=== PATIENT | female | born 1980 | race Caucasian/White ===

== ENCOUNTER 2018-08-16 18:08 | Inpatient (IN) ==
[2018-08-16] MEDS ORDERED: Piperacillin/Tazobactam 3.375 GM in 0.9 % Sodium Chloride Mini Bag 100 ML IVP ONE (18:40)
[2018-08-16] MEDS ORDERED: 0.9 % Sodium Chloride 1,000 ML IVC ONE (18:40)
--- NOTE | 2018-08-16 18:45 | Emergency Department Note ---
Disposition Clinical Impression: Diabetic infection of left foot Disposition: Admitted As Inpatient Condition: Good Forms: ED Satisfaction Letter Time of Disposition: 21:56 General Adult HPI - General Chief complaint: ED Wound/Laceration Stated complaint: Diabetic ulcer left foot Time Seen by Provider: 08/16/18 18:31 Source: patient Limitations: no limitations - History of Present Illness HPI Narrative: This is a 38-year-old female diabetic who comes in reporting 7 days of worsening pain and swelling at her left ankle, with a long standing ulcer at the left heel. She also has an ulcer at the distal plantar surface of the right great toe. She reports fever and chills. Pain Scale: 10 - Related Data Previous Rx's Medication Instructions Recorded Metformin HCl 500 mg PO DAILY #30 tablet 06/23/18 Allergies Allergy/AdvReac Type Severity Reaction Status Date / Time No Known Allergies Allergy Verified 08/16/18 18:17 All systems ED: reviewed and negative except as stated. Constitutional: Reports: fever, chills Musculoskeletal: Reports: arthralgia Integumentary: Reports: lesions Past Medical History - Past Medical History Medical history: Reports: diabetes, hypertension Psychiatric history: Reports: no psych history - Social History Smoking Status: Never smoker Smokeless Tobacco Status: No Alcohol use: Reports: none Drug use: Reports: none Physical Exam - General Limitations: no limitations General appearance: alert, in distress (In moderate distress with pain at the left ankle) - Head Head exam: atraumatic, normocephalic, normal inspection - Eye Eye exam: Present: normal appearance, PERRL, EOMI - Chest Chest inspection: Present: normal inspection, symmetric chest wall rise - Respiratory Respiratory exam: Present: normal lung sounds bilaterally - Cardiovascular Cardiovascular exam: Present: normal rhythm, tachycardia, normal heart sounds - Abdominal Exam Abdominal exam: Present: soft, Non-Tender. Absent: tenderness, distention, guarding, rebound, rigidity - Extremities Exam Extremities exam: Present: other (There is an ulcer at the distal aspect of the plantar surface of the right great toe with erythema extending 6 cm proximally up onto the foot. There is an ulcer at the left calcaneus, but most prominently there is an abscess overlying the medial aspect of the left ankle with the abscess measuring 5 cm x 3 cm.) - Neurological Exam Neurological exam: Present: alert, oriented X3 - Psychiatric Psychiatric exam: Present: normal affect, normal mood - Skin Skin exam: Present: warm, dry Course Course Narrative: This is a 38-year-old female with a diabetic foot infection and cellulitis and abscess and possible osteomyelitis Vital Signs Temperature 98.1 F 08/16/18 18:15 Pulse Rate 138 08/16/18 18:15 Respiratory Rate 16 08/16/18 18:15 Blood Pressure 186/104 08/16/18 18:15 O2 Sat by Pulse Oximetry 97 08/16/18 18:15 Temperature 98.1 F 08/16/18 18:15 Pulse Rate 138 08/16/18 18:15 Respiratory Rate 16 08/16/18 18:15 Blood Pressure 186/104 08/16/18 18:15 O2 Sat by Pulse Oximetry 97 08/16/18 18:15 Oxygen Delivery Oxygen Delivery Room Air Procedures - Abscess I/D Consent obtained: verbal consent Site: lower extremity Side (if applicable): left Local Anesthetic: lidocaine 2%, with epi Amount of Anesthesia Used (mL): 3 Technique: incised with #11 blade Amount of fluid: 0.5 Irrigation: No Packing used?: none Complications: pain Medical Decision Making - MDM Narrative Medical decision making narrative: This is a 38-year-old female with diabetic foot infection of the left foot, metabolic acidosis, slight hyperglycemia, and no evidence of osteomyelitis. Zosyn was given at the 4.5 mg dose appropriate for diabetic foot infection As noted, I attempted an incision and drainage of the abscess at the left ankle, but obtained no drainage whatsoever. I did obtained a wound culture from what limited fluid there was there and it was sent to the lab. I discussed her case with Dr. Naqvi, the on-call telephone interviewer, who will follow the patient. I discussed her case with the on-call hospitalist, who accepted her for admission - Lab Data Lab results reviewed: Yes I reviewed the patient's lab results. Lab results narrative: CBC shows leukocytosis at 14.8 BMP shows slight hyponatremia at 131, metabolic acidosis with a bicarbonate of 12, glucose of 345 Lactic acid was normal at 1.0 Result diagrams: 08/16/18 18:58 08/16/18 18:58 Lab Results 08/16/18 08/16/18 08/16/18 Range/Units 18:58 18:58 18:58 WBC 14.8 H (4.3-11.1) K/mcL RBC 4.73 (3.82-4.97) M/mcL Hgb 13.9 (11.5-15.4) g/dL Hct 41.1 (35.3-44.9) % MCV 86.9 (83.0-100.0) fL MCH 29.4 (28.0-33.3) pg MCHC 33.8 (31.6-35.5) g/dL RDW 12.6 (11.5-14.5) % Plt Count 364 (140-400) K/mcL MPV 10.8 (9.4-12.4) fL Immature Gran % 0.9 (0-4) % Seg Neutrophils % 85.7 % Lymphocytes % 4.5 % Monocytes % 8.3 % Eosinophils % 0.1 % Basophils % 0.5 % Neutrophils # 12.7 H (1.6-8.9) K/mcL Lymphocytes # 0.7 (0.6-4.6) K/mcL Monocytes # 1.2 (0.0-1.3) K/mcL Eosinophils # 0.0 (0.0-0.6) K/mcL Basophils # 0.1 (0.0-0.2) K/mcL Sodium 131 L (136-145) mEq/L Potassium 3.9 (3.5-5.1) mEq/L Chloride 99 (98-107) mEq/L Carbon Dioxide 12 L (23-29) mEq/L BUN 6 (6-20) mg/dL Creatinine 0.60 (0.60-1.20) mg/dL Est GFR ( Amer) > 60 (> 60) Est GFR (Non-Af Amer) > 60 (> 60) BUN/Creatinine Ratio 10 (6-26) Glucose 345 H (70-105) mg/dL Calculated Osmolality 283 (280-300) Lactic Acid 1.0 (0.5-2.2) mmol/L Calcium 9.6 (8.6-10.3) mg/dL - Radiology Data Radiology results reviewed: Yes I reviewed the patient's radiology results. MRI of the left ankle showed a complex fluid collection within the medial soft tissues of the ankle, no evidence of osteomyelitis Critical Care Time Critical Care Time: Yes Total Critical Care Time: 25 Attestation: 25 minutes of critical care time was invested independent of separately billable procedures
[2018-08-16 19:13] LABS: Basophils # 0.1 K/mcL (0.0-0.2); Basophils % 0.5 %; Eosinophils % 0.1 %; Hematocrit 41.1 % (35.3-44.9); Hemoglobin 13.9 g/dL (11.5-15.4); Immature Granulocytes % 0.9 % (0-4); Lymphocytes # 0.7 K/mcL (0.6-4.6); Lymphocytes % 4.5 %; Mean Corpuscular HGB Conc 33.8 g/dL (31.6-35.5); Mean Corpuscular Hemoglobin 29.4 pg (28.0-33.3); Mean Corpuscular Volume 86.9 fL (83.0-100.0); Mean Platelet Volume 10.8 fL (9.4-12.4); Monocytes # 1.2 K/mcL (0.0-1.3); Monocytes % 8.3 %; Neutrophils # 12.7 K/mcL (1.6-8.9); Platelet Count 364 K/mcL (140-400); Red Blood Count 4.73 M/mcL (3.82-4.97); Red Cell Distribution Width 12.6 % (11.5-14.5); Segmented Neutrophils % 85.7 %
[2018-08-16 19:33] LABS: BUN/Creatinine Ratio 10 (6-26); Blood Urea Nitrogen 6 mg/dL (6-20); Calcium 9.6 mg/dL (8.6-10.3); Carbon Dioxide 12 mEq/L (23-29); Chloride 99 mEq/L (98-107); Glucose 345 mg/dL (70-105); Osmolality,Calculated 283 (280-300); Potassium 3.9 mEq/L (3.5-5.1); Sodium 131 mEq/L (136-145); eGFR For Non-African Americans > 60 (> 60)
[2018-08-16] MEDS ORDERED: Lidocaine/EPI 1:100k 2% 20 ML VIAL INFILT ONE (20:05)
[2018-08-16] MEDS ORDERED: Insulin Human Regular 10 UNIT in 0.9 % Sodium Chloride 10 ML IV ONE (21:56)
[2018-08-16] MEDS ORDERED: D10% in Water 500 ML IV SOLUTION IVC ONE (21:57)
--- NOTE | 2018-08-16 22:27 | Internal Med History&Physical ---
Date of Encounter: 08/16/18 Time of Encounter: 08:00 Internal Medicine - H&P: HPI Chief complaint: FOOT ULCER History of present illness: This is a 38-year-old female with past medical history of diabetes mellitus that was not treated due to lack of insurance , patient just got Medicaid after she was from her , depend on foot stands nutrition and has not been treated for diabetes morning , she stated that she started developing an ulcer of her left foot early in the summer but she did not have the financial support or insurance to seek medical attention , she also was not treated for diabetes since her diagnosis and she was tryING control it with diet . She reported 7 days history of worsening pain and swelling at her left ankle, with a long standing ulcer at the left heel. She also has an ulcer at the distal plantar surface of the right great toe. She reports fever and chills. She was admitted for further evaluation and management Past Med Surg Social Fam HX - Past Medical History Medical history: diabetes, hypertension Psychiatric history: no psych history - Past Surgical History Additional surgical history: Laperoscopy - Social History Smoking Status: Never smoker Smokeless Tobacco Status: No Alcohol use: none Drug use: none Internal Medicine - H&P: Meds Ampicillin/Sulbactam [Unasyn] 3,000 mg IVPB Q6HR 21 Days #84 vial 08/28/18 [Rx] Metoclopramide [Reglan] 5 mg PO Q6HR PRN #100 mls 08/28/18 [Rx] Promethazine Syrup [Phenergan Syrup] 12.5 mg PO Q8HR PRN #300 mls 08/28/18 [Rx] RX: Carvedilol [Coreg] 50 mg PO BIDWM #60 tablet 08/28/18 [Rx] RX: Docusate [Colace] 100 mg PO BID PRN #30 capsule 08/28/18 [Rx] RX: Doxycycline 100 mg PO BID 21 Days #42 capsule 08/28/18 [Rx] RX: Escitalopram [Lexapro] 10 mg PO DAILY #30 tablet 08/28/18 [Rx] RX: Insulin NPH/REG 70/30 [HumuLIN 70/30 VIAL] 20 unit SQ BIDWM #6 vial 08/28/18 [Rx] RX: Lactobacillus [Culturelle] 2 each PO DAILY #60 cap.sprink 08/28/18 [Rx] RX: Omeprazole [PriLOSEC] 40 mg PO DAILY@0800 #60 capsule. 08/28/18 [Rx] RX: amLODIPine [Norvasc] 10 mg PO DAILY #60 tablet 08/28/18 [Rx] RX: hydrALAZINE [HydrALAZINE] 25 mg PO Q8HR #90 tablet 09/01/18 [Rx] 3 Allergy/AdvReac Type Severity Reaction Status Date / Time No Known Allergies Allergy Verified 08/16/18 18:17 All Systems PM: A 10-system review of systems was performed and is negative for pertinent findings except as documented above in the HPI. - Constitutional Constitutional: no chills, no fever(s), no night sweats - Cardiovascular Cardiovascular ROS IM: no chest pain, no diaphoresis, no dyspnea, no lightheadedness, no palpitations, no syncope - Respiratory Respiratory: no cough, no dyspnea, no wheezing, no excessive phlegm production - Gastrointestinal Gastrointestinal: no abdominal pain, no diarrhea, no hematemesis, no hematochezia, no melena, no nausea, no vomiting - Neurological Neurological ROS: no confusion, no convulsions, no focal weakness, no numbness, no tingling, no tremor(s) - Constitutional Vitals: Temp Pulse Resp BP Pulse Ox 98.1 F 138 16 186/104 97 08/16/18 18:15 08/16/18 18:15 08/16/18 18:15 08/16/18 18:15 08/16/18 18:15 Exam: Vital signs reviewed General: Alert and oriented, not in distress Cardiovascular:Normal S1 & S2 Lungs: clear to auscultation, no wheezes/rales Abdomen:Soft, non-tender, no rigidity. Extremities: R LE dressing dry and clean, L LE on VAC Neurological:Normal cognition and motor skills. Non-focal Internal Med - H&P Results - Labs CBC & Chem 7: 09/01/18 04:12 09/01/18 04:12 Labs: Short CBC 08/16/18 Range/Units 18:58 WBC 14.8 H (4.3-11.1) K/mcL Hgb 13.9 (11.5-15.4) g/dL Hct 41.1 (35.3-44.9) % Plt Count 364 (140-400) K/mcL Neutrophils # 12.7 H (1.6-8.9) K/mcL BMP 08/16/18 18:58 Sodium 131 L Potassium 3.9 Chloride 99 Carbon Dioxide 12 L BUN 6 Creatinine 0.60 Glucose 345 H Calcium 9.6 - Impressions ITS Impressions Ankle MRI 08/16/18 18:42 IMPRESSION: 1. Complex fluid collection centered within the medial soft tissues of the ankle measuring approximately 1.9 x 3.0 x 2.6 cm most compatible with abscess. There is also organized fluid which is deep to the medial bundle of the plantar fascia measuring approximately 2.2 x 3.3 x 1.1 cm. Findings also most compatible with abscess. There is ulceration of the plantar foot containing fluid which appears to involve the proximal attachment of the plantar fascia suggesting infectious involvement of the plantar fascia. These complex collections are likely all contiguous. 2. No evidence for osteomyelitis. 3. Tenosynovitis of the posterior tibialis and flexor digitorum longus tendons in and to a lesser extent the peroneus brevis tendon distally.. 4. Retrocalcaneal bursitis. 5. Small tibiotalar, subtalar, and talonavicular as well as calcaneocuboid joint effusions. D/ / Rodo Peng MD / Rodo Peng MD Interpreting Provider: Rodo Peng MD - Assessment and plan (1) Diabetic infection of left foot Status: Acute Assessment and plan: Podiatry consulted and they will see the patient this a.m., ER staff tried to perform incision and drainage, patient was started on antibiotic with vancomycin and Zosyn (2) Diabetes mellitus Status: Chronic Assessment and plan: We will start the patient and insulin sliding scale with moderate coverage, the patient has significant metabolic acidosis however the patient calculated anion gap is around 14, we will change fluids to bicarbonate drip Qualifiers: Diabetes mellitus type: type 2 Diabetes mellitus complication status: with unspecified complications Qualified Code(s): E11.8 - Type 2 diabetes mellitus with unspecified complications (3) Hypertension Status: Chronic Assessment and plan: The patient have history of hypertension however she is also not in any medical treatment, I will start the patient on lisinopril 5 mg daily giving history of diabetes mellitus. Qualifiers: Hypertension type: unspecified Qualified Code(s): I10 - Essential (primary) hypertension (4) DVT prophylaxis Status: Acute Assessment and plan: We will start the patient on heparin 5000 twice a day (5) Hyponatremia Status: Acute Assessment and plan: Most likely pseudohyponatremia due to hyperglycemia (6) Metabolic acidosis Status: Acute - Time Spent With Patient Total time spent is greater than 50% in coordination of care (as documented) at patient's floor/unit and/or counseling patient:
[2018-08-16] MEDS ORDERED: *HR* Dextrose 50 % in Water (Syg) 50 ML SYRINGE IVP PRN (22:50)
[2018-08-16] MEDS ORDERED: Dextrose Gel 15 GM/37.5 ML TUBE PO PRN ×2 (22:50)
[2018-08-16] MEDS ORDERED: Acetaminophen 325 MG TABLET PO PRN (22:50)
[2018-08-16] MEDS ORDERED: Naloxone 0.4 MG/ML INJ IVP PRN ×2 (22:50→22:56)
[2018-08-16] MEDS ORDERED: D5% in Water 1,000 ML IVC PRN (22:50)
[2018-08-16] MEDS ORDERED: 0.9 % Sodium Chloride 1,000 ML IVC SCH (23:00)
[2018-08-16] MEDS ORDERED: Vancomycin (wt based) 1,000 MG VIAL IVPB SCH (23:00)
[2018-08-17] MEDS: Ondansetron 4 MG/2 ML VIAL IVP ONE ×2 (00:38→00:42)
[2018-08-17] MEDS: Insulin LISPRO 300 UNITS/3 ML VIAL SQ SCH ×5 (00:55→17:28)
[2018-08-17 04:01] LABS: Hematocrit 34.4 % (35.3-44.9); Mean Corpuscular HGB Conc 33.4 g/dL (31.6-35.5); Mean Corpuscular Hemoglobin 29.2 pg (28.0-33.3); Mean Corpuscular Volume 87.3 fL (83.0-100.0); Mean Platelet Volume 10.9 fL (9.4-12.4); Platelet Count 321 K/mcL (140-400); Red Blood Count 3.94 M/mcL (3.82-4.97); Red Cell Distribution Width 12.8 % (11.5-14.5)
[2018-08-17 04:03] LABS: Hemoglobin 11.5 g/dL (11.5-15.4)
[2018-08-17 04:04] LABS: INR 1.3
[2018-08-17 04:07] LABS: Activated Partial Thrombo Time 31.7 Seconds (26.0-36.0)
[2018-08-17 04:18] LABS: Alanine Aminotransferase 7 Units/L (7-52); Albumin 3.3 g/dL (3.5-5.7); Alkaline Phosphatase 78 Units/L (34-104); Aspartate Amino Transferase 8 Units/L (13-39); BUN/Creatinine Ratio 15 (6-26); Bilirubin,Total 0.8 mg/dL (0.3-1.0); Blood Urea Nitrogen 9 mg/dL (6-20); Calcium 8.6 mg/dL (8.6-10.3); Carbon Dioxide 11 mEq/L (23-29); Chloride 106 mEq/L (98-107); Chol/HDL Ratio 3.7 (0-4.9); Cholesterol 99 mg/dL (< 200); Globulin 3.3 g/dL (2.4-3.5); Glucose 326 mg/dL (70-105); HDL Cholesterol 27 mg/dL (40-59); LDL Cholesterol,Calculated 55 mg/dL (0-99); Magnesium 1.6 mg/dL (1.6-2.6); Osmolality,Calculated 283 (280-300); Phosphorous 2.6 mg/dL (2.7-4.5); Potassium 3.6 mEq/L (3.5-5.1); Sodium 131 mEq/L (136-145); Total Protein 6.6 g/dL (6.4-8.9); Triglycerides 87 mg/dL (< 150); eGFR For Non-African Americans > 60 (> 60)
[2018-08-17] MEDS: Piperacillin/Tazobactam 3.375 GM in 0.9 % Sodium Chloride Mini Bag 100 ML IVPB SCH ×3 (05:16→20:57)
[2018-08-17] MEDS ORDERED: Ketorolac 15 MG/ML VIAL IVP ONE (05:57)
[2018-08-17] MEDS ORDERED: Sodium Bicarbonate 75 MEQ in 0.45 % Sodium Chloride 1,000 ML IVC SCH (07:15)
[2018-08-17 08:17] LABS: VBG HCO3 14 mEq/L (21-27); VBG PCO2 29 mmHg (41-51); VBG PH 7.28 pH Units (7.32-7.42); VBG PO2 55 mmHg (25-50)
[2018-08-17 08:38] LABS: ABG Base Excess -10 mEq/L (-2 to 3); ABG HCO3 14 mEq/L (21-27); ABG Oxygen Saturation 96 % (95-98); ABG PCO2 24 mmHg (35-45); ABG PH 7.38 pH Units (7.32-7.45); ABG PO2 79 mmHg (85-104); ABG TCO2 15 mEq/L (20-26)
[2018-08-17] MEDS: Ondansetron 4 MG/2 ML VIAL IVP PRN (10:12)
[2018-08-17] MEDS ORDERED: *HR* Morphine 2 MG/ML SYRINGE IVP PRN (10:56)
[2018-08-17 10:59] LABS: Estimated Average Glucose 229 mg/dl; Hemoglobin A1C 9.6 %
[2018-08-17 11:03] LABS: C-Reactive Protein 186 mg/L (Less than 10)
[2018-08-17] MEDS: *HR* HYDROcodone/Acet 5/325 mg TABLET PO PRN ×3 (11:19→23:54)
[2018-08-17] MEDS ORDERED: Insulin LISPRO 300 UNITS/3 ML VIAL SQ SCH (11:30)
--- NOTE | 2018-08-17 13:02 | Podiatry Consult Note ---
Date of Encounter: 08/17/18 Time of Encounter: 12:00 Assessment and Plan (1) Diabetic infection of right foot Current visit: Yes Status: Acute Assessment: Erythema and edema noted to right hallux, extending to MTPJ. Foot warm to touch Skin peeling near medial aspect of right hallux. Hyperkeratosis noted to plantar aspect of right hallux, purulent drainage noted Measures 1 x 1 cm ESR 92, CRP 186 WBC 14.6 HGB A1C 9.6 BC pending 3/4 DP/PT CFT <3 seconds. Plan: Wound cultures ordered of right hallux Continue IV ATB- recommend ID consult ABIs ordered. Xray ordered of right foot. MRI ordered to evaluate abscess. Recommend tight glycemic control to help with wound healing- primary managing. (2) Diabetic infection of left foot Current visit: Yes Status: Acute Assessment: Left foot with erythema and edema noted. Wound to left medial malleolus 4.6 x 4 x 0.3 cm Foul odor noted, purulent drainage noted, undermining noted 360 degrees around wound bed Appears to have been a bullae that was lanced Ecchymosis noted to the proximal and medial aspect of wound Ulcer to left calcaneous 1.5 x 1 x 0.3 cm Foul odor noted, no drainage noted, does not probe to bone Wound cultures pending Blood cultures pending WBC 14.5 MRI of ankle showed fluid collection and ulceration Plan: Xray ordered ABIs ordered Local wound care Cover with adaptic, 4x4 dry gauze, and kerlex Possible surgical intervention once testing completed History of Present Illness HPI: Ms. Bran is a 38 year old female who presented to the ER last evening with complaints of worsening ankle edema, chronic ulcer to left calcaneous, and right hallux. Patient reports that she was diagnosed with DM 10 years ago and for the last 5 years she has not had any insurance. Reports 2 months ago her left her and since that time she was able to obtain insurance. Patient has PMH of DM, neuropathy, and HTN. Denies smoking, ETOH, or illicit drug use. Patient states she began to notice ulcer forming to right great toe and left heel in February. States she was able to care for them at home and cleaned them with alcohol daily. States d/t her neuropathy she had no pain and believed that they were stable wounds. States 1 week ago on Tuesday she began to notice her ankle and heel with edema around. She then noticed seeping of her left ankle. She reports her ankle became discolored and it became difficult to move her ankle. She states that she began to feel pain up her leg and at that time came to the ER for evaluation. o Again, Ms. Bran is a 38 year old female who was consulted to podiatry for ulcer of left calcaneous, lanced bullae with purulent to left distal malleolus, and pre-ulcerative callus to right hallux. Patient denies any chest pain, shortness of breath, or calf pain. Denies any fevers, chills, nausea, vomiting, or diarrhea. Denies any known history of vascular disease or disorder. Past Med Surg Social Fam HX - Past Medical History Medical history: diabetes, hypertension Psychiatric history: no psych history - Past Surgical History Additional surgical history: Laperoscopy - Social History Smoking Status: Never smoker Smokeless Tobacco Status: No Alcohol use: none Drug use: none Medications and Allergies No Known Home Drugs 08/17/18 [History] Allergy/AdvReac Type Severity Reaction Status Date / Time No Known Allergies Allergy Verified 08/16/18 18:17 All Systems Reviewed: The remainder of the systems were reviewed and are negative - Constitutional Constitutional: no fever(s) - Cardiovascular Cardiovascular: edema, leg edema, pedal edema, no chest pain, no dyspnea, no leg ulcers - Respiratory Respiratory: no cough, no dyspnea - Musculoskeletal Musculoskeletal: numbness Physical Exam - Constitutional Vitals: Temp Pulse Resp BP Pulse Ox 98.9 F 106 14 156/78 99 08/17/18 11:03 08/17/18 11:03 08/17/18 11:03 08/17/18 11:03 08/17/18 11:03 Exam: Constitiutional: Alert and oriented x 3. Vascular: 3/4 DP/PT bilaterally, CFT <3 sec to all digits BLE, warm to warm from tibia to toes bilaterally, no calf pain with squeeze BLE Neurologic: Diminished sensation to touch BLE, normal plantar response, abnormal position sense dorsiflexion/plantar flexion BLE Dermatologic: left medial calcaneous with lacerated bullae noted, Eccyhmosis and edema surrounding bullae. Undermining noted 360 degree to bullae, skin under noted to be dark/purple in color. Purulent drainage noted. Calcaneous with ulcer noted, extends into fat pad. Right hallux with pre-ulcerative callus noted. Purulent drainage noted. Musculoskeletal: 4/5 muscle strength and normal tone bilaterally. Results - Labs Result Diagrams: 08/17/18 03:35 08/17/18 14:21 Labs: Abnormal lab results WBC 14.5 K/mcL (4.3-11.1) H 08/17/18 03:35 Hct 34.4 % (35.3-44.9) L 08/17/18 03:35 Neutrophils # 12.7 K/mcL (1.6-8.9) H 08/16/18 18:58 ESR 92 mm/hr (0-15) H 08/17/18 03:35 PT 15.0 Seconds (9.4-12.1) H 08/17/18 03:35 ABG pCO2 24 mmHg (35-45) L 08/17/18 08:33 ABG pO2 79 mmHg (85-104) L 08/17/18 08:33 ABG HCO3 14 mEq/L (21-27) L 08/17/18 08:33 ABG Total CO2 15 mEq/L (20-26) L 08/17/18 08:33 ABG Base Excess -10 mEq/L (-2 to 3) L 08/17/18 08:33 VBG pH 7.28 pH Units (7.32-7.42) L 08/17/18 08:15 VBG pCO2 29 mmHg (41-51) L 08/17/18 08:15 VBG pO2 55 mmHg (25-50) H 08/17/18 08:15 VBG HCO3 14 mEq/L (21-27) L 08/17/18 08:15 Sodium 131 mEq/L (136-145) L 08/17/18 03:35 Carbon Dioxide 11 mEq/L (23-29) L 08/17/18 03:35 Glucose 326 mg/dL (70-105) H 08/17/18 03:35 POC Glucose 291 mg/dL (70-99) H 08/17/18 11:01 Hemoglobin A1c 9.6 % (-5.6) H 08/17/18 03:35 Phosphorus 2.6 mg/dL (2.7-4.5) L 08/17/18 03:35 AST 8 Units/L (13-39) L 08/17/18 03:35 C-Reactive Protein 186 mg/L (Less than 10) H 08/17/18 03:35 Albumin 3.3 g/dL (3.5-5.7) L 08/17/18 03:35 Albumin/Globulin Ratio 1.0 (1.1-2.2) L 08/17/18 03:35 HDL Cholesterol 27 mg/dL (40-59) L 08/17/18 03:35 H & H 08/16/18 08/17/18 Range/Units 18:58 03:35 Hgb 13.9 11.5 D (11.5-15.4) g/dL Hct 41.1 34.4 L (35.3-44.9) % All other labs normal. - Diagnostic results Ankle/Foot x-ray: report reviewed Ankle/Foot MRI: pending, report reviewed Consult Discharge Plan - Plan Referrals: NONE,PCP [Primary Care Provider] -
--- NOTE | 2018-08-17 14:07 | Internal Med Progress Note ---
Hospitalist Progress Note - Encounter Date of Encounter: 08/17/18 Time of Encounter: 14:04 - Subjective Interval History: I have seen and evaluated the patient at bedside. patient reports pain b/l in both lower extremities. denies chest pain or shortness of breath. denies nausea or vomiting. fever/chills. - Exam Vitals: Temp Pulse Resp BP Pulse Ox 98.9 F 106 14 156/78 99 08/17/18 11:03 08/17/18 11:03 08/17/18 11:03 08/17/18 11:03 08/17/18 11:03 Exam: Vitals: Reviewed General: Alert and oriented x4. In mild distress due to pain in the lower extr. Skin: Normal color, no rash, no lesions. HEENT: EOM, pupils equal, round and reactive. Cardiovascular: RRR, Normal S1 & S2, no rubs, murmurs or gallops. Lungs: CTA b/l, no wheezes or crackles. Abdomen: Soft, non-tender, no rigidity. Extremities: lower extr warmth to touch b/l. Skin peeling near medial aspect of right hallux. Hyperkeratosis noted to plantar aspect of right hallux, purulent drainage noted. Erythema and edema noted to right hallux, extending to MTPJ. Left foot with erythema and edema noted. Wound to left medial malleolus 4.6 x 4 x 0.3 cm Foul odor noted, purulent drainage noted Neurological:Normal cognition and motor skills. Rest of the physical exam is non contributory - Assessment and Plan (1) Cellulitis Current Visit: Yes Status: Acute Assessment and Plan: cellulitis of the lower extr b/l associated with diabetic foot ulcers, left heel ulcer and right big toe ulcer. possible abscess on the left ankle. MR/MR ankle LT wo con IMPRESSION: 1. Complex fluid collection centered within the medial soft tissues of the ankle measuring approximately 1.9 x 3.0 x 2.6 cm most compatible with abscess. There is also organized fluid which is deep to the medial bundle of the plantar fascia measuring approximately 2.2 x 3.3 x 1.1 cm. Findings also most compatible with abscess. No evidence of Osteomyelitis Plan patient on broad spectrum IV antibiotics with MRSA and pseudomonal coverage on vancomycin per pharmacy protocol and piperacillin/tazobactam 3.375mg/IV Q8HRs legal arbitrator consulted, recommendations appreciated. on norco 5-325mg/PO Q6HR PRN for pain control. wound care consult. will consider ID consult pending clinical evolution. (2) Diabetic infection of left foot Current Visit: Yes Status: Acute Assessment and Plan: plan of care as above. (3) Diabetes mellitus Current Visit: Yes Status: Chronic Assessment and Plan: Patient reports that she was diagnosed with diabetes about 10 years ago and was on medications for about 5 years. but lost follow up because she did not have health insurance. patient started on levemir 10 units bid, plus lispro 5 units ac, and lispro low dose sliding scale. carb controlled diet. patient with hirsutism, possible polycystic ovaria syndrome. abd us ordered, will order LH/FHS, plus androgen levels. (4) Hypertension Current Visit: Yes Status: Chronic Assessment and Plan: patient started on lisinopril 5mg/PO daily. will continue to monitor and adjust accordingly. (5) Hyponatremia Current Visit: Yes Status: Acute Assessment and Plan: possible secondary to hyperglycemia. patient started on insulin for glucose control (6) Metabolic acidosis Current Visit: Yes Status: Acute Assessment and Plan: possible due to sepsis form cellulitis. patient on IV fluid with bicarbonate on. abg will repeat bmp. DVT Prophylaxis: started on heparin 5000 units subq q8hrs. - Summary of Assessment and Plan Summary of Assessment and Plan: patient admitted to the hospital due to diabetic foot ulcer. on broad spectrum iv antibiotics. - Time Spent with Patient Total time spent is greater than 50% in coordination of care (as documented) at patient's floor/unit and/or counseling patient: Greater than 35 minutes (40) Plan of Care Discussed with: patient (and the nurse.) Internal Medicine: Result - Labs CBC & Chem 7: 08/17/18 03:35 08/17/18 03:35 Labs: Short CBC 08/16/18 08/17/18 Range/Units 18:58 03:35 WBC 14.8 H 14.5 H (4.3-11.1) K/mcL Hgb 13.9 11.5 D (11.5-15.4) g/dL Hct 41.1 34.4 L (35.3-44.9) % Plt Count 364 321 (140-400) K/mcL Neutrophils # 12.7 H (1.6-8.9) K/mcL BMP 08/16/18 08/17/18 18:58 03:35 Sodium 131 L 131 L Potassium 3.9 3.6 Chloride 99 106 Carbon Dioxide 12 L 11 L BUN 6 9 Creatinine 0.60 0.62 Glucose 345 H 326 H Calcium 9.6 8.6 Liver Function 08/17/18 Range/Units 03:35 Total Bilirubin 0.8 (0.3-1.0) mg/dL AST 8 L (13-39) Units/L ALT 7 (7-52) Units/L Alkaline Phosphatase 78 (34-104) Units/L Albumin 3.3 L (3.5-5.7) g/dL - ABG Interpretation ABG results: ABG ABG pH 7.38 pH Units (7.32-7.45) 08/17/18 08:33 ABG pCO2 24 mmHg (35-45) L 08/17/18 08:33 ABG pO2 79 mmHg (85-104) L 08/17/18 08:33 ABG O2 Saturation 96 % (95-98) 08/17/18 08:33 PT/INR, D-dimer PT 15.0 Seconds (9.4-12.1) H 08/17/18 03:35 - Impressions Impressions Ankle MRI 08/16/18 18:42 IMPRESSION: 1. Complex fluid collection centered within the medial soft tissues of the ankle measuring approximately 1.9 x 3.0 x 2.6 cm most compatible with abscess. There is also organized fluid which is deep to the medial bundle of the plantar fascia measuring approximately 2.2 x 3.3 x 1.1 cm. Findings also most compatible with abscess. There is ulceration of the plantar foot containing fluid which appears to involve the proximal attachment of the plantar fascia suggesting infectious involvement of the plantar fascia. These complex collections are likely all contiguous. 2. No evidence for osteomyelitis. 3. Tenosynovitis of the posterior tibialis and flexor digitorum longus tendons in and to a lesser extent the peroneus brevis tendon distally.. 4. Retrocalcaneal bursitis. 5. Small tibiotalar, subtalar, and talonavicular as well as calcaneocuboid joint effusions. D/ / Rodo Peng MD / Rodo Peng MD Interpreting Provider: Rodo Peng MD Consult Discharge Plan - Plan Referrals: NONE,PCP [Primary Care Provider] - (1) Cellulitis Qualifiers: Site of cellulitis: extremity Site of cellulitis of extremity: lower extremity Laterality: unspecified laterality Qualified Code(s): L03.119 - Cellulitis of unspecified part of limb (3) Diabetes mellitus Qualifiers: Diabetes mellitus type: type 2 Diabetes mellitus complication status: with unspecified complications (4) Hypertension Qualifiers: Hypertension type: unspecified Qualified Code(s): I10 - Essential (primary) hypertension
[2018-08-17 15:02] LABS: BUN/Creatinine Ratio 15 (6-26); Blood Urea Nitrogen 11 mg/dL (6-20); Calcium 8.4 mg/dL (8.6-10.3); Carbon Dioxide 17 mEq/L (23-29); Chloride 106 mEq/L (98-107); Glucose 352 mg/dL (70-105); Osmolality,Calculated 285 (280-300); Potassium 3.6 mEq/L (3.5-5.1); Sodium 131 mEq/L (136-145); eGFR For Non-African Americans > 60 (> 60)
[2018-08-17] MEDS: Sodium Bicarbonate 75 MEQ in 0.45 % Sodium Chloride 1,000 ML IVC SCH (15:08)
[2018-08-17] MEDS ORDERED: Gadolinium Contrast Agent (WT Based) IV PRN (17:24)
[2018-08-17] MEDS: *HR* Heparin 5,000 UNIT/ML VIAL SQ SCH (20:53)
[2018-08-17] MEDS: Insulin DETEMIR 100 UNIT/ML X5UNITS SQ SCH (20:53)
[2018-08-17] MEDS ORDERED: Insulin DETEMIR 100 UNIT/ML X5UNITS SQ SCH (21:00)
[2018-08-18] MEDS: Ondansetron 4 MG/2 ML VIAL IVP PRN ×2 (03:37→23:02)
[2018-08-18] MEDS: Sodium Bicarbonate 75 MEQ in 0.45 % Sodium Chloride 1,000 ML IVC SCH ×3 (05:01→20:57)
[2018-08-18] MEDS: Piperacillin/Tazobactam 3.375 GM in 0.9 % Sodium Chloride Mini Bag 100 ML IVPB SCH ×3 (05:02→23:03)
[2018-08-18] MEDS: *HR* Heparin 5,000 UNIT/ML VIAL SQ SCH ×2 (05:03→13:17)
[2018-08-18 06:13] LABS: Basophils # 0.1 K/mcL (0.0-0.2); Basophils % 0.5 %; Eosinophils # 0.1 K/mcL (0.0-0.6); Eosinophils % 1.1 %; Hematocrit 31.3 % (35.3-44.9); Hemoglobin 10.4 g/dL (11.5-15.4); Lymphocytes # 1.1 K/mcL (0.6-4.6); Lymphocytes % 11.7 %; Mean Corpuscular HGB Conc 33.2 g/dL (31.6-35.5); Mean Corpuscular Hemoglobin 28.8 pg (28.0-33.3); Mean Corpuscular Volume 86.7 fL (83.0-100.0); Mean Platelet Volume 10.9 fL (9.4-12.4); Neutrophils # 6.8 K/mcL (1.6-8.9); Platelet Count 273 K/mcL (140-400); Red Blood Count 3.61 M/mcL (3.82-4.97); Red Cell Distribution Width 13.1 % (11.5-14.5); Segmented Neutrophils % 74.7 %
[2018-08-18 06:34] LABS: BUN/Creatinine Ratio 24 (6-26); Blood Urea Nitrogen 10 mg/dL (6-20); Calcium 8.4 mg/dL (8.6-10.3); Carbon Dioxide 17 mEq/L (23-29); Chloride 107 mEq/L (98-107); Glucose 275 mg/dL (70-105); Magnesium 1.7 mg/dL (1.6-2.6); Osmolality,Calculated 285 (280-300); Phosphorous 2.7 mg/dL (2.7-4.5); Potassium 3.6 mEq/L (3.5-5.1); Sodium 133 mEq/L (136-145); eGFR For Non-African Americans > 60 (> 60)
[2018-08-18 07:15] LABS: Follicle Stimulating Hormone 2.46 mIU/mL; Luteinizing Hormone 2.71 mIU/mL
[2018-08-18] MEDS: *HR* HYDROcodone/Acet 5/325 mg TABLET PO PRN ×4 (08:56→23:02)
[2018-08-18] MEDS: Insulin LISPRO 300 UNITS/3 ML VIAL SQ SCH ×6 (09:01→17:38)
[2018-08-18] MEDS: Insulin DETEMIR 100 UNIT/ML X5UNITS SQ SCH ×2 (09:02→20:58)
--- NOTE | 2018-08-18 10:12 | Internal Med Progress Note ---
Hospitalist Progress Note - Encounter Date of Encounter: 08/18/18 Time of Encounter: 10:08 - Subjective Interval History: Pt reports having fevers at night, then feeling fatigue and weak in the morning. Pt reporting intense foot pain. Will change [place] from Q 6 hours to Q 4 hours. She denies CP or SO. She denies diarrhea. - Exam Vitals: Temp Pulse Resp BP Pulse Ox 99.8 F H 96 15 153/83 97 08/18/18 06:37 08/18/18 06:37 08/18/18 06:37 08/18/18 06:37 08/18/18 06:37 Exam: Physical Exam - General Limitations: no limitations General appearance: alert, in distress (In moderate distress with pain at the left ankle) - Head Head exam: atraumatic, normocephalic, normal inspection - Eye Eye exam: Present: normal appearance, PERRL, EOMI - Chest Chest inspection: Present: normal inspection, symmetric chest wall rise - Respiratory Respiratory exam: Present: normal lung sounds bilaterally - Cardiovascular Cardiovascular exam: Present: normal rhythm, tachycardia, normal heart sounds - Abdominal Exam Abdominal exam: Present: soft, Non-Tender. Absent: tenderness, distention, guarding, rebound, rigidity - Extremities Exam Extremities exam: Present: other (There is an ulcer at the distal aspect of the plantar surface of the right great toe with erythema extending 6 cm proximally up onto the foot. There is an ulcer at the left calcaneus, but most prominently there is an abscess overlying the medial aspect of the left ankle with the abscess measuring 5 cm x 3 cm.) - Neurological Exam Neurological exam: Present: alert, oriented X3 - Psychiatric Psychiatric exam: Present: normal affect, normal mood - Skin Skin exam: Present: warm, dry - Assessment and Plan (1) Cellulitis Current Visit: Yes Status: Acute Assessment and Plan: On Vancomycin and Zosyn. Wound culture ordered and pending. Podiatry on board. Will consult ID to see. MRI foot MR/MR foot RT wo/w con IMPRESSION: 1. Soft tissue ulceration along the plantar aspect of the great toe with associated soft tissue edema and postcontrast enhancement consistent with cellulitis. No organized drainable fluid collection identified. 2. No evidence for osteomyelitis. 3. Mild osteoarthritis of the 1st MTP joint with small nonspecific 1st MTP joint effusion. (2) Diabetic infection of left foot Current Visit: Yes Status: Acute Assessment and Plan: plan of care as above. (3) Diabetes mellitus Current Visit: Yes Status: Chronic Assessment and Plan: Patient reports that she was diagnosed with diabetes about 10 years ago and was on medications for about 5 years but was lost to follow up because she did not have health insurance. Patient started on levemir 10 units bid, plus lispro 5 units ac, and lispro low dose sliding scale. Carb controlled diet. Patient with hirsutism, possible polycystic ovaria syndrome. Abdominal us ordered, will order LH/FHS, plus androgen levels. (4) Hypertension Current Visit: Yes Status: Chronic Assessment and Plan: Patient started on lisinopril 5mg/PO daily. Will continue to monitor and adjust accordingly. (5) Hyponatremia Current Visit: Yes Status: Acute Assessment and Plan: Possibly secondary to hyperglycemia. patient started on insulin for glucose control and on fluids. NA up from 131 to 133. Will recheck in am. (6) Metabolic acidosis Current Visit: Yes Status: Acute Assessment and Plan: Possibly due to sepsis from cellulitis. patient on IV fluid with bicarbonate on. Repeat HCO3 17 up from 12. Rechecking bmp in am. DVT Prophylaxis: started on heparin 5000 units subq q8hrs. - Summary of Assessment and Plan Summary of Assessment and Plan: History of present illness: Dr. Acuña This is a 38-year-old female with past medical history of diabetes mellitus that was not treated due to lack of insurance , patient just got Medicaid after she was from her , depend on foot stands nutrition and has not been treated for diabetes morning , she stated that she started developing an ulcer of her left foot early in the summer but she did not have the financial support or insurance to seek medical attention , she also was not treated for diabetes since her diagnosis and she was tryING control it with diet . She reported 7 days history of worsening pain and swelling at her left ankle, with a long standing ulcer at the left heel. She also has an ulcer at the distal plantar surface of the right great toe. She reports fever and chills. She was admitted for further evaluation and management - Time Spent with Patient Total time spent is greater than 50% in coordination of care (as documented) at patient's floor/unit and/or counseling patient: less than 15 minutes Plan of Care Discussed with: patient Internal Medicine: Result - Labs CBC & Chem 7: 08/18/18 04:54 08/18/18 04:54 Labs: Short CBC 08/18/18 Range/Units 04:54 WBC 9.1 (4.3-11.1) K/mcL Hgb 10.4 L (11.5-15.4) g/dL Hct 31.3 L (35.3-44.9) % Plt Count 273 (140-400) K/mcL Neutrophils # 6.8 (1.6-8.9) K/mcL BMP 08/17/18 08/17/18 08/18/18 03:35 14:21 04:54 Sodium 131 L 131 L 133 L Potassium 3.6 3.6 3.6 Chloride 106 106 107 Carbon Dioxide 11 L 17 L 17 L BUN 9 11 10 Creatinine 0.62 0.75 0.42 L Glucose 326 H 352 H 275 H Calcium 8.6 8.4 L 8.4 L Liver Function 08/17/18 Range/Units 03:35 Total Bilirubin 0.8 (0.3-1.0) mg/dL AST 8 L (13-39) Units/L ALT 7 (7-52) Units/L Alkaline Phosphatase 78 (34-104) Units/L Albumin 3.3 L (3.5-5.7) g/dL - ABG Interpretation ABG results: ABG ABG pH 7.38 pH Units (7.32-7.45) 08/17/18 08:33 ABG pCO2 24 mmHg (35-45) L 08/17/18 08:33 ABG pO2 79 mmHg (85-104) L 08/17/18 08:33 ABG O2 Saturation 96 % (95-98) 08/17/18 08:33 PT/INR, D-dimer PT 15.0 Seconds (9.4-12.1) H 08/17/18 03:35 - Impressions Impressions Foot X-Ray 08/17/18 13:14 IMPRESSION: Redemonstration of soft tissue ulceration along the plantar aspect of the left heel with no plain film evidence of osteomyelitis. Stable soft tissue ulceration involving the plantar aspect of the right great toe with no plain film evidence of osteomyelitis. D/ / Bryan Fitch MD / Bryan Fitch MD Interpreting Provider: Bryan Fitch MD Foot X-Ray 08/17/18 13:14 IMPRESSION: Redemonstration of soft tissue ulceration along the plantar aspect of the left heel with no plain film evidence of osteomyelitis. Stable soft tissue ulceration involving the plantar aspect of the right great toe with no plain film evidence of osteomyelitis. D/ / Bryan Fitch MD / Bryan Fitch MD Interpreting Provider: Bryan Fitch MD Pelvis Ultrasound 08/17/18 14:04 IMPRESSION: Unremarkable uterus. No convincing sonographic evidence of pelvis cystic ovarian disease. Normal Doppler flow within the ovaries. D/ / Andrew Del Angel MD / Andrew Del Angel MD Interpreting Provider: Andrew Del Angel MD Foot MRI 08/17/18 17:24 IMPRESSION: 1. Soft tissue ulceration along the plantar aspect of the great toe with associated soft tissue edema and postcontrast enhancement consistent with cellulitis. No organized drainable fluid collection identified. 2. No evidence for osteomyelitis. 3. Mild osteoarthritis of the 1st MTP joint with small nonspecific 1st MTP joint effusion. D/ / Rodo Peng MD / Rodo Peng MD Interpreting Provider: Rodo Pneg MD Consult Discharge Plan - Plan Referrals: NONE,PCP [Primary Care Provider] - (1) Cellulitis Qualifiers: Site of cellulitis: extremity Site of cellulitis of extremity: lower extremity Laterality: unspecified laterality Qualified Code(s): L03.119 - Cellulitis of unspecified part of limb (3) Diabetes mellitus Qualifiers: Diabetes mellitus type: type 2 Diabetes mellitus complication status: with unspecified complications (4) Hypertension Qualifiers: Hypertension type: unspecified Qualified Code(s): I10 - Essential (primary) hypertension
--- NOTE | 2018-08-18 11:01 | Infectious Disease Consult ---
Date of Encounter: 08/18/18 Time of Encounter: 10:51 Assessment and Plan (1) Sepsis Status: Acute Assessment and plan: The patient had 3 sepsis criteria. Likely secondary to bilateral foot infections. Improved. White blood cell count has normalized. Tachycardia has improved. She was febrile overnight with a MAXIMUM TEMPERATURE of 101.9. Blood cultures drawn 08/16/18 are no growth to date 2 sets. Recommendations: Await wound cultures. Await blood cultures to finalize. Podiatry consulted. Await recommendations. The patient would likely benefit from surgical debridement of the left ankle abscesses for source control in order to maximize antibiotic penetration. Continue Vancomycin IV. Pharmacy to dose. Goal trough ~15. Continue Zosyn 3.375 grams IV Q8H. Duration of treatment depends on the clinical pictures. Monitor renal function and for drug toxicity and dose-adjust antibiotics. Strict glucose control. Pain management per the primary team. Wound care and activity per the Podiatry team. director of residential services to assist with discharge planning. Qualifiers: Sepsis type: sepsis due to unspecified organism Qualified Code(s): A41.9 - Sepsis, unspecified organism (2) Foot abscess, left Status: Acute Assessment and plan: MRI of the left ankle showed multiple abscesses and likely infectious involvement of the plantar fascia. No osteomyelitis noted. Likely secondary to chronic left foot ulcer. ESR 92, CRP 186. Podiatry consulted and following. Await further recommendations. Currently on Vanc and Zosyn. (3) Diabetic infection of left foot Status: Acute Assessment and plan: Location: Left foot/ankle. Causative organism: Unclear. Likely secondary to chronic non-healing diabetic ulcer. Wound culture collected in the ED is pending. Podiatry consulted and following. Currently on IV Vancomycin and Zosyn. (4) Diabetic infection of right foot Status: Acute Assessment and plan: Location: Right foot, great toe and dorsal foot. Causative organism: Unclear. Likely secondary to chronic non-healing ulcer. Wound culture obtained by the Podiatry team and is pending. Podiatry consulted and pending. Currently on IV Vancomycin and Zosyn. (5) Diabetic foot ulcers Status: Acute Assessment and plan: Right foot: Right great toe. Left Foot: Left calcaneus. Etiology: Unclear. Patient denies known trauma, ill-fitting shoes, etc. Onset Wound care per the Podiatry team. Qualifiers: Diabetic foot ulcer location: other Diabetes mellitus type: type 2 Laterality: unspecified laterality Non-pressure ulcer stage: unspecified non- pressure ulcer stage Qualified Code(s): E11.621 - Type 2 diabetes mellitus with foot ulcer; L97.509 - Non-pressure chronic ulcer of other part of unspecified foot with unspecified severity (6) Diabetes mellitus Status: Chronic Assessment and plan: Uncontrolled. HgbA1C 9.6. Strict glucose control. Qualifiers: Diabetes mellitus type: type 2 Diabetes mellitus complication status: with unspecified complications Qualified Code(s): E11.8 - Type 2 diabetes mellitus with unspecified complications (7) Hypertension Status: Chronic Qualifiers: Hypertension type: unspecified Qualified Code(s): I10 - Essential (primary) hypertension Infectious Disease HPI - Data of Consult Patient: new to practice Consult date: 08/18/18 Requesting Physician: Candido Fontenot MD Primary Care Provider: PCP NONE - Consult Narrative Reason for consult: Left foot infection History of present illness: Ms. Bran is a 38 year old female past medical history of diabetes and hypertension. She was admitted to the hospital 08/16/18 for left foot infection. WE are consulted 08/18/18 for antibiotic recommendations for left foot infection. Briefly, the patient is a 38 year old female with a past medical history as stated above. The patient presented to the ER on the day of admission with a 7 day history of worsening pain and swelling in the left ankle. She reports onset of diabetic foot ulcers to the left heel and right great toe of unkknown etiology in February for which she did not seek treatment due to lack of insurance. Upon arrival to the ER, she had tachycardia and hypertension and leukocytosis with neutrophilic predominance. Lactic acid and renal function were normal. She had a left ankle MRI that showed the followin. Complex fluid collection centered within the medial soft tissues of theankle measuring approximately 1.9 x 3.0 x 2.6 cm most compatible with abscess. There is also organized fluid which is deep to the medial bundle of the plantar fascia measuring approximately 2.2 x 3.3 x 1.1 cm. Findings also most compatible with abscess. There is ulceration of the plantar foot containing fluid which appears to involve the proximal attachment of the plantar fascia suggesting infectious involvement of the plantar fascia. These complex collections are likely all contiguous. 2. No evidence for osteomyelitis. 3. Tenosynovitis of the posterior tibialis and flexor digitorum longus tendons in and to a lesser extent the peroneus brevis tendon distally.. 4. Retrocalcaneal bursitis. 5. Small tibiotalar, subtalar, and talonavicular as well as calcaneocuboid joint effusions. the ER physician attempted a bedside incision and drainage of what appeared to be an abscess, but no fluid was drained. Wound and blood culture were obtained. He was started on Zosyn and admitted to the hospital for further evaluation. Since admission, the patient has had fevers and tachycardia. WBC has normalized. Blood cultures are no growth. Podiatry was consulted who ordered an MRI of the foot that showed findings consistent with cellulitis and a non-specific joint effusion of the 1st MTP joint, but no abscess or osteomyelitis. ABIs showed mild disease in the LLE. TCPO2 monitoring is pending results. Foot x-ray was negative for OM. Currently, the patient is on Vanc and Zosyn. We've been asked to evaluate and make further recommendations. During my exam today, the patient states that for the past week and a half she has not felt very good. She reports subjective fevers with chills and rigors at home. She denies any headache or neck pain. Denies any chest pain, shortness of breath, or cough. Reports chronic nausea, but denies any vomiting or diarrhea or constipation. She denies abdominal pain or urinary complaints. She has reported 25-30 pound weight loss over the past 6 months due to stress in her life. She complains of severe pain in the left foot and ankle as well as the right foot. She denies any known trauma that would have caused the ulcerations. She was diagnosed with diabetes 10 years ago, but has been off any medications for the past 5 years due to lack of insurance. She states she has been trying to control her blood sugars with diet, but she has not had a glucometer and has not been able to check her blood sugars at home. The patient lives at home alone. She does have 2 dogs, but denies any bites or scratches. She denies any tobacco, alcohol, or illicit drug use. She does not work outside the home currently. She denies a chronic infectious diseases. She has not traveled outside the [facility]. She denies any prolonged exposure to water. CC: Candido Fontenot MD Past Med Surg Social Fam HX - Past Medical History Attestation: Yes The following information was validated with the patient. Source: patient, old records reviewed, nursing notes reviewed Medical history: diabetes, hypertension Psychiatric history: no psych history - Past Surgical History Surgical History: other Additional surgical history: Laparoscopy - Social History Smoking Status: Never smoker Smokeless Tobacco Status: No Alcohol use: none Drug use: none Occupational status: unemployed Current living situation: Home - Independent Activity Level: Independent ambulation Recent Out of Country Travel Within the Last 8 Weeks: No Exposure or Possible Exposure to Illness During Travel: No Infectious Disease-CN:Meds RX: No Known Home Drugs 08/17/18 [History] Allergy/AdvReac Type Severity Reaction Status Date / Time No Known Allergies Allergy Verified 08/16/18 18:17 All systems: reviewed and no additional remarkable complaints except as stated Exam - Constitutional Vitals: Temp Pulse Resp BP Pulse Ox 98.1 F 90 15 134/78 96 08/18/18 10:18 08/18/18 10:18 08/18/18 10:18 08/18/18 10:18 08/18/18 10:18 General appearance: average body habitus, cooperative, no acute distress - Head Head exam: Present: atraumatic, normal inspection, normocephalic - Eye Eye exam: Present: EOMI, normal appearance, PERRL Pupils: Present: normal accommodation - ENT ENT exam: Present: mucous membranes moist - Neck Neck exam: Present: normal inspection - Respiratory Respiratory exam: Present: CTAB. Absent: rales, respiratory distress, rhonchi, wheezes - Cardiovascular Cardiovascular exam: Present: +S1, +S2, tachycardia. Absent: irregular rhythm - GI/Abdominal GI/Abdominal exam: Present: normal bowel sounds, soft. Absent: distended, tenderness - Extremities Exam Extremities exam: Absent: normal inspection (3+ edema with ecchymosis/erythema noted to the left ankle. Maceration noted to the medial aspect of the left ankle with serous drainage noted. No lymphangitis noted. Tenderness noted with palpation. Diabetic ulcer noted to the left calcaneus without significant drainage. Erythema noted to the right great toe and dorsal aspect of the right foot. Diabetic ulcer noted to the plantar aspect of the right great toe with maceration of the skin noted. Noted discharge, fluctuance, or tenderness noted.) - Neurological Exam Neurological exam: Present: alert, oriented X3, no focal deficits - Psychiatric Psychiatric exam: Present: normal affect, normal mood - Skin Skin exam: Present: dry, intact, normal color, warm Infectious Disease CN: Results - Labs CBC & Chem 7: 08/18/18 04:54 08/18/18 04:54 Cultures: Cultures 08/16/18 18:58 Blood Culture - Preliminary Peripheral Venipuncture Culture is incubating and being continuously monitored for growth. Final report to follow. 08/16/18 18:57 Blood Culture - Preliminary Peripheral Venipuncture Culture is incubating and being continuously monitored for growth. Final report to follow. Consult Discharge Plan - Plan Referrals: NONE,PCP [Primary Care Provider] - - Attending Attestation I examined this patient and my medical decision-making was reviewed with the Resident Physician. I agree with the documented findings, disposition and t reatment plan as described except to the extent set forth below. This is an addendum to original report dictated by Nevin Gaspar CNP. Please further discussions not for full detail. Patient is an unfortunate 2-year-old woman who has been diagnosed with diabetes for over 10 years and for the last 5 years has not been on any medication because she lost her insurance. Patient states that she has had the wound on the dorsal aspect of the right great toe for quite some time right now but the wound on the left ankle started about a week prior to admission. Workup revealed that the patient had multiple abscesses left lower extremity with no osteomyelitis and no septic arthritis. Cultures were obtained and patient was started on empiric vancomycin and Zosyn. Patient's hemoglobin A1c was 9.6. Assessment and plan: Diabetic foot ulcer right great toe with no osteomyelitis Left foot abscess causative organism not clear Continue vancomycin and Zosyn for now Patient needs to be set up with primary care doctor and have adequate glucose control and monitor kidney function closely. Duration of treatment depends on the clinical picture but we will likely do a few days worth of IV antibiotics and maybe followed by oral depending on the culture results.
--- NOTE | 2018-08-18 16:23 | Podiatry Progress Note ---
Date of Encounter: 08/18/18 Time of Encounter: 12:45 - Assessment and Plan (1) Diabetic infection of right foot Current Visit: Yes Status: Acute Assessment: Erythema and edema noted to right hallux, extending to MTPJ. Erythema marked Foot warm to touch Skin peeling near medial aspect of right hallux. Hyperkeratosis noted to plantar aspect of right hallux, no drainage noted Measures 1 x 1 x 2.5 cm ESR 92, CRP 186 WBC 9.1 HGB A1C 9.6 BC pending Wound culture pending 3/4 DP/PT CFT <3 seconds. ID consulted for ATB management MRI negative for abscess/OM RICARDO Right- 0.96, Left- 0.81 PVR normal right and left TCPO2 right DP- 38, PT 31, L DP 23, PT 11 Plan: NPO after MN Surgery tomorrow for debridement and possible right hallux amputation Recommend vascular consult for new diminshed ABIs/TCPO2- appreciate recommendations Recommend tight glycemic control to help with wound healing- primary managing. (2) Diabetic infection of left foot Current Visit: Yes Status: Acute Assessment: Left foot with erythema and edema noted. Wound to left medial malleolus 4.6 x 4 x 0.3 cm Foul odor noted, purulent drainage noted, undermining noted 360 degrees around wound bed Ecchymosis noted to the proximal and medial aspect of wound Ulcer to left calcaneous 1.5 x 1 x 0.3 cm Foul odor noted, no drainage noted, does not probe to bone Wound cultures pending Blood cultures pending WBC 14.5 MRI of ankle showed fluid collection and ulceration RICARDO Right- 0.96, Left- 0.81 PVR normal right and left TCPO2 right DP- 38, PT 31, L DP 23, PT 11 Plan: Cover with adaptic, 4x4 dry gauze, and kerlex NPO after MN Deroofed bullae with tissue nippers. Wound bed pink in color, hypertrophic tissue noted. Plan for surgical debridement tomorrow. Consult social worker delinquency prevention for home care after surgery Subjective Interval history: Patient sitting in bed. State her left foot seems more edematous today. Reports having no feeling to bilateral feet but reports has feeling above malleolus. Reports pain. Discussed surgery tomorrow for debridement of ulcers and possible amputation or right hallux. Patient verbalized understanding and is agreeable with surgery at this time. Denies any fevers, chills, nausea, vomiting, or diarrhea. Denies calf pain, chest pain, or shortness of breath. No other questions or concerns at this time. Objective - Vital Signs Vital Signs: Vital Signs Temp Pulse Resp BP Pulse Ox 08/18/18 14:50 98.9 F 95 15 129/72 98 08/18/18 10:18 98.1 F 90 15 134/78 96 08/18/18 06:37 99.8 F H 96 15 153/83 97 08/18/18 03:30 99.3 F 97 16 145/80 97 08/17/18 23:45 101.9 F H 110 18 161/82 98 08/17/18 20:53 98 08/17/18 20:20 98.2 F 100 14 138/75 98 Intake and Output 08/18/18 08/18/18 08/18/18 07:59 15:59 23:59 Intake Total 350 / 350 1240 / 1240 Output Total 700 / 700 0 / 0 Balance -350 / -350 1240 / 1240 Intake: IV Fluids 350 / 350 100 / 100 Zosyn 3.375 GM In 0.9 % Sodium 100 / 100 100 / 100 Chloride (Mini-Bag +) 100 ML @ 25 mls/hr IVPB Q8H [facility] Rx#: [id number] Vancocin 1,000 MG In 0.9 % 250 / 250 Sodium Chloride 250 ML @ 166. 667 mls/hr IVPB Q12H [facility] Rx#: [id number] Oral 0 / 0 1140 / 1140 Output: Urine 700 / 700 0 / 0 Other: Meal Lunch Percent of Meal Consumed 100% # Bowel Movements 0 0 Weight 89 kg Blood Glucose* 278 263 Patient Weight 08/18/18 23:59 Weight 89 kg - Exam Exam: Constitiutional: Alert and oriented x 3. Vascular: 3/4 DP/PT bilaterally, CFT <3 sec to all digits BLE, warm to warm from tibia to toes bilaterally, no calf pain with squeeze BLE Neurologic: Diminished sensation to touch BLE, normal plantar response, abnormal position sense dorsiflexion/plantar flexion BLE Dermatologic: left medial calcaneous with lacerated bullae noted, Eccyhmosis and edema surrounding bullae. Undermining noted 360 degree to bullae, skin under noted to be dark/purple in color. Purulent drainage noted. Calcaneous with ulcer noted, extends into fat pad. Right hallux with ulceration, extends 2.5 cm, does not probe to bone. Musculoskeletal: 4/5 muscle strength and normal tone bilaterally. - Lab Result Diagrams: 08/18/18 04:54 08/18/18 04:54 Labs: Abnormal lab results RBC 3.61 M/mcL (3.82-4.97) L 08/18/18 04:54 Hgb 10.4 g/dL (11.5-15.4) L 08/18/18 04:54 Hct 31.3 % (35.3-44.9) L 08/18/18 04:54 ESR 92 mm/hr (0-15) H 08/17/18 03:35 PT 15.0 Seconds (9.4-12.1) H 08/17/18 03:35 ABG pCO2 24 mmHg (35-45) L 08/17/18 08:33 ABG pO2 79 mmHg (85-104) L 08/17/18 08:33 ABG HCO3 14 mEq/L (21-27) L 08/17/18 08:33 ABG Total CO2 15 mEq/L (20-26) L 08/17/18 08:33 ABG Base Excess -10 mEq/L (-2 to 3) L 08/17/18 08:33 VBG pH 7.28 pH Units (7.32-7.42) L 08/17/18 08:15 VBG pCO2 29 mmHg (41-51) L 08/17/18 08:15 VBG pO2 55 mmHg (25-50) H 08/17/18 08:15 VBG HCO3 14 mEq/L (21-27) L 08/17/18 08:15 Sodium 133 mEq/L (136-145) L 08/18/18 04:54 Carbon Dioxide 17 mEq/L (23-29) L 08/18/18 04:54 Creatinine 0.42 mg/dL (0.60-1.20) L 08/18/18 04:54 Glucose 275 mg/dL (70-105) H 08/18/18 04:54 POC Glucose 265 mg/dL (70-99) H 08/18/18 11:15 Hemoglobin A1c 9.6 % (-5.6) H 08/17/18 03:35 Calcium 8.4 mg/dL (8.6-10.3) L 08/18/18 04:54 AST 8 Units/L (13-39) L 08/17/18 03:35 C-Reactive Protein 186 mg/L (Less than 10) H 08/17/18 03:35 Albumin 3.3 g/dL (3.5-5.7) L 08/17/18 03:35 Albumin/Globulin Ratio 1.0 (1.1-2.2) L 08/17/18 03:35 HDL Cholesterol 27 mg/dL (40-59) L 08/17/18 03:35 Total Testosterone 127 ng/dL (15-70) H 08/18/18 04:54 Microbiology, Last 48 Hours 08/16/18 18:58 Blood Culture - Preliminary Peripheral Venipuncture Culture is incubating and being continuously monitored for growth. Final report to follow. 08/16/18 18:57 Blood Culture - Preliminary Peripheral Venipuncture Culture is incubating and being continuously monitored for growth. Final report to follow. Consult Discharge Plan - Plan Referrals: NONE,PCP [Primary Care Provider] -
--- NOTE | 2018-08-18 16:44 | Procedure Note ---
Date of procedure: 08/18/18 Pre-op diagnosis: left medial calcaneous bullae Post-op diagnosis: same Procedure: Deroofed bullae with pickups and tissue knippers. Painted with betadine. Covered with adaptic, 4x4 dry gauze, and kerlex. Was there an culture media laboratory assistant present: No Estimated blood loss (cc): 0 Specimen: 0 Condition: stable Disposition: no change
--- NOTE | 2018-08-18 16:47 | Procedure Note ---
Date of procedure: 08/18/18 Pre-op diagnosis: Callus of right hallux Post-op diagnosis: same Procedure: Callus lesion 1, right hallux, sharp cutting performed with a #15 scalpel blade to alleviate pressure Was there an assistant case manager present: No Estimated blood loss (cc): 0 Specimen: 0 Condition: stable Disposition: no change
[2018-08-18] MEDS: *HR* Morphine 2 MG/ML SYRINGE IVP PRN (20:19)
--- NOTE | 2018-08-18 20:30 | Anesthesia Evaluation PreOp ---
Addendum entered and electronically signed by Leni Soto MD 08/19/18 14:04: Pulm: + Snoring. +KEY. Not formally diagnosed and Pt does not have/use CPAP PSHx: + Dx Laparoscopy as teenager. NO adverse Anesthesia related events. Vital Signs Temp Pulse Resp BP Pulse Ox 08/19/18 10:34 98.2 F 85 15 159/91 94 08/19/18 06:56 98.2 F 89 16 175/105 94 08/19/18 05:37 98.3 F 91 15 181/99 96 08/18/18 23:28 99.7 F H 105 15 179/95 95 08/18/18 19:18 98.7 F 102 16 182/89 96 08/18/18 14:50 98.9 F 95 15 129/72 98 Intake and Output Laboratory Results Laboratory Tests 08/18/18 08/19/18 08/19/18 04:54 05:39 12:30 Sodium 133 L Potassium 3.5 Chloride 103 Carbon Dioxide 23 BUN 18 Creatinine 1.41 H Est GFR (Non-Af Amer) 41 L Glucose 379 H Calcium 8.6 Phosphorus 2.7 Magnesium 1.7 Urine Test Negative Impressions Ankle MRI 08/16/18 18:42 IMPRESSION: 1. Complex fluid collection centered within the medial soft tissues of the ankle measuring approximately 1.9 x 3.0 x 2.6 cm most compatible with abscess. There is also organized fluid which is deep to the medial bundle of the plantar fascia measuring approximately 2.2 x 3.3 x 1.1 cm. Findings also most compatible with abscess. There is ulceration of the plantar foot containing fluid which appears to involve the proximal attachment of the plantar fascia suggesting infectious involvement of the plantar fascia. These complex collections are likely all contiguous. 2. No evidence for osteomyelitis. 3. Tenosynovitis of the posterior tibialis and flexor digitorum longus tendons in and to a lesser extent the peroneus brevis tendon distally.. 4. Retrocalcaneal bursitis. 5. Small tibiotalar, subtalar, and talonavicular as well as calcaneocuboid joint effusions. D/ / Rodo Peng MD / Rodo Peng MD Interpreting Provider: Rodo Peng MD Foot X-Ray 08/17/18 13:14 IMPRESSION: Redemonstration of soft tissue ulceration along the plantar aspect of the left heel with no plain film evidence of osteomyelitis. Stable soft tissue ulceration involving the plantar aspect of the right great toe with no plain film evidence of osteomyelitis. D/ / Bryan Fitch MD / Bryan Fitch MD Interpreting Provider: Bryan Fitch MD Foot MRI 08/17/18 17:24 IMPRESSION: 1. Soft tissue ulceration along the plantar aspect of the great toe with associated soft tissue edema and postcontrast enhancement consistent with cellulitis. No organized drainable fluid collection identified. 2. No evidence for osteomyelitis. 3. Mild osteoarthritis of the 1st MTP joint with small nonspecific 1st MTP joint effusion. D/ / Rodo Peng MD / Rodo Peng MD Interpreting Provider: Rodo Peng MD Patient Weight 08/19/18 23:59 Weight 89.4 kg Original Note: Date of Encounter: 08/18/18 Time of Encounter: 20:10 - Past History Planned Operation: Bilateral Feet Incision Drainage Cardiac History: HTN, Hyperlipidemia Pulmonary History: Denies Any Significant HX DIGITAL SERVICE ENGINEER History: Denies Any Significant HX Other Medical History: Diabetes Type II Anesthesia History: No Prior Anesthetic Complications : No Test: Negative Alcohol Use: none Drug use: none Medications and Allergies No Known Home Drugs 08/17/18 [History] Allergy/AdvReac Type Severity Reaction Status Date / Time No Known Allergies Allergy Verified 08/16/18 18:17 - Meds/Allergy Pre-op Review Medications Reviewed: Yes Allergies Reviewed: Yes Beta Blockers on Current Med List: No Anesthesia Results - Labs 08/18/18 04:54 08/18/18 04:54 - Imaging EKG: report reviewed (Sinus Tach) Anesthesia Exam O2 Sat Weight 89 kg Weight 89 kg O2 Sat by Pulse Oximetry 96 O2 Sat by Pulse Oximetry 98 O2 Sat by Pulse Oximetry 96 O2 Sat by Pulse Oximetry 97 O2 Sat by Pulse Oximetry 97 O2 Sat by Pulse Oximetry 98 O2 Sat by Pulse Oximetry 98 Vital Signs Temp Pulse Resp BP Pulse Ox 98.1 F 138 16 186/104 97 08/16/18 18:15 08/16/18 18:15 08/16/18 18:15 08/16/18 18:15 08/16/18 18:15 Height: 5'10 Weight: 196 lbs NPO (# of Hours): MN Pain Scale: 0 - HEENT Pupil (Motor): Pupils equal, EOMI Mallampati: II Teeth: Normal Oral Opening: Greater than 3 - DIGITAL SERVICE ENGINEER LOC: Oriented DIGITAL SERVICE ENGINEER Motor: Normal RUE, Normal LUE, Normal RLE, Normal LLE, Normal Face DIGITAL SERVICE ENGINEER Sensory: Normal: RUE, LUE, Face, Deficit: RLE (neuropathy), LLE (neuropathy) - Cardiac Rhythm: Regular Murmur: None JVD: No Carotid Bruit: No - Pulmonary Breath Sounds: bilateral Clear Respiratory Effort: Symmetrical Anesthesia Assess/Plan ASA Score: 3 (HTN Poorly Controlled DM) Level of consciousness: Cooperative Anesthetic Plan: General Autologous Blood: No Monitoring Plan: Standard Monitors Recovery Plan: PACU (Discussed MAC versus GA, patient prefers GA, agrees to proceed)
[2018-08-19] MEDS: *HR* Morphine 2 MG/ML SYRINGE IVP PRN ×2 (02:42→09:43)
[2018-08-19] MEDS: Ondansetron 4 MG/2 ML VIAL IVP PRN (06:01)
[2018-08-19] MEDS: *HR* HYDROcodone/Acet 5/325 mg TABLET PO PRN ×2 (06:02→21:44)
[2018-08-19] MEDS: Piperacillin/Tazobactam 3.375 GM in 0.9 % Sodium Chloride Mini Bag 100 ML IVPB SCH ×3 (06:27→21:45)
[2018-08-19 06:41] LABS: Calcium 8.6 mg/dL (8.6-10.3); Potassium 3.5 mEq/L (3.5-5.1)
[2018-08-19] MEDS: Insulin LISPRO 300 UNITS/3 ML VIAL SQ SCH ×6 (07:29→17:39)
[2018-08-19] MEDS: Insulin DETEMIR 100 UNIT/ML X5UNITS SQ SCH ×2 (07:59→21:45)
[2018-08-19] MEDS: Sodium Bicarbonate 75 MEQ in 0.45 % Sodium Chloride 1,000 ML IVC SCH (09:34)
--- NOTE | 2018-08-19 10:34 | Internal Med Progress Note ---
Hospitalist Progress Note - Encounter Date of Encounter: 08/19/18 Time of Encounter: 10:32 - Subjective Interval History: Seen and examined at bedside. Patient is new to me, information obtained from chart review and patient report. Says she is feeling well this morning. No pain at time of my exam. She is nothing by mouth awaiting surgery. States that she has been feeling more depressed with social issues and now with new medical issues and requesting antidepressant. - Exam Vitals: Temp Pulse Resp BP Pulse Ox 98.2 F 89 16 175/105 94 08/19/18 06:56 08/19/18 06:56 08/19/18 06:56 08/19/18 06:56 08/19/18 06:56 Exam: Physical Exam - General Limitations: no limitations General appearance: alert, in distress (In moderate distress with pain at the left ankle) - Head Head exam: atraumatic, normocephalic, normal inspection - Eye Eye exam: Present: normal appearance, PERRL, EOMI - Chest Chest inspection: Present: normal inspection, symmetric chest wall rise - Respiratory Respiratory exam: Present: normal lung sounds bilaterally - Cardiovascular Cardiovascular exam: Present: normal rhythm, tachycardia, normal heart sounds - Abdominal Exam Abdominal exam: Present: soft, Non-Tender. Absent: tenderness, distention, guarding, rebound, rigidity - Extremities Exam Extremities exam: Bilateral lower extremity wounds not assessed. Dressing's clean, dry and intact. - Neurological Exam Neurological exam: Present: alert, oriented X3 - Psychiatric Psychiatric exam: Present: normal affect, normal mood - Skin Skin exam: Present: warm, dry - Assessment and Plan (1) Foot abscess, left Current Visit: Yes Status: Acute Assessment and Plan: Presented with chronic, nonhealing wound to left foot. MRI showed multiple abscesses and likely infectious involvement of the plantar fascia, no osteomyelitis. Continue IV Vanco and Zosyn. Podiatry planning surgical intervention on 08/19/18 (2) Diabetic infection of left foot Current Visit: Yes Status: Acute Assessment and Plan: plan of care as above. (3) Diabetes mellitus Current Visit: Yes Status: Chronic Assessment and Plan: per hx. Uncontrolled; Hgb A1c 9.6%. Has not been treated in many years as patient has not had health insurance. lost to follow up because she did not have health insurance. Levemir 10 units bid, plus lispro 5 units ac, and SSI to this hospitalization. Monitor blood sugars. (4) Hypertension Current Visit: Yes Status: Chronic Assessment and Plan: new diagnosis. Initially started on lisinopril however this was stopped secondary to GARETT. Her amlodipine. Monitor blood pressure and titrate PRN (5) Hyponatremia Current Visit: Yes Status: Acute Assessment and Plan: Possibly secondary to hyperglycemia. patient started on insulin for glucose control and on fluids. NA up from 131 to 133. Monitor (6) GARETT (acute kidney injury) Current Visit: Yes Status: Acute Assessment and Plan: Creat 1.4; baseline normal. Possibly secondary to SAMIRA. Stop lisinopril. Change IV fluids to 0.9. Monitor repeat renal function. (7) Metabolic acidosis Current Visit: Yes Status: Acute Assessment and Plan: Possibly due to sepsis from cellulitis. Initially treated with bicarbonate. Now resolved (8) Depression Current Visit: Yes Status: Acute Assessment and Plan: Multifactorial with increased home stressors and multiple new medical issues. Nicole mccoy reports history of depression when she was a teenager and was treated with Zoloft at that time. Requesting low-dose antidepressant. Start Lexapro. (9) Sepsis Current Visit: Yes Status: Acute Assessment and Plan: secondary to bilateral foot infections. Now resolved. Blood cultures drawn 08/16/18 are no growth to date 2 sets. DVT Prophylaxis: heparin - Time Spent with Patient Total time spent is greater than 50% in coordination of care (as documented) at patient's floor/unit and/or counseling patient: 25 - 35 minutes Internal Medicine: Result - Labs CBC & Chem 7: 08/18/18 04:54 08/19/18 05:39 Labs: BMP 08/19/18 05:39 Sodium 133 L Potassium 3.5 Chloride 103 Carbon Dioxide 23 BUN 18 Creatinine 1.41 H Glucose 379 H Calcium 8.6 - ABG Interpretation ABG results: ABG ABG pH 7.38 pH Units (7.32-7.45) 08/17/18 08:33 ABG pCO2 24 mmHg (35-45) L 08/17/18 08:33 ABG pO2 79 mmHg (85-104) L 08/17/18 08:33 ABG O2 Saturation 96 % (95-98) 08/17/18 08:33 PT/INR, D-dimer PT 15.0 Seconds (9.4-12.1) H 08/17/18 03:35 Consult Discharge Plan - Plan Referrals: NONE,PCP [Primary Care Provider] - (3) Diabetes mellitus Qualifiers: Diabetes mellitus type: type 2 Diabetes mellitus complication status: with unspecified complications Qualified Code(s): E11.8 - Type 2 diabetes mellitus with unspecified complications (4) Hypertension Qualifiers: Hypertension type: unspecified Qualified Code(s): I10 - Essential (primary) hypertension (9) Sepsis Qualifiers: Sepsis type: sepsis due to unspecified organism Qualified Code(s): A41.9 - Sepsis, unspecified organism
[2018-08-19] MEDS ORDERED: 0.9 % Sodium Chloride 1,000 ML IVC SCH (10:45)
[2018-08-19] MEDS ORDERED: *HR* Propofol 200 MG/20 ML VIAL IVP ONE (12:54)
[2018-08-19] MEDS ORDERED: *HR* FentaNYL (PF) 100 MCG/2 ML VIAL ONE ×2 (12:55→14:14)
[2018-08-19] MEDS ORDERED: *HR* Midazolam HCl 2 MG/2 ML VIAL ONE (12:56)
[2018-08-19] MEDS ORDERED: Ringers Solution, Lactated 1,000 ML ONE (12:59)
[2018-08-19] MEDS ORDERED: Dexamethasone 4 MG/ML VIAL ONE (13:03)
[2018-08-19] MEDS ORDERED: Ondansetron 4 MG/2 ML VIAL ONE (13:03)
[2018-08-19] MEDS ORDERED: Lidocaine -MPF 2% 2 ML VIAL ONE (13:03)
[2018-08-19] MEDS ORDERED: Metoclopramide 10 MG/2 ML VIAL ONE (13:18)
[2018-08-19] MEDS ORDERED: ROPIVACAINE HCL/PF 0.5% 30 ML VIAL ONE (13:18)
[2018-08-19] MEDS ORDERED: Scopolamine Patch 1.5 MG PATCH.TD72 ONE (13:18)
[2018-08-19] MEDS ORDERED: Bupivacaine/Clonidine Syringe 1 EACH SYRINGE ONE (13:19)
[2018-08-19] MEDS ORDERED: Famotidine 20 MG/2 ML VIAL ONE (13:19)
[2018-08-19] MEDS ORDERED: Acetaminophen IV 1,000 MG/100 ML INFUS..BTL ONE (13:19)
[2018-08-19] MEDS ORDERED: *HR* Succinylcholine 200 MG/10 ML VIAL IVP ONE (14:06)
[2018-08-19] MEDS ORDERED: Lidocaine -MPF 4% 5 ML AMPUL ONE (14:06)
[2018-08-19] MEDS ORDERED: Lacri-Lube 3.5 GM TUBE ONE (14:08)
[2018-08-19] MEDS ORDERED: Bupivacaine/EPI 1:200k 0.25%PF 30 ML VIAL ONE (14:20)
[2018-08-19] MEDS ORDERED: Lidocaine 1% 20 ML MDV ONE (14:20)
--- NOTE | 2018-08-19 14:27 | Anesthesia Procedures ---
Date of Encounter: 08/19/18 Time of Encounter: 13:38 Procedures: Anesthesia - Nerve Block Procedure Date: 08/19/18 Time: 13:38 Allergies/Adv Reactions: nka Surgical Procedure: Left Ankle I/D Checklist: Correct Patient Identifier, Correct procedure, History checked Correct side: Left Blood Thinner: No Monitor Applied: EKG, BP, Pulse Oximetry Supplemental Oxygen via Nasal Cannula (L/min): 2 Sedation: Versed (mg): 2 Sedation: Fentanyl (mcg): 100 Indication: Post Op Analgesia (per dr. Naqvi) Pre-op Neuro Deficits: No Block Type: Femoral, Popliteal, Other (saphenous field block) Catheter placed: No Sterile Technique: Yes Ultrasound used: Yes Anatomy identified: Yes Visual spread of Local: Yes Neuro Stimulation: Yes Nerve Stimulator Range: 0.2 - 0.4 mA Blood on Needle Aspiration: No Smooth Injection of Local: Yes Pain with Injection of Local: No Prep: Chlorhexadine Needle: 22 x 50 mm Stimuplex (femoral), 21 x 100 mm Stimuplex (popliteal) Local: 0.25% Bupivicaine w/Clonidine 20 mcg/cc (10cc for saph field), Ropivacaine (30cc with 8mg decadron for fem and pop) Volume (cc): 30, 30, 10 Number of Attempts: 1 Complications: None/effective block Vitals: Vital Signs/O2 Sat/Glucose, Most Recent Temp Pulse Resp BP Pulse Ox 98.2 F 85 15 159/91 94 08/19/18 10:34 08/19/18 10:34 08/19/18 10:34 08/19/18 10:34 08/19/18 10:34 Blood Glucose* 281 Comments: [facility]
[2018-08-19] MEDS ORDERED: *HR* PHENYLEPHRINE 1,000 MCG/10 ML SYRINGE IVP ONE (15:07)
--- NOTE | 2018-08-19 15:38 | Orthopedic Operative Note ---
Date of procedure: 08/19/18 Pre-op diagnosis: left foot and ankle abscess, right 1st toe abscess Post-op diagnosis: same Procedure: 08/19/18 15:36 1. Incision and drainage left foot and ankle abscess to deep fascia, multiple planes 2. Incision and drainage right 1st toe abscess to deep fascia. Implants: None Complications: None Anesthesia: GETA, regional, local Local Anesthetics: 0.5% Sensorcaine HCL SubQ (cc), 1% Lidocaine HCL SubQ (cc) Surgeon: Ayden Naqvi Was there an career services assistant present: No Estimated blood loss (cc): 10 Tourniquet Time (Minutes): 0 Specimen: soft tissue to micro and pathology Condition: stable Disposition: floor Procedure in Detail: INDICATIONS AND CONSENT Renetta Bran is a 38 year old female with uncontrolled type II diabetes who initially presented with bilateral lower extremity wound infections first noticed last summer. She did not have insurance and was unable to medically treat her diabetes and the wounds. She had criteria for sepsis on admission, with cellulitis to the bilateral lower extremity wounds. MRI of the left foot and ankle showed evidence of abscess at the medial ankle and plantar foot soft tissue with likely communicating tracts between the sites. MRI of the right foot showed evidence of soft tissue abscess at the plantar hallux wound. Neither MRI showed evidence of osteomyelitis. Given the clinical presentation and MRI findings, surgical intervention was warranted for infection source control. The patient elected to proceed with bilateral lower extremity incision and drainage with debridement of all non-viable soft tissue. We discussed the above procedures in detail. This included a discussion on the indications, contraindications, and possible complications including but not limited to: infection, non-healing wound, wound vac, custodial antibiotics, pain, bleeding, blood clots, heart complications, nerve injury, vascular injury, loss of limb, loss of life, and need for further surgery. We also reviewed the expected post operative course, including a discussion on the non-weightbearing status after this procedure. She related understanding of our discussion regarding this surgery. All questions were answered to her satisfaction, and a proper written informed consent was obtained, signed, and placed in the chart. No guarantees were given, stated or implied, as to the outcome of this procedure. PROCEDURE IN DETAIL The patient was seen in the pre-operative holding area by Anesthesia, where she was consented for General Anesthesia with regional popliteal fossa, femoral, and saphenous nerve block on the left, and local block on the right. The regional nerve blocks were performed under ultrasound guidance by Anesthesia in the pre- operative holding area. The patient was then brought back to the operative suite and placed on the operating room table in the supine position. A sign-in was performed. General anesthesia was then initiated per Anesthesia protocol. A well-padded pneumatic bilateral ankle tourniquet was then placed but neither were used during the procedure. Next, the bilateral lower leg was scrubbed, prepped, and draped in the usual aseptic manner. A total of 10mL of 1% lidocaine plain and 10mL of 0.5% marcaine plain was injected to the right 1st ray in a Alejo block distribution. A 15 blade was then used to excise the plantar hallux ulcer and surgical debride any non-viable soft tissue and abscess to the level of the flexor hallucis longus tendon. The tendon appeared viable and healthy. Post debridement wound measurement was 3cm x 1cm. There was minimal bleeding noted during the procedure on the right 1st toe. The wound was irrigated with 3L of normal saline using cysto tubing. A 2-0 Nylon retention suture was placed to loosely re-approximate the wound, with plans to return to OR for delayed primary closure procedure at a later date. Soft tissue cultures were sent for aerobe, anaerobe, acid fast, and fungal, as well as a pathology specimen. Attention was directed to the left medial ankle and plantar heel wound. A rongeur and 15 blade were used to surgically excise all non-viable soft tissue and abscess at both sites. The plantar heel surgical wound was extended to the level of plantar fascia and plantar musculature where there was noted purulent drainage. This extended proximally to the level of the medial ankle wound which had tunneling distally along the posterior tibial tendon and flexor digitorum longus tendons within the flexor retinaculum. There was also tunneling dorsally across the ankle with purulence. All non-viable soft tissue was excised. There was significant soft tissue defect at the medial ankle after debridement was complete. The neurovascular bundle appeared to be intact with only minimal sanguinous drainage from the venous structures. The wounds were irrigated with 3L of normal saline with cysto tubing. Post debridement wound measurements were 2.5cm x 2.5cm x 3cm at the plantar heel wound, and 6cm x 4cm x 2cm at the medial ankle. Both wounds were packed and dressed with betadine soaked kerlix, ABD, and SAMIRA wraps. Soft tissue wound purulence cultures were sent for aerobe, anaerobe, acid fast, and fungal, as well as a pathology specimen. A sign-out was performed. The patient tolerated anesthesia and the procedure well, and was transferred to PAC-U with vital signs stable and vascular status intact to the bilateral lower extremity. Needle and sponge counts were correct X 2 at the end of the case. Dr. Ayden Naqvi was present, scrubbed, and participated in all vital aspects of the procedure. After a brief stay in PAC-U, the patient will be admitted back to the floor for continued monitoring and IV antibiotics. We will continue to monitor for soft tissue viability. Patient will likely require delayed primary closure of the right 1st toe wound, and repeat incision and drainage of the left lower extremity wounds. There is concern for limb loss given the extent of soft tissue involvement and vascular compromise. We will continue to follow and update with plans daily. 08/20/18 06:37 08/20/18 06:53
[2018-08-19] MEDS ORDERED: *HR* Dextrose 50 % in Water (Syg) 50 ML SYRINGE IVP PRN (16:14)
[2018-08-19] MEDS ORDERED: Gadolinium Contrast Agent (WT Based) IV PRN (16:14)
[2018-08-19] MEDS ORDERED: Naloxone 0.4 MG/ML INJ IVP PRN (16:14)
[2018-08-19] MEDS ORDERED: D5% in Water 1,000 ML IVC PRN (16:14)
[2018-08-19] MEDS ORDERED: *HR* OxyCODONE Immed Rel 5 MG TABLET PO PRN (16:14)
[2018-08-19] MEDS ORDERED: Dextrose Gel 15 GM/37.5 ML TUBE PO PRN ×2 (16:14)
[2018-08-19] MEDS ORDERED: Acetaminophen 325 MG TABLET PO PRN (16:14)
[2018-08-19] MEDS: 0.9 % Sodium Chloride 1,000 ML IVC SCH (16:55)
--- NOTE | 2018-08-19 17:22 | Anesthesia Evaluation Post Op ---
Date of Encounter: 08/19/18 Time of Encounter: 15:55 - Vital Signs Vital Signs: Vital Signs/O2 Sat/Glucose, Most Current Temp Pulse Resp BP Pulse Ox 08/19/18 16:01 99.4 F 80 18 144/85 95 08/19/18 15:51 81 18 144/85 95 08/19/18 15:41 82 16 141/80 97 08/19/18 15:31 98.8 F 08/19/18 14:15 91 14 134/81 97 08/19/18 14:00 95 14 146/85 96 08/19/18 13:38 90 16 154/85 98 - Lungs Lungs: Clear Ascult./Percussion - Airway Airway: Non-obstructed - Cardiovascular Regular Rate - Mental Status Mental Status: Alert & Oriented, Answers Appropriately - Pain Pain Scale: 0 Pain Scale used: Numeric (1 - 10) - Nausea Vomiting Nausea Vomiting: Not Present - Hydration Hydration: Tolerates oral liquids, Has not voided - Discharge PostOp Status: Transfer Patient to floor Anes Supervising Prov Stmt: Pt seen/evaluated, VSS and has met criteria for discharge to floor. - MD Sybil
[2018-08-20] MEDS: *HR* HYDROcodone/Acet 5/325 mg TABLET PO PRN ×3 (00:47→14:01)
[2018-08-20] MEDS: Ondansetron 4 MG/2 ML VIAL IVP PRN ×3 (03:25→21:56)
[2018-08-20] MEDS: Piperacillin/Tazobactam 3.375 GM in 0.9 % Sodium Chloride Mini Bag 100 ML IVPB SCH (06:43)
[2018-08-20] MEDS: 0.9 % Sodium Chloride 1,000 ML IVC SCH ×2 (06:47→23:32)
[2018-08-20] MEDS ORDERED: amLODIPine 5 MG TABLET PO SCH (09:00)
[2018-08-20] MEDS: amLODIPine 5 MG TABLET PO SCH (09:01)
[2018-08-20] MEDS: Insulin LISPRO 300 UNITS/3 ML VIAL SQ SCH ×6 (09:02→16:29)
[2018-08-20] MEDS: Insulin DETEMIR 100 UNIT/ML X5UNITS SQ SCH ×2 (09:04→21:55)
--- NOTE | 2018-08-20 10:03 | Podiatry Progress Note ---
Date of Encounter: 08/20/18 Time of Encounter: 09:54 - Assessment and Plan (1) Diabetic infection of right foot Current Visit: Yes Status: Acute 1. Right 1st toe surgical incision with improved appearance. Retention suture intact. No active drainage noted. Erythema has significantly improved following the procedure. 2. Follow up operative cultures and appreciate ID recommendations for antibiotics based on sensitivities. No bone cultures taken as MRI showed no evidence of osteomyelitis and wound did not probe to bone after debridement of soft tissue. 3. Plan for repeat I&D with delayed primary closure in the next 2-3 days. (2) Foot abscess, left Current Visit: Yes Status: Acute 1. Left medial ankle and plantar foot surgical wounds with improved appearance after I&D and her cellulitis has improved. No active purulence noted today. The two wounds do tunnel and communicate and there is still fibrotic and necrotic tissue at the wound base. She will likely require repeat I&D and possible wound vac application depending on soft tissue viability. We will continue to monitor with local wound care over the next 24-48 hours and will plan surgical intervention based on how the soft tissue responds to the first I&D. She is aware that she is at real risk for limb loss given the extent of soft tissue infection and proximity to vital neurovascular structure into the foot. 2. Follow up operative wound cultures and appreciate ID recommendations for antibiotics. 3. Recommend Vascular surgery consultation tomorrow to evaluate for any optimization of blood flow to help her heal the large wound defect at the ankle and foot. 4. Post operative pictures taken today. Please contact Ayden Naqvi DPM with any questions regarding Ms. Bran's care. Subjective Principal diagnosis: bilateral lower extremity infection Interval history: Ms. Bran is progressing well s/p bilateral lower extremity I&D. She denies n/v/f/c. She reports the left foot is still numb due to the nerve block. Pain of the right foot is well controlled. Dressings are intact. Operative cultures pending. She is worried about losing her leg but is overall optimistic following the surgeries. Objective - Vital Signs Vital Signs: Vital Signs Temp Pulse Resp BP Pulse Ox 08/20/18 06:43 98.2 F 96 15 163/87 97 08/20/18 04:37 152/76 08/20/18 03:20 98.7 F 91 15 170/88 97 12/30/18 02:22 92 165/88 08/20/18 00:44 177/97 08/19/18 23:22 98.9 F 86 15 176/89 96 08/19/18 19:27 97.6 F 83 16 160/87 95 08/19/18 18:28 98.3 F 89 16 169/89 97 08/19/18 17:28 98.3 F 89 16 175/85 96 08/19/18 16:58 98.3 F 80 16 165/95 95 08/19/18 16:28 98.3 F 84 16 180/91 95 08/19/18 16:01 99.4 F 80 18 144/85 95 08/19/18 15:51 81 18 144/85 95 08/19/18 15:41 82 16 141/80 97 08/19/18 15:31 98.8 F 08/19/18 14:15 91 14 134/81 97 08/19/18 14:00 95 14 146/85 96 08/19/18 13:38 90 16 154/85 98 08/19/18 10:34 98.2 F 85 15 159/91 94 Intake and Output 08/19/18 08/20/18 08/20/18 23:59 07:59 15:59 Intake Total 400 / 400 100 / 100 240 / 240 Output Total 1000 / 1000 0 / 0 Balance -600 / -600 100 / 100 240 / 240 Intake: IV Fluids 100 / 100 Zosyn 3.375 GM In 0.9 % Sodium 100 / 100 Chloride (Mini-Bag +) 100 ML @ 25 mls/hr IVPB Q8H [facility] Rx#: [id number] Oral 400 / 400 240 / 240 Output: Urine 1000 / 1000 0 / 0 Other: Meal Breakfast Percent of Meal Consumed 100% # Voids 1 Weight 90.1 kg Blood Glucose* 320 338 Patient Weight 08/20/18 23:59 Weight 90.1 kg - Exam Exam: Alert, oriented x3, no acute distress. Vascular: DP and PT palpable bilateral. Capillary refill less than 3 seconds to all digits. Pedal hair present. Dermatology: Right 1st the plantar surgical wound well coapted with retention suture intact. No active drainage. Erythema improved to 1st ray. Left medial ankle ulcer with geographic margins, mixed fibrotic, necrotic and granular wound base. Mild active bleeding from the flexor retinaculum. Plantar ulcer without active bleeding. No active purulence expressed from either wound today. Erythema and edema improved to left lower extremity compared to pre-op exam. No streaking cellulitis appreciated. Musculoskeletal: Able to move all toes of right foot. Unable to move toes left foot or at ankle due to nerve block. No pain with manual compression of calf. Neuro: Sensations diminished bilateral. - Lab Result Diagrams: 08/18/18 04:54 08/19/18 05:39 Labs: Abnormal lab results RBC 3.61 M/mcL (3.82-4.97) L 08/18/18 04:54 Hgb 10.4 g/dL (11.5-15.4) L 08/18/18 04:54 Hct 31.3 % (35.3-44.9) L 08/18/18 04:54 ESR 92 mm/hr (0-15) H 08/17/18 03:35 PT 15.0 Seconds (9.4-12.1) H 08/17/18 03:35 ABG pCO2 24 mmHg (35-45) L 08/17/18 08:33 ABG pO2 79 mmHg (85-104) L 08/17/18 08:33 ABG HCO3 14 mEq/L (21-27) L 08/17/18 08:33 ABG Total CO2 15 mEq/L (20-26) L 08/17/18 08:33 ABG Base Excess -10 mEq/L (-2 to 3) L 08/17/18 08:33 VBG pH 7.28 pH Units (7.32-7.42) L 08/17/18 08:15 VBG pCO2 29 mmHg (41-51) L 08/17/18 08:15 VBG pO2 55 mmHg (25-50) H 08/17/18 08:15 VBG HCO3 14 mEq/L (21-27) L 08/17/18 08:15 Sodium 133 mEq/L (136-145) L 08/19/18 05:39 Creatinine 1.41 mg/dL (0.60-1.20) H 08/19/18 05:39 Est GFR ( Amer) 50 (> 60) L 08/19/18 05:39 Est GFR (Non-Af Amer) 41 (> 60) L 08/19/18 05:39 Glucose 379 mg/dL (70-105) H 08/19/18 05:39 POC Glucose 320 mg/dL (70-99) H 08/19/18 20:29 Hemoglobin A1c 9.6 % (-5.6) H 08/17/18 03:35 AST 8 Units/L (13-39) L 08/17/18 03:35 C-Reactive Protein 186 mg/L (Less than 10) H 08/17/18 03:35 Albumin 3.3 g/dL (3.5-5.7) L 08/17/18 03:35 Albumin/Globulin Ratio 1.0 (1.1-2.2) L 08/17/18 03:35 HDL Cholesterol 27 mg/dL (40-59) L 08/17/18 03:35 Total Testosterone 127 ng/dL (15-70) H 08/18/18 04:54 Microbiology, Last 48 Hours 08/16/18 18:55 Wound Culture - Final Left Foot Streptococcus anginosus 08/17/18 12:20 Wound Culture - Final Right Great Toe Staphylococcus aureus 08/19/18 18:19 Surgical Biopsy Culture - Preliminary Other-Specify in Comments 08/19/18 18:19 Surgical Biopsy Culture - Preliminary Left Ankle Consult Discharge Plan - Plan Referrals: NONE,PCP [Primary Care Provider] -
[2018-08-20] MEDS ORDERED: Aminoglycoside Consult 1 EACH MC ONE (10:36)
[2018-08-20] MEDS: Bisacodyl 10 MG RECTAL SUPPOSITORY RC PRN (10:42)
[2018-08-20 12:49] LABS: Hematocrit 33.8 % (35.3-44.9); Hemoglobin 11.3 g/dL (11.5-15.4); Mean Corpuscular HGB Conc 33.4 g/dL (31.6-35.5); Mean Corpuscular Hemoglobin 28.7 pg (28.0-33.3); Mean Corpuscular Volume 85.8 fL (83.0-100.0); Mean Platelet Volume 10.8 fL (9.4-12.4); Platelet Count 396 K/mcL (140-400); Red Blood Count 3.94 M/mcL (3.82-4.97); Red Cell Distribution Width 12.9 % (11.5-14.5)
[2018-08-20 13:08] LABS: Calcium 8.7 mg/dL (8.6-10.3); Potassium 3.4 mEq/L (3.5-5.1)
--- NOTE | 2018-08-20 13:28 | Internal Med Progress Note ---
Hospitalist Progress Note - Encounter Date of Encounter: 08/20/18 Time of Encounter: 09:30 - Subjective Interval History: Seen and examined at bedside. Says she had uneventful night. She does report some mild bilateral lower extremity discomfort but overall pain is well controlled. She also reports some nausea and constipation. She is questioning rectal suppository. - Exam Vitals: Temp Pulse Resp BP Pulse Ox 98.2 F 93 15 170/90 97 08/20/18 10:29 08/20/18 10:29 08/20/18 10:29 08/20/18 10:29 08/20/18 10:29 Exam: Physical Exam - General Limitations: no limitations General appearance: alert, in distress (In moderate distress with pain at the left ankle) - Head Head exam: atraumatic, normocephalic, normal inspection - Eye Eye exam: Present: normal appearance, PERRL, EOMI - Chest Chest inspection: Present: normal inspection, symmetric chest wall rise - Respiratory Respiratory exam: Present: normal lung sounds bilaterally - Cardiovascular Cardiovascular exam: Present: normal rhythm, tachycardia, normal heart sounds - Abdominal Exam Abdominal exam: Present: soft, Non-Tender. Absent: tenderness, distention, guarding, rebound, rigidity - Extremities Exam Extremities exam: Bilateral lower extremity wounds not assessed. Dressing's clean, dry and intact. - Neurological Exam Neurological exam: Present: alert, oriented X3 - Psychiatric Psychiatric exam: Present: normal affect, normal mood - Skin Skin exam: Present: warm, dry - Assessment and Plan (1) Foot abscess, left Current Visit: Yes Status: Acute Assessment and Plan: s/p I&D to left medial ankle and plantar foot wounds on 08/19/[address] Naqvi. Per podiatry; will likely require repeat I&D and possible wound vac application depending on soft tissue viability. We will continue to monitor with local wound care over the next 24-48 hours and repeat surgical intervention will be based on how the soft tissue responds to the first I&D. Consult Vascular surgery to evaluate for any optimization of blood flow to help her heal the large wound defect at the ankle and foot. ATB changed to Levaquin based upon se nsitivity (was on Vanco and Zosyn however now with worsening renal function). Podiatry following (2) Diabetic infection of right foot Current Visit: Yes Status: Acute Assessment and Plan: Presented with chronic, nonhealing wound to bilateral feet. MRI showed soft tissue ulceration of the great toe; no evidence of osteomyelitis. S/p I&D on 08/19/[address] Naqvi. Plan for repeat I&D with delayed primary closure in the next 2-3 days. ATB changed to Levaquin per sensitivities. Podiatry and ID following (3) GARETT (acute kidney injury) Current Visit: Yes Status: Acute Assessment and Plan: suspect multifactorial with contrast exposure, recently started on SAMIRA, use of vanco and NPO for surgery. No known kidney disease and baseline creatinine normal. Cr 1.8; lisinopril vancomycin stopped. Continue IV fluids. Renal ultrasound and UA pending. Nephrology consult (4) Diabetes mellitus Current Visit: Yes Status: Chronic Assessment and Plan: per hx. Uncontrolled; Hgb A1c 9.6%. Has not been treated in many years as patient has not had health insurance. lost to follow up because she did not have health insurance. Levemir 10 units bid, plus lispro 5 units ac, and SSI to this hospitalization. Monitor blood sugars. (5) Hypertension Current Visit: Yes Status: Chronic Assessment and Plan: new diagnosis. Initially started on lisinopril however this was stopped secondary to GARETT. Cont amlodipine and BB. Monitor blood pressure and titrate PRN (6) Hyponatremia Current Visit: Yes Status: Acute Assessment and Plan: Possibly secondary to hyperglycemia. patient started on insulin for glucose control and on fluids. NA up from 131 to 133. Monitor (7) Metabolic acidosis Current Visit: Yes Status: Acute Assessment and Plan: Possibly due to sepsis from cellulitis. Initially treated with bicarbonate. Now resolved (8) Depression Current Visit: Yes Status: Acute Assessment and Plan: Multifactorial with increased home stressors and multiple new medical issues. Patient reports history of depression when she was a teenager and was treated with Zoloft at that time. Requesting low-dose antidepressant. Start Lexapro. (9) Sepsis Current Visit: Yes Status: Acute Assessment and Plan: secondary to bilateral foot infections. Now resolved. Blood cultures drawn 08/16/18 are no growth to date 2 sets. DVT Prophylaxis: heparin - Time Spent with Patient Total time spent is greater than 50% in coordination of care (as documented) at patient's floor/unit and/or counseling patient: Internal Medicine: Result - Labs CBC & Chem 7: 08/20/18 12:35 08/20/18 12:35 Labs: Short CBC 08/20/18 Range/Units 12:35 WBC 12.3 H (4.3-11.1) K/mcL Hgb 11.3 L (11.5-15.4) g/dL Hct 33.8 L (35.3-44.9) % Plt Count 396 (140-400) K/mcL BMP 08/20/18 12:35 Sodium 136 Potassium 3.4 L Chloride 104 Carbon Dioxide 19 L BUN 26 H Creatinine 1.87 H Glucose 298 H Calcium 8.7 - ABG Interpretation ABG results: ABG ABG pH 7.38 pH Units (7.32-7.45) 08/17/18 08:33 ABG pCO2 24 mmHg (35-45) L 08/17/18 08:33 ABG pO2 79 mmHg (85-104) L 08/17/18 08:33 ABG O2 Saturation 96 % (95-98) 08/17/18 08:33 PT/INR, D-dimer PT 15.0 Seconds (9.4-12.1) H 08/17/18 03:35 Consult Discharge Plan - Plan Referrals: NONE,PCP [Primary Care Provider] - (4) Diabetes mellitus Qualifiers: Diabetes mellitus type: type 2 Diabetes mellitus complication status: with unspecified complications Qualified Code(s): E11.8 - Type 2 diabetes mellitus with unspecified complications (5) Hypertension Qualifiers: Hypertension type: unspecified Qualified Code(s): I10 - Essential (primary) hypertension (9) Sepsis Qualifiers: Sepsis type: sepsis due to unspecified organism Qualified Code(s): A41.9 - Sepsis, unspecified organism
[2018-08-20] MEDS: *HR* Heparin 5,000 UNIT/ML VIAL SQ SCH ×2 (14:02→21:54)
[2018-08-20] MEDS ORDERED: *HR* Morphine 2 MG/ML SYRINGE IVP ONE ×2 (16:47→17:30)
[2018-08-20] MEDS: OXYCODONE Oral CONC 10 MG/0.5 ML ORAL.SYG SL PRN (22:44)
[2018-08-21] MEDS ORDERED: *HR* Promethazine 25 MG/ML VIAL IVP ONE (02:47)
[2018-08-21] MEDS: OXYCODONE Oral CONC 10 MG/0.5 ML ORAL.SYG SL PRN ×2 (03:16→13:24)
[2018-08-21 04:38] LABS: Bilirubin,Urine Negative (Negative); Blood,Urine Negative (Negative); Clarity,Urine Cloudy (Clear); Color,Urine Yellow (Yellow); Glucose,Urine (UA) >=1000 mg/dL (Normal); Ketones,Urine Negative (Negative); Leukocyte Esterase,Urine Negative (Negative); Nitrite,Urine Negative (Negative); PH,Urine 5.5 pH Units (5.0-8.0); Protein,Urine Negative (Neg-Trace); Specific Gravity,Urine 1.022 (1.010-1.025); Urobilinogen,Urine Normal (Normal)
[2018-08-21 04:44] LABS: Hyaline Casts,Urine None Seen per lpf (None-Few); Squamous Epithelial Cell,Urine Many per lpf (None-Few)
[2018-08-21 04:58] LABS: RBC,Urine 0-3 per hpf (0-3)
[2018-08-21 04:59] LABS: Bacteria,Urine Few per hpf (None-Few); Mucus,Urine Few (Few); Yeast,Urine Moderate per hpf (None Seen)
[2018-08-21] MEDS: *HR* Heparin 5,000 UNIT/ML VIAL SQ SCH ×3 (05:32→21:37)
[2018-08-21 07:31] LABS: Hematocrit 34.6 % (35.3-44.9); Hemoglobin 11.5 g/dL (11.5-15.4); Mean Corpuscular HGB Conc 33.2 g/dL (31.6-35.5); Mean Corpuscular Hemoglobin 29.2 pg (28.0-33.3); Mean Corpuscular Volume 87.8 fL (83.0-100.0); Mean Platelet Volume 11.1 fL (9.4-12.4); Platelet Count 332 K/mcL (140-400); Red Blood Count 3.94 M/mcL (3.82-4.97); Red Cell Distribution Width 13.1 % (11.5-14.5)
[2018-08-21 07:51] LABS: Calcium 8.7 mg/dL (8.6-10.3); Potassium 3.8 mEq/L (3.5-5.1)
[2018-08-21] MEDS: Insulin LISPRO 300 UNITS/3 ML VIAL SQ SCH ×6 (08:28→18:43)
[2018-08-21] MEDS: amLODIPine 5 MG TABLET PO SCH (08:29)
[2018-08-21] MEDS: Insulin DETEMIR 100 UNIT/ML X5UNITS SQ SCH ×2 (08:30→20:43)
[2018-08-21] MEDS: Ondansetron 4 MG/2 ML VIAL IVP PRN (08:34)
[2018-08-21] MEDS ORDERED: Levofloxacin 500 MG/100 ML 500 MG/100 ML BAG IVPB SCH (09:00)
[2018-08-21] MEDS: 0.9 % Sodium Chloride 1,000 ML IVC SCH ×3 (10:55→21:36)
--- NOTE | 2018-08-21 10:55 | Infectious Disease Progress No ---
Date of Encounter: 08/21/18 Time of Encounter: 10:10 - Assessment and Plan (1) Sepsis Current Visit: Yes Status: Acute The patient had 3 sepsis criteria. Likely secondary to bilateral foot infections. Improved. White blood cell count has normalized. Tachycardia resolved. Afebrile. Blood cultures drawn 08/16/18 are negative 2 sets. Recommendations: Await intra-op cultures. Wound care per the podiatry team. Nephrology consulted. Await recommendations. Start cefazolin 2 grams IV Q8H. Start flagyl 500mg IV TID. Will do IV for now since the patient is not tolerating PO well at this point. Once we get her nausea under control, can switch to PO. Duration of treatment depends on the clinical pictures. Monitor renal function and dose-adjust antibiotics. Strict glucose control. Pain management per the primary team. Wound care and activity per the Podiatry team. patient services technician to assist with discharge planning. Qualifiers: Qualified Code(s): A41.9 - Sepsis, unspecified organism (2) Foot abscess, left Current Visit: Yes Status: Acute Causative organism: S. anginosus per wound culture. MRI of the left ankle showed multiple abscesses and likely infectious involvement of the plantar fascia. No osteomyelitis noted. Likely secondary to chronic left foot ulcer. ESR 92, CRP 186. Podiatry consulted and following. Status post I & D of the left foot and ankle abscess to deep fascia, multiple planes and incision and drainage right 1st toe abscess to deep fascia 08/19/[address] Naqvi. Intra-op cultures are pending, but gram stain showed few GPC. Currently on Levaquin. (3) Diabetic infection of right foot Current Visit: Yes Status: Acute Location: Right foot, great toe. Causative organism: MSSA per wound culture. Likely secondary to chronic non-healing ulcer. Podiatry consulted. Status post I & D right 1st toe abscess 08/19/[address] Naqvi. Intra-op cultures pending, but gram stain showed GPC. Currently on IV Levaquin. (4) GARETT (acute kidney injury) Current Visit: Yes Status: Acute Likely multifactorial: pre-renal + antibiotics Serum creatinine up to 1.70 this morning. Await nephrology recommendations. (5) Diabetic foot ulcers Current Visit: Yes Status: Acute Right foot: Right great toe. Left Foot: Left calcaneus. Etiology: Unclear. Patient denies known trauma, ill-fitting shoes, etc. Onset January/February Wound care per the Podiatry team. Qualifiers: Qualified Code(s): E11.621 - Type 2 diabetes mellitus with foot ulcer; L97.509 - Non-pressure chronic ulcer of other part of unspecified foot with unspecified severity (6) Diabetes mellitus Current Visit: Yes Status: Chronic Uncontrolled. HgbA1C 9.6. Strict glucose control. Qualifiers: Qualified Code(s): E11.8 - Type 2 diabetes mellitus with unspecified complications (7) Hypertension Current Visit: Yes Status: Chronic Qualifiers: Qualified Code(s): I10 - Essential (primary) hypertension (8) Nausea Current Visit: Yes Status: Chronic Chronic, but worse since being in the hospital. Check amylase, lipase, and LFTs. Management per the primary team. - Subjective Interval history: Patient seen and examined. No acute events noted overnight. Patient states overall she feels okay this morning. She does report some nausea with dry heaves over the past couple of days. She denies any fevers or chills or rigors. Denies chest pain, breath, or cough. Denies any vomiting or diarrhea. She does endorse some constipation and abdominal fullness. She denies abdominal pain or urinary complaints. She does tell me that she is having trouble starting her urine stream due to not being able to get up to use the bathroom. She states her appetite is not very good due to the nausea. She states the pain in her bilateral feet is under control at this time, but was previously pretty severe. She denies any oral thrush or new skin lesions. Infect Dis PN-Objective Data - Labs CBC & Chem 7: 08/21/18 07:01 08/21/18 07:01 Labs: Laboratory Results - last 24 hr 08/19/18 08/20/18 08/20/18 16:17 06:59 11:00 WBC RBC Hgb Hct MCV MCH MCHC RDW Plt Count MPV Sodium Potassium Chloride Carbon Dioxide BUN Creatinine Est GFR ( Amer) Est GFR (Non-Af Amer) BUN/Creatinine Ratio Glucose POC Glucose 234 H 338 H 334 H Calculated Osmolality Calcium Urine Color Urine Clarity Urine pH Ur Specific [place] Urine Protein Urine Glucose (UA) Urine Ketones Urine Blood Urine Nitrite Urine Bilirubin Urine Urobilinogen Ur Leukocyte Esterase Urine Microscopic RBC Urine Microscopic WBC Ur Squamous Epith Cells Urine Bacteria Hyaline Casts Urine Mucus Urine Yeast Ur Culture Indicated? 08/20/18 08/20/18 08/20/18 12:35 12:35 16:18 WBC 12.3 H RBC 3.94 Hgb 11.3 L Hct 33.8 L MCV 85.8 MCH 28.7 MCHC 33.4 RDW 12.9 Plt Count 396 MPV 10.8 Sodium 136 Potassium 3.4 L Chloride 104 Carbon Dioxide 19 L BUN 26 H Creatinine 1.87 H Est GFR ( Amer) 36 L Est GFR (Non-Af Amer) 30 L BUN/Creatinine Ratio 14 Glucose 298 H POC Glucose 235 H Calculated Osmolality 298 Calcium 8.7 Urine Color Urine Clarity Urine pH Ur Specific [place] Urine Protein Urine Glucose (UA) Urine Ketones Urine Blood Urine Nitrite Urine Bilirubin Urine Urobilinogen Ur Leukocyte Esterase Urine Microscopic RBC Urine Microscopic WBC Ur Squamous Epith Cells Urine Bacteria Hyaline Casts Urine Mucus Urine Yeast Ur Culture Indicated? 08/21/18 08/21/18 08/21/18 04:32 07:01 07:01 WBC 9.3 RBC 3.94 Hgb 11.5 Hct 34.6 L MCV 87.8 MCH 29.2 MCHC 33.2 RDW 13.1 Plt Count 332 MPV 11.1 Sodium 137 Potassium 3.8 Chloride 107 Carbon Dioxide 21 L BUN 29 H Creatinine 1.70 H Est GFR ( Amer) 40 L Est GFR (Non-Af Amer) 33 L BUN/Creatinine Ratio 17 Glucose 223 H POC Glucose Calculated Osmolality 297 Calcium 8.7 Urine Color Yellow Urine Clarity Cloudy A Urine pH 5.5 Ur Specific [place] 1.022 Urine Protein Negative Urine Glucose (UA) >=1000 H Urine Ketones Negative Urine Blood Negative Urine Nitrite Negative Urine Bilirubin Negative Urine Urobilinogen Normal Ur Leukocyte Esterase Negative Urine Microscopic RBC 0-3 Urine Microscopic WBC 3-5 H Ur Squamous Epith Cells Many H Urine Bacteria Few Hyaline Casts None Seen Urine Mucus Few Urine Yeast Moderate H Ur Culture Indicated? NO Cultures: Cultures 08/19/18 18:19 Surgical Biopsy Culture - Preliminary Other-Specify in Comments Gram Positive Cocci 08/19/18 18:19 Surgical Biopsy Culture - Preliminary Left Ankle Gram Positive Cocci 08/19/18 18:19 Acid Fast Stain - Final Left Ankle 08/19/18 18:19 Acid Fast Stain - Final Other-Specify in Comments 08/16/18 18:55 Wound Culture - Final Left Foot Streptococcus anginosus 08/17/18 12:20 Wound Culture - Final Right Great Toe Staphylococcus aureus 08/16/18 18:58 Blood Culture - Preliminary Peripheral Venipuncture Culture is incubating and being continuously monitored for growth. Final report to follow. 08/16/18 18:57 Blood Culture - Preliminary Peripheral Venipuncture Culture is incubating and being continuously monitored for growth. Final report to follow. Serology 08/21/18 08/19/18 Range/Units 04:32 12:30 Urine Color Yellow (Yellow) Urine Clarity Cloudy A (Clear) Urine pH 5.5 (5.0-8.0) pH Units Ur Specific [place] 1.022 (1.010-1.025) Urine Protein Negative (Neg-Trace) mg/dL Urine Glucose (UA) >=1000 H (Normal) mg/dL Urine Ketones Negative (Negative) mg/dL Urine Blood Negative (Negative) Urine Nitrite Negative (Negative) Urine Bilirubin Negative (Negative) Urine Urobilinogen Normal (Normal) mg/dL Ur Leukocyte Esterase Negative (Negative) Urine Microscopic RBC 0-3 (0-3) per hpf Urine Microscopic WBC 3-5 H (0-3) per hpf Ur Squamous Epith Cells Many H (None-Few) per lpf Urine Bacteria Few (None-Few) per hpf Hyaline Casts None Seen (None-Few) per lpf Urine Mucus Few (Few) Urine Yeast Moderate H (None Seen) per hpf Ur Culture Indicated? NO (NO) Urine Test Negative (Negative) Exam - Constitutional Vitals: Temp Pulse Resp BP Pulse Ox 98.3 F 82 16 184/107 93 08/21/18 07:44 08/21/18 07:44 08/21/18 07:44 08/21/18 07:44 08/21/18 07:44 General appearance: average body habitus, cooperative, no acute distress - Head Head exam: Present: atraumatic, normal inspection, normocephalic - Eye Eye exam: Present: EOMI, normal appearance, PERRL Pupils: Present: normal accommodation - ENT ENT exam: Present: mucous membranes moist - Neck Neck exam: Present: normal inspection - Respiratory Respiratory exam: Present: CTAB. Absent: rales, respiratory distress, rhonchi, wheezes - Cardiovascular Cardiovascular exam: Present: RRR, +S1, +S2 - GI/Abdominal GI/Abdominal exam: Present: normal bowel sounds, soft. Absent: distended, tenderness - Extremities Exam Extremities exam: Absent: normal inspection (Bilateral foot dressings are clean, dry, and intact.) - Neurological Exam Neurological exam: Present: alert, oriented X3, no focal deficits - Psychiatric Psychiatric exam: Present: normal affect, normal mood - Skin Skin exam: Present: dry, intact, normal color, warm Consult Discharge Plan - Plan Referrals: NONE,PCP [Primary Care Provider] - - Attending Attestation I examined this patient and my medical decision-making was reviewed with the Resident Physician. I agree with the documented findings, disposition and treatment plan as described except to the extent set forth below. check lipase/amylase epigastric pain on PE with nausea and vomiting
--- NOTE | 2018-08-21 12:42 | Podiatry Progress Note ---
Date of Encounter: 08/21/18 Time of Encounter: 11:00 - Assessment and Plan (1) Diabetic infection of right foot Current Visit: Yes Status: Acute Assessment: S/P I&D of right hallux 08/19/18 Incision noted with suture. Opening to medial aspect of toe. Packing noted Maceration noted to edges. 3/4 DP/PT CFT <3 seconds. RICARDO Right- 0.96, Left- 0.81 PVR normal right and left TCPO2 right DP- 38, PT 31, L DP 23, PT 11 Surgical pathology pending. Sugrical culture returned gram positive cocci. Acid fast negative Anaerobic culture returned gram negative mark Wound culture returned staph aureus. Plan: Cleansed with 0.9 NS Packed with 1/4 inch gauze. Maceration painted with betadine Covered with adaptic, 4x4 dry gauze, and kerlex. Secured lightly with SAMIRA bandage. ID managing ATB- appreciate recommendations Recommend vascular consult for new diminshed ABIs/TCPO2- appreciate recommendations Recommend tight glycemic control to help with wound healing- primary managing. Awaiting vascular recommendations. Plan for repeat I&D in 2-3 days. (2) Diabetic infection of left foot Current Visit: Yes Status: Deleted Assessment: Left foot with erythema and edema noted, improving from previous assessment Wound bed to left malleolus with slough noted. Left calcaneal wound with packing noted. Blood cultures negative, prelim Surgical culture returned gram positive cocci WBC 9.3 RICARDO Right- 0.96, Left- 0.81 PVR normal right and left TCPO2 right DP- 38, PT 31, L DP 23, PT 11 Wound culture returned strep A. Plan: Cleansed with 0.9 NS. Painted left malleolus with betadine. Covered with adaptic, maxorb, 4x4 dry gauze. Packed left calcaneous with 1/4 inch packing gauze. Covered with adaptic, 4x4 dry gauze. Secured with kerlex and lightly placed SAMIRA wrap. Awaiting vascular recommendations. Plan for repeat I&D in 2-3 days. Subjective Principal diagnosis: bilateral lower extremity infection Interval history: Patient sitting in bed. Patient reports increased nausea since surgery. States primary physician has been following this. Discussed plan for return to OR for I&D. Verbalized understanding and is agreeable. Denies any fevers, chills, nausea, vomiting, or diarrhea. Denies calf pain, chest pain, or shortness of breath. No other questions or concerns at this time. Objective - Vital Signs Vital Signs: Vital Signs Temp Pulse Resp BP Pulse Ox 08/21/18 07:44 98.3 F 82 16 184/107 93 08/21/18 03:45 97.7 F 89 16 163/91 93 08/20/18 22:34 97.6 F 77 15 150/79 94 08/20/18 19:29 98 F 86 14 145/90 96 08/20/18 14:20 98.1 F 96 15 139/78 95 Intake and Output 08/20/18 08/21/18 08/21/18 23:59 07:59 15:59 Intake Total 1780 / 1780 2400 / 2400 340 / 340 Output Total 0 / 0 600 / 600 10 Balance 1780 / 1780 1800 / 1800 330 / 330 Intake: IV Fluids 1000 / 1000 2000 / 2000 100 / 100 0.9 % Sodium Chloride 1,000 ML 1000 / 1000 @ 75 mls/hr IVC .[id number] [facility] Rx #:[id number] Levaquin Premix 500mg/100mL 500 100 / 100 mg In 100 ml @ 100 mls/hr IVPB DAILY [facility] Rx#:[id number] Oral 780 / 780 400 / 400 240 / 240 Output: Urine 0 / 0 600 / 600 Estimated Blood Loss Other: Meal REFUSED Breakfast Percent of Meal Consumed 50% Stool Size Smear Stool Color Brown # Bowel Movements 0 Weight 91.4 kg Blood Glucose* 235 193 Patient Weight 08/21/18 23:59 Weight 91.4 kg - Exam Exam: Constitiutional: Alert and oriented x 3. Vascular: 3/4 DP/PT bilaterally, CFT <3 sec to all digits bilaterally, warm to warm from tibia to toes bilaterally, no calf pain with squeeze bilaterally Neurologic: Diminished sensation to touch, normal plantar response, abnormal position sense dorsiflexion/plantar flexion Dermatologic: Right hallux with incision, measuring 3 x 1 cm. Packed with plain gauze, 1 cm deep, tracks to lateral aspect of toe. Left heel measuring 2.5 x 2.5 x 3 cm. Packing noted. Left malleolus measuring 6 x 4 x 2 cm. Slough noted to wound bed. Maceration noted to wound edges. Musculoskeletal: 4/5 muscle strength and normal tone bilaterally. - Lab Result Diagrams: 08/21/18 07:01 08/21/18 07:01 Labs: Abnormal lab results Hct 34.6 % (35.3-44.9) L 08/21/18 07:01 ESR 92 mm/hr (0-15) H 08/17/18 03:35 PT 15.0 Seconds (9.4-12.1) H 08/17/18 03:35 ABG pCO2 24 mmHg (35-45) L 08/17/18 08:33 ABG pO2 79 mmHg (85-104) L 08/17/18 08:33 ABG HCO3 14 mEq/L (21-27) L 08/17/18 08:33 ABG Total CO2 15 mEq/L (20-26) L 08/17/18 08:33 ABG Base Excess -10 mEq/L (-2 to 3) L 08/17/18 08:33 VBG pH 7.28 pH Units (7.32-7.42) L 08/17/18 08:15 VBG pCO2 29 mmHg (41-51) L 08/17/18 08:15 VBG pO2 55 mmHg (25-50) H 08/17/18 08:15 VBG HCO3 14 mEq/L (21-27) L 08/17/18 08:15 Carbon Dioxide 21 mEq/L (23-29) L 08/21/18 07:01 BUN 29 mg/dL (6-20) H 08/21/18 07:01 Creatinine 1.70 mg/dL (0.60-1.20) H 08/21/18 07:01 Est GFR ( Amer) 40 (> 60) L 08/21/18 07:01 Est GFR (Non-Af Amer) 33 (> 60) L 08/21/18 07:01 Glucose 223 mg/dL (70-105) H 08/21/18 07:01 POC Glucose 235 mg/dL (70-99) H 08/20/18 16:18 Hemoglobin A1c 9.6 % (-5.6) H 08/17/18 03:35 AST 8 Units/L (13-39) L 08/17/18 03:35 C-Reactive Protein 186 mg/L (Less than 10) H 08/17/18 03:35 Albumin 3.3 g/dL (3.5-5.7) L 08/17/18 03:35 Albumin/Globulin Ratio 1.0 (1.1-2.2) L 08/17/18 03:35 HDL Cholesterol 27 mg/dL (40-59) L 08/17/18 03:35 Total Testosterone 127 ng/dL (15-70) H 08/18/18 04:54 Urine Clarity Cloudy (Clear) A 08/21/18 04:32 Urine Glucose (UA) >=1000 mg/dL (Normal) H 08/21/18 04:32 Urine Microscopic WBC 3-5 per hpf (0-3) H 08/21/18 04:32 Ur Squamous Epith Cells Many per lpf (None-Few) H 08/21/18 04:32 Urine Yeast Moderate per hpf (None Seen) H 08/21/18 04:32 Microbiology, Last 48 Hours 08/17/18 12:20 Anaerobic Culture - Preliminary Right Great Toe Anaerobic Gram Negative Mark 08/19/18 18:19 Surgical Biopsy Culture - Preliminary Other-Specify in Comments Gram Positive Cocci 08/19/18 18:19 Surgical Biopsy Culture - Preliminary Left Ankle Gram Positive Cocci 08/19/18 18:19 Acid Fast Stain - Final Left Ankle 08/19/18 18:19 Acid Fast Stain - Final Other-Specify in Comments 08/16/18 18:55 Wound Culture - Final Left Foot Streptococcus anginosus 08/17/18 12:20 Wound Culture - Final Right Great Toe Staphylococcus aureus Consult Discharge Plan - Plan Referrals: NONE,PCP [Primary Care Provider] - Ayden Naqvi, DPM [Partnered Physician] -
--- NOTE | 2018-08-21 13:01 | Internal Med Progress Note ---
Hospitalist Progress Note - Encounter Date of Encounter: 08/21/18 Time of Encounter: 09:50 - Subjective Interval History: Pt was seen and assessed at bedside at 0950. She is alert and awake, oriented, answers questions appropriately. She reports severe nausea and dry heaving for 2-3 days. She states that she is not getting relief with Zofran at all. She denies abdominal pain, vomiting, or diarrhea. She states that her pain to her feet is minimal and states that her SL pain medication is not working due to her nausea. - Exam Vitals: Temp Pulse Resp BP Pulse Ox 98.3 F 82 16 184/107 93 08/21/18 07:44 08/21/18 07:44 08/21/18 07:44 08/21/18 07:44 08/21/18 07:44 Exam: General: Pt resting quietly on bed, no distress. Skin: pwd, no rashes, lesions, redness Neurological: Pt is alert and awake, oriented x 3, Speech is clear, PERRLA, EOMI, no nystagmus, no pronator drift. strength equal x 4 extremities HEENT: mucous mumbranes moist, no conjuctival pallor Neck: supple, no tracheal deviation, no lymphadenopathy, tenderness, no thyromegaly Heart: S1S2 heard without gallops, clicks, murmurs, no bradycardia or tachycardia, pt has no peripheral edema, pedal and radial pulses palpable bilaterally. Lungs: clear throughout without wheezing, rales, or ronchi, respirations are unlabored Abdomen: soft and non tender with bowel sound present, no hepatomegaly. Psych: Normal affect with good eye contact - Assessment and Plan (1) Diabetes mellitus Current Visit: Yes Status: Chronic Assessment and Plan: Chronic. Uncontrolled; Hgb A1c 9.6%. Has not been treated in many years as patient has not had health insurance. Levemir 10 units bid, plus lispro 5 units ac, and SSI to this hospitalization. Monitor blood sugars. (2) Hypertension Current Visit: Yes Status: Chronic Assessment and Plan: New diagnosis this visit. Initially started on lisinopril, however, this was stopped secondary to GARETT. Cont amlodipine and BB. Monitor blood pressure and titrate PRN 08/21- Poorly controlled. Hydralazine 10mg IVP q6h prn with parameters Continue current medications and titrate prn (3) Hyponatremia Current Visit: Yes Status: Acute Assessment and Plan: Possibly secondary to hyperglycemia. patient started on insulin for glucose control and on fluids. NA up from 131 to 133. Monitor 08/21- Resolved. Continue to monitor labs. (4) Metabolic acidosis Current Visit: Yes Status: Acute Assessment and Plan: Possibly due to sepsis from cellulitis. Initially treated with bicarbonate. Now resolved (5) Diabetic infection of right foot Current Visit: Yes Status: Acute Assessment and Plan: Presented with chronic, nonhealing wound to bilateral feet. MRI showed soft tissue ulceration of the great toe; no evidence of osteomyelitis. S/p I&D on 08/19/[address] Naqvi. Plan for repeat I&D with delayed primary closure 08/22/18. ATB changed to Levaquin per sensitivities. Podiatry and ID following (6) Sepsis Current Visit: Yes Status: Acute Assessment and Plan: Secondary to bilateral foot infections. Now resolved. Blood cultures drawn 08/16/18 are no growth to date 2 sets. Surgical biopsy from right 1st toe, culture positive for Gram positive cocci Sensitivity pending. (7) Foot abscess, left Current Visit: Yes Status: Acute Assessment and Plan: s/p I&D to left medial ankle and plantar foot wounds on 08/19/[address] Naqvi. Per podiatry; will likely require repeat I&D and possible wound vac application depending on soft tissue viability. We will continue to monitor with local wound care over the next 24-48 hours and repeat surgical intervention will be based on how the soft tissue responds to the first I&D. Consult Vascular surgery to evaluate for any optimization of blood flow to help her heal the large wound defect at the ankle and foot. ATB changed to Levaquin based upon sensitivity (was on Vanco and Zosyn however now with worsening renal function). Podiatry following 08/21- Plan as above. (8) GARETT (acute kidney injury) Current Visit: Yes Status: Acute Assessment and Plan: suspect multifactorial with contrast exposure, recently started on SAMIRA, use of vanco and NPO for surgery. No known kidney disease and baseline creatinine normal. Cr 1.8; lisinopril vancomycin stopped. Continue IV fluids. Renal ultrasound and UA pending. Nephrology consult 08/21- Renal function improving, Cr 1.70 today, GFR 33. Nephrology consult in and pending, retroperitoneal ultrasound ordereda nd pending. (9) Depression Current Visit: Yes Status: Acute Assessment and Plan: Multifactorial with increased home stressors and multiple new medical issues. Pt has been started on Lexapro. DVT Prophylaxis: Heparin SQ q8h - Time Spent with Patient Total time spent is greater than 50% in coordination of care (as documented) at patient's floor/unit and/or counseling patient: less than 15 minutes Plan of Care Discussed with: patient Internal Medicine: Result - Labs CBC & Chem 7: 08/21/18 07:01 08/21/18 07:01 Labs: Short CBC 08/20/18 08/21/18 Range/Units 12:35 07:01 WBC 12.3 H 9.3 (4.3-11.1) K/mcL Hgb 11.3 L 11.5 (11.5-15.4) g/dL Hct 33.8 L 34.6 L (35.3-44.9) % Plt Count 396 332 (140-400) K/mcL BMP 08/20/18 08/21/18 12:35 07:01 Sodium 136 137 Potassium 3.4 L 3.8 Chloride 104 107 Carbon Dioxide 19 L 21 L BUN 26 H 29 H Creatinine 1.87 H 1.70 H Glucose 298 H 223 H Calcium 8.7 8.7 Urine 08/21/18 Range/Units 04:32 Urine Color Yellow (Yellow) Urine Clarity Cloudy A (Clear) Urine pH 5.5 (5.0-8.0) pH Units Ur Specific [place] 1.022 (1.010-1.025) Urine Protein Negative (Neg-Trace) mg/dL Urine Glucose (UA) >=1000 H (Normal) mg/dL - ABG Interpretation ABG results: ABG ABG pH 7.38 pH Units (7.32-7.45) 08/17/18 08:33 ABG pCO2 24 mmHg (35-45) L 08/17/18 08:33 ABG pO2 79 mmHg (85-104) L 08/17/18 08:33 ABG O2 Saturation 96 % (95-98) 08/17/18 08:33 PT/INR, D-dimer PT 15.0 Seconds (9.4-12.1) H 08/17/18 03:35 Consult Discharge Plan - Plan Referrals: NONE,PCP [Primary Care Provider] - (1) Diabetes mellitus Qualifiers: Qualified Code(s): E11.8 - Type 2 diabetes mellitus with unspecified complications (2) Hypertension Qualifiers: Qualified Code(s): I10 - Essential (primary) hypertension (6) Sepsis Qualifiers: Qualified Code(s): A41.9 - Sepsis, unspecified organism
[2018-08-21] MEDS: *HR* Promethazine 25 MG/ML VIAL IVP PRN ×2 (13:24→18:42)
[2018-08-21 13:25] LABS: Albumin 2.8 g/dL (3.5-5.7); Albumin/Globulin Ratio 0.9 (1.1-2.2); Bilirubin,Direct 0.1 mg/dL (0.0-0.2); Bilirubin,Indirect 0.3 mg/dL (0.0-1.2); Bilirubin,Total 0.4 mg/dL (0.3-1.0); Total Protein 5.8 g/dL (6.4-8.9)
--- NOTE | 2018-08-21 15:19 | Nephrology Consult Note ---
<Tiki Booekgeneva Wilkins - Last Filed: 08/21/18 15:31> Date of Encounter: 08/21/18 Time of Encounter: 12:30 Assessment and Plan (1) Hypertension Status: Chronic Metoprolol increased to 25 BID, remains hypertensive. Qualifiers: Hypertension type: unspecified Qualified Code(s): I10 - Essential (primary) hypertension (2) Hyponatremia Status: Acute Resolved, 137 today. (3) Diabetic infection of right foot Status: Acute Per podiatry. (4) GARETT (acute kidney injury) Status: Acute GARETT presumed multifactorial due to IV antibiotics, surgery, and decreased PO intake. IVF increased to 125/hr. Strict I/O Avoid nephrotoxins and renal dose all medications. GARETT workup ordered. History of Present Illness - Reason for Consult Consult date: 08/21/18 Acute Kidney Injury - Chief Complaint left diabetic foot ulcer - History of Present Illness Ms. Bran is a 38 year old female who presented to ED with wound to left foot. PMH: DM and HTN. The patient reports she has had the wound a "long time" and the pain worsened over the last 7 days. Admits to fever and chills at home, denied nausea, vomiting, diarrhea at home. Is now s/p surgery of left foot on 08/19/18. She tells me now that she has had constant nausea and vomiting since Tuesday evening. She reports she can barely keep down clear liquids. Previous GFR's and Scrs were normal until 08/19/18. Given the IV antibiotics and decreased PO Intake, this GARETT is considered multifactorial. Upon exam today she was sitting up in chair and feeling "much better". She was able to drink a little sprite while in the chair. She denies chest pain or shortness of breath. Reports the pain in foot well controlled. GARETT workup ordered. Retroperitoneal US ordered. Lives at home alone, was recently just able to get health insurance, before she had none. Denies FH of CKD or HD. Denies tobacco, Etoh, or illicit drug use. Past Med Surg Social Fam HX - Past Medical History Medical history: diabetes, hypertension Psychiatric history: no psych history - Past Surgical History Surgical History: other Additional surgical history: Laparoscopy - Social History Smoking Status: Never smoker Smokeless Tobacco Status: No Alcohol use: none Drug use: none Medications and Allergies Ampicillin/Sulbactam [Unasyn] 3,000 mg IVPB Q6HR 21 Days #84 vial 08/28/18 [Rx] Metoclopramide [Reglan] 5 mg PO Q6HR PRN #100 mls 08/28/18 [Rx] Promethazine Syrup [Phenergan Syrup] 12.5 mg PO Q8HR PRN #300 mls 08/28/18 [Rx] RX: Acetaminophen [Tylenol] 650 mg PO Q6HR PRN 7 Days #30 tablet 08/28/18 [Rx] RX: Carvedilol [Coreg] 50 mg PO BIDWM #60 tablet 08/28/18 [Rx] RX: Docusate [Colace] 100 mg PO BID PRN #30 capsule 08/28/18 [Rx] RX: Doxycycline 100 mg PO BID 21 Days #42 capsule 08/28/18 [Rx] RX: Escitalopram [Lexapro] 10 mg PO DAILY #30 tablet 08/28/18 [Rx] RX: Insulin NPH/REG 70/30 [HumuLIN 70/30 VIAL] 20 unit SQ BIDWM #6 vial 08/28/18 [Rx] RX: Lactobacillus [Culturelle] 2 each PO DAILY #60 cap.sprink 08/28/18 [Rx] RX: Omeprazole [PriLOSEC] 40 mg PO DAILY@0800 #60 capsule. 08/28/18 [Rx] RX: amLODIPine [Norvasc] 10 mg PO DAILY #60 tablet 08/28/18 [Rx] RX: hydrALAZINE [HydrALAZINE] 25 mg PO Q8HR #90 tablet 09/01/18 [Rx] Allergy/AdvReac Type Severity Reaction Status Date / Time No Known Allergies Allergy Verified 08/16/18 18:17 Review of Systems All Systems review (narrative): The remainder of the systems are negative. Constitutional: chills, fatigue, fever(s) Cardiovascular: no chest pain, no dyspnea Respiratory: no cough Gastrointestinal: nausea, vomiting, no change in bowel habits, no diarrhea Genitourinary Female: no hematuria, no urinary frequency, no urinary hesitancy, no urinary urgency Exam - Vital Signs Vital signs: Initial Vital Signs Temp Pulse Resp BP Pulse Ox 98.1 F 138 16 186/104 97 08/16/18 18:15 08/16/18 18:15 08/16/18 18:15 08/16/18 18:15 08/16/18 18:15 Vital Signs - Last 8 Hours Temp Pulse Resp BP Pulse Ox 08/21/18 07:44 98.3 F 82 16 184/107 93 Intake and Output 08/20/18 08/21/18 08/21/18 23:59 07:59 15:59 Intake Total 1780 / 1780 2400 / 2400 1340 / 1340 Output Total 0 / 0 600 / 600 Balance 1780 / 1780 1800 / 1800 1330 / 1330 Intake: IV Fluids 1000 / 1000 2000 / 2000 1100 / 1100 0.9 % Sodium Chloride 1,000 ML 1000 / 1000 1000 / 1000 @ 75 mls/hr IVC .[id number] [facility] Rx #:[id number] Levaquin Premix 500mg/100mL 500 100 / 100 mg In 100 ml @ 100 mls/hr IVPB DAILY [facility] Rx#:[id number] Oral 780 / 780 400 / 400 240 / 240 Output: Urine 0 / 0 600 / 600 Estimated Blood Loss Other: Meal REFUSED REFUSED Percent of Meal Consumed 50% Stool Size Smear Stool Color Brown # Bowel Movements 0 Weight 91.4 kg Blood Glucose* 235 193 221 Patient Weight 08/21/18 23:59 Weight 91.4 kg - General Appearance General appearance: well-developed, well-nourished EENT: ATNC, hearing intact, vision intact Neck: supple Respiratory: clear Cardiology: edema (Trace edema noted to RLE. LLE in bulky dressing and boot. ), normal S1, normal S2 Gastrointestinal: normoactive bowel sounds, no tenderness, no guarding Integumentary: no rash, warm and dry Neurologic: alert and oriented x3 Psychiatric: mood/affect appropriate, cooperative Results - Lab Results 08/21/18 07:01 08/21/18 07:01 Most recent lab results ABG pH 7.38 pH Units (7.32-7.45) 08/17/18 08:33 ABG pCO2 24 mmHg (35-45) L 08/17/18 08:33 ABG pO2 79 mmHg (85-104) L 08/17/18 08:33 ABG HCO3 14 mEq/L (21-27) L 08/17/18 08:33 ABG O2 Saturation 96 % (95-98) 08/17/18 08:33 Calcium 8.7 mg/dL (8.6-10.3) 08/21/18 07:01 Phosphorus 2.7 mg/dL (2.7-4.5) 08/18/18 04:54 Magnesium 1.7 mg/dL (1.6-2.6) 08/18/18 04:54 Consult Discharge Plan - Plan Instructions: Diabetic Foot Care (DC), Diabetes Mellitus Type 2 in Adults (DC), Peripheral Vascular Disorders (DC), Sepsis (DC), Chronic Hypertension (DC) Additional Instructions: IV Unasyn and PO Doxy for diabetic foot infection. Given her script for 3 weeks first but may need longer term pending outpatient ID evaluation Take Phenergan PRN for nausea/vomiting -> only use reglan if symptoms refractory to phenergan ID appt on 09/14. CBC, BMP, ESR, CRP weekly Follow up with Nephrology in 1 week with BMP Follow up with Podiatry for wound VAC Follow up with Vascular Surgery in 3 weeks for possible angiogram Follow up with PCP for DM and HTN Referrals: Abdirashid Nugent DO [Resident] - 09/08/18 11:00 am (Please follow-up as scheduled and arrive 30 minutes early. Please bring ID, insurance card, and any current medications. ) Ayden Naqvi DPM [Partnered Physician] - 09/06/18 9:00 am (Please follow-up as scheduled ) Heath Walker DO [Partnered Physician] - 10/02/18 10:30 am (Please follow-up as scheduled ) Luís Munoz MD [Partnered Physician] - 09/27/18 9:45 am (Please follow-up as scheduled ) Prescriptions: RX: Acetaminophen [Tylenol] 650 mg PO Q6HR PRN 7 Days #30 tablet PRN Reason: Mild Pain/Fever Ampicillin/Sulbactam [Unasyn] 3,000 mg IVPB Q6HR 21 Days #84 vial Metoclopramide [Reglan] 5 mg PO Q6HR PRN #100 mls PRN Reason: Nausea And Vomiting RX: hydrALAZINE [HydrALAZINE] 25 mg PO Q8HR #90 tablet Promethazine Syrup [Phenergan Syrup] 12.5 mg PO Q8HR PRN #300 mls PRN Reason: Nausea And Vomiting RX: amLODIPine [Norvasc] 10 mg PO DAILY #60 tablet RX: Carvedilol [Coreg] 50 mg PO BIDWM #60 tablet RX: Docusate [Colace] 100 mg PO BID PRN #30 capsule PRN Reason: Constipation RX: Doxycycline 100 mg PO BID 21 Days #42 capsule RX: Escitalopram [Lexapro] 10 mg PO DAILY #30 tablet RX: Insulin NPH/REG 70/30 [HumuLIN 70/30 VIAL] 20 unit SQ BIDWM #6 vial RX: Lactobacillus [Culturelle] 2 each PO DAILY #60 cap.sprink RX: Omeprazole [PriLOSEC] 40 mg PO DAILY@0800 #60 capsule. <Monico Nichols - Last Filed: 09/03/18 11:04> Date of Encounter: 08/21/18 Assessment and Plan (1) Hypertension Status: Chronic Qualifiers: Hypertension type: unspecified Qualified Code(s): I10 - Essential (primary) hypertension (2) Hyponatremia Status: Acute (3) Diabetic infection of right foot Status: Acute (4) GARETT (acute kidney injury) Status: Acute Exam - Vital Signs Vital signs: Initial Vital Signs Temp Pulse Resp BP Pulse Ox 98.1 F 138 16 186/104 97 08/16/18 18:15 08/16/18 18:15 08/16/18 18:15 08/16/18 18:15 08/16/18 18:15 Results - Lab Results 09/01/18 04:12 09/01/18 04:12 Most recent lab results ABG pH 7.38 pH Units (7.32-7.45) 08/17/18 08:33 ABG pCO2 24 mmHg (35-45) L 08/17/18 08:33 ABG pO2 79 mmHg (85-104) L 08/17/18 08:33 ABG HCO3 14 mEq/L (21-27) L 08/17/18 08:33 ABG O2 Saturation 96 % (95-98) 08/17/18 08:33 Calcium 8.9 mg/dL (8.6-10.3) 09/01/18 04:12 Phosphorus 4.4 mg/dL (2.7-4.5) 08/30/18 09:54 Magnesium 2.1 mg/dL (1.6-2.6) 08/25/18 07:45 Urine Creatinine 72 mg/dL 08/24/18 05:08 Urine Sodium 56.3 mEq/L 08/22/18 00:25 Urine Total Protein 18 mg/dL (1-14) H 08/24/18 05:08 - Attending Attestation I examined this patient and my medical decision-making was reviewed with the Resident Physician/HR ASSISTANT. I agree with the documented findings, disposition and treatment plan as described except to the extent set forth below. Pt seen and examined and in brief; 38 y o female with PMH of uncontrolled or treated DM admitted with left foot ulcer that required surgical intervention and now with worsening renal fxn afterwards. SCr at baseline was WNL but worsened during this stay after surgery with N/V with decreased po intake and exposure to abx. Exam shows LE bilat with left foot with dressing. Will initiate GARETT workup. Encourage avoidance of nephrotoxins if possible. Will increase IVF as well.
--- NOTE | 2018-08-21 17:40 | Vascular/Endovasc Consult Note ---
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 This may explain why the heel and medial ankle ulcer are present. The dorsalis pedis pulse on the left is remarkably strong. Because of the extent of the wound and the chronicity of the heel wound I believe the patient will require angiography to better understand her distal anatomy as well as possibly to provide an endovascular means of treating the anticipated lesions. However due to her renal dysfunction at this time the angiogram is not recommended until her renal function improves. In addition the patient is scheduled for a repeat surgical evaluation and debridement of later this week on . If the patient has no significant improvement and her renal function does improve I would suggest angiography on Tuesday. (2) Diabetic foot ulcers Current Visit: Yes Status: Chronic Bilateral foot ulcerations with full-thickness and somewhat unstageable wound of the left ankle. Qualifiers: Diabetic foot ulcer location: other Diabetes mellitus type: type 2 Laterality: unspecified laterality Non-pressure ulcer stage: unspecified non- pressure ulcer stage Qualified Code(s): E11.621 - Type 2 diabetes mellitus with foot ulcer; L97.509 - Non-pressure chronic ulcer of other part of unspecified foot with unspecified severity (3) GARETT (acute kidney injury) Current Visit: Yes Status: Acute Patient has elevation of her serum creatinine to 1.80 today it is decreased to 1.7. Any further consideration of contrast studies will be on hold until the renal function significantly improved. - History of Present Illness Consult date: 08/21/18 Consult reason: Left foot wound/PAD Chief complaint: Left foot wound History of present illness: Ms. Bran is a 38 year old female Was admitted for more aggressive treatment for left foot wound. The past history is a little unclear but the patient states that she has had an ulceration of the heel for some time. However in the past 1-2 weeks she has developed a large area of ulceration on the medial aspect of the left ankle region. This required admission via the emergency room with intravenous antibiotics and she is already status post debridement not via podiatry. As part of her evaluation she had noninvasive testing performed on August 17. This demonstrated an ankle- brachial index of 0.96 on the right and 0.81 on the left. She also had TC PO2's measured which were 31 and 38 at the right ankle and foot. However on the left side the left ankle was only 11 and the foot was 23. The patient has a 10 year history of diabetes. This has been under poor control recently as she had lost her insurance due to a divorce. She had recently established care with Medicaid and has been put back on insulin but for some time the diabetic medication was not available to her. The patient denies any known previous history of lower extremity vascular disease. She does have lower extremity diabetic neuropathy with persistent and constant dysesthesias and pain in her feet. She denies any claudication in the calf and thigh bilaterally. Past Med Surg Social Fam HX - Past Medical History Medical history: diabetes, hypertension Psychiatric history: no psych history - Past Surgical History Surgical History: other Additional surgical history: Laparoscopy - Social History Smoking Status: Never smoker Smokeless Tobacco Status: No Alcohol use: none Drug use: none Medications and Allergies No Known Home Drugs 08/17/18 [History] Allergy/AdvReac Type Severity Reaction Status Date / Time No Known Allergies Allergy Verified 08/16/18 18:17 All Systems Review: The remainder of the systems were reviewed and are negative Exam Vital Signs, Last 4 Hours Temp Pulse Resp BP Pulse Ox 08/21/18 17:03 98.0 F 81 16 165/88 92 General: Present: Conversant, No Apparent Distress HEENT: Present: Atraumatic, Normocephaly, Trachea midline, Pupils equal Neck: Absent: JVD, Left Carotid bruit, Right Carotid bruit, Midline deformity, Tracheal deviation Cardiac: Present: Reg Rate and Rhythm, Normal S1 and S2, No Murmur. Absent: Irregular Rhythm Lungs: Present: Normal Breath Sounds, No Wheeze, Rales, Rhonchi Neuro: Present: Alert and responsive, No focal deficits noted, Cranial nerves grossly intact Abdomen: Present: Soft, Non-tender, Other (No abdominal bruits). Absent: Masses Vascular: Present: Pulse, absent (I am unable to palpate a left posterior tibial pulse. I'm not able to palpate right pedal pulses due to an overlying dressing. The dressing was removed from the left foot and ankle so that I could evaluate the wound.), Edema (Patient has bilateral edema affecting her calves and feet), Color/Temperature (Both feet are warm to the touch. Capillary refill is 2-3 seconds.) Skin: Present: Wound/ulcer(s) (Patient has a large wound on the medial aspect of the left ankle. This wound is somewhat rectangular in shape and measures approximately 6 x 4 cm. There is a large amount of slough present with minimal granulation tissue. Patient also has an ulceration in the mid point of her left heel. The right lower extremity dressing from the foot was not disturbed.) Consult Discharge Plan - Plan Referrals: Ayden Naqvi DPM [Partnered Physician] - NONE,PCP [Primary Care Provider] -
[2018-08-21] MEDS: MetroNIDAZOLE 500 MG/100 ML 500 MG/100 ML BAG IVPB SCH (18:41)
[2018-08-21] MEDS: ceFAZolin 2,000 MG in 0.9 % Sodium Chloride 100 ML IVPB SCH (18:42)
[2018-08-22] MEDS: MetroNIDAZOLE 500 MG/100 ML 500 MG/100 ML BAG IVPB SCH ×3 (00:31→16:31)
[2018-08-22] MEDS: ceFAZolin 2,000 MG in 0.9 % Sodium Chloride 100 ML IVPB SCH ×3 (00:31→17:26)
[2018-08-22 00:46] LABS: Sodium, Urine 56.3 mEq/L
[2018-08-22] MEDS: *HR* Promethazine 25 MG/ML VIAL IVP PRN ×4 (01:14→19:33)
[2018-08-22] MEDS: *HR* Heparin 5,000 UNIT/ML VIAL SQ SCH (04:55)
[2018-08-22 06:17] LABS: Hematocrit 32.6 % (35.3-44.9); Hemoglobin 10.9 g/dL (11.5-15.4); Mean Corpuscular HGB Conc 33.4 g/dL (31.6-35.5); Mean Corpuscular Volume 86.7 fL (83.0-100.0); Platelet Count 330 K/mcL (140-400); Red Blood Count 3.76 M/mcL (3.82-4.97)
[2018-08-22 06:36] LABS: Calcium 8.4 mg/dL (8.6-10.3); Potassium 3.5 mEq/L (3.5-5.1)
[2018-08-22] MEDS: amLODIPine 5 MG TABLET PO SCH (09:01)
[2018-08-22] MEDS: Insulin LISPRO 300 UNITS/3 ML VIAL SQ SCH ×6 (09:02→17:26)
[2018-08-22] MEDS: Insulin DETEMIR 100 UNIT/ML X5UNITS SQ SCH ×2 (09:06→20:47)
[2018-08-22] MEDS: 0.9 % Sodium Chloride 1,000 ML IVC SCH ×2 (10:31→22:06)
[2018-08-22] MEDS: Ondansetron 4 MG/2 ML VIAL IVP PRN ×3 (10:35→22:06)
--- NOTE | 2018-08-22 12:06 | Vascular/Endovas Progress Note ---
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 This may explain why the heel and medial ankle ulcer are present. The dorsalis pedis pulse on the left is remarkably strong. Because of the extent of the wound and the chronicity of the heel wound I believe the patient will require angiography to better understand her distal anatomy as well as possibly to provide an endovascular means of treating the anticipated lesions. However due to her renal dysfunction at this time the angiogram is not recommended until her renal function improves. In addition the patient is scheduled for a repeat surgical evaluation and debridement of later this week on . If the patient has no significant left wound improvement and her renal function does improve I would suggest angiography on Tuesday. (2) Diabetic foot ulcers Current Visit: Yes Status: Chronic Bilateral foot ulcerations with full-thickness and somewhat unstageable wound of the left ankle. Qualifiers: Diabetic foot ulcer location: other Diabetes mellitus type: type 2 Laterality: unspecified laterality Non-pressure ulcer stage: unspecified non- pressure ulcer stage Qualified Code(s): E11.621 - Type 2 diabetes mellitus with foot ulcer; L97.509 - Non-pressure chronic ulcer of other part of unspecified foot with unspecified severity (3) GARETT (acute kidney injury) Current Visit: Yes Status: Acute Patient has elevation of her serum creatinine to 1.80. Yesterday decreased to 1.7. Today serum creatinine is 1.54. Any further consideration of contrast studies will be on hold until the renal function significantly improved. - Subjective Interval history: Patient continues to be troubled with nausea and vomiting. She is sitting upright in bed this morning and is nauseated with the room darkened and the door closed. I discussed with her again the issue of blood flow and perfusion to the left lower extremity. The patient has no further questions and understands the issues as I have discussed them yesterday. I did note and reassure the patient that her renal function demonstrates mild improvement as compared to yesterday and so her overall trend is positive. Vital Signs, Last 4 Hours Temp Pulse Resp BP Pulse Ox 08/22/18 10:22 97.5 F L 80 15 182/91 94 - Physical Examination General: Present: Conversant HEENT: Present: Atraumatic, Normocephaly Neck: Absent: JVD Neuro: Present: Alert and responsive, No focal deficits noted, Other (Patient has chronic lower extremity diabetic neuropathy) Vascular: Present: Surgical incisions (Dressings are intact to her feet.) Results 08/22/18 05:31 08/22/18 05:31 Lab Results, Last 24 hours 08/21/18 08/22/18 08/22/18 07:01 05:31 05:31 WBC 9.1 Hgb 10.9 L Hct 32.6 L Plt Count 330 Sodium 137 138 Potassium 3.8 3.5 Chloride 107 108 H Carbon Dioxide 21 L 19 L BUN 29 H 30 H Creatinine 1.70 H 1.54 H Glucose 223 H 170 H Calcium 8.7 8.4 L Total Bilirubin 0.4 AST 8 L ALT 10 Alkaline Phosphatase 82 Troponin I Amylase 18 L Lipase 13 08/22/18 09:17 WBC Hgb Hct Plt Count Sodium Potassium Chloride Carbon Dioxide BUN Creatinine Glucose Calcium Total Bilirubin AST ALT Alkaline Phosphatase Troponin I 0.04 H* Amylase Lipase Consult Discharge Plan - Plan Referrals: Ayden Naqvi, DPM [Partnered Physician] - NONE,PCP [Primary Care Provider] -
[2018-08-22] MEDS ORDERED: *HR* Heparin 5,000 UNIT/ML VIAL IVP ONE (12:47)
[2018-08-22] MEDS ORDERED: *HR* Heparin 5,000 UNIT/ML VIAL IVP PRN ×2 (12:47)
[2018-08-22] MEDS ORDERED: Heparin 25,000 UNIT/500 ML D5W 25,000 UNIT/500 ML BAG IVC SCH (13:00)
--- NOTE | 2018-08-22 13:20 | Internal Med Progress Note ---
Hospitalist Progress Note - Encounter Date of Encounter: 08/22/18 Time of Encounter: 11:30 - Subjective Interval History: Hospital course reviewed. 38 year old female who lost her insurance ~ 5 years ago, not on any tx for HTN or DM during that period, is admitted for bilateral diabetic foot infection. s/p I&D of L foot/ankle abscess and R 1st toe abscess on 08/19. Wound cultre +ve for MSSA and aneraboes and abx were switched to cefazolin and flagyl yesterday. Planning for repeat I&D in 2-3 days per podiatry note. DUring her stay, she also developed GARETT and is currently on IVF. She complains of persistent nausea, particularly worse today, but denies any chest pain, diaphoresis, or SOB. - Exam Vitals: Temp Pulse Resp BP Pulse Ox 97.5 F L 80 15 182/91 94 08/22/18 10:22 08/22/18 10:22 08/22/18 10:22 08/22/18 10:22 08/22/18 10:22 Exam: General: Alert and oriented, mild distress. Cardiovascular:Normal S1 & S2 Lungs: clear to auscultation, no wheezes/rales Abdomen:Soft, non-tender, no rigidity. Extremities: bilateral LE dressing dry and clean Neurological:Normal cognition and motor skills. Non-focal - Assessment and Plan (1) Sepsis Current Visit: Yes Status: Resolved Assessment and Plan: Secondary to bilateral foot infections. s/p I&D on 08/19 and on IV cefazolin/flagyl based on the wound cultures. Resolving blood cultures -ve ID input appreciated (2) Hypertensive emergency Current Visit: Yes Status: Acute Assessment and Plan: persistent nausea and also developed GARETT on 08/20 troponin 0.04, EKG without ischemic changes could be related to HTN emergency, will start nitro gtt continue norvasc, switch metoprolol to coreg trend troponin (3) Elevated troponin Current Visit: Yes Status: Acute Assessment and Plan: troponin checked due to persistent nausea, minimally elevated at 0.04 unable to exclude ACS given her poorly controlled DM, HTN, and family history nitro gtt as above start heparin gtt -> discussed with podiatry, ok with heparin gtt from surgical standpoint. To hold for 6 hours prior to op if she remains on it unable to give aspirin due to severe nausea bb as above check lipid panel tomorrow trend troponin, echocardiogram (4) PAD (peripheral artery disease) Current Visit: Yes Status: Chronic Assessment and Plan: for angiography once she recovers from GARETT, appreciate vascular surgery's input (5) GARETT (acute kidney injury) Current Visit: Yes Status: Acute Assessment and Plan: presumed multifactorial with IV abx, surgery, decreased oral intake also associated with poorly controlled DM, ?HTN emergency improving with IVF, continue BP mx as above retroperitoneal US pending appreciate nephrology input (6) Diabetic infection of right foot Current Visit: Yes Status: Acute Assessment and Plan: as above, appreciate podiatry input (7) Foot abscess, left Current Visit: Yes Status: Acute Assessment and Plan: as above, appreciate podiatry input (8) Diabetes mellitus Current Visit: Yes Status: Chronic Assessment and Plan: continue current insulin regime (9) Depression Current Visit: Yes Status: Acute Assessment and Plan: started on Lexapro. DVT Prophylaxis: heparin gtt - Time Spent with Patient Total time spent is greater than 50% in coordination of care (as documented) at patient's floor/unit and/or counseling patient: Plan of Care Discussed with: patient (also discussed with her brother) Internal Medicine: Result - Labs CBC & Chem 7: 08/22/18 05:31 08/22/18 05:31 Labs: Short CBC 08/22/18 Range/Units 05:31 WBC 9.1 (4.3-11.1) K/mcL Hgb 10.9 L (11.5-15.4) g/dL Hct 32.6 L (35.3-44.9) % Plt Count 330 (140-400) K/mcL BMP 08/22/18 05:31 Sodium 138 Potassium 3.5 Chloride 108 H Carbon Dioxide 19 L BUN 30 H Creatinine 1.54 H Glucose 170 H Calcium 8.4 L Cardiac Enzymes 08/22/18 Range/Units 09:17 Troponin I 0.04 H* (< 0.04) ng/mL Liver Function 08/21/18 Range/Units 07:01 Total Bilirubin 0.4 (0.3-1.0) mg/dL Direct Bilirubin 0.1 (0.0-0.2) mg/dL AST 8 L (13-39) Units/L ALT 10 (7-52) Units/L Alkaline Phosphatase 82 (34-104) Units/L Albumin 2.8 L (3.5-5.7) g/dL - ABG Interpretation ABG results: ABG ABG pH 7.38 pH Units (7.32-7.45) 08/17/18 08:33 ABG pCO2 24 mmHg (35-45) L 08/17/18 08:33 ABG pO2 79 mmHg (85-104) L 08/17/18 08:33 ABG O2 Saturation 96 % (95-98) 08/17/18 08:33 PT/INR, D-dimer PT 15.0 Seconds (9.4-12.1) H 08/17/18 03:35 Consult Discharge Plan - Plan Referrals: Ayden Naqvi, DPM [Partnered Physician] - NONE,PCP [Primary Care Provider] - ___ (1) Sepsis Qualifiers: Sepsis type: sepsis due to unspecified organism Qualified Code(s): A41.9 - Sepsis, unspecified organism (8) Diabetes mellitus Qualifiers: Diabetes mellitus type: type 2 Diabetes mellitus complication status: with unspecified complications Qualified Code(s): E11.8 - Type 2 diabetes mellitus with unspecified complications (9) Depression Qualifiers: Depression Type: unspecified Qualified Code(s): F32.9 - Major depressive disorder, single episode, unspecified
[2018-08-22] MEDS: Nitroglycerin 25 MG/250 ML INFUS..BTL IVC SCH (13:59)
[2018-08-22 14:02] LABS: Hematocrit 34.2 % (35.3-44.9); Hemoglobin 11.5 g/dL (11.5-15.4); Mean Corpuscular HGB Conc 33.6 g/dL (31.6-35.5); Mean Corpuscular Volume 86.4 fL (83.0-100.0); Mean Platelet Volume 10.6 fL (9.4-12.4); Platelet Count 341 K/mcL (140-400); Red Blood Count 3.96 M/mcL (3.82-4.97); Red Cell Distribution Width 13.1 % (11.5-14.5)
[2018-08-22 14:12] LABS: Heparin anti-factor XA UFH 0.03 IU/mL (0.30-0.70); INR 1.1; Prothrombin Time 12.6 Seconds (9.4-12.1)
--- NOTE | 2018-08-22 16:46 | Nephrology Progress Note ---
Date of Encounter: 08/22/18 Time of Encounter: 15:00 - Assessment and Plan (1) GARETT (acute kidney injury) Current Visit: Yes Status: Acute SCr improving at 1.54, GFR 37 with IVF. Etiology likely multifactorial s/p OR with likely sepsis, exposure to nephrotoxins with vanco and decreased po intake Continue adequate fluid intake whether po or iv Continue to avoid nephrotoixns (2) Hypertension Current Visit: Yes Status: Chronic Continue nitro gtt for now Continue coreg and amlodipine for now but may need a third agent if persistent Qualifiers: Hypertension type: unspecified Qualified Code(s): I10 - Essential (primary) hypertension (3) Hyponatremia Current Visit: Yes Status: Acute Resolved, sodium at 138 (4) Diabetic infection of right foot Current Visit: Yes Status: Acute Subjective Principal diagnosis: bilateral lower extremity infection Interval history: Interim noted, pt now on 2A for telemetry after persistent high BP readings today peaking in the 190s systolic along with chest pain and elevated troponin. Pt seen and examined feels better overall on nitro gtt with no chest pain. BP readings in the 150s systolic Objective - Vital Signs Vital signs: Vital Signs Temp Pulse Resp BP Pulse Ox 08/22/18 16:32 98.8 F 80 14 163/81 96 08/22/18 15:04 150/81 08/22/18 14:15 151/77 08/22/18 10:22 97.5 F L 80 15 182/91 94 08/22/18 06:47 97.3 F L 83 16 173/85 94 08/22/18 03:55 98.0 F 82 15 188/98 95 08/21/18 20:05 98.2 F 93 15 176/98 92 08/21/18 17:03 98.0 F 81 16 165/88 92 Intake and Output 08/22/18 08/22/18 08/22/18 07:59 15:59 23:59 Intake Total 200 / 200 1100 / 1100 Output Total 900 / 900 700 / 700 Balance -700 / -700 400 / 400 Intake: IV Fluids 200 / 200 1100 / 1100 0.9 % Sodium Chloride 1,000 ML 1000 / 1000 @ 125 mls/hr IVC .Q8H [facility] Rx#: [id number] Flagyl Premix 500 MG/100 ML 500 100 / 100 100 / 100 mg In 100 ml @ 100 mls/hr IVPB Q8HR [facility] Rx#:[id number] Ancef 2,000 MG In 0.9 % Sodium 100 / 100 Chloride 100 ML @ 200 mls/hr IVPB Q8HR [facility] Rx#:[id number] Oral 0 / 0 0 / 0 Output: Urine 900 / 900 700 / 700 Other: Meal Breakfast Percent of Meal Consumed 0% # Bowel Movements 0 0 Weight 91.6 kg Blood Glucose* 152 205 Patient Weight 08/22/18 23:59 Weight 91.6 kg - General Appearance General appearance: Present: well-developed, well-nourished EENT: Present: ATNC, mucous membranes moist Neck: Present: no JVD, supple Respiratory: Present: clear Cardiology: Present: edema (LE bilat with dressing), normal S1, normal S2 Gastrointestinal: Present: no tenderness, no guarding Integumentary: Present: warm and dry Neurologic: Present: no focal deficit Musculoskeletal: Present: no deformities Psychiatric: Present: mood/affect appropriate - Lab 08/22/18 13:43 08/22/18 05:31 Most recent lab results ABG pH 7.38 pH Units (7.32-7.45) 08/17/18 08:33 ABG pCO2 24 mmHg (35-45) L 08/17/18 08:33 ABG pO2 79 mmHg (85-104) L 08/17/18 08:33 ABG HCO3 14 mEq/L (21-27) L 08/17/18 08:33 ABG O2 Saturation 96 % (95-98) 08/17/18 08:33 Calcium 8.4 mg/dL (8.6-10.3) L 08/22/18 05:31 Phosphorus 2.7 mg/dL (2.7-4.5) 08/18/18 04:54 Magnesium 1.7 mg/dL (1.6-2.6) 08/18/18 04:54 Urine Creatinine 84 mg/dL 08/22/18 00:25 Urine Sodium 56.3 mEq/L 08/22/18 00:25 Consult Discharge Plan - Plan Referrals: Ayden Naqvi, DPM [Partnered Physician] -
[2018-08-22] MEDS: hydrALAZINE 10 MG TABLET PO SCH ×2 (17:25→19:33)
[2018-08-22] MEDS: OXYCODONE Oral CONC 10 MG/0.5 ML ORAL.SYG SL PRN (22:07)
[2018-08-23] MEDS: ceFAZolin 2,000 MG in 0.9 % Sodium Chloride 100 ML IVPB SCH ×4 (00:11→23:26)
[2018-08-23] MEDS: MetroNIDAZOLE 500 MG/100 ML 500 MG/100 ML BAG IVPB SCH ×2 (00:12→08:45)
[2018-08-23] MEDS: *HR* Promethazine 25 MG/ML VIAL IVP PRN ×3 (02:32→20:23)
--- NOTE | 2018-08-23 04:41 | Event Note ---
Date of Encounter: 08/22/18 Time of Encounter: 21:50 Alerted by pts. nurse SULEIMAN Rordigez that the pts. third troponin had resulted and was 0.05. Previous was 0.05 as well and initial was 0.04. Pt. was currently on heparin gtt for elevated troponin but denied any CP or cardiac sx. Heparin gtt held. Will continue to monitor pt. for signs of CP or ACS sx.
[2018-08-23 07:27] LABS: Basophils % 0.4 %; Eosinophils # 0.1 K/mcL (0.0-0.6); Eosinophils % 0.7 %; Hemoglobin 10.7 g/dL (11.5-15.4); Immature Granulocytes % 2.1 % (0-4); Lymphocytes # 0.9 K/mcL (0.6-4.6); Lymphocytes % 9.7 %; Mean Corpuscular HGB Conc 33.4 g/dL (31.6-35.5); Mean Corpuscular Hemoglobin 28.8 pg (28.0-33.3); Mean Corpuscular Volume 86.3 fL (83.0-100.0); Mean Platelet Volume 10.7 fL (9.4-12.4); Monocytes # 0.6 K/mcL (0.0-1.3); Monocytes % 6.8 %; Neutrophils # 7.3 K/mcL (1.6-8.9); Platelet Count 330 K/mcL (140-400); Red Blood Count 3.71 M/mcL (3.82-4.97); Red Cell Distribution Width 13.5 % (11.5-14.5); Segmented Neutrophils % 80.3 %
[2018-08-23 07:47] LABS: Calcium 8.3 mg/dL (8.6-10.3); Magnesium 2.1 mg/dL (1.6-2.6); Potassium 3.6 mEq/L (3.5-5.1)
[2018-08-23] MEDS ORDERED: OXYCODONE Oral CONC 10 MG/0.5 ML ORAL.SYG SL PRN (08:18)
[2018-08-23] MEDS: amLODIPine 5 MG TABLET PO SCH (08:43)
[2018-08-23] MEDS: 0.9 % Sodium Chloride 1,000 ML IVC SCH (08:44)
[2018-08-23] MEDS: Insulin LISPRO 300 UNITS/3 ML VIAL SQ SCH ×6 (08:44→16:46)
[2018-08-23] MEDS: hydrALAZINE 10 MG TABLET PO SCH ×4 (08:44→19:50)
[2018-08-23] MEDS: Insulin DETEMIR 100 UNIT/ML X5UNITS SQ SCH ×2 (08:46→19:50)
[2018-08-23] MEDS: Ondansetron 4 MG/2 ML VIAL IVP PRN (08:46)
--- NOTE | 2018-08-23 09:37 | Internal Med Progress Note ---
Hospitalist Progress Note - Encounter Date of Encounter: 08/23/18 Time of Encounter: 07:45 - Subjective Interval History: BP better controlled overnight, nitro weaned off and started on PO Hydralazine. Continues to have mild nausea and heaving, was able to keep down clear liquid for a few hours but had recurrent nausea. No chest pain, palpitation. - Exam Vitals: Temp Pulse Resp BP Pulse Ox 97.8 F 78 20 173/89 95 08/23/18 08:15 08/23/18 08:15 08/23/18 08:15 08/23/18 08:15 08/23/18 08:15 Exam: General: Alert and oriented, mild distress due to nausea Cardiovascular:Normal S1 & S2 Lungs: clear to auscultation, no wheezes/rales Abdomen:Soft, non-tender, no rigidity. Extremities: bilateral LE dressing dry and clean Neurological:Normal cognition and motor skills. Non-focal - Assessment and Plan (1) Sepsis Current Visit: Yes Status: Resolved Assessment and Plan: Secondary to bilateral foot infections. s/p I&D on 08/19 and on IV cefazolin/flagyl based on the wound cultures. Resolving blood cultures -ve tentatively being planned for repeat I&D, follow with podiatry ID input appreciated (2) Hypertensive emergency Current Visit: Yes Status: Resolved Assessment and Plan: persistent nausea and also developed GARETT on 08/20 troponin 0.04 - 0.05 - 0.05, EKG without ischemic changes. Likely due to poorly controlled HTN initially started on nitro gtt -> now d/carlos continue norvasc, coreg. Hydralazine added (3) Elevated troponin Current Visit: Yes Status: Acute Assessment and Plan: troponin checked due to persistent nausea, minimally elevated at 0.04 and the pattern was flat and adynamic likely secondary to poorly controlled HTN Echo normal EF without wall motion abnormalities heparin gtt d/carlos mx for HTN as above (4) Nausea Current Visit: Yes Status: Acute Assessment and Plan: suspect underlying gastroparesis in the setting of poorly controlled DM anti-emetics GI consult (5) PAD (peripheral artery disease) Current Visit: Yes Status: Chronic Assessment and Plan: for angiography once she recovers from GARETT, appreciate vascular surgery's input (6) GARETT (acute kidney injury) Current Visit: Yes Status: Acute Assessment and Plan: presumed multifactorial with IV abx, surgery, decreased oral intake also associated with poorly controlled DM, ?HTN emergency Cr 1.6 today, will continue IVF due to poor oral intake BP mx as above retroperitoneal US pending appreciate nephrology input (7) Diabetic infection of right foot Current Visit: Yes Status: Acute Assessment and Plan: as above, appreciate podiatry input (8) Foot abscess, left Current Visit: Yes Status: Acute Assessment and Plan: as above, appreciate podiatry input (9) Diabetes mellitus Current Visit: Yes Status: Chronic Assessment and Plan: continue current insulin regime (10) Depression Current Visit: Yes Status: Acute Assessment and Plan: started on Lexapro. DVT Prophylaxis: SQ heparin - Time Spent with Patient Total time spent is greater than 50% in coordination of care (as documented) at patient's floor/unit and/or counseling patient: Internal Medicine: Result - Labs CBC & Chem 7: 08/23/18 07:06 08/23/18 07:06 Labs: Short CBC 08/22/18 08/23/18 Range/Units 13:43 07:06 WBC 9.8 9.1 (4.3-11.1) K/mcL Hgb 11.5 10.7 L (11.5-15.4) g/dL Hct 34.2 L 32.0 L (35.3-44.9) % Plt Count 341 330 (140-400) K/mcL Neutrophils # 7.3 (1.6-8.9) K/mcL BMP 08/23/18 07:06 Sodium 138 Potassium 3.6 Chloride 109 H Carbon Dioxide 18 L BUN 30 H Creatinine 1.60 H Glucose 200 H Calcium 8.3 L Cardiac Enzymes 08/22/18 08/22/18 08/22/18 Range/Units 09:17 14:47 21:06 Troponin I 0.04 H* 0.05 H* 0.05 H* (< 0.04) ng/mL - ABG Interpretation ABG results: ABG ABG pH 7.38 pH Units (7.32-7.45) 08/17/18 08:33 ABG pCO2 24 mmHg (35-45) L 08/17/18 08:33 ABG pO2 79 mmHg (85-104) L 08/17/18 08:33 ABG O2 Saturation 96 % (95-98) 08/17/18 08:33 PT/INR, D-dimer PT 12.6 Seconds (9.4-12.1) H 08/22/18 13:43 - Impressions Impressions Echocardiogram 08/22/18 11:04 Impressions: LVEF 65%. Normal LV chamber size and function. Mild concentric left ventricular hypertrophy. Normal right ventricular structure and function. Mild mitral regurgitation. Mild tricuspid regurgitation. Mild pulmonary hypertension. Left Ventricular Wall Motion: Rest Echo Findings All wall segments showed normal motion. Findings: Study Quality * Technically adequate exam. ECG Findings * Normal sinus rhythm. Left Ventricle * LVEF 65%. * Normal LV chamber size and function. * Normal left ventricular diastolic function. * Mild concentric left ventricular hypertrophy. Right Ventricle * Normal right ventricular structure and function. Left Atrium * Normal left atrial size. Right Atrium * Normal right atrial size. Interatrial Septum * Interatrial septum not well evaluated. * No evidence of PFO by color Doppler. Aortic Valve * Trileaflet aortic valve. * Mildly calcified aortic valve leaflets. * No aortic stenosis. * No aortic regurgitation. Mitral Valve * Normal mitral valve structure. * No mitral stenosis. * Mild mitral regurgitation. Tricuspid Valve * Normal tricuspid valve structure. * No tricuspid stenosis. * Mild tricuspid regurgitation. * Estimated RVSP is 41 mmHg. * Estimated RA pressure is 8 mmHg. * Mild pulmonary hypertension. Pulmonic Valve * Pulmonic valve is not well visualized. * No pulmonic stenosis. * No pulmonic regurgitation. Aorta * Normally sized aortic root. Pericardium * The pericardium appears normal. IVC * The IVC is not dilated. * < 50% respiratory change. Consult Discharge Plan - Plan Referrals: Ayden Naqvi, DPM [Partnered Physician] - (1) Sepsis Qualifiers: Sepsis type: sepsis due to unspecified organism Qualified Code(s): A41.9 - Sepsis, unspecified organism (9) Diabetes mellitus Qualifiers: Diabetes mellitus type: type 2 Diabetes mellitus complication status: with unspecified complications Qualified Code(s): E11.8 - Type 2 diabetes mellitus with unspecified complications (10) Depression Qualifiers: Depression Type: unspecified Qualified Code(s): F32.9 - Major depressive disorder, single episode, unspecified
--- NOTE | 2018-08-23 09:58 | Gastroenterology Consult Note ---
<Osiel Fong - Last Filed: 08/23/18 13:00> Date of Encounter: 08/23/18 Time of Encounter: 09:15 - Assessment and plan (1) Nausea Current Visit: Yes Status: Acute Assessment and plan: Nausea with vomiting, improved with Phenergan Etiology is likely gastroparesis versus possible gastritis versus gallbladder pathology in the setting of very poorly controlled diabetes Patient has no obvious evidence of bleeding or serious GI infection The patient has had no GI imaging, nor has she had EGD or colonoscopy in the past Do not suspect that there is indication for inpatient procedures at this time however she may benefit from outpatient follow-up At this time we will check a KUB for gastric and intestinal distention We will also check a right upper quadrant ultrasound to evaluate the gallbladder and liver Pending unremarkable results, patient will likely be able to follow-up as outpatient. Continue with current supportive therapy, Advanced diet as tolerated. (2) Diabetes mellitus Current Visit: Yes Status: Chronic Assessment and plan: Poorly controlled diabetes mellitus This is the largest risk factors for gastroparesis and continued nausea and vomiting Recommend tighter control as an outpatient Qualifiers: Diabetes mellitus type: type 2 Diabetes mellitus complication status: with unspecified complications Qualified Code(s): E11.8 - Type 2 diabetes mellitus with unspecified complications (3) Diabetic infection of left foot Current Visit: Yes Status: Acute Assessment and plan: Management per primary team, podiatry, infectious disease (4) GARETT (acute kidney injury) Current Visit: Yes Status: Acute Assessment and plan: Management per primary team and nephrology (5) Hypertension Current Visit: Yes Status: Chronic Assessment and plan: Management per primary team Qualifiers: Hypertension type: unspecified Qualified Code(s): I10 - Essential (primary) hypertension - Time Spent With Patient Total time spent is greater than 50% in coordination of care (as documented) at patient's floor/unit and/or counseling patient: GI History of Present Illness - Data of Consult Patient: new to practice Consult date: 08/23/18 Requesting Physician: Arthur Camejo MD - Consult Narrative Reason for consult: Nausea, suspected gastroparesis History of present illness: Ms. Bran is a 38 year old female with history of poorly controlled diabetes mellitus, hypertension, diabetic foot ulcer who presented to the hospital on 08/16/18 for diabetic foot ulcer and abscess bilateral feet with worsening infectious wound on the left ankle. The patient states that she has had very poorly controlled diabetes over the past 5 years due to lack of medical insurance and she says that she was and her refused to give her any medical insurance, however she has since from him and has been able to acquire Medicaid. On presentation she appeared to have severe infection which would later become septic and has required multiple procedures for debridement and management of this wound. In addition, it is noted that the patient does have significant peripheral arterial disease for which vascular surgery has become involved. Over the course of her stay, the patient has apparently developed significant nausea and vomiting however. She states that this started on Tuesday after having been nothing by mouth for approximately 24 hours for procedure previously. The nausea is not associated with any pain. She does sometimes have this issue at home however it is generally resolved with saltines and mild foods. Nothing seems to be helping the situation. She does say that it seems to resolve significantly today following a dose of some antinausea medication, however prior to this she was having vomiting that would not seem to stop. She denies smoking, alcohol use, any other illicit drug use. She does admit to significant ibuprofen use over the past 2 weeks in association with the significant foot infection. She denies hematemesis or hematochezia as well as denies melena. She has never had any EGD or colonoscopy to her knowledge. Past Med Surg Social Fam HX - Past Medical History Medical history: diabetes, hypertension Psychiatric history: no psych history - Past Surgical History Surgical History: other Additional surgical history: Laparoscopy - Social History Smoking Status: Never smoker Smokeless Tobacco Status: No Alcohol use: none Drug use: none Review of Systems: Constitutional: Admits to fever and chills prior to entering the hospital Head/Neck: Denies LOBO, neck stiffness EENT: Denies vision changes/blurriness, rhinorrhea, congestion, sore throat CVS: Denies chest pain, palpitations, QUINTANILLA, orthopnea, edema, PND Pulm: Denies SOB, cough, sputum, hemoptysis, wheezing GI: Denies abdominal pain, however admits to nausea and vomiting as well as some constipation. : Denies dysuria, increased frequency, urgency, hematuria Heme: Denies ease of bleeding or bruising MSK: Denies joint pain, limited ROM Skin: Admits to significant ulceration in the lower extremities Neuro: Denies LOBO, focal deficits, ataxia. Admits some neuropathy in the lower extremities - Constitutional Vitals: Temp Pulse Resp BP Pulse Ox 97.8 F 78 20 173/89 95 08/23/18 08:15 08/23/18 08:15 08/23/18 08:15 08/23/18 08:15 08/23/18 08:15 Exam: Gen: Vitals noted. No acute distress. Eyes: anicteric sclerae, moist conjunctivae; no lid-lag; Pupils equal and reactive to light HENT: Atraumatic; oropharynx clear with moist mucous membranes and no mucosal ulcerations; normal hard and soft palate Neck: Trachea midline; supple, no thyromegaly or lymphadenopathy Cardiac: RRR, no murmur, +S1/S2 Pulmonary: CTA bilaterally, no wheezes, rales or rhonchi, equal chest expansion Abdomen: soft, nontender, no guarding. No masses or hepatosplenomegaly Neuro: moves all extremities, no focal deficits. Psych: Appropriate mood and behavior. A&Ox3 Results - Labs CBC & Chem 7: 08/23/18 07:06 08/23/18 07:06 Labs: Last Result ESR 92 mm/hr (0-15) H 08/17/18 03:35 Calcium 8.3 mg/dL (8.6-10.3) L 08/23/18 07:06 Troponin I 0.05 ng/mL (< 0.04) H* 08/22/18 21:06 C-Reactive Protein 186 mg/L (Less than 10) H 08/17/18 03:35 Triglycerides 87 mg/dL (< 150) 08/17/18 03:35 Entire Visit Hgb 10.7 g/dL (11.5-15.4) L 08/23/18 07:06 Hct 32.0 % (35.3-44.9) L 08/23/18 07:06 PT 12.6 Seconds (9.4-12.1) H 08/22/18 13:43 Total Bilirubin 0.4 mg/dL (0.3-1.0) 08/21/18 07:01 AST 8 Units/L (13-39) L 08/21/18 07:01 ALT 10 Units/L (7-52) 08/21/18 07:01 Amylase 18 Units/L (29-103) L 08/21/18 07:01 Lipase 13 Units/L (11-82) 08/21/18 07:01 - ABG ABG results: ABG ABG pH 7.38 pH Units (7.32-7.45) 08/17/18 08:33 ABG pCO2 24 mmHg (35-45) L 08/17/18 08:33 ABG pO2 79 mmHg (85-104) L 08/17/18 08:33 ABG O2 Saturation 96 % (95-98) 08/17/18 08:33 PT/INR, D-dimer PT 12.6 Seconds (9.4-12.1) H 08/22/18 13:43 - Impressions Impressions Echocardiogram 08/22/18 11:04 Impressions: LVEF 65%. Normal LV chamber size and function. Mild concentric left ventricular hypertrophy. Normal right ventricular structure and function. Mild mitral regurgitation. Mild tricuspid regurgitation. Mild pulmonary hypertension. Left Ventricular Wall Motion: Rest Echo Findings All wall segments showed normal motion. Findings: Study Quality * Technically adequate exam. ECG Findings * Normal sinus rhythm. Left Ventricle * LVEF 65%. * Normal LV chamber size and function. * Normal left ventricular diastolic function. * Mild concentric left ventricular hypertrophy. Right Ventricle * Normal right ventricular structure and function. Left Atrium * Normal left atrial size. Right Atrium * Normal right atrial size. Interatrial Septum * Interatrial septum not well evaluated. * No evidence of PFO by color Doppler. Aortic Valve * Trileaflet aortic valve. * Mildly calcified aortic valve leaflets. * No aortic stenosis. * No aortic regurgitation. Mitral Valve * Normal mitral valve structure. * No mitral stenosis. * Mild mitral regurgitation. Tricuspid Valve * Normal tricuspid valve structure. * No tricuspid stenosis. * Mild tricuspid regurgitation. * Estimated RVSP is 41 mmHg. * Estimated RA pressure is 8 mmHg. * Mild pulmonary hypertension. Pulmonic Valve * Pulmonic valve is not well visualized. * No pulmonic stenosis. * No pulmonic regurgitation. Aorta * Normally sized aortic root. Pericardium * The pericardium appears normal. IVC * The IVC is not dilated. * < 50% respiratory change. Consult Discharge Plan - Plan Instructions: Diabetic Foot Care (DC), Diabetes Mellitus Type 2 in Adults (DC), Peripheral Vascular Disorders (DC), Sepsis (DC), Chronic Hypertension (DC) Additional Instructions: IV Unasyn and PO Doxy for diabetic foot infection. Given her script for 3 weeks first but may need longer term pending outpatient ID evaluation Take Phenergan PRN for nausea/vomiting -> only use reglan if symptoms refractory to phenergan ID appt on 09/14. CBC, BMP, ESR, CRP weekly Follow up with Nephrology in 1 week with BMP Follow up with Podiatry for wound VAC Follow up with Vascular Surgery in 3 weeks for possible angiogram Follow up with PCP for DM and HTN Referrals: Ayden Naqvi DPM [Partnered Physician] - Heath Walker DO [Partnered Physician] - Luís Munoz MD [Partnered Physician] - (Follow-up in [facility] in 3 weeks. Patient to have repeat BNP prior to office visit with me.) Prescriptions: RX: Acetaminophen [Tylenol] 650 mg PO Q6HR PRN 7 Days #30 tablet PRN Reason: Mild Pain/Fever Ampicillin/Sulbactam [Unasyn] 3,000 mg IVPB Q6HR 21 Days #84 vial Metoclopramide [Reglan] 5 mg PO Q6HR PRN #100 mls PRN Reason: Nausea And Vomiting Promethazine Syrup [Phenergan Syrup] 12.5 mg PO Q8HR PRN #300 mls PRN Reason: Nausea And Vomiting RX: amLODIPine [Norvasc] 10 mg PO DAILY #60 tablet RX: Carvedilol [Coreg] 50 mg PO BIDWM #60 tablet RX: Docusate [Colace] 100 mg PO BID PRN #30 capsule PRN Reason: Constipation RX: Doxycycline 100 mg PO BID 21 Days #42 capsule RX: Escitalopram [Lexapro] 10 mg PO DAILY #30 tablet RX: hydrALAZINE [HydrALAZINE] 10 mg PO QID #120 tablet RX: Insulin NPH/REG 70/30 [HumuLIN 70/30 VIAL] 20 unit SQ BIDWM #6 vial RX: Lactobacillus [Culturelle] 2 each PO DAILY #60 cap.sprink RX: Omeprazole [PriLOSEC] 40 mg PO DAILY@0800 #60 capsule. <Tiago Rodriguez - Last Filed: 08/29/18 07:37> Date of Encounter: 08/23/18 - Time Spent With Patient Total time spent is greater than 50% in coordination of care (as documented) at patient's floor/unit and/or counseling patient: GI History of Present Illness - Data of Consult Requesting Physician: Arthur Camejo MD - Consult Narrative History of present illness: Ms. Bran is a 38 year old female - Constitutional Vitals: Temp Pulse Resp BP Pulse Ox 98.4 F 77 16 157/86 94 08/29/18 06:55 08/29/18 06:55 08/29/18 06:55 08/29/18 06:55 08/29/18 06:55 Results - Labs CBC & Chem 7: 08/28/18 04:00 08/28/18 04:00 Labs: Last Result ESR 92 mm/hr (0-15) H 08/17/18 03:35 Calcium 8.5 mg/dL (8.6-10.3) L 08/28/18 04:00 Troponin I 0.05 ng/mL (< 0.04) H* 08/22/18 21:06 C-Reactive Protein 186 mg/L (Less than 10) H 08/17/18 03:35 Triglycerides 87 mg/dL (< 150) 08/17/18 03:35 Entire Visit Hgb 10.5 g/dL (11.5-15.4) L 08/28/18 04:00 Hct 32.5 % (35.3-44.9) L 08/28/18 04:00 PT 12.6 Seconds (9.4-12.1) H 08/22/18 13:43 Total Bilirubin 0.4 mg/dL (0.3-1.0) 08/21/18 07:01 AST 8 Units/L (13-39) L 08/21/18 07:01 ALT 10 Units/L (7-52) 08/21/18 07:01 Amylase 18 Units/L (29-103) L 08/21/18 07:01 Lipase 13 Units/L (11-82) 08/21/18 07:01 - ABG ABG results: ABG ABG pH 7.38 pH Units (7.32-7.45) 08/17/18 08:33 ABG pCO2 24 mmHg (35-45) L 08/17/18 08:33 ABG pO2 79 mmHg (85-104) L 08/17/18 08:33 ABG O2 Saturation 96 % (95-98) 08/17/18 08:33 PT/INR, D-dimer PT 12.6 Seconds (9.4-12.1) H 08/22/18 13:43 - Attending Attestation I examined this patient and my medical decision-making was reviewed with the Resident Physician. I agree with the documented findings, disposition and treatment plan as described except to the extent set forth below.
--- NOTE | 2018-08-23 10:12 | Podiatry Progress Note ---
Date of Encounter: 08/23/18 Time of Encounter: 08:45 - Assessment and Plan (1) Diabetic infection of right foot Current Visit: Yes Status: Acute Assessment: S/P I&D of right hallux 08/19/18 Incision noted with suture. Opening to medial aspect of toe. Packing noted Maceration noted to edges. 3/4 DP/PT CFT <3 seconds. RICARDO Right- 0.96, Left- 0.81 PVR normal right and left TCPO2 right DP- 38, PT 31, L DP 23, PT 11 Surgical pathology pending Sugrical culture returned staph epidermis and strep a Acid fast negative Anaerobic culture returned prevotella bivia Wound culture returned staph aureus. WBC 9.1 Plan: Plan for surgery tomorrow if cardiac status improved NPO after MN Cleansed with 0.9 NS Packed with 1/4 inch gauze. Maceration painted with betadine Covered with adaptic, 4x4 dry gauze, and kerlex. Secured lightly with SAMIRA bandage. ID managing ATB- appreciate recommendations Vascular surgery consulted- appreciate recommendations Recommend tight glycemic control to help with wound healing- primary managing (2) Diabetic infection of left foot Current Visit: Yes Status: Acute Assessment: Left foot with minimal ecchymosis, erythema, and edema Wound bed to left malleolus with slough noted. Left calcaneal wound with packing noted. Blood cultures negative, prelim Surgical culture returned strep A WBC 9.1 RICARDO Right- 0.96, Left- 0.81 PVR normal right and left TCPO2 right DP- 38, PT 31, L DP 23, PT 11 3/4 DP Diminished PT pulses Wound culture returned strep A. Mendes boot noted to left foot Plan: Plan for surgery tomorrow once cardiac status improved NPO after MN Cleansed with 0.9 NS. Painted left malleolus with betadine. Covered with adaptic, maxorb, 4x4 dry gauze. Packed left calcaneous with 1/4 inch packing gauze. Covered with adaptic, 4x4 dry gauze. Secured with kerlex and lightly placed SAMIRA wrap. Continue to wear mendes boot when in bed to left foot to help prevent further ulceration of heel. Subjective Principal diagnosis: bilateral lower extremity infection Interval history: Patient sitting in bed. Patient was trasferred to higher acuity floor d/t elevated blood pressure. Patient reports continuous nausea with episodes of vomiting. Patient denies fevers, chills, or diarrhea. Reports chest pain. Denies calf pain or shortness of breath. Discussed plan for surgery if cleared with car diology for repeat I&D. Verbalized understanding and patient is agreeable. No other questions or concerns at this time. Objective - Vital Signs Vital Signs: Vital Signs Temp Pulse Resp BP Pulse Ox 08/23/18 08:15 97.8 F 78 20 173/89 95 08/23/18 04:11 98.1 F 80 17 161/88 96 08/23/18 00:30 98.2 F 80 18 147/80 95 08/22/18 19:41 96 08/22/18 18:38 147/78 08/22/18 17:13 97.9 F 76 18 156/81 96 08/22/18 16:32 98.8 F 80 14 163/81 96 08/22/18 15:04 150/81 08/22/18 14:15 151/77 08/22/18 10:22 97.5 F L 80 15 182/91 94 Intake and Output 08/22/18 08/23/18 08/23/18 23:59 07:59 15:59 Intake Total 1215 / 1215 200 / 200 1000 / 1000 Balance 1215 / 1215 200 / 200 1000 / 1000 Intake: IV Fluids 1215 / 1215 200 / 200 1000 / 1000 0.9 % Sodium Chloride 1,000 ML 1000 / 1000 1000 / 1000 @ 100 mls/hr IVC .Q10H [facility] Rx#: [id number] Nitroglycerin Premix 25 MG/250 15 / 15 ML 25 mg In 250 ml @ 5 MCG/MIN 3 mls/hr IVC .Q24H [facility] Rx#: [id number] Flagyl Premix 500 MG/100 ML 500 100 / 100 100 / 100 mg In 100 ml @ 100 mls/hr IVPB Q8HR [facility] Rx#:[id number] Ancef 2,000 MG In 0.9 % Sodium 100 / 100 100 / 100 Chloride 100 ML @ 200 mls/hr IVPB Q8HR [facility] Rx#:[id number] Other: # Voids 1 Blood Glucose* 196 188 - Exam Exam: Constitiutional: Alert and oriented x 3. Vascular: 3/4 DP/PT bilaterally, CFT <3 sec to all digits bilaterally, warm to warm from tibia to toes bilaterally, no calf pain with squeeze bilaterally Neurologic: Diminished sensation to touch, normal plantar response, abnormal position sense dorsiflexion/plantar flexion Dermatologic: Right hallux with incision, measuring 3 x 1 cm. Packed with plain gauze, 1 cm deep, tracks to lateral aspect of toe. Left heel measuring 2.5 x 2.5 x 3 cm. Packing noted. Left malleolus measuring 6 x 4 x 2 cm. Slough noted to wound bed. Maceration noted to wound edges. Musculoskeletal: 4/5 muscle strength and normal tone bilaterally. - Lab Result Diagrams: 08/23/18 07:06 08/23/18 07:06 Labs: Abnormal lab results RBC 3.71 M/mcL (3.82-4.97) L 08/23/18 07:06 Hgb 10.7 g/dL (11.5-15.4) L 08/23/18 07:06 Hct 32.0 % (35.3-44.9) L 08/23/18 07:06 ESR 92 mm/hr (0-15) H 08/17/18 03:35 PT 12.6 Seconds (9.4-12.1) H 08/22/18 13:43 Heparin Anti-Xa, Unfract 0.20 IU/mL (0.30-0.70) L 08/22/18 21:06 ABG pCO2 24 mmHg (35-45) L 08/17/18 08:33 ABG pO2 79 mmHg (85-104) L 08/17/18 08:33 ABG HCO3 14 mEq/L (21-27) L 08/17/18 08:33 ABG Total CO2 15 mEq/L (20-26) L 08/17/18 08:33 ABG Base Excess -10 mEq/L (-2 to 3) L 08/17/18 08:33 VBG pH 7.28 pH Units (7.32-7.42) L 08/17/18 08:15 VBG pCO2 29 mmHg (41-51) L 08/17/18 08:15 VBG pO2 55 mmHg (25-50) H 08/17/18 08:15 VBG HCO3 14 mEq/L (21-27) L 08/17/18 08:15 Chloride 109 mEq/L (98-107) H 08/23/18 07:06 Carbon Dioxide 18 mEq/L (23-29) L 08/23/18 07:06 BUN 30 mg/dL (6-20) H 08/23/18 07:06 Creatinine 1.60 mg/dL (0.60-1.20) H 08/23/18 07:06 Est GFR ( Amer) 43 (> 60) L 08/23/18 07:06 Est GFR (Non-Af Amer) 36 (> 60) L 08/23/18 07:06 Glucose 200 mg/dL (70-105) H 08/23/18 07:06 POC Glucose 188 mg/dL (70-99) H 08/23/18 08:21 Hemoglobin A1c 9.6 % (-5.6) H 08/17/18 03:35 Calcium 8.3 mg/dL (8.6-10.3) L 08/23/18 07:06 AST 8 Units/L (13-39) L 08/21/18 07:01 Troponin I 0.05 ng/mL (< 0.04) H* 08/22/18 21:06 C-Reactive Protein 186 mg/L (Less than 10) H 08/17/18 03:35 Serum Total Protein 5.8 g/dL (6.4-8.9) L 08/21/18 07:01 Albumin 2.8 g/dL (3.5-5.7) L 08/21/18 07:01 Albumin/Globulin Ratio 0.9 (1.1-2.2) L 08/21/18 07:01 HDL Cholesterol 27 mg/dL (40-59) L 08/17/18 03:35 Amylase 18 Units/L (29-103) L 08/21/18 07:01 Total Testosterone 127 ng/dL (15-70) H 08/18/18 04:54 Urine Clarity Cloudy (Clear) A 08/21/18 04:32 Urine Glucose (UA) >=1000 mg/dL (Normal) H 08/21/18 04:32 Urine Microscopic WBC 3-5 per hpf (0-3) H 08/21/18 04:32 Ur Squamous Epith Cells Many per lpf (None-Few) H 08/21/18 04:32 Urine Yeast Moderate per hpf (None Seen) H 08/21/18 04:32 Microbiology, Last 48 Hours 08/17/18 12:20 Anaerobic Culture - Preliminary Right Great Toe Prevotella bivia 08/19/18 18:19 Anaerobic Culture - Preliminary Other-Specify in Comments At this time, no anaerobic growth is present. The culture will be finalized after 5 days of incubation. 08/19/18 18:19 Surgical Biopsy Culture - Final Left Ankle Streptococcus anginosus 08/19/18 18:19 Surgical Biopsy Culture - Final Other-Specify in Comments Staphylococcus epidermidis 08/16/18 18:58 Blood Culture - Final Peripheral Venipuncture No growth. Final report. 08/16/18 18:57 Blood Culture - Final Peripheral Venipuncture No growth. Final report. Consult Discharge Plan - Plan Referrals: Ayden Naqvi, DPM [Partnered Physician] -
[2018-08-23] MEDS: Ringers Solution, Lactated 1,000 ML IVC SCH ×2 (10:35→19:50)
--- NOTE | 2018-08-23 11:30 | Infectious Disease Progress No ---
Date of Encounter: 08/23/18 Time of Encounter: 11:27 - Assessment and Plan (1) Sepsis Current Visit: Yes Status: Resolved The patient had 3 sepsis criteria. Likely secondary to bilateral foot infections. Improved. White blood cell count has normalized. Tachycardia resolved. Afebrile. Blood cultures drawn 08/16/18 are negative 2 sets. Recommendations: Wound care per the podiatry team. Await GI recommendations re: nausea. Continue cefazolin 2 grams IV Q8H. Start clindamycin 600mg IV TID. Discontinue Flagyl. Duration of treatment depends on the clinical picture. Monitor renal function and dose-adjust antibiotics. Strict glucose control. Pain management per the primary team. Wound care and activity per the Podiatry team. environmental services specialist to assist with discharge planning. Qualifiers: Sepsis type: sepsis due to unspecified organism Qualified Code(s): A41.9 - Sepsis, unspecified organism (2) Foot abscess, left Current Visit: Yes Status: Acute Causative organism: S. anginosus per wound and intra-op cultures. MRI of the left ankle showed multiple abscesses and likely infectious involvement of the plantar fascia. No osteomyelitis noted. Likely secondary to chronic left foot ulcer. ESR 92, CRP 186. Podiatry consulted and following. Status post I & D of the left foot and ankle abscess to deep fascia, multiple planes and incision and drainage right 1st toe abscess to deep fascia 08/19/[address] Naqvi. Intra-op cultures as above. Per the patient, Podiatry is planning on repeat I & D tomorrow. Currently on cefazolin. (3) Diabetic infection of right foot Current Visit: Yes Status: Acute Location: Right foot, great toe. Causative organism: MSSA and anaerobes per wound culture. S. epi per Intra-op culture. Likely secondary to chronic non-healing ulcer. Podiatry consulted. Status post I & D right 1st toe abscess 08/19/[address] Alicia roach. Intra-op cultures as above. Likely repeat I & D tomorrow per the patient. Currently on IV cefazolin and flagyl. (4) GARETT (acute kidney injury) Current Visit: Yes Status: Acute Likely multifactorial: pre-renal + antibiotics Serum creatinine up to 1.60 this morning. Nephrology consulted and following. (5) Diabetic foot ulcers Current Visit: Yes Status: Chronic Right foot: Right great toe. Left Foot: Left calcaneus. Etiology: Unclear. Patient denies known trauma, ill-fitting shoes, etc. Onset January/February Wound care per the Podiatry team. Qualifiers: Diabetic foot ulcer location: other Diabetes mellitus type: type 2 Laterality: unspecified laterality Non-pressure ulcer stage: unspecified non- pressure ulcer stage Qualified Code(s): E11.621 - Type 2 diabetes mellitus with foot ulcer; L97.509 - Non-pressure chronic ulcer of other part of unspecified foot with unspecified severity (6) Diabetes mellitus Current Visit: Yes Status: Chronic Uncontrolled. HgbA1C 9.6. Strict glucose control. Qualifiers: Diabetes mellitus type: type 2 Diabetes mellitus complication status: with unspecified complications Qualified Code(s): E11.8 - Type 2 diabetes mellitus with unspecified complications (7) Hypertension Current Visit: Yes Status: Chronic Qualifiers: Hypertension type: unspecified Qualified Code(s): I10 - Essential (primary) hypertension (8) Nausea Current Visit: Yes Status: Acute Chronic, but worse since being in the hospital. Amylase, lipase, LFTs normal. GI consulted. Management per the primary team. - Subjective Interval history: Patient seen and examined. No acute events noted overnight. Patient states ove rall she feels okay this morning. Reports persistent nausea with dry heaves over the past couple of days and little to no PO intake. She denies any fevers or chills or rigors. Denies chest pain, breath, or cough. Denies any vomiting or diarrhea. She does endorse some constipation and abdominal fullness. She denies abdominal pain or urinary complaints. She does tell me that she is having trouble starting her urine stream due to not being able to get up to use the bathroom. She states her appetite is not very good due to the nausea. She states the pain in her bilateral feet is under control at this time. She denies any oral thrush or new skin lesions. Likely going back to the OR tomorrow per the patient. Infect Dis PN-Objective Data - Labs CBC & Chem 7: 08/24/18 03:24 08/24/18 03:24 Labs: Laboratory Results - last 24 hr 08/21/18 08/21/18 08/22/18 16:49 20:10 07:08 WBC RBC Hgb Hct MCV MCH MCHC RDW Plt Count MPV Immature Gran % Seg Neutrophils % Lymphocytes % Monocytes % Eosinophils % Basophils % Neutrophils # Lymphocytes # Monocytes # Eosinophils # Basophils # PT INR Heparin Anti-Xa, Unfract Sodium Potassium Chloride Carbon Dioxide BUN Creatinine Est GFR ( Amer) Est GFR (Non-Af Amer) BUN/Creatinine Ratio Glucose POC Glucose 147 H 190 H 152 H Calculated Osmolality Calcium Magnesium Troponin I 08/22/18 08/22/18 08/22/18 11:04 13:43 13:43 WBC 9.8 RBC 3.96 Hgb 11.5 Hct 34.2 L MCV 86.4 MCH 29.0 MCHC 33.6 RDW 13.1 Plt Count 341 MPV 10.6 Immature Gran % Seg Neutrophils % Lymphocytes % Monocytes % Eosinophils % Basophils % Neutrophils # Lymphocytes # Monocytes # Eosinophils # Basophils # PT 12.6 H INR 1.1 Heparin Anti-Xa, Unfract 0.03 L Sodium Potassium Chloride Carbon Dioxide BUN Creatinine Est GFR ( Amer) Est GFR (Non-Af Amer) BUN/Creatinine Ratio Glucose POC Glucose 205 H Calculated Osmolality Calcium Magnesium Troponin I 08/22/18 08/22/18 08/22/18 14:47 17:12 19:38 WBC RBC Hgb Hct MCV MCH MCHC RDW Plt Count MPV Immature Gran % Seg Neutrophils % Lymphocytes % Monocytes % Eosinophils % Basophils % Neutrophils # Lymphocytes # Monocytes # Eosinophils # Basophils # PT INR Heparin Anti-Xa, Unfract Sodium Potassium Chloride Carbon Dioxide BUN Creatinine Est GFR ( Amer) Est GFR (Non-Af Amer) BUN/Creatinine Ratio Glucose POC Glucose 227 H 196 H Calculated Osmolality Calcium Magnesium Troponin I 0.05 H* 08/22/18 08/22/18 08/23/18 21:06 21:06 07:06 WBC RBC Hgb Hct MCV MCH MCHC RDW Plt Count MPV Immature Gran % Seg Neutrophils % Lymphocytes % Monocytes % Eosinophils % Basophils % Neutrophils # Lymphocytes # Monocytes # Eosinophils # Basophils # PT INR Heparin Anti-Xa, Unfract 0.20 L Sodium 138 Potassium 3.6 Chloride 109 H Carbon Dioxide 18 L BUN 30 H Creatinine 1.60 H Est GFR ( Amer) 43 L Est GFR (Non-Af Amer) 36 L BUN/Creatinine Ratio 19 Glucose 200 H POC Glucose Calculated Osmolality 298 Calcium 8.3 L Magnesium 2.1 Troponin I 0.05 H* 08/23/18 08/23/18 07:06 08:21 WBC 9.1 RBC 3.71 L Hgb 10.7 L Hct 32.0 L MCV 86.3 MCH 28.8 MCHC 33.4 RDW 13.5 Plt Count 330 MPV 10.7 Immature Gran % 2.1 Seg Neutrophils % 80.3 Lymphocytes % 9.7 Monocytes % 6.8 Eosinophils % 0.7 Basophils % 0.4 Neutrophils # 7.3 Lymphocytes # 0.9 Monocytes # 0.6 Eosinophils # 0.1 Basophils # 0.0 PT INR Heparin Anti-Xa, Unfract Sodium Potassium Chloride Carbon Dioxide BUN Creatinine Est GFR ( Amer) Est GFR (Non-Af Amer) BUN/Creatinine Ratio Glucose POC Glucose 188 H Calculated Osmolality Calcium Magnesium Troponin I Cultures: Cultures 08/17/18 12:20 Anaerobic Culture - Preliminary Right Great Toe Prevotella bivia 08/19/18 18:19 Anaerobic Culture - Preliminary Other-Specify in Comments At this time, no anaerobic growth is present. The culture will be finalized after 5 days of incubation. 08/19/18 18:19 Surgical Biopsy Culture - Final Left Ankle Streptococcus anginosus 08/19/18 18:19 Surgical Biopsy Culture - Final Other-Specify in Comments Staphylococcus epidermidis 08/16/18 18:58 Blood Culture - Final Peripheral Venipuncture No growth. Final report. 08/16/18 18:57 Blood Culture - Final Peripheral Venipuncture No growth. Final report. 08/19/18 18:19 Acid Fast Stain - Final Left Ankle 08/19/18 18:19 Acid Fast Stain - Final Other-Specify in Comments 08/16/18 18:55 Wound Culture - Final Left Foot Streptococcus anginosus 08/17/18 12:20 Wound Culture - Final Right Great Toe Staphylococcus aureus Serology 08/22/18 08/22/18 08/21/18 Range/Units 00:25 00:25 04:32 Urine Color Yellow (Yellow) Urine Clarity Cloudy A (Clear) Urine pH 5.5 (5.0-8.0) pH Units Ur Specific [place] 1.022 (1.010-1.025) Urine Protein Negative (Neg-Trace) mg/dL Urine Glucose (UA) >=1000 H (Normal) mg/dL Urine Ketones Negative (Negative) mg/dL Urine Blood Negative (Negative) Urine Nitrite Negative (Negative) Urine Bilirubin Negative (Negative) Urine Urobilinogen Normal (Normal) mg/dL Ur Leukocyte Esterase Negative (Negative) Urine Microscopic RBC 0-3 (0-3) per hpf Urine Microscopic WBC 3-5 H (0-3) per hpf Ur Eosinophil Smear 0 (None Seen) % Ur Squamous Epith Cells Many H (None-Few) per lpf Urine Bacteria Few (None-Few) per hpf Hyaline Casts None Seen (None-Few) per lpf Urine Mucus Few (Few) Urine Yeast Moderate H (None Seen) per hpf Ur Culture Indicated? NO (NO) Urine Creatinine 84 mg/dL Urine Sodium 56.3 mEq/L Urine Test (Negative) 08/19/18 Range/Units 12:30 Urine Color (Yellow) Urine Clarity (Clear) Urine pH (5.0-8.0) pH Units Ur Specific [place] (1.010-1.025) Urine Protein (Neg-Trace) mg/dL Urine Glucose (UA) (Normal) mg/dL Urine Ketones (Negative) mg/dL Urine Blood (Negative) Urine Nitrite (Negative) Urine Bilirubin (Negative) Urine Urobilinogen (Normal) mg/dL Ur Leukocyte Esterase (Negative) Urine Microscopic RBC (0-3) per hpf Urine Microscopic WBC (0-3) per hpf Ur Eosinophil Smear (None Seen) % Ur Squamous Epith Cells (None-Few) per lpf Urine Bacteria (None-Few) per hpf Hyaline Casts (None-Few) per lpf Urine Mucus (Few) Urine Yeast (None Seen) per hpf Ur Culture Indicated? (NO) Urine Creatinine mg/dL Urine Sodium mEq/L Urine Test Negative (Negative) - Impressions Impressions Echocardiogram 08/22/18 11:04 Impressions: LVEF 65%. Normal LV chamber size and function. Mild concentric left ventricular hypertrophy. Normal right ventricular structure and function. Mild mitral regurgitation. Mild tricuspid regurgitation. Mild pulmonary hypertension. Left Ventricular Wall Motion: Rest Echo Findings All wall segments showed normal motion. Findings: Study Quality * Technically adequate exam. ECG Findings * Normal sinus rhythm. Left Ventricle * LVEF 65%. * Normal LV chamber size and function. * Normal left ventricular diastolic function. * Mild concentric left ventricular hypertrophy. Right Ventricle * Normal right ventricular structure and function. Left Atrium * Normal left atrial size. Right Atrium * Normal right atrial size. Interatrial Septum * Interatrial septum not well evaluated. * No evidence of PFO by color Doppler. Aortic Valve * Trileaflet aortic valve. * Mildly calcified aortic valve leaflets. * No aortic stenosis. * No aortic regurgitation. Mitral Valve * Normal mitral valve structure. * No mitral stenosis. * Mild mitral regurgitation. Tricuspid Valve * Normal tricuspid valve structure. * No tricuspid stenosis. * Mild tricuspid regurgitation. * Estimated RVSP is 41 mmHg. * Estimated RA pressure is 8 mmHg. * Mild pulmonary hypertension. Pulmonic Valve * Pulmonic valve is not well visualized. * No pulmonic stenosis. * No pulmonic regurgitation. Aorta * Normally sized aortic root. Pericardium * The pericardium appears normal. IVC * The IVC is not dilated. * < 50% respiratory change. Exam - Constitutional Vitals: Temp Pulse Resp BP Pulse Ox 97.4 F L 73 20 126/72 93 08/23/18 11:12 08/23/18 11:12 08/23/18 11:12 08/23/18 11:12 08/23/18 11:12 General appearance: average body habitus, cooperative, no acute distress - Head Head exam: Present: atraumatic, normal inspection, normocephalic - Eye Eye exam: Present: EOMI, normal appearance, PERRL Pupils: Present: normal accommodation - ENT ENT exam: Present: mucous membranes moist - Neck Neck exam: Present: normal inspection - Respiratory Respiratory exam: Present: CTAB. Absent: rales, respiratory distress, rhonchi, wheezes - Cardiovascular Cardiovascular exam: Present: RRR, +S1, +S2 - GI/Abdominal GI/Abdominal exam: Present: normal bowel sounds, soft. Absent: distended, tenderness - Extremities Exam Extremities exam: Present: tenderness (bilateral feet.). Absent: normal inspection (Bilateral foot dressings C/D/I.) - Neurological Exam Neurological exam: Present: alert, oriented X3, no focal deficits - Psychiatric Psychiatric exam: Present: normal affect, normal mood - Skin Skin exam: Present: dry, intact, normal color, warm Consult Discharge Plan - Plan Referrals: Ayden Naqvi, DPM [Partnered Physician] - - Attending Attestation I examined this patient and my medical decision-making was reviewed with the Resident Physician. I agree with the documented findings, disposition and treatment plan as described except to the extent set forth below.
[2018-08-23] MEDS: Nitroglycerin 25 MG/250 ML INFUS..BTL IVC SCH (11:31)
--- NOTE | 2018-08-23 12:07 | Nephrology Progress Note ---
Date of Encounter: 08/23/18 Time of Encounter: 12:05 - Assessment and Plan (1) GARETT (acute kidney injury) Current Visit: Yes Status: Acute Serum creatinine 1.6 today increased from 1.54. GFR is 36 today down from 37. Renal function continues to be stable we will cautiously await for renal recovery. Continue IV fluid. Avoid nephrotoxins and renal dose all medications. Will await GI recommendations for uncontrolled nausea and vomiting, if she is able to tolerate fluids by mouth, we could potentially decrease IV fluid. (2) Hypertension Current Visit: Yes Status: Chronic Nitrate drip is currently off. PO Hydralazine ordered today, current BP is 126/72. Continue current regimen. Qualifiers: Hypertension type: unspecified Qualified Code(s): I10 - Essential (primary) hypertension (3) Hyponatremia Current Visit: Yes Status: Acute Resolved, sodium at 138. (4) Diabetic infection of right foot Current Visit: Yes Status: Acute Per podiatry. Subjective Principal diagnosis: bilateral lower extremity infection Interval history: Patient seen and examined is doing well. Admits that nausea is still a problem. She admits that she last had emesis last night. Denies chest pain or shortness of breath. Denies diarrhea. Objective - Vital Signs Vital signs: Vital Signs Temp Pulse Resp BP Pulse Ox 08/23/18 11:12 97.4 F L 73 20 126/72 93 08/23/18 08:55 95 08/23/18 08:15 97.8 F 78 20 173/89 95 08/23/18 04:11 98.1 F 80 17 161/88 96 08/23/18 00:30 98.2 F 80 18 147/80 95 08/22/18 19:41 96 08/22/18 18:38 147/78 08/22/18 17:13 97.9 F 76 18 156/81 96 08/22/18 16:32 98.8 F 80 14 163/81 96 08/22/18 15:04 150/81 08/22/18 14:15 151/77 Intake and Output 08/22/18 08/23/18 08/23/18 23:59 07:59 15:59 Intake Total 1215 / 1215 200 / 200 1000 / 1000 Balance 1215 / 1215 200 / 200 1000 / 1000 Intake: IV Fluids 1215 / 1215 200 / 200 1000 / 1000 0.9 % Sodium Chloride 1,000 ML 1000 / 1000 1000 / 1000 @ 100 mls/hr IVC .Q10H [facility] Rx#: [id number] Nitroglycerin Premix 25 MG/250 15 / 15 ML 25 mg In 250 ml @ 5 MCG/MIN 3 mls/hr IVC .Q24H [facility] Rx#: [id number] Flagyl Premix 500 MG/100 ML 500 100 / 100 100 / 100 mg In 100 ml @ 100 mls/hr IVPB Q8HR [facility] Rx#:[id number] Ancef 2,000 MG In 0.9 % Sodium 100 / 100 100 / 100 Chloride 100 ML @ 200 mls/hr IVPB Q8HR [facility] Rx#:[id number] Other: # Voids 1 Blood Glucose* 196 161 - General Appearance General appearance: Present: well-developed, well-nourished EENT: Present: ATNC, hearing intact, vision intact Neck: Present: supple Respiratory: Present: clear Cardiology: Present: edema (Trace bilateral lower extremity edema noted), normal S1, normal S2 Gastrointestinal: Present: normoactive bowel sounds, no tenderness, no guarding Integumentary: Present: no rash, warm and dry Neurologic: Present: alert and oriented x3 Psychiatric: Present: mood/affect appropriate, cooperative - Lab 08/23/18 07:06 08/23/18 07:06 Most recent lab results ABG pH 7.38 pH Units (7.32-7.45) 08/17/18 08:33 ABG pCO2 24 mmHg (35-45) L 08/17/18 08:33 ABG pO2 79 mmHg (85-104) L 08/17/18 08:33 ABG HCO3 14 mEq/L (21-27) L 08/17/18 08:33 ABG O2 Saturation 96 % (95-98) 08/17/18 08:33 Calcium 8.3 mg/dL (8.6-10.3) L 08/23/18 07:06 Phosphorus 2.7 mg/dL (2.7-4.5) 08/18/18 04:54 Magnesium 2.1 mg/dL (1.6-2.6) 08/23/18 07:06 Urine Creatinine 84 mg/dL 08/22/18 00:25 Urine Sodium 56.3 mEq/L 08/22/18 00:25 Consult Discharge Plan - Plan Referrals: Ayden Naqvi DPM [Partnered Physician] -
--- NOTE | 2018-08-23 12:36 | Vascular/[facility] Progress Note ---
Date of Encounter: 08/23/18 Time of Encounter: 12:34 - Assessment and plan (1) PAD (peripheral artery disease) Current Visit: Yes Status: Chronic Patient has been stable from a vascular standpoint. Renal function however appears to have plateaued. If this is truly the case I would recommend the angiogram be deferred until next week. Patient is scheduled to go to surgery tomorrow for reevaluation and debridement of left ankle. (2) Diabetic foot ulcers Current Visit: Yes Status: Chronic Bilateral foot ulcerations with full-thickness and somewhat unstageable wound of the left ankle. Qualifiers: Diabetic foot ulcer location: other Diabetes mellitus type: type 2 Laterality: unspecified laterality Non-pressure ulcer stage: unspecified non- pressure ulcer stage Qualified Code(s): E11.621 - Type 2 diabetes mellitus with foot ulcer; L97.509 - Non-pressure chronic ulcer of other part of unspecified foot with unspecified severity (3) GARETT (acute kidney injury) Current Visit: Yes Status: Acute Patient has elevation of her serum creatinine to 1.80. Yesterday decreased to 1.54. Today serum creatinine is 1.6. Any further consideration of contrast studies will be on hold until the renal function significantly improved. - Subjective Interval history: Patient's nausea and vomiting has improved. Patient had an elevation in her troponin and was transferred to A to be placed on IV heparin and IV nitroglycerin drip. These strips have subsequently been discontinued. Otherwise patient has no new complaints. Vital Signs, Last 4 Hours Temp Pulse Resp BP Pulse Ox 08/23/18 11:12 97.4 F L 73 20 126/72 93 08/23/18 08:55 95 - Physical Examination General: Present: Conversant, No Apparent Distress HEENT: Present: Atraumatic Vascular: Present: Surgical incisions (Dressings intact to left foot) Results 08/23/18 07:06 08/23/18 07:06 Lab Results, Last 24 hours 08/22/18 08/22/18 08/22/18 13:43 13:43 14:47 WBC 9.8 Hgb 11.5 Hct 34.2 L Plt Count 341 INR 1.1 Sodium Potassium Chloride Carbon Dioxide BUN Creatinine Glucose Calcium Magnesium Troponin I 0.05 H* 08/22/18 08/23/18 08/23/18 21:06 07:06 07:06 WBC 9.1 Hgb 10.7 L Hct 32.0 L Plt Count 330 INR Sodium 138 Potassium 3.6 Chloride 109 H Carbon Dioxide 18 L BUN 30 H Creatinine 1.60 H Glucose 200 H Calcium 8.3 L Magnesium 2.1 Troponin I 0.05 H* Consult Discharge Plan - Plan Referrals: Ayden Naqvi, DPM [Partnered Physician] -
--- NOTE | 2018-08-23 15:57 | Electrocardiograph Report ---
[address] [place] [id number] Test Date: 2018-08-22 Pat Name: Renetta Bran Department: 115 Room: 2A Gender: F Computer Hardware Developer: MARY : 1980 Requested By: Arthur Camejo Order Number: [id number] Reading MD: Cm Clark Measurements Intervals [place] Rate: 84 P: 21 NC: 135 QRS: 9 QRSD: 103 T: 10 QT: 385 QTc: 426 Interpretive Statements SINUS RHYTHM ANTEROSEPTAL INFARCTION SUGGESTED, AGE UNDETERMINED NONSPECIFIC T-WAVE ABNORMALITY Electronically Signed On 08-23-2018 15:56:16 EST by Cm Clark
[2018-08-23] MEDS: Lactobacillus 1 EACH CAP.SPRINK PO SCH (16:45)
[2018-08-23] MEDS: Clindamycin 600 MG/50 ML 600 MG/50 ML IV.SOLN IVPB SCH ×2 (16:45→23:27)
[2018-08-23] MEDS: *HR* Heparin 5,000 UNIT/ML VIAL SQ SCH (16:53)
--- NOTE | 2018-08-23 20:32 | Anesthesia Evaluation PreOp ---
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 History: Denies Any Significant HX Other Medical History: Renal (GARETT), Diabetes Type II, Other (Anemia) Anesthesia History: No Prior Anesthetic Complications, Past Anesthesia (Laproscopy, I&D feet 08/18) : No (Preg test ordered for 1/3 am) Alcohol Use: none Drug use: none Medications and Allergies No Known Home Drugs 08/17/18 [History] Allergy/AdvReac Type Severity Reaction Status Date / Time No Known Allergies Allergy Verified 08/16/18 18:17 - Meds/Allergy Pre-op Review Medications Reviewed: Yes Allergies Reviewed: Yes Beta Blockers on Current Med List: Yes Anesthesia Results - Labs 08/23/18 07:06 08/23/18 07:06 Laboratory Tests 08/21/18 08/23/18 07:01 07:06 Est GFR (Non-Af Amer) 36 L Calcium 8.3 L Serum Total Protein 5.8 L Albumin 2.8 L Anesthesia Exam Vital Signs/O2 Sat/Glucose, Most Recent Temp Pulse Resp BP Pulse Ox 97.9 F 69 17 150/91 95 08/23/18 19:03 08/23/18 19:03 08/23/18 19:03 08/23/18 19:03 08/23/18 19:03 Blood Glucose* 95 - HEENT Mallampati: I Teeth: Normal Oral Opening: Greater than 3 - Cardiac Rhythm: Regular - Pulmonary Breath Sounds: bilateral Clear Respiratory Effort: Symmetrical Anesthesia Assess/Plan ASA Score: 3 Anesthetic Plan: MAC Monitoring Plan: Standard Monitors Recovery Plan: PACU
[2018-08-24] MEDS: Ondansetron 4 MG/2 ML VIAL IVP PRN ×2 (00:06→08:58)
[2018-08-24] MEDS ORDERED: Pantoprazole 40 MG VIAL IVP ONE (00:41)
[2018-08-24] MEDS: Ringers Solution, Lactated 1,000 ML IVC SCH (04:08)
[2018-08-24 04:11] LABS: Hematocrit 33.2 % (35.3-44.9); Hemoglobin 10.9 g/dL (11.5-15.4); Mean Corpuscular HGB Conc 32.8 g/dL (31.6-35.5); Mean Corpuscular Hemoglobin 28.8 pg (28.0-33.3); Mean Corpuscular Volume 87.6 fL (83.0-100.0); Mean Platelet Volume 11.1 fL (9.4-12.4); Platelet Count 354 K/mcL (140-400); Red Blood Count 3.79 M/mcL (3.82-4.97); Red Cell Distribution Width 13.2 % (11.5-14.5)
[2018-08-24 04:12] LABS: Basophils # 0.1 K/mcL (0.0-0.2); Basophils % 0.6 %; Eosinophils # 0.1 K/mcL (0.0-0.6); Eosinophils % 1.3 %; Hematocrit 31.5 % (35.3-44.9); Hemoglobin 10.6 g/dL (11.5-15.4); Immature Granulocytes % 2.5 % (0-4); Lymphocytes # 0.9 K/mcL (0.6-4.6); Lymphocytes % 10.6 %; Mean Corpuscular HGB Conc 33.7 g/dL (31.6-35.5); Mean Corpuscular Hemoglobin 28.6 pg (28.0-33.3); Mean Corpuscular Volume 85.1 fL (83.0-100.0); Mean Platelet Volume 11.1 fL (9.4-12.4); Monocytes # 0.7 K/mcL (0.0-1.3); Monocytes % 8.2 %; Neutrophils # 6.7 K/mcL (1.6-8.9); Platelet Count 355 K/mcL (140-400); Red Cell Distribution Width 13.3 % (11.5-14.5); Segmented Neutrophils % 76.8 %
[2018-08-24] MEDS: *HR* Promethazine 25 MG/ML VIAL IVP PRN (04:23)
[2018-08-24 04:30] LABS: Calcium 8.2 mg/dL (8.6-10.3); Potassium 3.4 mEq/L (3.5-5.1)
[2018-08-24] MEDS: Pantoprazole 40 MG in 0.9 % Sodium Chloride Mini Bag 100 ML IVC SCH ×2 (04:38→08:59)
[2018-08-24] MEDS ORDERED: Vancomycin 1,000 MG, Sodium Chloride IRRigation 1,000 ML IR ONE ×2 (06:00→14:35)
[2018-08-24] MEDS: *HR* Heparin 5,000 UNIT/ML VIAL SQ SCH ×2 (06:53→16:40)
[2018-08-24] MEDS ORDERED: Potassium Chloride 40 MEQ, Lidocaine 1% 2 ML in D5% in Water 500 ML IVPB ONE (07:19)
[2018-08-24] MEDS: Insulin LISPRO 300 UNITS/3 ML VIAL SQ SCH ×6 (08:41→16:41)
[2018-08-24] MEDS: Clindamycin 600 MG/50 ML 600 MG/50 ML IV.SOLN IVPB SCH ×2 (08:59→16:32)
[2018-08-24] MEDS: ceFAZolin 2,000 MG in 0.9 % Sodium Chloride 100 ML IVPB SCH (09:00)
[2018-08-24] MEDS ORDERED: Pantoprazole 40 MG VIAL IVP SCH (09:00)
[2018-08-24] MEDS: amLODIPine 5 MG TABLET PO SCH (09:02)
[2018-08-24] MEDS: Insulin DETEMIR 100 UNIT/ML X5UNITS SQ SCH ×2 (09:02→20:48)
[2018-08-24] MEDS: hydrALAZINE 10 MG TABLET PO SCH ×4 (09:02→20:48)
[2018-08-24] MEDS: Lactobacillus 1 EACH CAP.SPRINK PO SCH (09:02)
[2018-08-24] MEDS ORDERED: Metoclopramide 10 MG/2 ML VIAL IVP ONE ×2 (09:37→15:41)
[2018-08-24] MEDS ORDERED: Bisacodyl 10 MG RECTAL SUPPOSITORY RC ONE (09:37)
--- NOTE | 2018-08-24 09:52 | Infectious Disease Progress No ---
Date of Encounter: 08/24/18 Time of Encounter: 09:15 - Assessment and Plan (1) Sepsis Current Visit: Yes Status: Resolved The patient had 3 sepsis criteria. Likely secondary to bilateral foot infections. Improved. White blood cell count has normalized. Tachycardia resolved. Afebrile. Blood cultures drawn 08/16/18 are negative 2 sets. Recommendations: Wound care per the podiatry team. RUQ UTS pending completion. Continue cefazolin 2 grams IV Q8H. Continue clindamycin 600mg IV TID. Consider gastric motility agent (Reglan) for anti-nausea/GI motility effects. Duration of treatment depends on the clinical picture. Monitor renal function and dose-adjust antibiotics. Strict glucose control. Pain management per the primary team. Wound care and activity per the Podiatry team. health services administrator to assist with discharge planning. Qualifiers: Sepsis type: sepsis due to unspecified organism Qualified Code(s): A41.9 - Sepsis, unspecified organism (2) Foot abscess, left Current Visit: Yes Status: Acute Causative organism: S. anginosus per wound and intra-op cultures. MRI of the left ankle showed multiple abscesses and likely infectious involvement of the plantar fascia. No osteomyelitis noted. Likely secondary to chronic left foot ulcer. ESR 92, CRP 186. Podiatry consulted and following. Status post I & D of the left foot and ankle abscess to deep fascia, multiple planes and incision and drainage right 1st toe abscess to deep fascia 08/19/[address] Naqvi. Intra-op cultures as above. Going back for repeat washout today. Currently on cefazolin. (3) Diabetic infection of right foot Current Visit: Yes Status: Acute Location: Right foot, great toe. Causative organism: MSSA and anaerobes per wound culture. S. epi per Intra-op culture. Likely secondary to chronic non-healing ulcer. Podiatry consulted. Status post I & D right 1st toe abscess 08/19/[address] Naqvi. Intra-op cultures as above. Pending repeat washout today. Currently on IV cefazolin and clindamycin. (4) GARETT (acute kidney injury) Current Visit: Yes Status: Acute Likely multifactorial: pre-renal + antibiotics Serum creatinine stable. Nephrology consulted and following. (5) Diabetic foot ulcers Current Visit: Yes Status: Chronic Right foot: Right great toe. Left Foot: Left calcaneus. Etiology: Unclear. Patient denies known trauma, ill-fitting shoes, etc. Onset January/February Wound care per the Podiatry team. Qualifiers: Diabetic foot ulcer location: other Diabetes mellitus type: type 2 Laterality: unspecified laterality Non-pressure ulcer stage: unspecified non- pressure ulcer stage Qualified Code(s): E11.621 - Type 2 diabetes mellitus with foot ulcer; L97.509 - Non-pressure chronic ulcer of other part of unspecified foot with unspecified severity (6) Diabetes mellitus Current Visit: Yes Status: Chronic Uncontrolled. HgbA1C 9.6. Strict glucose control. Qualifiers: Diabetes mellitus type: type 2 Diabetes mellitus complication status: with unspecified complications Qualified Code(s): E11.8 - Type 2 diabetes mellitus with unspecified complications (7) Hypertension Current Visit: Yes Status: Chronic Qualifiers: Hypertension type: unspecified Qualified Code(s): I10 - Essential (primary) hypertension (8) Nausea Current Visit: Yes Status: Acute Chronic, but worse since being in the hospital. Amylase, lipase, LFTs normal. GI consulted. RUQ UTS pending. KUB showed mildly dilated loops of bowel and mild colonic stool burden. Management per the primary team. - Subjective Interval history: Patient seen and examined. No acute events noted overnight. Patient states overall she feels okay this morning. Reports persistent nausea with dry heaves over the past couple of days and little to no PO intake. States she had severe heartburn last night that it made it difficult for her to breath. She denies any fevers or chills or rigors. Denies chest pain, shortness of breath, or cou gh. Denies any vomiting or diarrhea. She does endorse some constipation and abdominal fullness. She denies abdominal pain or urinary complaints. She states her appetite is not very good due to the nausea. She states the pain in her bilateral feet is under control at this time. She denies any oral thrush or new skin lesions. NPO pending OR today. Infect Dis PN-Objective Data - Labs CBC & Chem 7: 08/24/18 03:24 08/24/18 03:24 Labs: Laboratory Results - last 24 hr 08/23/18 08/23/18 08/23/18 11:21 16:35 20:55 WBC RBC Hgb Hct MCV MCH MCHC RDW Plt Count MPV Immature Gran % Seg Neutrophils % Lymphocytes % Monocytes % Eosinophils % Basophils % Neutrophils # Lymphocytes # Monocytes # Eosinophils # Basophils # Sodium Potassium Chloride Carbon Dioxide BUN Creatinine Est GFR ( Amer) Est GFR (Non-Af Amer) BUN/Creatinine Ratio Glucose POC Glucose 161 H 95 117 H Calculated Osmolality Calcium Urine Test 08/24/18 08/24/18 08/24/18 03:24 03:24 03:24 WBC 8.7 8.7 RBC 3.79 L 3.70 L Hgb 10.9 L 10.6 L Hct 33.2 L 31.5 L MCV 87.6 85.1 MCH 28.8 28.6 MCHC 32.8 33.7 RDW 13.2 13.3 Plt Count 354 355 MPV 11.1 11.1 Immature Gran % 2.5 Seg Neutrophils % 76.8 Lymphocytes % 10.6 Monocytes % 8.2 Eosinophils % 1.3 Basophils % 0.6 Neutrophils # 6.7 Lymphocytes # 0.9 Monocytes # 0.7 Eosinophils # 0.1 Basophils # 0.1 Sodium 138 Potassium 3.4 L Chloride 108 H Carbon Dioxide 22 L BUN 27 H Creatinine 1.56 H Est GFR ( Amer) 45 L Est GFR (Non-Af Amer) 37 L BUN/Creatinine Ratio 17 Glucose 138 H POC Glucose Calculated Osmolality 293 Calcium 8.2 L Urine Test 08/24/18 05:08 WBC RBC Hgb Hct MCV MCH MCHC RDW Plt Count MPV Immature Gran % Seg Neutrophils % Lymphocytes % Monocytes % Eosinophils % Basophils % Neutrophils # Lymphocytes # Monocytes # Eosinophils # Basophils # Sodium Potassium Chloride Carbon Dioxide BUN Creatinine Est GFR ( Amer) Est GFR (Non-Af Amer) BUN/Creatinine Ratio Glucose POC Glucose Calculated Osmolality Calcium Urine Test Negative Cultures: Cultures 08/19/18 18:19 Acid Fast Stain - Final Left Ankle 08/19/18 18:19 Anaerobic Culture - Preliminary Left Ankle Anaerobic Gram Negative Mark 08/17/18 12:20 Anaerobic Culture - Preliminary Right Great Toe Prevotella bivia 08/19/18 18:19 Anaerobic Culture - Preliminary Other-Specify in Comments At this time, no anaerobic growth is present. The culture will be finalized after 5 days of incubation. 08/19/18 18:19 Surgical Biopsy Culture - Final Left Ankle Streptococcus anginosus 08/19/18 18:19 Surgical Biopsy Culture - Final Other-Specify in Comments Staphylococcus epidermidis 08/16/18 18:58 Blood Culture - Final Peripheral Venipuncture No growth. Final report. 08/16/18 18:57 Blood Culture - Final Peripheral Venipuncture No growth. Final report. 08/19/18 18:19 Acid Fast Stain - Final Other-Specify in Comments 08/16/18 18:55 Wound Culture - Final Left Foot Streptococcus anginosus 08/17/18 12:20 Wound Culture - Final Right Great Toe Staphylococcus aureus Serology 08/24/18 08/22/18 08/22/18 Range/Units 05:08 00:25 00:25 Urine Color (Yellow) Urine Clarity (Clear) Urine pH (5.0-8.0) pH Units Ur Specific [place] (1.010-1.025) Urine Protein (Neg-Trace) mg/dL Urine Glucose (UA) (Normal) mg/dL Urine Ketones (Negative) mg/dL Urine Blood (Negative) Urine Nitrite (Negative) Urine Bilirubin (Negative) Urine Urobilinogen (Normal) mg/dL Ur Leukocyte Esterase (Negative) Urine Microscopic RBC (0-3) per hpf Urine Microscopic WBC (0-3) per hpf Ur Eosinophil Smear 0 (None Seen) % Ur Squamous Epith Cells (None-Few) per lpf Urine Bacteria (None-Few) per hpf Hyaline Casts (None-Few) per lpf Urine Mucus (Few) Urine Yeast (None Seen) per hpf Ur Culture Indicated? (NO) Urine Creatinine 84 mg/dL Urine Sodium 56.3 mEq/L Urine Test Negative (Negative) 08/21/18 08/19/18 Range/Units 04:32 12:30 Urine Color Yellow (Yellow) Urine Clarity Cloudy A (Clear) Urine pH 5.5 (5.0-8.0) pH Units Ur Specific [place] 1.022 (1.010-1.025) Urine Protein Negative (Neg-Trace) mg/dL Urine Glucose (UA) >=1000 H (Normal) mg/dL Urine Ketones Negative (Negative) mg/dL Urine Blood Negative (Negative) Urine Nitrite Negative (Negative) Urine Bilirubin Negative (Negative) Urine Urobilinogen Normal (Normal) mg/dL Ur Leukocyte Esterase Negative (Negative) Urine Microscopic RBC 0-3 (0-3) per hpf Urine Microscopic WBC 3-5 H (0-3) per hpf Ur Eosinophil Smear (None Seen) % Ur Squamous Epith Cells Many H (None-Few) per lpf Urine Bacteria Few (None-Few) per hpf Hyaline Casts None Seen (None-Few) per lpf Urine Mucus Few (Few) Urine Yeast Moderate H (None Seen) per hpf Ur Culture Indicated? NO (NO) Urine Creatinine mg/dL Urine Sodium mEq/L Urine Test Negative (Negative) - Impressions Impressions KUB X-Ray 08/23/18 11:41 IMPRESSION: 1. Borderline enlarged small bowel loops within mid abdomen are nonspecific. If patient's symptoms persist, consider follow-up CT as clinically warranted. 2. [id number]-tm-[id number] colonic stool burden. D/ / 08/23/2018 14:04:46 Siva Perez MD / Mansi Correa Interpreting Provider: Siva Perez MD Retroperitoneum Ultrasound 08/23/18 13:00 IMPRESSION: Increased echogenicity of the kidneys which can be seen in medical renal disease. No hydronephrosis. 3.9 x 3.6 cm cystic lesion left ovary which is incompletely evaluated. Recommend dedicated ultrasound of the female pelvis. Small amount of free fluid in the pelvis. D/ / Joanne Gamble MD / Joanne Gamble MD Interpreting Provider: Joanne Gamble MD Exam - Constitutional Vitals: Temp Pulse Resp BP Pulse Ox 98.4 F 73 19 164/88 96 08/24/18 08:29 08/24/18 08:29 08/24/18 08:29 08/24/18 08:29 08/24/18 08:29 General appearance: average body habitus, cooperative, no acute distress - Head Head exam: Present: atraumatic, normal inspection, normocephalic - Eye Eye exam: Present: EOMI, normal appearance, PERRL Pupils: Present: normal accommodation - ENT ENT exam: Present: mucous membranes moist - Neck Neck exam: Present: normal inspection - Respiratory Respiratory exam: Present: CTAB. Absent: rales, respiratory distress, rhonchi, wheezes - Cardiovascular Cardiovascular exam: Present: RRR, +S1, +S2 - GI/Abdominal GI/Abdominal exam: Present: normal bowel sounds, soft. Absent: distended, tenderness - Extremities Exam Extremities exam: Present: pedal edema (Trace BLE). Absent: normal inspection (Bilateral foot dressings C/D/I.) - Neurological Exam Neurological exam: Present: alert, oriented X3, no focal deficits - Psychiatric Psychiatric exam: Present: normal affect, normal mood - Skin Skin exam: Present: dry, intact, normal color, warm Consult Discharge Plan - Plan Referrals: Ayden Naqvi, DPAlfredo [Partnered Physician] - - Attending Attestation I examined this patient and my medical decision-making was reviewed with the Resident Physician. I agree with the documented findings, disposition and t reatment plan as described except to the extent set forth below.
[2018-08-24] MEDS: Promethazine 12.5 MG in 0.9 % Sodium Chloride 50 ML IVPB SCH ×2 (10:09→16:35)
--- NOTE | 2018-08-24 10:28 | Internal Med Progress Note ---
Hospitalist Progress Note - Encounter Date of Encounter: 08/24/18 Time of Encounter: 07:45 - Subjective Interval History: BP contibues to remain high and continues to experience nausea, heaving, and having difficulty keeping the food down. No chest pain, palpitation. - Exam Vitals: Temp Pulse Resp BP Pulse Ox 98.4 F 73 19 164/88 96 08/24/18 08:29 08/24/18 08:29 08/24/18 08:29 08/24/18 08:29 08/24/18 08:29 Exam: General: Alert and oriented, mild distress due to nausea Cardiovascular:Normal S1 & S2 Lungs: clear to auscultation, no wheezes/rales Abdomen:Soft, non-tender, no rigidity. Extremities: bilateral LE dressing dry and clean Neurological:Normal cognition and motor skills. Non-focal - Assessment and Plan (1) Sepsis Current Visit: Yes Status: Resolved Assessment and Plan: Secondary to bilateral foot infections. s/p I&D on 08/19 and on IV cefazolin/clindamycin based on the wound cultures. ID input appreciated blood cultures -ve For repeat I&D today, follow with podiatry (2) Hypertensive emergency Current Visit: Yes Status: Resolved Assessment and Plan: persistent nausea and also developed GARETT on 08/20 troponin 0.04 - 0.05 - 0.05, EKG without ischemic changes. Likely due to poorly controlled HTN initially started on nitro gtt -> d/carlos increase coreg to 50mg BID continue norvasc and hydralazine, may need to titrate up the doses (3) Nausea Current Visit: Yes Status: Acute Assessment and Plan: suspect underlying gastroparesis in the setting of poorly controlled DM anti-emetics, will schedule phenergan and use zofran as PRN GI input appreciated and KUB result noted US gallbladder pending trial of reglan states that protonix also provided mild relief, will continue IV 40mg daily (4) Elevated troponin Current Visit: Yes Status: Resolved Assessment and Plan: troponin checked due to persistent nausea, minimally elevated at 0.04 and the p attern was flat and adynamic likely secondary to poorly controlled HTN Echo normal EF without wall motion abnormalities heparin gtt d/carlos mx for HTN as above (5) GARETT (acute kidney injury) Current Visit: Yes Status: Acute Assessment and Plan: presumed multifactorial with IV abx, surgery, decreased oral intake also associated with poorly controlled DM, ?HTN emergency Cr 1.6 -> 1.54 today, will continue IVF due to poor oral intake BP mx as above retroperitoneal US was suggestive of medicorenal disease appreciate nephrology input (6) PAD (peripheral artery disease) Current Visit: Yes Status: Chronic Assessment and Plan: for angiography once she recovers from GARETT, appreciate vascular surgery's input (7) Diabetic infection of right foot Current Visit: Yes Status: Acute Assessment and Plan: as above, appreciate podiatry input (8) Foot abscess, left Current Visit: Yes Status: Acute Assessment and Plan: as above, appreciate podiatry input (9) Diabetes mellitus Current Visit: Yes Status: Chronic Assessment and Plan: continue current insulin regime (10) Depression Current Visit: Yes Status: Acute Assessment and Plan: started on Lexapro. DVT Prophylaxis: SQ heparin - Time Spent with Patient Total time spent is greater than 50% in coordination of care (as documented) at patient's floor/unit and/or counseling patient: Plan of Care Discussed with: patient Internal Medicine: Result - Labs CBC & Chem 7: 08/24/18 03:24 08/24/18 03:24 Labs: Short CBC 08/24/18 08/24/18 Range/Units 03:24 03:24 WBC 8.7 8.7 (4.3-11.1) K/mcL Hgb 10.9 L 10.6 L (11.5-15.4) g/dL Hct 33.2 L 31.5 L (35.3-44.9) % Plt Count 354 355 (140-400) K/mcL Neutrophils # 6.7 (1.6-8.9) K/mcL BMP 08/24/18 03:24 Sodium 138 Potassium 3.4 L Chloride 108 H Carbon Dioxide 22 L BUN 27 H Creatinine 1.56 H Glucose 138 H Calcium 8.2 L - ABG Interpretation ABG results: ABG ABG pH 7.38 pH Units (7.32-7.45) 08/17/18 08:33 ABG pCO2 24 mmHg (35-45) L 08/17/18 08:33 ABG pO2 79 mmHg (85-104) L 08/17/18 08:33 ABG O2 Saturation 96 % (95-98) 08/17/18 08:33 PT/INR, D-dimer PT 12.6 Seconds (9.4-12.1) H 08/22/18 13:43 - Impressions Impressions KUB X-Ray 08/23/18 11:41 IMPRESSION: 1. Borderline enlarged small bowel loops within mid abdomen are nonspecific. If patient's symptoms persist, consider follow-up CT as clinically warranted. 2. Sewl-ga-ojglbwnb colonic stool burden. D/ / 08/23/2018 14:04:46 Siva Perez MD / Mansi Correa Interpreting Provider: Siva Perez MD Retroperitoneum Ultrasound 08/23/18 13:00 IMPRESSION: Increased echogenicity of the kidneys which can be seen in medical renal disease. No hydronephrosis. 3.9 x 3.6 cm cystic lesion left ovary which is incompletely evaluated. Recommend dedicated ultrasound of the female pelvis. Small amount of free fluid in the pelvis. D/ / Joanne Gamble MD / Joanne Gamble MD Interpreting Provider: Joanne Gamble MD Consult Discharge Plan - Plan Referrals: Ayden Naqvi, DPM [Partnered Physician] - (1) Sepsis Qualifiers: Sepsis type: sepsis due to unspecified organism Qualified Code(s): A41.9 - Sepsis, unspecified organism (9) Diabetes mellitus Qualifiers: Diabetes mellitus type: type 2 Diabetes mellitus complication status: with unspecified complications Qualified Code(s): E11.8 - Type 2 diabetes mellitus with unspecified complications (10) Depression Qualifiers: Depression Type: unspecified Qualified Code(s): F32.9 - Major depressive disorder, single episode, unspecified
--- NOTE | 2018-08-24 11:32 | Nephrology Progress Note ---
Date of Encounter: 08/24/18 Time of Encounter: 11:28 - Assessment and Plan (1) GARETT (acute kidney injury) Current Visit: Yes Status: Acute Scr is 1.56 and GFR is 37, stable. Patient will need to establish with [facility] after d/c, BMP 7 days after discharge. Microalbumin and PCR ordered today. Per I/O patient did not make urine yesterday, but patient did confirm she voided at least 3 times yesterday. Encouraged nurse to continue to keep strict I/O. Renal function continues to be stable we will cautiously await for renal recovery. Continue IV fluid. Avoid nephrotoxins and renal dose all medications. Continue supportive care for nausea. Retroperitoneal US completed 08/23/2018 IMPRESSION: Increased echogenicity of the kidneys which can be seen in medical renal disease. No hydronephrosis. 3.9 x 3.6 cm cystic lesion left ovary which is incompletely evaluated. Recommend dedicated ultrasound of the female pelvis. Small amount of free fluid in the pelvis. Suggest dedicated ultrasound of the female pelvis. (2) Hypertension Current Visit: Yes Status: Chronic Nitrate drip is currently off. PO Hydralazine ordered today, current BP is 164/88. May need to titrate up medications. Qualifiers: Hypertension type: unspecified Qualified Code(s): I10 - Essential (primary) hypertension (3) Hyponatremia Current Visit: Yes Status: Acute Resolved, sodium at 138. (4) Diabetic infection of right foot Current Visit: Yes Status: Acute Per podiatry/ID. Subjective Principal diagnosis: bilateral lower extremity infection Interval history: Patient seen and examined is doing well. Admits that nausea is still a problem. She c/o of dry heaving this morning, unable to complete gallbladder ultrasound until later this afternoon. Denies chest pain or shortness of breath. Denies diarrhea. Objective - Vital Signs Vital signs: Vital Signs Temp Pulse Resp BP Pulse Ox 08/24/18 08:29 98.4 F 73 19 164/88 96 08/24/18 07:46 98.4 F 73 19 164/88 96 08/24/18 03:49 98.0 F 78 16 178/90 89 08/24/18 00:00 97.9 F 70 17 155/85 94 08/23/18 21:17 95 08/23/18 19:03 97.9 F 69 17 150/91 95 08/23/18 16:30 98.0 F 64 16 157/88 93 Intake and Output 08/23/18 08/24/18 08/24/18 23:59 07:59 15:59 Intake Total 1150 / 1150 1150 / 1150 100 / 100 Balance 1150 / 1150 1150 / 1150 100 / 100 Intake: IV Fluids 1150 / 1150 1150 / 1150 100 / 100 Protonix 40 MG In 0.9 % Sodium 100 / 100 Chloride (Mini-Bag +) 100 ML @ 20 mls/hr IVC .Q5H [facility] Rx#: [id number] Lactated Ringers 1,000 ML @ 125 1000 / 1000 1000 / 1000 mls/hr IVC .Q8H [facility] Rx#: [id number] Cleocin Premix 600 MG/50 ML 600 50 / 50 50 / 50 mg In 50 ml @ 50 mls/hr IVPB Q8HR [facility] Rx#:[id number] Ancef 2,000 MG In 0.9 % Sodium 100 / 100 100 / 100 Chloride 100 ML @ 200 mls/hr IVPB Q8HR [facility] Rx#:[id number] Other: Weight 101.9 kg Blood Glucose* 117 190 Patient Weight 08/24/18 23:59 Weight 101.9 kg - General Appearance General appearance: Present: well-developed, well-nourished EENT: Present: ATNC, hearing intact, vision intact Neck: Present: supple Respiratory: Present: clear Cardiology: Present: edema (Trace bilat lower extremity edema.), normal S1, normal S2 Gastrointestinal: Present: normoactive bowel sounds, no tenderness, no guarding Integumentary: Present: no rash, warm and dry Neurologic: Present: alert and oriented x3 Psychiatric: Present: mood/affect appropriate, cooperative - Lab 08/24/18 03:24 08/24/18 03:24 Most recent lab results ABG pH 7.38 pH Units (7.32-7.45) 08/17/18 08:33 ABG pCO2 24 mmHg (35-45) L 08/17/18 08:33 ABG pO2 79 mmHg (85-104) L 08/17/18 08:33 ABG HCO3 14 mEq/L (21-27) L 08/17/18 08:33 ABG O2 Saturation 96 % (95-98) 08/17/18 08:33 Calcium 8.2 mg/dL (8.6-10.3) L 08/24/18 03:24 Phosphorus 2.7 mg/dL (2.7-4.5) 08/18/18 04:54 Magnesium 2.1 mg/dL (1.6-2.6) 08/23/18 07:06 Urine Creatinine 84 mg/dL 08/22/18 00:25 Urine Sodium 56.3 mEq/L 08/22/18 00:25 Consult Discharge Plan - Plan Referrals: Ayden Naqvi, DPM [Partnered Physician] -
[2018-08-24] MEDS ORDERED: Bupivacaine/EPI 1:200k 0.25%PF 10 ML VIAL INFILT ONE ×2 (11:45→13:07)
[2018-08-24] MEDS ORDERED: Lidocaine -MPF 2% 2 ML VIAL ONE (12:03)
[2018-08-24] MEDS ORDERED: Propofol 500 MG/50 ML INFUS..BTL ONE (12:04)
[2018-08-24] MEDS ORDERED: *HR* FentaNYL (PF) 100 MCG/2 ML VIAL ONE (12:04)
[2018-08-24] MEDS ORDERED: *HR* Midazolam HCl 2 MG/2 ML VIAL ONE (12:04)
--- NOTE | 2018-08-24 12:13 | Event Note ---
Date of Encounter: 08/24/18 Time of Encounter: 12:12 Patient is not in the room. She is scheduled for left foot debridement later today. Do not anticipate angiogram for tomorrow due to her renal status. The angiogram will be postponed until there is further improvement in her renal parameters.
[2018-08-24] MEDS ORDERED: Bupivacaine-MPF 0.25% 10 ML VIAL ONE (13:20)
[2018-08-24] MEDS ORDERED: D5% in Water 1,000 ML IVC PRN (14:35)
[2018-08-24] MEDS ORDERED: Naloxone 0.4 MG/ML INJ IVP PRN (14:35)
[2018-08-24] MEDS ORDERED: Dextrose Gel 15 GM/37.5 ML TUBE PO PRN ×2 (14:35)
[2018-08-24] MEDS ORDERED: Ringers Solution, Lactated 1,000 ML IVC SCH (14:35)
[2018-08-24] MEDS ORDERED: *HR* Dextrose 50 % in Water (Syg) 50 ML SYRINGE IVP PRN (14:35)
[2018-08-24] MEDS ORDERED: Ondansetron 4 MG/2 ML VIAL IVP PRN (14:35)
[2018-08-24] MEDS: Bisacodyl 10 MG RECTAL SUPPOSITORY RC PRN (18:23)
--- NOTE | 2018-08-24 19:14 | Orthopedic Operative Note ---
Date of procedure: 08/24/18 Pre-op diagnosis: bilateral lower extremity infection Post-op diagnosis: same Procedure: 08/24/18 19:11 1. Right 1st toe incision and drainage with delayed primary closure 2. Left foot and ankle incision and drainage below fascia, multiple areas 3. Application of wound vac left lower extremity Implants: KCI Wound Vac Complications: None Local Anesthetics: 0.5% Sensorcaine HCL SubQ (cc), 1% Lidocaine HCL SubQ (cc) Surgeon: Ayden Naqvi Was there an computer assistant present: No Estimated blood loss (cc): 5 Tourniquet Time (Minutes): 0 Specimen: left ankle wound specimen aerobe and anaerobe culture Condition: stable Disposition: floor Procedure in Detail: 08/24/18 19:27 INDICATIONS AND CONSENT Renetta Bran is a 38 year old female with uncontrolled type II diabetes who initially presented with bilateral lower extremity wound infections, first noticed last summer but worsened just prior to admission to [facility]. She did not have insurance and was unable to medically treat her diabetes and the wounds. She had criteria for sepsis on admission, with cellulitis to the bilateral lower extremity wounds. MRI of the left foot and ankle showed evidence of abscess at the medial ankle and plantar foot soft tissue with likely communicating tracts between the sites. MRI of the right foot showed evidence of soft tissue abscess at the plantar hallux wound. Neither MRI showed evidence of osteomyelitis. She initially had incision and drainage of left foot and ankle wound infections, as well as a right 1st toe incision and drainage on 08/19/2018. She has been on IV antibiotics. Cellulitis and wound tissue quality improved since the first procedures. Given the depth and size of the left lower extremity wound, it was recommended to have repeat incision and drainage with application of wound vac to assist with wound healing. It was also planned to perform repeat incision and drainage right 1st toe with delayed primary closure. Patient agreed with this plan. We discussed the above procedures in detail. This included a discussion on the indications, contraindications, and possible complications including but not limited to: infection, non-healing wound, wound vac, fci antibiotics, pain, bleeding, blood clots, heart complications, nerve injury, vascular injury, loss of limb, loss of life, and need for further surgery. We also reviewed the expected post operative course, including a discussion on the non-weightbearing status after this procedure. She related understanding of our discussion regarding this surgery. All questions were answered to her satisfaction, and a proper written informed consent was obtained, signed, and placed in the chart. No guarantees were given, stated or implied, as to the outcome of this procedure. PROCEDURE IN DETAIL The patient was seen in the pre-operative holding area by Anesthesia, where she was consented for MAC with local block bilaterally. The patient was then brought back to the operative suite and placed on the operating room table in the supine position. A sign-in was performed. MAC was then initiated per Anesthesia protocol. No tourniquet was used during the procedure given concern for vascular compromise of the lower extremities. Next, the bilateral lower leg was scrubbed, prepped, and draped in the usual aseptic manner. A total of 5mL of 1% lidocaine plain and 5mL of 0.5% marcaine plain was injected to the right 1st ray in a Alejo block distribution. A 15 blade was then used to remove and surgically debride any remaining non-viable soft tissue and abscess to the level of the flexor hallucis longus tendon of the right 1st toe. The tendon appeared viable and healthy. The wound was irrigated with 3L of normal saline using cysto tubing. The deep and subcutaneous tissue was re-approximated using 3-0 Vicryl, and the skin was re-approximated using 3-0 Nylon. Attention was directed to the left medial ankle and plantar heel wounds. A total of 5mL of 1% lidocaine plain and 5mL of 0.5% marcaine plain was injected to the left medial ankle and plantar foot at the level of the wounds. A rongeur and 15 blade were used to surgically excise the non-viable soft tissue at both sites. The flexor retinaculum appeared to be intact, without active drainage following the debridement. There was tunneling to the plantar foot and to the level of the plantar heel wound. There was less tracking of the medial ankle tendons compared to initial debridement. The plantar ulcer was again surgically debrided using a rongeur to remove non-viable soft tissue to the level of plantar fascia, which was also debrided. The wounds were irrigated with 3L of normal saline with cysto tubing. Post debridement wound measurements were 2.5cm x 2.5cm x 3.5cm at the plantar heel wound, and 6cm x 4cm x 2cm at the medial ankle. New cultures were sent of the medial ankle for aerobe and anaerobe cultures. There was minimal bleeding of the medial ankle, but the wound did appear viable without signs of necrosis. A KCI wound vac was placed to the medial and plantar left foot wounds with white foam in the tunneling area, covered then with adaptic to the wound bases, black foam with bridging, and suction at 125mmHg. Adequate suction was noted at this pressure. The right 1st toe wound was dressed with xeroform, kerlix fluff, kerlix roll, and SAMIRA wrap. The left foot was covered with kerlix rolll and low compression SAMIRA wrap. A sign-out was performed. The patient tolerated anesthesia and the procedure well, and was transferred to PAC-U with vital signs stable and vascular status intact to the bilateral lower extremity. Needle and sponge counts were correct X 2 at the end of the case. Dr. Ayden Naqvi was present, scrubbed, and participated in all vital aspects of the procedure. After a brief stay in PAC-U, the patient will be admitted back to the floor for continued monitoring and IV antibiotics. We will continue to monitor for soft tissue viability. Overall, her clinical picture has improved from a soft tissue standpoint. She has other noted complications including elevated troponins and GARETT this admission. She will likely require extensive wound care follow up and we will continue to monitor the soft tissue quality of the left lower extremity. She is aware that she is still at risk for limb loss. Vascular surgery is following and will likely perform angiogram with possible intervention this admission or in the outpatient setting to optimize her vascular status. 08/25/18 06:37 08/25/18 06:49
[2018-08-24] MEDS: Acetaminophen 325 MG TABLET PO PRN (19:45)
[2018-08-24] MEDS: 0.9 % Sodium Chloride w KCl 40 MEQ/1,000 ML MLS IVC SCH (19:45)
[2018-08-24] MEDS: Metoclopramide 10 MG/2 ML VIAL IVP PRN (21:02)
[2018-08-24] MEDS: OXYCODONE Oral CONC 10 MG/0.5 ML ORAL.SYG SL PRN (23:44)
[2018-08-25] MEDS: Promethazine 12.5 MG in 0.9 % Sodium Chloride 50 ML IVPB SCH ×5 (00:30→17:22)
[2018-08-25] MEDS: Clindamycin 600 MG/50 ML 600 MG/50 ML IV.SOLN IVPB SCH ×3 (01:33→16:30)
[2018-08-25] MEDS: 0.9 % Sodium Chloride w KCl 40 MEQ/1,000 ML MLS IVC SCH ×2 (03:48→15:30)
[2018-08-25] MEDS: OXYCODONE Oral CONC 10 MG/0.5 ML ORAL.SYG SL PRN (03:57)
[2018-08-25] MEDS: *HR* Heparin 5,000 UNIT/ML VIAL SQ SCH ×2 (06:20→17:21)
[2018-08-25 08:28] LABS: Basophils # 0.1 K/mcL (0.0-0.2); Basophils % 0.8 %; Eosinophils # 0.2 K/mcL (0.0-0.6); Eosinophils % 1.8 %; Hematocrit 33.9 % (35.3-44.9); Hemoglobin 11.1 g/dL (11.5-15.4); Immature Granulocytes % 3.8 % (0-4); Lymphocytes # 1.2 K/mcL (0.6-4.6); Mean Corpuscular HGB Conc 32.7 g/dL (31.6-35.5); Mean Corpuscular Hemoglobin 28.5 pg (28.0-33.3); Mean Corpuscular Volume 87.1 fL (83.0-100.0); Mean Platelet Volume 11.1 fL (9.4-12.4); Monocytes # 0.9 K/mcL (0.0-1.3); Monocytes % 10.4 %; Platelet Count 407 K/mcL (140-400); Red Blood Count 3.89 M/mcL (3.82-4.97); Red Cell Distribution Width 13.8 % (11.5-14.5); Segmented Neutrophils % 69.2 %
[2018-08-25 09:08] LABS: Calcium 8.2 mg/dL (8.6-10.3); Potassium 4.2 mEq/L (3.5-5.1)
[2018-08-25] MEDS: Insulin LISPRO 300 UNITS/3 ML VIAL SQ SCH ×6 (09:22→16:31)
[2018-08-25] MEDS: amLODIPine 5 MG TABLET PO SCH (10:08)
[2018-08-25] MEDS: hydrALAZINE 10 MG TABLET PO SCH ×4 (10:09→20:30)
[2018-08-25] MEDS: Lactobacillus 1 EACH CAP.SPRINK PO SCH (10:09)
[2018-08-25] MEDS: Insulin DETEMIR 100 UNIT/ML X5UNITS SQ SCH ×2 (10:21→20:31)
[2018-08-25] MEDS: Pantoprazole 40 MG VIAL IVP SCH (10:21)
--- NOTE | 2018-08-25 10:27 | Vascular/Endovas Progress Note ---
Date of Encounter: 08/25/18 Time of Encounter: 10:25 - Assessment and plan (1) PAD (peripheral artery disease) Current Visit: Yes Status: Chronic Patient has been stable from a vascular standpoint. Renal function however appears to have plateaued. Will defer angiogram for the time being to allow further improvement in renal function. We will request patient to come back to see me in my clinic in 3 weeks. Patient to have repeat renal function prior to her visit with me. Asking her surgery will sign off the case for now. Please reconsult as needed. (2) Diabetic foot ulcers Current Visit: Yes Status: Chronic Bilateral foot ulcerations with full-thickness and somewhat unstageable wound of the left ankle. Qualifiers: Diabetic foot ulcer location: other Diabetes mellitus type: type 2 Laterality: unspecified laterality Non-pressure ulcer stage: unspecified non-pressure ulcer stage Qualified Code(s): E11.621 - Type 2 diabetes mellitus with foot ulcer; L97.509 - Non-pressure chronic ulcer of other part of unspecified foot with unspecified severity (3) GARETT (acute kidney injury) Current Visit: Yes Status: Acute Patient has elevation of her serum creatinine to 1.80. decreased to 1.54. Today serum creatinine is 1.6. Any further consideration of contrast studies will be on hold. We will ask patient to come back to see me in 3 weeks with repeat renal function. - Subjective Interval history: Patient has no complaints this morning. She denies nausea and vomiting. She is status post debridement and wound VAC application to left ankle ulcer yesterday. Vital Signs, Last 4 Hours Temp Pulse Resp BP Pulse Ox 08/25/18 07:52 99.1 F 82 19 167/101 93 - Physical Examination General: Present: Conversant, No Apparent Distress, Well developed, Well nourished Vascular: Present: Surgical incisions (Dressings are intact to bilateral feet and ankle. Wound VAC is attached to left ankle and is functioning appropriately.) Results 08/25/18 07:45 08/25/18 07:45 Lab Results, Last 24 hours 08/25/18 08/25/18 08/25/18 07:45 07:45 07:45 WBC 8.7 Hgb 11.1 L Hct 33.9 L Plt Count 407 H Sodium 139 Potassium 4.2 Chloride 111 H Carbon Dioxide 21 L BUN 25 H Creatinine 1.64 H Glucose 147 H Calcium 8.2 L Magnesium 2.1 Consult Discharge Plan - Plan Referrals: Ayden Naqvi DPM [Partnered Physician] - Luís Munoz MD [Partnered Physician] - (Follow-up in [facility] in 3 weeks. Patient to have repeat BNP prior to office visit with me.)
--- NOTE | 2018-08-25 11:05 | Infectious Disease Progress No ---
Date of Encounter: 08/25/18 Time of Encounter: 11:03 - Assessment and Plan (1) Sepsis Current Visit: Yes Status: Resolved The patient had 3 sepsis criteria. Likely secondary to bilateral foot infections. Improved. White blood cell count has normalized. Tachycardia resolved. Afebrile. Blood cultures drawn 08/16/18 are negative 2 sets. Recommendations: Wound care per the podiatry team. Continue cefazolin 2 grams IV Q8H. Continue clindamycin 600mg IV TID. Duration of treatment depends on the clinical picture. Monitor renal function and dose-adjust antibiotics. Strict glucose control. Pain management per the primary team. director of professional services to assist with discharge planning. Consults vascular access team for midline placement if okay with nephrology. If not, consider powerglide placement and will replace as needed. Will need weekly CBC, albumin/creatinine, ESR, and CRP. Will need weekly IV care per protocol. Follow-up with ID 2 weeks post-discharge. Qualifiers: Sepsis type: sepsis due to unspecified organism Qualified Code(s): A41.9 - Sepsis, unspecified organism (2) Foot abscess, left Current Visit: Yes Status: Acute Causative organism: S. anginosus and anaerobes per wound and intra-op cultures. MRI of the left ankle showed multiple abscesses and likely infectious involvement of the plantar fascia. No osteomyelitis noted. Likely secondary to chronic left foot ulcer. ESR 92, CRP 186. Podiatry consulted and following. Status post I & D of the left foot and ankle abscess to deep fascia, multiple planes and incision and drainage right 1st toe abscess to deep fascia 08/19/[address] Naqvi. Intra-op cultures as above. Status post right first toe I&D and left foot and ankle I&D 08/24/[address] Laughlin. Repeat cultures of the left ankle are pending. Currently on cefazolin. (3) Diabetic infection of right foot Current Visit: Yes Status: Acute Location: Right foot, great toe. Causative organism: MSSA and anaerobes per wound culture. S. epi per Intra-op culture. Likely secondary to chronic non-healing ulcer. Podiatry consulted. Status post I & D right 1st toe abscess 08/19/[address] Naqvi. Intra-op cultures as above. Status post right first toe I&D and left foot and ankle I&D 08/24/18. Currently on IV cefazolin and clindamycin. (4) GARETT (acute kidney injury) Current Visit: Yes Status: Acute Likely multifactorial: pre-renal + antibiotics Serum creatinine stable. Nephrology consulted and following. (5) Diabetic foot ulcers Current Visit: Yes Status: Chronic Right foot: Right great toe. Left Foot: Left calcaneus. Etiology: Unclear. Patient denies known trauma, ill-fitting shoes, etc. Onset Wound care per the Podiatry team. Vascular consulted and planning for angiogram once renal function stabilizes. Qualifiers: Diabetic foot ulcer location: other Diabetes mellitus type: type 2 Laterality: unspecified laterality Non-pressure ulcer stage: unspecified non- pressure ulcer stage Qualified Code(s): E11.621 - Type 2 diabetes mellitus with foot ulcer; L97.509 - Non-pressure chronic ulcer of other part of unspecified foot with unspecified severity (6) Diabetes mellitus Current Visit: Yes Status: Chronic Uncontrolled. HgbA1C 9.6. Strict glucose control. Qualifiers: Diabetes mellitus type: type 2 Diabetes mellitus complication status: with unspecified complications Qualified Code(s): E11.8 - Type 2 diabetes mellitus with unspecified complications (7) Hypertension Current Visit: Yes Status: Chronic Qualifiers: Hypertension type: unspecified Qualified Code(s): I10 - Essential (primary) hypertension (8) Nausea Current Visit: Yes Status: Acute Chronic, but worse since being in the hospital. Amylase, lipase, LFTs normal. GI consulted. RUQ UTS negative. KUB showed mildly dilated loops of bowel and mild colonic stool burden. Markedly improved with the addition of Reglan to her anti-emetic regimen. Management per the primary team. - Subjective Interval history: Patient seen and examined. No acute events noted overnight. Patient states overall she feels much better this morning. She reports marked improvement in her nausea and denies any vomiting. She denies any fevers or chills or rigors. Denies chest pain, shortness of breath, or cough. Denies diarrhea or constipation and states she had a vomiting yesterday. Denies abdominal pain or urinary complaints. Denies any oral thrush or new skin lesions. Denies any p ain the surgical sites. Infect Dis PN-Objective Data - Labs CBC & Chem 7: 08/25/18 07:45 08/25/18 07:45 Labs: Laboratory Results - last 24 hr 08/24/18 08/24/18 08/24/18 07:45 11:12 16:19 WBC RBC Hgb Hct MCV MCH MCHC RDW Plt Count MPV Immature Gran % Seg Neutrophils % Lymphocytes % Monocytes % Eosinophils % Basophils % Neutrophils # Lymphocytes # Monocytes # Eosinophils # Basophils # Sodium Potassium Chloride Carbon Dioxide BUN Creatinine Est GFR ( Amer) Est GFR (Non-Af Amer) BUN/Creatinine Ratio Glucose POC Glucose 126 H 190 H 258 H Calculated Osmolality Calcium Magnesium 08/24/18 08/25/18 08/25/18 21:05 07:31 07:45 WBC RBC Hgb Hct MCV MCH MCHC RDW Plt Count MPV Immature Gran % Seg Neutrophils % Lymphocytes % Monocytes % Eosinophils % Basophils % Neutrophils # Lymphocytes # Monocytes # Eosinophils # Basophils # Sodium 139 Potassium 4.2 Chloride 111 H Carbon Dioxide 21 L BUN 25 H Creatinine 1.64 H Est GFR ( Amer) 42 L Est GFR (Non-Af Amer) 35 L BUN/Creatinine Ratio 15 Glucose 147 H POC Glucose 140 H 136 H Calculated Osmolality 295 Calcium 8.2 L Magnesium 08/25/18 08/25/18 07:45 07:45 WBC 8.7 RBC 3.89 Hgb 11.1 L Hct 33.9 L MCV 87.1 MCH 28.5 MCHC 32.7 RDW 13.8 Plt Count 407 H MPV 11.1 Immature Gran % 3.8 Seg Neutrophils % 69.2 Lymphocytes % 14.0 Monocytes % 10.4 Eosinophils % 1.8 Basophils % 0.8 Neutrophils # 6.0 Lymphocytes # 1.2 Monocytes # 0.9 Eosinophils # 0.2 Basophils # 0.1 Sodium Potassium Chloride Carbon Dioxide BUN Creatinine Est GFR ( Amer) Est GFR (Non-Af Amer) BUN/Creatinine Ratio Glucose POC Glucose Calculated Osmolality Calcium Magnesium 2.1 Cultures: Cultures 08/19/18 18:19 Anaerobic Culture - Final Other-Specify in Comments No anaerobes were recovered. 08/24/18 14:45 Surgical Biopsy Culture - Preliminary Left Ankle 08/19/18 18:19 Acid Fast Stain - Final Left Ankle 08/19/18 18:19 Anaerobic Culture - Preliminary Left Ankle Anaerobic Gram Negative Mark 08/17/18 12:20 Anaerobic Culture - Preliminary Right Great Toe Prevotella bivia 08/19/18 18:19 Surgical Biopsy Culture - Final Left Ankle Streptococcus anginosus 08/19/18 18:19 Surgical Biopsy Culture - Final Other-Specify in Comments Staphylococcus epidermidis 08/16/18 18:58 Blood Culture - Final Peripheral Venipuncture No growth. Final report. 08/16/18 18:57 Blood Culture - Final Peripheral Venipuncture No growth. Final report. 08/19/18 18:19 Acid Fast Stain - Final Other-Specify in Comments 08/16/18 18:55 Wound Culture - Final Left Foot Streptococcus anginosus 08/17/18 12:20 Wound Culture - Final Right Great Toe Staphylococcus aureus Serology 08/24/18 08/22/18 08/22/18 Range/Units 05:08 00:25 00:25 Urine Color (Yellow) Urine Clarity (Clear) Urine pH (5.0-8.0) pH Units Ur Specific [place] (1.010-1.025) Urine Protein (Neg-Trace) mg/dL Urine Glucose (UA) (Normal) mg/dL Urine Ketones (Negative) mg/dL Urine Blood (Negative) Urine Nitrite (Negative) Urine Bilirubin (Negative) Urine Urobilinogen (Normal) mg/dL Ur Leukocyte Esterase (Negative) Urine Microscopic RBC (0-3) per hpf Urine Microscopic WBC (0-3) per hpf Ur Eosinophil Smear 0 (None Seen) % Ur Squamous Epith Cells (None-Few) per lpf Urine Bacteria (None-Few) per hpf Hyaline Casts (None-Few) per lpf Urine Mucus (Few) Urine Yeast (None Seen) per hpf Ur Culture Indicated? (NO) Urine Creatinine 84 mg/dL Urine Sodium 56.3 mEq/L Urine Test Negative (Negative) 08/21/18 08/19/18 Range/Units 04:32 12:30 Urine Color Yellow (Yellow) Urine Clarity Cloudy A (Clear) Urine pH 5.5 (5.0-8.0) pH Units Ur Specific [place] 1.022 (1.010-1.025) Urine Protein Negative (Neg-Trace) mg/dL Urine Glucose (UA) >=1000 H (Normal) mg/dL Urine Ketones Negative (Negative) mg/dL Urine Blood Negative (Negative) Urine Nitrite Negative (Negative) Urine Bilirubin Negative (Negative) Urine Urobilinogen Normal (Normal) mg/dL Ur Leukocyte Esterase Negative (Negative) Urine Microscopic RBC 0-3 (0-3) per hpf Urine Microscopic WBC 3-5 H (0-3) per hpf Ur Eosinophil Smear (None Seen) % Ur Squamous Epith Cells Many H (None-Few) per lpf Urine Bacteria Few (None-Few) per hpf Hyaline Casts None Seen (None-Few) per lpf Urine Mucus Few (Few) Urine Yeast Moderate H (None Seen) per hpf Ur Culture Indicated? NO (NO) Urine Creatinine mg/dL Urine Sodium mEq/L Urine Test Negative (Negative) - Impressions Impressions Gallbladder Ultrasound 08/24/18 11:30 IMPRESSION: Unremarkable right upper quadrant ultrasound. D/ / Gilmer Small MD / Gilmer Small MD Interpreting Provider: Gilmer Small MD Exam - Constitutional Vitals: Temp Pulse Resp BP Pulse Ox 99.1 F 82 19 167/101 93 08/25/18 07:52 08/25/18 07:52 08/25/18 07:52 08/25/18 07:52 08/25/18 07:52 General appearance: cooperative, no acute distress, obese - Head Head exam: Present: atraumatic, normal inspection, normocephalic - Eye Eye exam: Present: EOMI, normal appearance, PERRL Pupils: Present: normal accommodation - ENT ENT exam: Present: mucous membranes moist - Neck Neck exam: Present: normal inspection - Respiratory Respiratory exam: Present: CTAB. Absent: rales, respiratory distress, rhonchi, wheezes - Cardiovascular Cardiovascular exam: Present: RRR, +S1, +S2 - GI/Abdominal GI/Abdominal exam: Present: normal bowel sounds, soft. Absent: distended, tenderness - Extremities Exam Extremities exam: Present: pedal edema (Trace left lower extremity). Absent: normal inspection (Bilateral postop foot dressings noted. Wound VAC noted to the left ankle with small amount of serosanguineous drainage noted the wound VAC canister.) - Neurological Exam Neurological exam: Present: alert, oriented X3, no focal deficits - Psychiatric Psychiatric exam: Present: normal affect, normal mood - Skin Skin exam: Present: dry, intact, normal color, warm Consult Discharge Plan - Plan Referrals: McFAyden church DPM [Partnered Physician] - Luís Munoz MD [Partnered Physician] - (Follow-up in [facility] in 3 weeks. Patient to have repeat BNP prior to office visit with me.) - Attending Attestation I examined this patient and my medical decision-making was reviewed with the Resident Physician. I agree with the documented findings, disposition and treatment plan as described except to the extent set forth below.
[2018-08-25 12:16] LABS: Protein/Creatinine Ratio,Urine 0.25 mg/mg (0.00-0.20)
--- NOTE | 2018-08-25 13:55 | Internal Med Progress Note ---
Hospitalist Progress Note - Encounter Date of Encounter: 08/25/18 Time of Encounter: 11:00 - Subjective Interval History: BP better controlled and nausea also subsided with scheduled phenergan and PRN reglan. Was able to tolerate solids for the first time in a few days. No chest pain, palpitation. Expected bilateral feet discomfort. - Exam Vitals: Temp Pulse Resp BP Pulse Ox 98.3 F 62 19 138/81 97 08/25/18 12:08 08/25/18 12:08/25/18 12:08/25/18 12:08/25/18 12:08 Exam: General: Alert and oriented, not in distress Cardiovascular:Normal S1 & S2 Lungs: clear to auscultation, no wheezes/rales Abdomen:Soft, non-tender, no rigidity. Extremities: R LE dressing dry and clean, L LE on VAC Neurological:Normal cognition and motor skills. Non-focal - Assessment and Plan (1) Sepsis Current Visit: Yes Status: Resolved Assessment and Plan: Secondary to bilateral foot infections. s/p I&D on 08/19 and on IV cefazolin/clindamycin based on the wound cultures. Had another I&D and delayed primary closure on R 1st toe and L foot/ankle I&D with VAC application blood cultures -ve ID input appreciated follow with podiatry (2) Hypertensive emergency Current Visit: Yes Status: Resolved Assessment and Plan: persistent nausea and also developed GARETT on 08/20 troponin 0.04 - 0.05 - 0.05, EKG without ischemic changes. Likely due to poorly controlled HTN initially started on nitro gtt -> d/carlos better controlled on current dose of coreg, norvasc, hydralazine (3) Nausea Current Visit: Yes Status: Acute Assessment and Plan: suspect underlying gastroparesis in the setting of poorly controlled DM doing better on scheduled phenergan and PRN reglan continue for today, will try to cut back over the weekend US gallbladder unremarkable trial of reglan states that protonix also provided mild relief, will continue IV 40mg daily (4) Elevated troponin Current Visit: Yes Status: Resolved Assessment and Plan: troponin checked due to persistent nausea, minimally elevated at 0.04 and the pattern was flat and adynamic likely secondary to poorly controlled HTN Echo normal EF without wall motion abnormalities heparin gtt d/carlos mx for HTN as above (5) GARETT (acute kidney injury) Current Visit: Yes Status: Acute Assessment and Plan: presumed multifactorial with IV abx, surgery, decreased oral intake appears to have plateaued around 1.6 Improving oral intake, will attempt to decrease IVD BP mx as above retroperitoneal US was suggestive of medicorenal disease appreciate nephrology input may need to do angiography as outpatient, vascular surgery input appreciated (6) PAD (peripheral artery disease) Current Visit: Yes Status: Chronic Assessment and Plan: for angiography once she recovers from GARETT, appreciate vascular surgery's input (7) Diabetic infection of right foot Current Visit: Yes Status: Acute Assessment and Plan: as above, appreciate podiatry/ID input (8) Foot abscess, left Current Visit: Yes Status: Acute Assessment and Plan: as above, appreciate podiatry/ID input (9) Diabetes mellitus Current Visit: Yes Status: Chronic Assessment and Plan: continue current insulin regime (10) Depression Current Visit: Yes Status: Acute Assessment and Plan: continue Lexapro DVT Prophylaxis: SQ heparin - Time Spent with Patient Total time spent is greater than 50% in coordination of care (as documented) at patient's floor/unit and/or counseling patient: Plan of Care Discussed with: patient Internal Medicine: Result - Labs CBC & Chem 7: 08/25/18 07:45 08/25/18 07:45 Labs: Short CBC 08/25/18 Range/Units 07:45 WBC 8.7 (4.3-11.1) K/mcL Hgb 11.1 L (11.5-15.4) g/dL Hct 33.9 L (35.3-44.9) % Plt Count 407 H (140-400) K/mcL Neutrophils # 6.0 (1.6-8.9) K/mcL BMP 08/25/18 07:45 Sodium 139 Potassium 4.2 Chloride 111 H Carbon Dioxide 21 L BUN 25 H Creatinine 1.64 H Glucose 147 H Calcium 8.2 L - ABG Interpretation ABG results: ABG ABG pH 7.38 pH Units (7.32-7.45) 08/17/18 08:33 ABG pCO2 24 mmHg (35-45) L 08/17/18 08:33 ABG pO2 79 mmHg (85-104) L 08/17/18 08:33 ABG O2 Saturation 96 % (95-98) 08/17/18 08:33 PT/INR, D-dimer PT 12.6 Seconds (9.4-12.1) H 08/22/18 13:43 Consult Discharge Plan - Plan Referrals: Ayden Naqvi DPM [Partnered Physician] - Luís Munoz MD [Partnered Physician] - (Follow-up in [place] surgery clinic in 3 weeks. Patient to have repeat BNP prior to office visit with me.) _ (1) Sepsis Qualifiers: Sepsis type: sepsis due to unspecified organism Qualified Code(s): A41.9 - Sepsis, unspecified organism (9) Diabetes mellitus Qualifiers: Diabetes mellitus type: type 2 Diabetes mellitus complication status: with unspecified complications Qualified Code(s): E11.8 - Type 2 diabetes mellitus with unspecified complications (10) Depression Qualifiers: Depression Type: unspecified Qualified Code(s): F32.9 - Major depressive disorder, single episode, unspecified
--- NOTE | 2018-08-25 14:34 | Podiatry Progress Note ---
Date of Encounter: 08/25/18 Time of Encounter: 12:45 - Assessment and Plan (1) Diabetic infection of right foot Current Visit: Yes Status: Acute Assessment: S/P I&D of right hallux 08/19/18 Repeat I&D 08/24/18 with wound closure of right hallux CFT <3 seconds. RICARDO Right- 0.96, Left- 0.81 PVR normal right and left TCPO2 right DP- 38, PT 31, L DP 23, PT 11 Surgical pathology returned acute supprative inflammation Sugrical culture returned staph epidermis and strep a Acid fast negative Anaerobic culture returned prevotella bivia Wound culture returned staph aureus. ID following for ATB management Plan: Keep dressing in tact. Will change dressing/vac Tuesday. ID managing ATB- appreciate recommendations Vascular surgery consulted- appreciate recommendations Recommend tight glycemic control to help with wound healing- primary managing (2) Diabetic infection of left foot Current Visit: Yes Status: Acute Assessment: Repeat I&D 08/24/18 Wound vac placed to left calcaneous and left malleolus. Blood cultures negative, prelim Surgical culture returned strep A RICARDO Right- 0.96, Left- 0.81 PVR normal right and left TCPO2 right DP- 38, PT 31, L DP 23, PT 11 Wound culture returned strep A. Plan: Wound vac orders placed. Will change Tuesday. Continue to wear couch boot when in bed to left foot to help prevent further ulceration of heel. Subjective Principal diagnosis: bilateral lower extremity infection Interval history: Patient sitting in bed. Patient eating lunch. Patient reports feeling much better since surgery. Patient denies fevers, chills, nausea, vomiting, or diarrhea. Denies chest pain, calf pain, or shortness of breath.No other questions or concerns at this time. Objective - Vital Signs Vital Signs: Vital Signs Temp Pulse Resp BP Pulse Ox 08/25/18 12:08 98.3 F 62 19 138/81 97 08/25/18 07:52 99.1 F 82 19 167/101 93 08/25/18 04:56 98.6 F 78 17 147/87 95 08/24/18 23:32 98.5 F 75 15 128/74 93 08/24/18 21:05 98.8 F 79 16 144/74 95 08/24/18 16:19 98.1 F 70 16 123/73 96 08/24/18 14:32 97.8 F 80 14 154/88 96 Intake and Output 08/24/18 08/25/18 08/25/18 23:59 07:59 15:59 Intake Total 150 / 150 1151.5 / 1151.5 670.5 / 670.5 Output Total 1200 / 1200 350 / 350 Balance -1050 / -1050 1151.5 / 1151.5 320.5 / 320.5 Intake: IV Fluids 150 / 150 1151.5 / 1151.5 350.5 / 350.5 KCl 40mEq in 0.9% Sodium 1000 / 1000 Chloride 40 meq In 1,000 ml @ 125 mls/hr IVC .Q8H [facility] Rx#: [id number] Cleocin Premix 600 MG/50 ML 600 50 / 50 100 / 100 mg In 50 ml @ 50 mls/hr IVPB Q8HR [facility] Rx#:[id number] Phenergan 12.5 MG In 0.9 % 151.5 / 151.5 50.5 / 50.5 Sodium Chloride 50 ML @ 204 mls /hr IVPB Q6HR [facility] Rx#: [id number] Ancef 2,000 MG In 0.9 % Sodium 100 / 100 200 / 200 Chloride 100 ML @ 200 mls/hr IVPB Q8HR [facility] Rx#:[id number] Oral 320 / 320 Output: Urine 1200 / 1200 350 / 350 Wound Drainage 0 / 0 Left Ankle 0 / 0 left inner ankle 0 / 0 Other: Meal Breakfast Weight 107.5 kg Blood Glucose* 140 136 158 Patient Weight 08/25/18 23:59 Weight 107.5 kg - Lab Result Diagrams: 08/25/18 07:45 08/25/18 07:45 Labs: Abnormal lab results Hgb 11.1 g/dL (11.5-15.4) L 08/25/18 07:45 Hct 33.9 % (35.3-44.9) L 08/25/18 07:45 Plt Count 407 K/mcL (140-400) H 08/25/18 07:45 ESR 92 mm/hr (0-15) H 08/17/18 03:35 PT 12.6 Seconds (9.4-12.1) H 08/22/18 13:43 Heparin Anti-Xa, Unfract 0.20 IU/mL (0.30-0.70) L 08/22/18 21:06 ABG pCO2 24 mmHg (35-45) L 08/17/18 08:33 ABG pO2 79 mmHg (85-104) L 08/17/18 08:33 ABG HCO3 14 mEq/L (21-27) L 08/17/18 08:33 ABG Total CO2 15 mEq/L (20-26) L 08/17/18 08:33 ABG Base Excess -10 mEq/L (-2 to 3) L 08/17/18 08:33 VBG pH 7.28 pH Units (7.32-7.42) L 08/17/18 08:15 VBG pCO2 29 mmHg (41-51) L 08/17/18 08:15 VBG pO2 55 mmHg (25-50) H 08/17/18 08:15 VBG HCO3 14 mEq/L (21-27) L 08/17/18 08:15 Chloride 111 mEq/L (98-107) H 08/25/18 07:45 Carbon Dioxide 21 mEq/L (23-29) L 08/25/18 07:45 BUN 25 mg/dL (6-20) H 08/25/18 07:45 Creatinine 1.64 mg/dL (0.60-1.20) H 08/25/18 07:45 Est GFR ( Amer) 42 (> 60) L 08/25/18 07:45 Est GFR (Non-Af Amer) 35 (> 60) L 08/25/18 07:45 Glucose 147 mg/dL (70-105) H 08/25/18 07:45 POC Glucose 158 mg/dL (70-99) H 08/25/18 12:00 Hemoglobin A1c 9.6 % (-5.6) H 08/17/18 03:35 Calcium 8.2 mg/dL (8.6-10.3) L 08/25/18 07:45 AST 8 Units/L (13-39) L 08/21/18 07:01 Troponin I 0.05 ng/mL (< 0.04) H* 08/22/18 21:06 C-Reactive Protein 186 mg/L (Less than 10) H 08/17/18 03:35 Serum Total Protein 5.8 g/dL (6.4-8.9) L 08/21/18 07:01 Albumin 2.8 g/dL (3.5-5.7) L 08/21/18 07:01 Albumin/Globulin Ratio 0.9 (1.1-2.2) L 08/21/18 07:01 HDL Cholesterol 27 mg/dL (40-59) L 08/17/18 03:35 Amylase 18 Units/L (29-103) L 08/21/18 07:01 Total Testosterone 127 ng/dL (15-70) H 08/18/18 04:54 Urine Clarity Cloudy (Clear) A 08/21/18 04:32 Urine Glucose (UA) >=1000 mg/dL (Normal) H 08/21/18 04:32 Urine Microscopic WBC 3-5 per hpf (0-3) H 08/21/18 04:32 Ur Squamous Epith Cells Many per lpf (None-Few) H 08/21/18 04:32 Urine Yeast Moderate per hpf (None Seen) H 08/21/18 04:32 Protein/Creatinin Ratio 0.25 mg/mg (0.00-0.20) H 08/24/18 05:08 Urine Total Protein 18 mg/dL (1-14) H 08/24/18 05:08 Microbiology, Last 48 Hours 08/24/18 14:45 Surgical Biopsy Culture - Preliminary Left Ankle 08/19/18 18:19 Anaerobic Culture - Final Other-Specify in Comments No anaerobes were recovered. 08/19/18 18:19 Acid Fast Stain - Final Left Ankle 08/19/18 18:19 Anaerobic Culture - Preliminary Left Ankle Anaerobic Gram Negative Mark Consult Discharge Plan - Plan Referrals: Ayden Naqvi DPM [Partnered Physician] - Luís Munoz MD [Partnered Physician] - (Follow-up in [place] surgery clinic in 3 weeks. Patient to have repeat BNP prior to office visit with me.)
[2018-08-25] MEDS: Metoclopramide 10 MG/2 ML VIAL IVP PRN (21:45)
[2018-08-26] MEDS: Promethazine 12.5 MG in 0.9 % Sodium Chloride 50 ML IVPB SCH ×5 (00:29→23:23)
[2018-08-26] MEDS: Clindamycin 600 MG/50 ML 600 MG/50 ML IV.SOLN IVPB SCH ×4 (00:30→23:55)
[2018-08-26] MEDS: 0.9 % Sodium Chloride w KCl 40 MEQ/1,000 ML MLS IVC SCH ×2 (00:30→08:47)
[2018-08-26 04:14] LABS: Basophils # 0.1 K/mcL (0.0-0.2); Basophils % 0.9 %; Eosinophils # 0.2 K/mcL (0.0-0.6); Eosinophils % 2.1 %; Hematocrit 32.6 % (35.3-44.9); Hemoglobin 10.6 g/dL (11.5-15.4); Immature Granulocytes % 2.8 % (0-4); Lymphocytes # 1.3 K/mcL (0.6-4.6); Lymphocytes % 15.4 %; Mean Corpuscular HGB Conc 32.5 g/dL (31.6-35.5); Mean Corpuscular Hemoglobin 28.8 pg (28.0-33.3); Mean Corpuscular Volume 88.6 fL (83.0-100.0); Mean Platelet Volume 10.8 fL (9.4-12.4); Monocytes # 0.9 K/mcL (0.0-1.3); Monocytes % 9.9 %; Platelet Count 398 K/mcL (140-400); Red Blood Count 3.68 M/mcL (3.82-4.97); Red Cell Distribution Width 14.2 % (11.5-14.5); Segmented Neutrophils % 68.9 %
[2018-08-26 04:33] LABS: Calcium 8.4 mg/dL (8.6-10.3); Potassium 4.4 mEq/L (3.5-5.1)
[2018-08-26] MEDS: *HR* Heparin 5,000 UNIT/ML VIAL SQ SCH ×2 (06:04→17:16)
[2018-08-26] MEDS: Lactobacillus 1 EACH CAP.SPRINK PO SCH (08:46)
[2018-08-26] MEDS: hydrALAZINE 10 MG TABLET PO SCH ×4 (08:47→21:42)
[2018-08-26] MEDS: amLODIPine 5 MG TABLET PO SCH (08:47)
[2018-08-26] MEDS: Pantoprazole 40 MG VIAL IVP SCH (08:47)
[2018-08-26] MEDS: Insulin DETEMIR 100 UNIT/ML X5UNITS SQ SCH ×2 (09:04→21:43)
[2018-08-26] MEDS: Insulin LISPRO 300 UNITS/3 ML VIAL SQ SCH ×6 (09:05→21:40)
--- NOTE | 2018-08-26 10:09 | Podiatry Progress Note ---
Date of Encounter: 08/26/18 Time of Encounter: 10:06 - Assessment and Plan (1) Diabetic infection of right foot Current Visit: Yes Status: Acute 1. Right 1st toe wound now closed. Dressing to remain intact until Tuesday and will be changed by Podiatry team. Sutures to be removed 14-21 days after surgery. WBAT with heel touch for transfers. Will dispense surgical shoe prior to discharge for offloading. 2. Antibiotic recommendations per ID. (2) Foot abscess, left Current Visit: Yes Status: Acute 1. Left medial ankle and plantar foot surgical wounds now with wound vac applied. This is to be changed MWF with normal saline irrigation to the wound, tunneling packing with white foam, both wounds dressed with adaptic to the base, black foam, and suction at 125mmHg continuous using a bridge. She will likely need home health to have the vac changed after discharge. No further debridement planned this admission, but will re-evaluate wound with vac change on Tuesday. Patient can likely discharge Tuesday if medically stable. 2. Follow up operative wound cultures and appreciate ID recommendations for antibiotics. 3. Patient will follow up with Dr. Munoz in the outpatient setting. Appreciate vascular surgery recommendations. 4. Please contact Ayden Naqvi DPM with any questions regarding Ms. Bran's care. Subjective Principal diagnosis: bilateral lower extremity infection Interval history: Ms. Bran is progressing well s/p bilateral lower extremity I&D, delayed primary closure right 1st toe, and wound vac application left lower extremity. She denies n/v/f/c, and her previous nausea symptoms have resolved. She was seen by Vascular surgery who will likely do angiogram in the outpatient setting once c reatinine has improved. She denies pain at this time. Wound vac in place with adequate suction. Objective - Vital Signs Vital Signs: Vital Signs Temp Pulse Resp BP Pulse Ox 08/26/18 05:00 97.9 F 81 17 149/82 94 08/25/18 23:32 98.4 F 78 18 144/82 96 08/25/18 20:23 98.4 F 75 16 146/87 96 08/25/18 16:16 98.4 F 75 19 128/76 96 08/25/18 12:08 98.3 F 62 19 138/81 97 Intake and Output 08/25/18 08/26/18 08/26/18 23:59 07:59 15:59 Intake Total 1200.5 / 1200.5 200.5 / 200.5 1000 / 1000 Output Total 1600 / 1600 600 / 600 Balance -399.5 / -399.5 -399.5 / -399.5 1000 / 1000 Intake: IV Fluids 1200.5 / 1200.5 200.5 / 200.5 1000 / 1000 KCl 40mEq in 0.9% Sodium 1000 / 1000 1000 / 1000 Chloride 40 meq In 1,000 ml @ 125 mls/hr IVC .Q8H [facility] Rx#: [id number] Cleocin Premix 600 MG/50 ML 600 50 / 50 50 / 50 mg In 50 ml @ 50 mls/hr IVPB Q8HR [facility] Rx#:[id number] Phenergan 12.5 MG In 0.9 % 50.5 / 50.5 50.5 / 50.5 Sodium Chloride 50 ML @ 204 mls /hr IVPB Q6HR AN[facility] Rx#: [id number] Ancef 2,000 MG In 0.9 % Sodium 100 / 100 100 / 100 Chloride 100 ML @ 200 mls/hr IVPB Q8HR AN[facility] Rx#:[id number] Output: Urine 1600 / 1600 550 / 550 Wound Drainage 0 / 0 50 / 50 left inner ankle 0 / 0 50 / 50 Other: Stool Size Large Stool Consistency loose Stool Color Brown Weight 108.6 kg Blood Glucose* 146 163 Patient Weight 08/26/18 23:59 Weight 108.6 kg - Exam Exam: Alert, oriented x3, no acute distress. Capillary refill less than 3 seconds to all digits. Able to actively move all 5 toes bilateral. Sensations diminished bilaterally to light touch. No pain with manual compression of calf, bilaterally. Dressing clean, dry, intact to both lower extremities. - Lab Result Diagrams: 08/26/18 03:54 08/26/18 03:54 Labs: Abnormal lab results RBC 3.68 M/mcL (3.82-4.97) L 08/26/18 03:54 Hgb 10.6 g/dL (11.5-15.4) L 08/26/18 03:54 Hct 32.6 % (35.3-44.9) L 08/26/18 03:54 ESR 92 mm/hr (0-15) H 08/17/18 03:35 PT 12.6 Seconds (9.4-12.1) H 08/22/18 13:43 Heparin Anti-Xa, Unfract 0.20 IU/mL (0.30-0.70) L 08/22/18 21:06 ABG pCO2 24 mmHg (35-45) L 08/17/18 08:33 ABG pO2 79 mmHg (85-104) L 08/17/18 08:33 ABG HCO3 14 mEq/L (21-27) L 08/17/18 08:33 ABG Total CO2 15 mEq/L (20-26) L 08/17/18 08:33 ABG Base Excess -10 mEq/L (-2 to 3) L 08/17/18 08:33 VBG pH 7.28 pH Units (7.32-7.42) L 08/17/18 08:15 VBG pCO2 29 mmHg (41-51) L 08/17/18 08:15 VBG pO2 55 mmHg (25-50) H 08/17/18 08:15 VBG HCO3 14 mEq/L (21-27) L 08/17/18 08:15 Chloride 111 mEq/L (98-107) H 08/26/18 03:54 Carbon Dioxide 21 mEq/L (23-29) L 08/26/18 03:54 BUN 22 mg/dL (6-20) H 08/26/18 03:54 Creatinine 1.77 mg/dL (0.60-1.20) H 08/26/18 03:54 Est GFR ( Amer) 39 (> 60) L 08/26/18 03:54 Est GFR (Non-Af Amer) 32 (> 60) L 08/26/18 03:54 Glucose 163 mg/dL (70-105) H 08/26/18 03:54 POC Glucose 163 mg/dL (70-99) H 08/26/18 07:58 Hemoglobin A1c 9.6 % (-5.6) H 08/17/18 03:35 Calcium 8.4 mg/dL (8.6-10.3) L 08/26/18 03:54 AST 8 Units/L (13-39) L 08/21/18 07:01 Troponin I 0.05 ng/mL (< 0.04) H* 08/22/18 21:06 C-Reactive Protein 186 mg/L (Less than 10) H 08/17/18 03:35 Serum Total Protein 5.8 g/dL (6.4-8.9) L 08/21/18 07:01 Albumin 2.8 g/dL (3.5-5.7) L 08/21/18 07:01 Albumin/Globulin Ratio 0.9 (1.1-2.2) L 08/21/18 07:01 HDL Cholesterol 27 mg/dL (40-59) L 08/17/18 03:35 Amylase 18 Units/L (29-103) L 08/21/18 07:01 Total Testosterone 127 ng/dL (15-70) H 08/18/18 04:54 Urine Clarity Cloudy (Clear) A 08/21/18 04:32 Urine Glucose (UA) >=1000 mg/dL (Normal) H 08/21/18 04:32 Urine Microscopic WBC 3-5 per hpf (0-3) H 08/21/18 04:32 Ur Squamous Epith Cells Many per lpf (None-Few) H 08/21/18 04:32 Urine Yeast Moderate per hpf (None Seen) H 08/21/18 04:32 Protein/Creatinin Ratio 0.25 mg/mg (0.00-0.20) H 08/24/18 05:08 Urine Total Protein 18 mg/dL (1-14) H 08/24/18 05:08 Microbiology, Last 48 Hours 08/24/18 14:45 Surgical Biopsy Culture - Preliminary Left Ankle 08/19/18 18:19 Anaerobic Culture - Final Other-Specify in Comments No anaerobes were recovered. 08/19/18 18:19 Acid Fast Stain - Final Left Ankle 08/19/18 18:19 Anaerobic Culture - Preliminary Left Ankle Anaerobic Gram Negative Mark Consult Discharge Plan - Plan Referrals: Ayden Naqvi DPM [Partnered Physician] - Luís Munoz MD [Partnered Physician] - (Follow-up in [place] surgery clinic in 3 weeks. Patient to have repeat BNP prior to office visit with me.)
--- NOTE | 2018-08-26 13:31 | Internal Med Progress Note ---
Hospitalist Progress Note - Encounter Date of Encounter: 08/26/18 Time of Encounter: 10:00 - Subjective Interval History: Nausea continues to be minimal while on scheduled phenergan, required 1 dose of Reglan overnight. Tolerating diet well and urinating adequately. No chest pain, palpitation. Expected bilateral feet discomfort. - Exam Vitals: Temp Pulse Resp BP Pulse Ox 97.9 F 76 16 122/76 94 08/26/18 11:17 08/26/18 11:17 08/26/18 11:17 08/26/18 11:17 08/26/18 11:17 Exam: General: Alert and oriented, not in distress Cardiovascular:Normal S1 & S2 Lungs: clear to auscultation, no wheezes/rales Abdomen:Soft, non-tender, no rigidity. Extremities: R LE dressing dry and clean, L LE on VAC Neurological:Normal cognition and motor skills. Non-focal - Assessment and Plan (1) Sepsis Current Visit: Yes Status: Resolved Assessment and Plan: Secondary to bilateral foot infections. s/p I&D on 08/19 and on IV cefazolin/clindamycin based on the wound cultures. Had another I&D and delayed primary closure on R 1st toe and L foot/ankle I&D with VAC application POD#2 for VAC change on Tuesday blood cultures -ve ID input appreciated follow with podiatry (2) Hypertensive emergency Current Visit: Yes Status: Resolved Assessment and Plan: persistent nausea and also developed GARETT on 08/20 troponin 0.04 - 0.05 - 0.05, EKG without ischemic changes. Likely due to poorly controlled HTN initially started on nitro gtt -> d/carlos better controlled on current dose of coreg, norvasc, hydralazine (3) Nausea Current Visit: Yes Status: Acute Assessment and Plan: suspect underlying gastroparesis in the setting of poorly controlled DM doing better on scheduled phenergan and PRN reglan continue for today, will try to cut back to PRN phenergan from tomorrow US gallbladder unremarkable trial of reglan states that protonix also provided mild relief, will continue IV 40mg daily (4) Elevated troponin Current Visit: Yes Status: Resolved Assessment and Plan: troponin checked due to persistent nausea, minimally elevated at 0.04 and the pattern was flat and adynamic likely secondary to poorly controlled HTN Echo normal EF without wall motion abnormalities heparin gtt d/carlos mx for HTN as above (5) GARETT (acute kidney injury) Current Visit: Yes Status: Acute Assessment and Plan: presumed multifactorial with IV abx, surgery, decreased oral intake appears to have plateaued around 1.6-7 d/c IVF as she is getting more edematous without significant improvement in Cr BP mx as above retroperitoneal US was suggestive of medicorenal disease appreciate nephrology input may need to do angiography as outpatient, vascular surgery input appreciated (6) PAD (peripheral artery disease) Current Visit: Yes Status: Chronic Assessment and Plan: for angiography once she recovers from GARETT, appreciate vascular surgery's input (7) Diabetic infection of right foot Current Visit: Yes Status: Acute Assessment and Plan: as above, appreciate podiatry/ID input (8) Foot abscess, left Current Visit: Yes Status: Acute Assessment and Plan: as above, appreciate podiatry/ID input (9) Diabetes mellitus Current Visit: Yes Status: Chronic Assessment and Plan: levemir 15U BID + low dose sliding scale (10) Depression Current Visit: Yes Status: Acute Assessment and Plan: continue Lexapro DVT Prophylaxis: SQ heparin - Time Spent with Patient Total time spent is greater than 50% in coordination of care (as documented) at patient's floor/unit and/or counseling patient: Plan of Care Discussed with: patient (with RN) Internal Medicine: Result - Labs CBC & Chem 7: 08/26/18 03:54 08/26/18 03:54 Labs: Short CBC 08/26/18 Range/Units 03:54 WBC 8.7 (4.3-11.1) K/mcL Hgb 10.6 L (11.5-15.4) g/dL Hct 32.6 L (35.3-44.9) % Plt Count 398 (140-400) K/mcL Neutrophils # 6.0 (1.6-8.9) K/mcL BMP 08/26/18 03:54 Sodium 139 Potassium 4.4 Chloride 111 H Carbon Dioxide 21 L BUN 22 H Creatinine 1.77 H Glucose 163 H Calcium 8.4 L - ABG Interpretation ABG results: ABG ABG pH 7.38 pH Units (7.32-7.45) 08/17/18 08:33 ABG pCO2 24 mmHg (35-45) L 08/17/18 08:33 ABG pO2 79 mmHg (85-104) L 08/17/18 08:33 ABG O2 Saturation 96 % (95-98) 08/17/18 08:33 PT/INR, D-dimer PT 12.6 Seconds (9.4-12.1) H 08/22/18 13:43 Consult Discharge Plan - Plan Referrals: Ayden Naqvi DPM [Partnered Physician] - Luís Munoz MD [Partnered Physician] - (Follow-up in [place] surgery clinic in 3 weeks. Patient to have repeat BNP prior to office visit with me.) (1) Sepsis Qualifiers: Sepsis type: sepsis due to unspecified organism Qualified Code(s): A41.9 - Sepsis, unspecified organism (9) Diabetes mellitus Qualifiers: Diabetes mellitus type: type 2 Diabetes mellitus complication status: with unspecified complications Qualified Code(s): E11.8 - Type 2 diabetes mellitus with unspecified complications (10) Depression Qualifiers: Depression Type: unspecified Qualified Code(s): F32.9 - Major depressive disorder, single episode, unspecified
[2018-08-27 03:00] LABS: Calcium 8.3 mg/dL (8.6-10.3); Potassium 4.2 mEq/L (3.5-5.1)
[2018-08-27] MEDS: Promethazine 12.5 MG in 0.9 % Sodium Chloride 50 ML IVPB SCH ×3 (05:27→23:19)
[2018-08-27] MEDS: *HR* Heparin 5,000 UNIT/ML VIAL SQ SCH ×2 (05:29→17:35)
[2018-08-27] MEDS: amLODIPine 5 MG TABLET PO SCH ×2 (08:01→08:30)
[2018-08-27] MEDS: Ringers Solution, Lactated 1,000 ML IVC SCH (08:01)
[2018-08-27] MEDS: Lactobacillus 1 EACH CAP.SPRINK PO SCH ×2 (08:01→08:31)
[2018-08-27] MEDS: hydrALAZINE 10 MG TABLET PO SCH ×5 (08:02→21:22)
[2018-08-27] MEDS: 0.9 % Sodium Chloride w KCl 40 MEQ/1,000 ML MLS IVC SCH (08:05)
[2018-08-27] MEDS: Pantoprazole 40 MG VIAL IVP SCH (08:31)
[2018-08-27] MEDS: Clindamycin 600 MG/50 ML 600 MG/50 ML IV.SOLN IVPB SCH ×3 (08:31→23:21)
[2018-08-27] MEDS: Insulin LISPRO 300 UNITS/3 ML VIAL SQ SCH ×4 (08:38→21:22)
[2018-08-27] MEDS: Insulin DETEMIR 100 UNIT/ML X5UNITS SQ SCH ×2 (08:38→21:23)
--- NOTE | 2018-08-27 11:32 | Internal Med Progress Note ---
Hospitalist Progress Note - Encounter Date of Encounter: 08/27/18 Time of Encounter: 09:00 - Subjective Interval History: No acute events overnight, denies any nausea on scheduled phenergan and tolerating diet well. No chest pain, palpitation. Expected bilateral feet discomfort which is also improving - Exam Vitals: Temp Pulse Resp BP Pulse Ox 98.9 F 79 14 142/81 92 08/27/18 10:52 08/27/18 10:52 08/27/18 10:52 08/27/18 10:52 08/27/18 10:52 Exam: General: Alert and oriented, not in distress Cardiovascular:Normal S1 & S2 Lungs: clear to auscultation, no wheezes/rales Abdomen:Soft, non-tender, no rigidity. Extremities: R LE dressing dry and clean, L LE on VAC Neurological:Normal cognition and motor skills. Non-focal - Assessment and Plan (1) Sepsis Current Visit: Yes Status: Resolved Assessment and Plan: Secondary to bilateral foot infections. s/p I&D on 08/19 and on IV cefazolin/clindamycin based on the wound cultures. Had another I&D and delayed primary closure on R 1st toe and L foot/ankle I&D with VAC application POD#3 for VAC change on Tuesday blood cultures -ve ID input appreciated follow with podiatry given her WBAT with heel touch, will obtain official PT/OT eval (2) Hypertensive emergency Current Visit: Yes Status: Resolved Assessment and Plan: persistent nausea and also developed GARETT on 08/20 troponin 0.04 - 0.05 - 0.05, EKG without ischemic changes. Likely due to poorly controlled HTN initially started on nitro gtt -> d/carlos better controlled on current dose of coreg, norvasc, hydralazine (3) Nausea Current Visit: Yes Status: Acute Assessment and Plan: suspect underlying gastroparesis in the setting of poorly controlled DM doing better on scheduled phenergan and PRN reglan continue for today, will cut back phenergan from Q6 to Q8 US gallbladder unremarkable trial of reglan states that protonix also provided mild relief, will continue IV 40mg daily (4) Elevated troponin Current Visit: Yes Status: Resolved Assessment and Plan: troponin checked due to persistent nausea, minimally elevated at 0.04 and the pattern was flat and adynamic likely secondary to poorly controlled HTN Echo normal EF without wall motion abnormalities heparin gtt d/carlos mx for HTN as above (5) GARETT (acute kidney injury) Current Visit: Yes Status: Acute Assessment and Plan: presumed multifactorial with IV abx, surgery, decreased oral intake appears to have plateaued around 1.6-7 BP mx as above retroperitoneal US was suggestive of medicorenal disease appreciate nephrology input may need to do angiography as outpatient, vascular surgery input appreciated (6) PAD (peripheral artery disease) Current Visit: Yes Status: Chronic Assessment and Plan: for angiography once she recovers from GARETT, appreciate vascular surgery's input (7) Diabetic infection of right foot Current Visit: Yes Status: Acute Assessment and Plan: as above, appreciate podiatry/ID input (8) Foot abscess, left Current Visit: Yes Status: Acute Assessment and Plan: as above, appreciate podiatry/ID input (9) Diabetes mellitus Current Visit: Yes Status: Chronic Assessment and Plan: levemir 15U BID + low dose sliding scale (10) Depression Current Visit: Yes Status: Acute Assessment and Plan: continue Lexapro DVT Prophylaxis: SQ heparin - Time Spent with Patient Total time spent is greater than 50% in coordination of care (as documented) at patient's floor/unit and/or counseling patient: Plan of Care Discussed with: patient Internal Medicine: Result - Labs CBC & Chem 7: 08/26/18 03:54 08/27/18 02:30 Labs: BMP 08/27/18 02:30 Sodium 137 Potassium 4.2 Chloride 109 H Carbon Dioxide 23 BUN 19 Creatinine 1.61 H Glucose 160 H Calcium 8.3 L - ABG Interpretation ABG results: ABG ABG pH 7.38 pH Units (7.32-7.45) 08/17/18 08:33 ABG pCO2 24 mmHg (35-45) L 08/17/18 08:33 ABG pO2 79 mmHg (85-104) L 08/17/18 08:33 ABG O2 Saturation 96 % (95-98) 08/17/18 08:33 PT/INR, D-dimer PT 12.6 Seconds (9.4-12.1) H 08/22/18 13:43 Consult Discharge Plan - Plan Referrals: Ayden Naqvi DPM [Partnered Physician] - Luís Munoz MD [Partnered Physician] - (Follow-up in [facility] in 3 weeks. Patient to have repeat BNP prior to office visit with me.) (1) Sepsis Qualifiers: Sepsis type: sepsis due to unspecified organism Qualified Code(s): A41.9 - Sepsis, unspecified organism (9) Diabetes mellitus Qualifiers: Diabetes mellitus type: type 2 Diabetes mellitus complication status: with unspecified complications Qualified Code(s): E11.8 - Type 2 diabetes mellitus with unspecified complications (10) Depression Qualifiers: Depression Type: unspecified Qualified Code(s): F32.9 - Major depressive disorder, single episode, unspecified
[2018-08-28] MEDS: *HR* Heparin 5,000 UNIT/ML VIAL SQ SCH ×2 (05:17→17:43)
[2018-08-28 05:32] LABS: Basophils % 0.7 %; Eosinophils # 0.2 K/mcL (0.0-0.6); Eosinophils % 2.8 %; Hematocrit 32.5 % (35.3-44.9); Hemoglobin 10.5 g/dL (11.5-15.4); Immature Granulocytes % 1.9 % (0-4); Lymphocytes # 1.1 K/mcL (0.6-4.6); Lymphocytes % 19.8 %; Mean Corpuscular HGB Conc 32.3 g/dL (31.6-35.5); Mean Corpuscular Hemoglobin 28.8 pg (28.0-33.3); Mean Platelet Volume 10.6 fL (9.4-12.4); Monocytes # 0.6 K/mcL (0.0-1.3); Monocytes % 9.9 %; Neutrophils # 3.8 K/mcL (1.6-8.9); Platelet Count 331 K/mcL (140-400); Red Blood Count 3.65 M/mcL (3.82-4.97); Red Cell Distribution Width 14.3 % (11.5-14.5); Segmented Neutrophils % 64.9 %
[2018-08-28 05:52] LABS: BUN/Creatinine Ratio 12 (6-26); Blood Urea Nitrogen 20 mg/dL (6-20); Calcium 8.5 mg/dL (8.6-10.3); Carbon Dioxide 24 mEq/L (23-29); Chloride 108 mEq/L (98-107); Glucose 262 mg/dL (70-105); Osmolality,Calculated 298 (280-300); Potassium 4.5 mEq/L (3.5-5.1); Sodium 138 mEq/L (136-145); eGFR For Non-African Americans 35 (> 60)
[2018-08-28] MEDS: Insulin LISPRO 300 UNITS/3 ML VIAL SQ SCH ×4 (08:23→20:02)
[2018-08-28] MEDS: Insulin DETEMIR 100 UNIT/ML X5UNITS SQ SCH ×2 (08:24→20:02)
[2018-08-28] MEDS: Promethazine 12.5 MG in 0.9 % Sodium Chloride 50 ML IVPB SCH ×2 (08:24→17:39)
[2018-08-28] MEDS: Clindamycin 600 MG/50 ML 600 MG/50 ML IV.SOLN IVPB SCH (08:25)
[2018-08-28] MEDS: amLODIPine 5 MG TABLET PO SCH (08:34)
[2018-08-28] MEDS: Lactobacillus 1 EACH CAP.SPRINK PO SCH (08:34)
[2018-08-28] MEDS: Pantoprazole 40 MG VIAL IVP SCH (08:34)
[2018-08-28] MEDS: hydrALAZINE 10 MG TABLET PO SCH ×4 (08:35→20:02)
--- NOTE | 2018-08-28 09:46 | Infectious Disease Progress No ---
Date of Encounter: 08/28/18 Time of Encounter: 09:44 - Assessment and Plan (1) Sepsis Current Visit: Yes Status: Resolved The patient had 3 sepsis criteria. Likely secondary to bilateral foot infections. Improved. White blood cell count has normalized. Tachycardia resolved. Afebrile. Blood cultures drawn 08/16/18 are negative 2 sets. Recommendations: Check ESR and CRP. Wound care per the podiatry team. Discontinue cefazolin and clindamycin. Start Unasyn 3 grams IV Q6H. Although it is Q6H dosing, it will be easier to give one medication Q6H than two medications Q8H. Start doxycycline 100mg PO BID to cover the S. epi. Since CONS tends to not be as virulent, we can treat with oral antibiotics. Duration of treatment depends on the clinical picture. Will consider 2-4 weeks, depending on how the patient does clinically. Monitor renal function and dose-adjust antibiotics. Strict glucose control. Pain management per the primary team. services engineer to assist with discharge planning. Will need weekly CBC, BUN/creatinine, ESR, and CRP. Will need weekly IV care per protocol. Follow-up with ID 09/14/18 at 1405. Qualifiers: Sepsis type: sepsis due to unspecified organism Qualified Code(s): A41.9 - Sepsis, unspecified organism (2) Foot abscess, left Current Visit: Yes Status: Acute Causative organism: S. anginosus and anaerobes per wound and intra-op cultures. MRI of the left ankle showed multiple abscesses and likely infectious involvement of the plantar fascia. No osteomyelitis noted. Likely secondary to chronic left foot ulcer. ESR 92, CRP 186. Podiatry consulted and following. Status post I & D of the left foot and ankle abscess to deep fascia, multiple planes and incision and drainage right 1st toe abscess to deep fascia 08/19/[address] Naqvi. Intra-op cultures as above. Status post right first toe I&D and left foot and ankle I&D 08/24/[address] Naqvi. Repeat cultures of the left ankle are negative. Currently on cefazolin. (3) Diabetic infection of right foot Current Visit: Yes Status: Acute Location: Right foot, great toe. Causative organism: MSSA and anaerobes per wound culture. S. epi per Intra-op culture. Likely secondary to chronic non-healing ulcer. Podiatry consulted. Status post I & D right 1st toe abscess 08/19/[address] Naqvi. Intra-op cultures as above. Status post right first toe I&D and left foot and ankle I&D 08/24/18. Currently on IV cefazolin and clindamycin. (4) GARETT (acute kidney injury) Current Visit: Yes Status: Acute Likely multifactorial: pre-renal + antibiotics Serum creatinine stable. Nephrology consulted and following. (5) Diabetic foot ulcers Current Visit: Yes Status: Chronic Right foot: Right great toe. Left Foot: Left calcaneus. Etiology: Unclear. Patient denies known trauma, ill-fitting shoes, etc. Onset Wound care per the Podiatry team. Vascular consulted and planning for angiogram once renal function stabilizes. Qualifiers: Diabetic foot ulcer location: other Diabetes mellitus type: type 2 Laterality: unspecified laterality Non-pressure ulcer stage: unspecified non- pressure ulcer stage Qualified Code(s): E11.621 - Type 2 diabetes mellitus with foot ulcer; L97.509 - Non-pressure chronic ulcer of other part of unspecified foot with unspecified severity (6) Diabetes mellitus Current Visit: Yes Status: Chronic Uncontrolled. HgbA1C 9.6. Strict glucose control. Qualifiers: Diabetes mellitus type: type 2 Diabetes mellitus complication status: with unspecified complications Qualified Code(s): E11.8 - Type 2 diabetes mellitus with unspecified complications (7) Hypertension Current Visit: Yes Status: Chronic Qualifiers: Hypertension type: unspecified Qualified Code(s): I10 - Essential (primary) hypertension (8) Nausea Current Visit: Yes Status: Acute Chronic, but worse since being in the hospital. Amylase, lipase, LFTs normal. GI consulted. RUQ UTS negative. KUB showed mildly dilated loops of bowel and mild colonic stool burden. Markedly improved with the addition of Reglan to her anti-emetic regimen. Management per the primary team. - Subjective Interval history: Patient seen and examined. No acute events noted overnight. Patient states overall she feels much better this morning. She reports marked improvement in her nausea and denies any vomiting. She denies any fevers or chills or rigors. Denies chest pain, shortness of breath, or cough. Denies diarrhea or constipation. Denies abdominal pain or urinary complaints. Denies any oral thrush or new skin lesions. Denies any pain the surgical sites. Infect Dis PN-Objective Data - Labs CBC & Chem 7: 08/28/18 04:00 08/28/18 04:00 Labs: Laboratory Results - last 24 hr 08/26/18 08/27/18 08/27/18 16:05 06:47 10:48 WBC RBC Hgb Hct MCV MCH MCHC RDW Plt Count MPV Immature Gran % Seg Neutrophils % Lymphocytes % Monocytes % Eosinophils % Basophils % Neutrophils # Lymphocytes # Monocytes # Eosinophils # Basophils # Sodium Potassium Chloride Carbon Dioxide BUN Creatinine Est GFR ( Amer) Est GFR (Non-Af Amer) BUN/Creatinine Ratio Glucose POC Glucose 90 152 H 220 H Calculated Osmolality Calcium 08/27/18 08/27/18 08/28/18 15:57 21:21 04:00 WBC 5.8 RBC 3.65 L Hgb 10.5 L Hct 32.5 L MCV 89.0 MCH 28.8 MCHC 32.3 RDW 14.3 Plt Count 331 MPV 10.6 Immature Gran % 1.9 Seg Neutrophils % 64.9 Lymphocytes % 19.8 Monocytes % 9.9 Eosinophils % 2.8 Basophils % 0.7 Neutrophils # 3.8 Lymphocytes # 1.1 Monocytes # 0.6 Eosinophils # 0.2 Basophils # 0.0 Sodium Potassium Chloride Carbon Dioxide BUN Creatinine Est GFR ( Amer) Est GFR (Non-Af Amer) BUN/Creatinine Ratio Glucose POC Glucose 199 H 165 H Calculated Osmolality Calcium 08/28/18 04:00 WBC RBC Hgb Hct MCV MCH MCHC RDW Plt Count MPV Immature Gran % Seg Neutrophils % Lymphocytes % Monocytes % Eosinophils % Basophils % Neutrophils # Lymphocytes # Monocytes # Eosinophils # Basophils # Sodium 138 Potassium 4.5 Chloride 108 H Carbon Dioxide 24 BUN 20 Creatinine 1.64 H Est GFR ( Amer) 42 L Est GFR (Non-Af Amer) 35 L BUN/Creatinine Ratio 12 Glucose 262 H POC Glucose Calculated Osmolality 298 Calcium 8.5 L Cultures: Cultures 08/24/18 14:45 Surgical Biopsy Culture - Final Left Ankle 08/19/18 18:19 Anaerobic Culture - Preliminary Left Ankle Anaerobic Gram Negative Mark 08/24/18 14:45 Anaerobic Culture - Preliminary Left Ankle At this time, no anaerobic growth is present. The culture will be finalized after 5 days of incubation. 08/19/18 18:19 Anaerobic Culture - Final Other-Specify in Comments No anaerobes were recovered. 08/19/18 18:19 Acid Fast Stain - Final Left Ankle 08/17/18 12:20 Anaerobic Culture - Preliminary Right Great Toe Prevotella bivia 08/19/18 18:19 Surgical Biopsy Culture - Final Left Ankle Streptococcus anginosus 08/19/18 18:19 Surgical Biopsy Culture - Final Other-Specify in Comments Staphylococcus epidermidis 08/16/18 18:58 Blood Culture - Final Peripheral Venipuncture No growth. Final report. 08/16/18 18:57 Blood Culture - Final Peripheral Venipuncture No growth. Final report. 08/19/18 18:19 Acid Fast Stain - Final Other-Specify in Comments 08/16/18 18:55 Wound Culture - Final Left Foot Streptococcus anginosus 08/17/18 12:20 Wound Culture - Final Right Great Toe Staphylococcus aureus Serology 08/24/18 08/24/18 08/22/18 Range/Units 05:08 05:08 00:25 Urine Color (Yellow) Urine Clarity (Clear) Urine pH (5.0-8.0) pH Units Ur Specific [place] (1.010-1.025) Urine Protein (Neg-Trace) mg/dL Urine Glucose (UA) (Normal) mg/dL Urine Ketones (Negative) mg/dL Urine Blood (Negative) Urine Nitrite (Negative) Urine Bilirubin (Negative) Urine Urobilinogen (Normal) mg/dL Ur Leukocyte Esterase (Negative) Urine Microscopic RBC (0-3) per hpf Urine Microscopic WBC (0-3) per hpf Ur Eosinophil Smear (None Seen) % Ur Squamous Epith Cells (None-Few) per lpf Urine Bacteria (None-Few) per hpf Hyaline Casts (None-Few) per lpf Urine Mucus (Few) Urine Yeast (None Seen) per hpf Ur Culture Indicated? (NO) Urine Creatinine 72 84 mg/dL Urine Microalbumin 10 mg/L Microalb/Creat Ratio 14 (Less than 30) mcg/mg Protein/Creatinin Ratio 0.25 H (0.00-0.20) mg/mg Urine Sodium 56.3 mEq/L Urine Total Protein 18 H (1-14) mg/dL Urine Test Negative (Negative) 08/22/18 08/21/18 08/19/18 Range/Units 00:25 04:32 12:30 Urine Color Yellow (Yellow) Urine Clarity Cloudy A (Clear) Urine pH 5.5 (5.0-8.0) pH Units Ur Specific [place] 1.022 (1.010-1.025) Urine Protein Negative (Neg-Trace) mg/dL Urine Glucose (UA) >=1000 H (Normal) mg/dL Urine Ketones Negative (Negative) mg/dL Urine Blood Negative (Negative) Urine Nitrite Negative (Negative) Urine Bilirubin Negative (Negative) Urine Urobilinogen Normal (Normal) mg/dL Ur Leukocyte Esterase Negative (Negative) Urine Microscopic RBC 0-3 (0-3) per hpf Urine Microscopic WBC 3-5 H (0-3) per hpf Ur Eosinophil Smear 0 (None Seen) % Ur Squamous Epith Cells Many H (None-Few) per lpf Urine Bacteria Few (None-Few) per hpf Hyaline Casts None Seen (None-Few) per lpf Urine Mucus Few (Few) Urine Yeast Moderate H (None Seen) per hpf Ur Culture Indicated? NO (NO) Urine Creatinine mg/dL Urine Microalbumin mg/L Microalb/Creat Ratio (Less than 30) mcg/mg Protein/Creatinin Ratio (0.00-0.20) mg/mg Urine Sodium mEq/L Urine Total Protein (1-14) mg/dL Urine Test Negative (Negative) Exam - Constitutional Vitals: Temp Pulse Resp BP Pulse Ox 98.3 F 77 16 149/78 94 08/28/18 06:54 08/28/18 06:54 08/28/18 06:54 08/28/18 06:54 08/28/18 06:54 General appearance: cooperative, no acute distress, obese - Head Head exam: Present: atraumatic, normal inspection, normocephalic - Eye Eye exam: Present: EOMI, normal appearance, PERRL Pupils: Present: normal accommodation - ENT ENT exam: Present: mucous membranes moist - Neck Neck exam: Present: normal inspection - Respiratory Respiratory exam: Present: CTAB. Absent: rales, respiratory distress, rhonchi, wheezes - Cardiovascular Cardiovascular exam: Present: RRR, +S1, +S2 - GI/Abdominal GI/Abdominal exam: Present: normal bowel sounds, soft. Absent: distended, tenderness - Extremities Exam Extremities exam: Absent: normal inspection (Bilateral foot dressing C/D/I. Left ankle wound VAC with small amount of serosanguinous drainage noted.) - Neurological Exam Neurological exam: Present: alert, oriented X3, no focal deficits - Psychiatric Psychiatric exam: Present: normal affect, normal mood - Skin Skin exam: Present: dry, intact, normal color, warm Consult Discharge Plan - Plan Instructions: Diabetic Foot Care (DC), Diabetes Mellitus Type 2 in Adults (DC), Peripheral Vascular Disorders (DC), Sepsis (DC), Chronic Hypertension (DC) Additional Instructions: IV Unasyn and PO Doxy for diabetic foot infection. Given her script for 3 weeks first but may need longer term pending outpatient ID evaluation Take Phenergan PRN for nausea/vomiting -> only use reglan if symptoms refractory to phenergan ID appt on 09/14. CBC, BMP, ESR, CRP weekly Follow up with Nephrology in 1 week with BMP Follow up with Podiatry for wound VAC Follow up with Vascular Surgery in 3 weeks for possible angiogram Follow up with PCP for DM and HTN Referrals: Ayden Naqvi DPM [Partnered Physician] - Heath Walker DO [Partnered Physician] - Luís Munoz MD [Partnered Physician] - (Follow-up in [place] [facility] clinic in 3 weeks. Patient to have repeat BNP prior to office visit with me.) Prescriptions: RX: Acetaminophen [Tylenol] 650 mg PO Q6HR PRN 7 Days #30 tablet PRN Reason: Mild Pain/Fever Ampicillin/Sulbactam [Unasyn] 3,000 mg IVPB Q6HR 21 Days #84 vial Metoclopramide [Reglan] 5 mg PO Q6HR PRN #100 mls PRN Reason: Nausea And Vomiting Promethazine Syrup [Phenergan Syrup] 12.5 mg PO Q8HR PRN #300 mls PRN Reason: Nausea And Vomiting RX: amLODIPine [Norvasc] 10 mg PO DAILY #60 tablet RX: Carvedilol [Coreg] 50 mg PO BIDWM #60 tablet RX: Docusate [Colace] 100 mg PO BID PRN #30 capsule PRN Reason: Constipation RX: Doxycycline 100 mg PO BID 21 Days #42 capsule RX: Escitalopram [Lexapro] 10 mg PO DAILY #30 tablet RX: hydrALAZINE [HydrALAZINE] 10 mg PO QID #120 tablet RX: Insulin NPH/REG 70/30 [HumuLIN 70/30 VIAL] 20 unit SQ BIDWM #6 vial RX: Lactobacillus [Culturelle] 2 each PO DAILY #60 cap.sprink RX: Omeprazole [PriLOSEC] 40 mg PO DAILY@0800 #60 capsule.dr - Attending Attestation I examined this patient and my medical decision-making was reviewed with the Resident Physician. I agree with the documented findings, disposition and treatment plan as described except to the extent set forth below.
--- NOTE | 2018-08-28 10:10 | Nephrology Progress Note ---
Addendum entered and electronically signed by Davion Martinez MD 08/28/18 20:47: I examined this patient and discussed the medical decision-making with BREA Siddiqui. I agree with the documented findings, disposition and treatment plan as described except to the extent set forth below. Original Note: Date of Encounter: 08/28/18 Time of Encounter: 10:03 - Assessment and Plan (1) GARETT (acute kidney injury) Current Visit: Yes Status: Acute Scr is 1.64 and GFR stable at 35. Patient will need to establish with [facility] after d/c, BMP 7 days after discharge. Renal function appears stable, could be her new baseline. Avoid nephrotoxins and renal dose all medications. Continue supportive care for nausea. Patient does have a powerglide, if a PICC line is needed for antibiotic management, it is okay per Nephrology. Advised patient to avoid NSAIDS after discharge. (2) Hypertension Current Visit: Yes Status: Chronic 149/78, stable. Qualifiers: Hypertension type: unspecified Qualified Code(s): I10 - Essential (primary) hypertension (3) Hyponatremia Current Visit: Yes Status: Acute Resolved, sodium at 138. (4) Diabetic infection of right foot Current Visit: Yes Status: Acute Per podiatry/ID. Subjective Principal diagnosis: bilat foot infections Interval history: Patient seen and examined is doing well. Admits that nausea is "much better" is holding down solid food. Denies chest pain or shortness of breath. Objective - Vital Signs Vital signs: Vital Signs Temp Pulse Resp BP Pulse Ox 08/28/18 06:54 98.3 F 77 16 149/78 94 08/28/18 06:27 98.1 F 08/28/18 05:27 84.4 F L 80 16 156/74 80 08/28/18 00:52 98.7 F 73 16 155/88 95 08/27/18 20:00 98.9 F 79 16 152/85 96 08/27/18 15:55 98.4 F 77 16 131/79 96 08/27/18 10:52 98.9 F 79 14 142/81 92 Intake and Output 08/27/18 08/28/18 08/28/18 23:59 07:59 15:59 Intake Total 554.5 / 554.5 386 / 386 Output Total 600 / 600 500 / 500 400 / 400 Balance -45.5 / -45.5 -114 / -114 -400 / -400 Intake: IV Fluids 200.5 / 200.5 150 / 150 Cleocin Premix 600 MG/50 ML 600 50 / 50 50 / 50 mg In 50 ml @ 50 mls/hr IVPB Q8HR [facility] Rx#:[id number] Phenergan 12.5 MG In 0.9 % 50.5 / 50.5 Sodium Chloride 50 ML @ 204 mls /hr IVPB Q8HR [facility] Rx#: [id number] Ancef 2,000 MG In 0.9 % Sodium 100 / 100 100 / 100 Chloride 100 ML @ 200 mls/hr IVPB Q8HR [facility] Rx#:[id number] Oral 354 / 354 236 / 236 Output: Urine 600 / 600 500 / 500 400 / 400 Other: Stool Size Moderate Stool Consistency soft Stool Color Brown Green # Bowel Movements 1 Weight 107.1 kg Blood Glucose* 165 235 Patient Weight 08/28/18 23:59 Weight 107.1 kg - General Appearance General appearance: Present: well-developed, well-nourished EENT: Present: ATNC, hearing intact, vision intact Neck: Present: supple Respiratory: Present: clear Cardiology: Present: edema (Trac bilat lower extremities noted.), normal S1, normal S2 Gastrointestinal: Present: normoactive bowel sounds, no tenderness, no guarding Integumentary: Present: no rash, warm and dry Additional Comments: Bilat lower extremities noted to be wrapped, C/D/I. Neurologic: Present: alert and oriented x3 Musculoskeletal: Present: no deformities Psychiatric: Present: mood/affect appropriate, cooperative - Lab 08/28/18 04:00 08/28/18 04:00 Most recent lab results ABG pH 7.38 pH Units (7.32-7.45) 08/17/18 08:33 ABG pCO2 24 mmHg (35-45) L 08/17/18 08:33 ABG pO2 79 mmHg (85-104) L 08/17/18 08:33 ABG HCO3 14 mEq/L (21-27) L 08/17/18 08:33 ABG O2 Saturation 96 % (95-98) 08/17/18 08:33 Calcium 8.5 mg/dL (8.6-10.3) L 08/28/18 04:00 Phosphorus 2.7 mg/dL (2.7-4.5) 08/18/18 04:54 Magnesium 2.1 mg/dL (1.6-2.6) 08/25/18 07:45 Urine Creatinine 72 mg/dL 08/24/18 05:08 Urine Sodium 56.3 mEq/L 08/22/18 00:25 Urine Total Protein 18 mg/dL (1-14) H 08/24/18 05:08 Consult Discharge Plan - Plan Referrals: Ayden Naqvi DPM [Partnered Physician] - Luís Munoz MD [Partnered Physician] - (Follow-up in [place] [facility] clinic in 3 weeks. Patient to have repeat BNP prior to office visit with me.) Prescriptions: Acetaminophen [Tylenol] 650 mg PO Q6HR PRN 7 Days #30 tablet PRN Reason: Mild Pain/Fever Metoclopramide [Reglan] 5 mg PO Q6HR PRN #100 mls PRN Reason: Nausea And Vomiting Promethazine Syrup [Phenergan Syrup] 12.5 mg PO Q8HR PRN #300 mls PRN Reason: Nausea And Vomiting amLODIPine [Norvasc] 10 mg PO DAILY #60 tablet Carvedilol [Coreg] 50 mg PO BIDWM #60 tablet Cefazolin Sodium in 0.9 % NaCl [Cefazolin 2 G/100 ml-0.9% NaCl] 2 gm IV Q8H 21 Days #63 plast..bag Clindamycin 600 MG/50 ML [Cleocin Premix 600 MG/50 ML] 600 mg IVPB Q8H 21 Days #63 bag Docusate [Colace] 100 mg PO BID PRN #30 capsule PRN Reason: Constipation Escitalopram [Lexapro] 10 mg PO DAILY #30 tablet hydrALAZINE [HydrALAZINE] 10 mg PO QID #120 tablet Insulin NPH/REG 70/30 [HumuLIN 70/30 VIAL] 20 unit SQ BIDWM #6 vial Lactobacillus [Culturelle] 2 each PO DAILY #60 cap.sprink Omeprazole [PriLOSEC] 40 mg PO DAILY@0800 #60 capsule.
--- NOTE | 2018-08-28 15:15 | Discharge Summary ---
- NOTES TO OUTPATIENT PROVIDER Notes to Outpatient Provider: Patient with history of DM, HTN not on tx for 5 years, was admitted for sepsis secondary bilateral diabetic foot infection and GARETT. s/p I&D x 2 for L foot/ankle abscess and R 1st toe abscess. LLE now on VAC, podiatry to follow up. Wound cultre +ve for MSSA, CONS, and aneraboes. Will be discharged on IV Unasyn 3g Q6 and PO Doxy 100mg BID. During her stay, she also developed GARETT and Cr plateaued around 1.6-7. She will need to follow up with nephrology in 1 week with BMP. She will also need to follow up with vascular surgery in 3 weeks for angiogram, pending Cr improvement. She will also need weekly CBC, BUN/Cr, ESR, CRP, and ID follow up on 09/14. Follow up with PCP for DM and HTN. Orders not resulted at time of discharge: Pending orders 08/24/18 14:45 Culture,Anaerobic [RM] Routine 08/28/18 09:51 CRP [C-Reactive Protein] Routine Erythrocyte Sedimentation Rate [HEME] Routine 08/17/18 12:20 Culture,Anaerobic [RM] Routine 08/19/18 18:19 AFB Culture, Tissue [TB] Routine AFB Culture, Tissue [TB] Routine AFB Smear [TB] Routine AFB Smear [TB] Routine Fungal Culture [MYC] Routine Fungal Culture [MYC] Routine Date of Encounter: 08/28/18 Time of Encounter: 13:30 - Discharge Diagnosis (1) Sepsis Priority: Primary Status: Resolved Qualifiers: Sepsis type: sepsis due to unspecified organism Qualified Code(s): A41.9 - Sepsis, unspecified organism (2) Hypertensive emergency Priority: Secondary Status: Resolved (3) Nausea Priority: Secondary Status: Acute (4) Elevated troponin Priority: Secondary Status: Resolved (5) GARETT (acute kidney injury) Priority: Secondary Status: Acute (6) PAD (peripheral artery disease) Priority: Secondary Status: Chronic (7) Diabetic infection of right foot Priority: Secondary Status: Acute (8) Foot abscess, left Priority: Secondary Status: Acute (9) Diabetes mellitus Priority: Secondary Status: Chronic Qualifiers: Diabetes mellitus type: type 2 Diabetes mellitus complication status: with unspecified complications Qualified Code(s): E11.8 - Type 2 diabetes mellitus with unspecified complications (10) Depression Priority: Secondary Status: Acute Qualifiers: Depression Type: unspecified Qualified Code(s): F32.9 - Major depressive disorder, single episode, unspecified Hospital course: Ms. Bran is a 38 year old female with history of DM, HTN not on tx for 5 years, was admitted for sepsis secondary bilateral diabetic foot infection and GARETT. s/p I&D x 2 for L foot/ankle abscess and R 1st toe abscess. LLE now on VAC, podiatry to follow up. Wound cultre +ve for MSSA, CONS, and aneraboes. Will be discharged on IV Unasyn 3g Q6 and PO Doxy 100mg BID. During her stay, she also developed GARETT and Cr plateaued around 1.6-7. She will need to follow up with nephrology in 1 week with BMP. She will also need to follow up with vascular surgery in 3 weeks for angiogram, pending Cr improvement. She will also need weekly CBC, BUN/Cr, ESR, CRP, and ID follow up on 09/14. Follow up with PCP for DM and HTN. Discharge discussed with: patient, social work, case management, contact center consultant - Time Spent with Patient Total time spent providing and/or coordinating discharge services: 44 mins - Discharge Medications Prescriptions: Acetaminophen [Tylenol] 650 mg PO Q6HR PRN 7 Days #30 tablet PRN Reason: Mild Pain/Fever Ampicillin/Sulbactam [Unasyn] 3,000 mg IVPB Q6HR 21 Days #84 vial Metoclopramide [Reglan] 5 mg PO Q6HR PRN #100 mls PRN Reason: Nausea And Vomiting Promethazine Syrup [Phenergan Syrup] 12.5 mg PO Q8HR PRN #300 mls PRN Reason: Nausea And Vomiting amLODIPine [Norvasc] 10 mg PO DAILY #60 tablet Carvedilol [Coreg] 50 mg PO BIDWM #60 tablet Docusate [Colace] 100 mg PO BID PRN #30 capsule PRN Reason: Constipation Doxycycline 100 mg PO BID 21 Days #42 capsule Escitalopram [Lexapro] 10 mg PO DAILY #30 tablet hydrALAZINE [HydrALAZINE] 10 mg PO QID #120 tablet Insulin NPH/REG 70/30 [HumuLIN 70/30 VIAL] 20 unit SQ BIDWM #6 vial Lactobacillus [Culturelle] 2 each PO DAILY #60 cap.sprink Omeprazole [PriLOSEC] 40 mg PO DAILY@0800 #60 capsule. Home Medications: Acetaminophen [Tylenol] 650 mg PO Q6HR PRN 7 Days #30 tablet 08/28/18 [Rx] Ampicillin/Sulbactam [Unasyn] 3,000 mg IVPB Q6HR 21 Days #84 vial 08/28/18 [Rx] Carvedilol [Coreg] 50 mg PO BIDWM #60 tablet 08/28/18 [Rx] Docusate [Colace] 100 mg PO BID PRN #30 capsule 08/28/18 [Rx] Doxycycline 100 mg PO BID 21 Days #42 capsule 08/28/18 [Rx] Escitalopram [Lexapro] 10 mg PO DAILY #30 tablet 08/28/18 [Rx] Insulin NPH/REG 70/30 [HumuLIN 70/30 VIAL] 20 unit SQ BIDWM #6 vial 08/28/18 [Rx] Lactobacillus [Culturelle] 2 each PO DAILY #60 cap.sprink 08/28/18 [Rx] Metoclopramide [Reglan] 5 mg PO Q6HR PRN #100 mls 08/28/18 [Rx] Omeprazole [PriLOSEC] 40 mg PO DAILY@0800 #60 capsule. 08/28/18 [Rx] Promethazine Syrup [Phenergan Syrup] 12.5 mg PO Q8HR PRN #300 mls 08/28/18 [Rx] amLODIPine [Norvasc] 10 mg PO DAILY #60 tablet 08/28/18 [Rx] hydrALAZINE [HydrALAZINE] 10 mg PO QID #120 tablet 08/28/18 [Rx] Allergies/Adverse Reactions: Allergy/AdvReac Type Severity Reaction Status Date / Time No Known Allergies Allergy Verified 08/16/18 18:17 Date of admission: 08/17/18 17:02 Primary care physician: PCP NONE Consults: 08/25/18 10:22 Consult to Infectious Diseases [CONS] Routine Consulting Provider: Infectious Disease [place] Reason for Consult: eval Call Completed: No 08/25/18 11:00 Consult to Invasive Line Access Team [CONS] Routine Reason for Consult: 6 week IV therapy Line Type: Midline 08/26/18 22:44 Consult to Termite Control Representative [CONS] Routine Reason for SW Consult: Pt reports losing insurance. May need help with medication affordability. 08/27/18 07:19 Consult to Physical Therapy [CONS] Routine Comment: Evaluate, develop and implement POC Reason for Consult: bilateral feet infection, WBAT with heel touch Does patient have active BEDREST order?: No Is patient medically & hemodynamically stable?: Yes 08/28/18 09:01 Consult to Nephrology [CONS] Routine Consulting Provider: Kidney Rochelle/MARVIN/MASOOD/BOLIVAR Reason for Consult: GARETT Call Completed: Yes - Constitutional Vitals: Temp Pulse Resp BP Pulse Ox 98.7 F 73 20 132/65 93 08/28/18 10:44 08/28/18 10:44 08/28/18 10:44 08/28/18 10:44 08/28/18 10:44 Exam: General: Alert and oriented, not in distress Cardiovascular:Normal S1 & S2 Lungs: clear to auscultation, no wheezes/rales Abdomen:Soft, non-tender, no rigidity. Extremities: R LE dressing dry and clean, L LE on VAC Neurological:Normal cognition and motor skills. Non-focal - Patient Status Disposition: Home Health Service Condition: Fair Overall status at discharge: patient is progressing back to baseline - Ambulatory Orders Ambulatory Orders: Basic Metabolic Panel [CHEM] Time Frame: 1 Week, Facility: [facility], Location: Lab Complete Blood Count [HEME] Time Frame: 1 Week, Facility: [facility], Location: Lab C-Reactive Protein [CHEM] Time Frame: 1 Week, Facility: [facility], Location: Lab Erythrocyte Sedimentation Rate [HEME] Time Frame: 1 Week, Facility: [facility], Location: Lab - Discharge Instructions Instructions: Diabetes Mellitus Type 2 in Adults (DC), Diabetic Foot Care (DC), Chronic Hypertension (DC), Peripheral Vascular Disorders (DC), Sepsis (DC) Follow Up With: Ayden Naqvi DPM [Partnered Physician] - Luís Munoz MD [Partnered Physician] - (Follow-up in [place] [facility] clinic in 3 weeks. Patient to have repeat BNP prior to office visit with me.) Heath Walker DO [Partnered Physician] - Additional Instructions: IV Unasyn and PO Doxy for diabetic foot infection. Given her script for 3 weeks first but may need longer term pending outpatient ID evaluation Take Phenergan PRN for nausea/vomiting -> only use reglan if symptoms refractory to phenergan ID appt on 09/14. CBC, BMP, ESR, CRP weekly Follow up with Nephrology in 1 week with BMP Follow up with Podiatry for wound VAC Follow up with Vascular Surgery in 3 weeks for possible angiogram Follow up with PCP for DM and HTN - Diet and Activity Activity: as per physical therapy Diet: diabetic diet Addendum entered and electronically signed by Lenore Bloom MD 09/01/18 12:01: patient was discharged to [facility] instead of home on 09/01/2018 as per her request hydralazine dose was increased for better BP control to 25 TID form 10 QID. - new RX provided rest of the management/follow ups as per my colleagues documentation above Addendum entered and electronically signed by Lenore Bloom MD 09/01/18 12:36: as per podiatry team wound care as below place white foam to tunneled portion of left malleolus. Place black foam to left calcaneous and left malleolus. Place to suction at 125 mmHg. Change MWF. cleanse right foot with mild soap and water. Cover with 4x4 dry gauze, kerlex, and SAMIRA bandage. Continue to wear couch boot when in bed to left foot to help prevent further ulceration of heel. See previous plan for d/c instructions.
--- NOTE | 2018-08-28 15:21 | Physician Discharge Referral ---
Home Health/Hosp Referral Info Transfer to: Home Health - Diagnosis (1) Sepsis Priority: Primary Status: Resolved (2) Hypertensive emergency Priority: Secondary Status: Resolved (3) Nausea Priority: Secondary Status: Acute (4) Elevated troponin Priority: Secondary Status: Resolved (5) GARETT (acute kidney injury) Priority: Secondary Status: Acute (6) PAD (peripheral artery disease) Priority: Secondary Status: Chronic (7) Diabetic infection of right foot Priority: Secondary Status: Acute (8) Foot abscess, left Priority: Secondary Status: Acute (9) Diabetes mellitus Priority: Secondary Status: Chronic (10) Depression Priority: Secondary Status: Acute - Respiratory Orders Smoking Cessation: Smoking cessation has been advised. For more information, call the [place] Tobacco Quit Line at 6-346-FEBANOW. - Diet/Nutrition Diet/Nutrition Orders: No Concentrated Sweets - Services Needed Following services are medically necessary services: Nursing, Home Health Aide, Physical Therapy, Occupational Therapy, Home Infusion - Transfer Medications Prescriptions: Acetaminophen [Tylenol] 650 mg PO Q6HR PRN 7 Days #30 tablet PRN Reason: Mild Pain/Fever Ampicillin/Sulbactam [Unasyn] 3,000 mg IVPB Q6HR 21 Days #84 vial Metoclopramide [Reglan] 5 mg PO Q6HR PRN #100 mls PRN Reason: Nausea And Vomiting Promethazine Syrup [Phenergan Syrup] 12.5 mg PO Q8HR PRN #300 mls PRN Reason: Nausea And Vomiting amLODIPine [Norvasc] 10 mg PO DAILY #60 tablet Carvedilol [Coreg] 50 mg PO BIDWM #60 tablet Docusate [Colace] 100 mg PO BID PRN #30 capsule PRN Reason: Constipation Doxycycline 100 mg PO BID 21 Days #42 capsule Escitalopram [Lexapro] 10 mg PO DAILY #30 tablet hydrALAZINE [HydrALAZINE] 10 mg PO QID #120 tablet Insulin NPH/REG 70/30 [HumuLIN 70/30 VIAL] 20 unit SQ BIDWM #6 vial Lactobacillus [Culturelle] 2 each PO DAILY #60 cap.sprink Omeprazole [PriLOSEC] 40 mg PO DAILY@0800 #60 capsule.dr Home Medications: Acetaminophen [Tylenol] 650 mg PO Q6HR PRN 7 Days #30 tablet 08/28/18 [Rx] Ampicillin/Sulbactam [Unasyn] 3,000 mg IVPB Q6HR 21 Days #84 vial 08/28/18 [Rx] Carvedilol [Coreg] 50 mg PO BIDWM #60 tablet 08/28/18 [Rx] Docusate [Colace] 100 mg PO BID PRN #30 capsule 08/28/18 [Rx] Doxycycline 100 mg PO BID 21 Days #42 capsule 08/28/18 [Rx] Escitalopram [Lexapro] 10 mg PO DAILY #30 tablet 08/28/18 [Rx] Insulin NPH/REG 70/30 [HumuLIN 70/30 VIAL] 20 unit SQ BIDWM #6 vial 08/28/18 [Rx] Lactobacillus [Culturelle] 2 each PO DAILY #60 cap.sprink 08/28/18 [Rx] Metoclopramide [Reglan] 5 mg PO Q6HR PRN #100 mls 08/28/18 [Rx] Omeprazole [PriLOSEC] 40 mg PO DAILY@0800 #60 capsule. 08/28/18 [Rx] Promethazine Syrup [Phenergan Syrup] 12.5 mg PO Q8HR PRN #300 mls 08/28/18 [Rx] amLODIPine [Norvasc] 10 mg PO DAILY #60 tablet 08/28/18 [Rx] hydrALAZINE [HydrALAZINE] 10 mg PO QID #120 tablet 08/28/18 [Rx] Allergies/Adverse Reactions: Allergy/AdvReac Type Severity Reaction Status Date / Time No Known Allergies Allergy Verified 08/16/18 18:17 Certification: Further, I certify that my clinical findings support that this patient is homebound (i.e. absences from home require considerable and taxing effort and are for medical reasons or evangelical services or infrequently or short duration when for other reasons) because: Homebound Reason: Patient requires assistance of a person or device to safely leave home Attestation: My signature below is to certify that this patient is under my care and that I, or nurse practitioner, or a physician's retail assistant working with me, has a [id number] encounter with this patient.
[2018-08-28] MEDS: Acetaminophen 325 MG TABLET PO PRN (15:40)
[2018-08-28] MEDS: Ampicillin/Sulbactam 3,000 MG in 0.9 % Sodium Chloride Mini Bag 100 ML IVPB SCH (17:39)
--- NOTE | 2018-08-28 17:45 | Podiatry Progress Note ---
Date of Encounter: 08/28/18 Time of Encounter: 14:00 - Assessment and Plan (1) Diabetic infection of right foot Current Visit: Yes Status: Acute Assessment: Incision well approximated. No signs of dehiscence, no erythema, no streaking, no drainage noted. S/P I&D of right hallux 08/19/18 Repeat I&D 08/24/18 with wound closure of right hallux CFT <3 seconds. Surgical pathology returned acute supprative inflammation Sugrical culture returned staph epidermis and strep a Anaerobic culture returned prevotella bivia Wound culture returned staph aureus. ID following for ATB management Plan: Changed dressing. Applied adaptic to suture line. Covered with 4x4 dry gauze and kerlex. Plan for home d/c with home health. Wound vac orders placed and sent to case management. OK to d/c home once cleared with software systems architect and ID. Follow up with Dr. Naqvi in office this week. (2) Diabetic infection of left foot Current Visit: Yes Status: Acute Assessment: Wound vac in place at 125 mmHg. Serosanginous drainage noted in canister Repeat I&D 08/24/18 Blood cultures negative, prelim Surgical culture returned strep A Wound culture returned strep A. Plan: Changed wound vac. Left malleolus with fibrinous tissue and beefy wound bed noted. Tunneling noted to 5-6 o'clock. White foam placed to tunneling. Adaptic placed to wound bed. Covered with tegaderm dressing and black foam. Covered with kerlex and jaz bandage. Left calcaneous with red beefy tissue. Maceration noted to surrounding tissue. Painted with betadine x 3. Covered with tegaderm dressing and black foam. Covered with kerlex and ajz bandage. Continue to wear couch boot when in bed to left foot to help prevent further ulceration of heel. See previous plan for d/c instructions. Change wound vac MWF. Subjective Principal diagnosis: bilat foot infections Interval history: Patient sitting in bed. Patient denies fevers, chills, nausea, vomiting, or diarrhea. Denies chest pain, calf pain, or shortness of breath. Patient states she is awaiting home care set up for discharge. No other questions or concerns at this time. Objective - Vital Signs Vital Signs: Vital Signs Temp Pulse Resp BP Pulse Ox 08/28/18 15:22 98.4 F 78 18 157/89 95 08/28/18 10:44 98.7 F 73 20 132/65 93 08/28/18 06:54 98.3 F 77 16 149/78 94 08/28/18 06:27 98.1 F 08/28/18 05:27 84.4 F L 80 16 156/74 80 08/28/18 00:52 98.7 F 73 16 155/88 95 08/27/18 20:00 98.9 F 79 16 152/85 96 Intake and Output 08/28/18 08/28/18 08/28/18 07:59 15:59 23:59 Intake Total 386 / 386 560.5 / 560.5 Output Total 500 / 500 700 / 700 Balance -114 / -114 -139.5 / -139.5 Intake: IV Fluids 150 / 150 200.5 / 200.5 Cleocin Premix 600 MG/50 ML 600 50 / 50 50 / 50 mg In 50 ml @ 50 mls/hr IVPB Q8HR [facility] Rx#:[id number] Phenergan 12.5 MG In 0.9 % 50.5 / 50.5 Sodium Chloride 50 ML @ 204 mls /hr IVPB Q8HR [facility] Rx#: [id number] Ancef 2,000 MG In 0.9 % Sodium 100 / 100 100 / 100 Chloride 100 ML @ 200 mls/hr IVPB Q8HR [facility] Rx#:[id number] Oral 236 / 236 360 / 360 Output: Urine 500 / 500 700 / 700 Other: Meal Lunch Percent of Meal Consumed 100% Stool Size Large Stool Consistency soft Stool Color Brown Green # Bowel Movements 1 Weight 107.1 kg Blood Glucose* 235 229 165 Patient Weight 08/28/18 23:59 Weight 107.1 kg - Exam Exam: Constitiutional: Alert and oriented x 3. Vascular: 3/4 DP/PT bilaterally, CFT <3 sec to all digits bilaterally, warm to warm from tibia to toes bilaterally, no calf pain with squeeze bilaterally Neurologic: Diminished sensation to touch, normal plantar response, abnormal position sense dorsiflexion/plantar flexion Dermatologic: Right hallux with incision. Sutures noted. Well approximated. No erythema, no edema, no streaking, no drainage noted. Left heel measuring 2.5 x 2.5 x 3 cm. Red beefy wound bed. Left malleolus measuring 6 x 4 x 2 cm. Yellow fibrinous tissue noted. [place] wound bed noted. Tracking noted to 5-6 o'clock Musculoskeletal: 4/5 muscle strength and normal tone bilaterally. - Lab Result Diagrams: 08/28/18 04:00 08/28/18 04:00 Labs: Abnormal lab results RBC 3.65 M/mcL (3.82-4.97) L 08/28/18 04:00 Hgb 10.5 g/dL (11.5-15.4) L 08/28/18 04:00 Hct 32.5 % (35.3-44.9) L 08/28/18 04:00 ESR 92 mm/hr (0-15) H 08/17/18 03:35 PT 12.6 Seconds (9.4-12.1) H 08/22/18 13:43 Heparin Anti-Xa, Unfract 0.20 IU/mL (0.30-0.70) L 08/22/18 21:06 ABG pCO2 24 mmHg (35-45) L 08/17/18 08:33 ABG pO2 79 mmHg (85-104) L 08/17/18 08:33 ABG HCO3 14 mEq/L (21-27) L 08/17/18 08:33 ABG Total CO2 15 mEq/L (20-26) L 08/17/18 08:33 ABG Base Excess -10 mEq/L (-2 to 3) L 08/17/18 08:33 VBG pH 7.28 pH Units (7.32-7.42) L 08/17/18 08:15 VBG pCO2 29 mmHg (41-51) L 08/17/18 08:15 VBG pO2 55 mmHg (25-50) H 08/17/18 08:15 VBG HCO3 14 mEq/L (21-27) L 08/17/18 08:15 Chloride 108 mEq/L (98-107) H 08/28/18 04:00 Creatinine 1.64 mg/dL (0.60-1.20) H 08/28/18 04:00 Est GFR ( Amer) 42 (> 60) L 08/28/18 04:00 Est GFR (Non-Af Amer) 35 (> 60) L 08/28/18 04:00 Glucose 262 mg/dL (70-105) H 08/28/18 04:00 POC Glucose 229 mg/dL (70-99) H 08/28/18 10:48 Hemoglobin A1c 9.6 % (-5.6) H 08/17/18 03:35 Calcium 8.5 mg/dL (8.6-10.3) L 08/28/18 04:00 AST 8 Units/L (13-39) L 08/21/18 07:01 Troponin I 0.05 ng/mL (< 0.04) H* 08/22/18 21:06 C-Reactive Protein 186 mg/L (Less than 10) H 08/17/18 03:35 Serum Total Protein 5.8 g/dL (6.4-8.9) L 08/21/18 07:01 Albumin 2.8 g/dL (3.5-5.7) L 08/21/18 07:01 Albumin/Globulin Ratio 0.9 (1.1-2.2) L 08/21/18 07:01 HDL Cholesterol 27 mg/dL (40-59) L 08/17/18 03:35 Amylase 18 Units/L (29-103) L 08/21/18 07:01 Total Testosterone 127 ng/dL (15-70) H 08/18/18 04:54 Urine Clarity Cloudy (Clear) A 08/21/18 04:32 Urine Glucose (UA) >=1000 mg/dL (Normal) H 08/21/18 04:32 Urine Microscopic WBC 3-5 per hpf (0-3) H 08/21/18 04:32 Ur Squamous Epith Cells Many per lpf (None-Few) H 08/21/18 04:32 Urine Yeast Moderate per hpf (None Seen) H 08/21/18 04:32 Protein/Creatinin Ratio 0.25 mg/mg (0.00-0.20) H 08/24/18 05:08 Urine Total Protein 18 mg/dL (1-14) H 08/24/18 05:08 Microbiology, Last 48 Hours 08/19/18 18:19 Anaerobic Culture - Final Left Ankle Prevotella oralis 08/24/18 14:45 Surgical Biopsy Culture - Final Left Ankle 08/24/18 14:45 Anaerobic Culture - Preliminary Left Ankle At this time, no anaerobic growth is present. The culture will be finalized after 5 days of incubation. Consult Discharge Plan - Plan Instructions: Diabetic Foot Care (DC), Diabetes Mellitus Type 2 in Adults (DC), Peripheral Vascular Disorders (DC), Sepsis (DC), Chronic Hypertension (DC) Additional Instructions: IV Unasyn and PO Doxy for diabetic foot infection. Given her script for 3 weeks first but may need longer term pending outpatient ID evaluation Take Phenergan PRN for nausea/vomiting -> only use reglan if symptoms refractory to phenergan ID appt on 09/14. CBC, BMP, ESR, CRP weekly Follow up with Nephrology in 1 week with BMP Follow up with Podiatry for wound VAC Follow up with Vascular Surgery in 3 weeks for possible angiogram Follow up with PCP for DM and HTN Referrals: Ayden Naqvi DPM [Partnered Physician] - Heath Walker DO [Partnered Physician] - Luís Munoz MD [Partnered Physician] - (Follow-up in [place] surgery clinic in 3 weeks. Patient to have repeat BNP prior to office visit with me.) Prescriptions: Acetaminophen [Tylenol] 650 mg PO Q6HR PRN 7 Days #30 tablet PRN Reason: Mild Pain/Fever Ampicillin/Sulbactam [Unasyn] 3,000 mg IVPB Q6HR 21 Days #84 vial Metoclopramide [Reglan] 5 mg PO Q6HR PRN #100 mls PRN Reason: Nausea And Vomiting Promethazine Syrup [Phenergan Syrup] 12.5 mg PO Q8HR PRN #300 mls PRN Reason: Nausea And Vomiting amLODIPine [Norvasc] 10 mg PO DAILY #60 tablet Carvedilol [Coreg] 50 mg PO BIDWM #60 tablet Docusate [Colace] 100 mg PO BID PRN #30 capsule PRN Reason: Constipation Doxycycline 100 mg PO BID 21 Days #42 capsule Escitalopram [Lexapro] 10 mg PO DAILY #30 tablet hydrALAZINE [HydrALAZINE] 10 mg PO QID #120 tablet Insulin NPH/REG 70/30 [HumuLIN 70/30 VIAL] 20 unit SQ BIDWM #6 vial Lactobacillus [Culturelle] 2 each PO DAILY #60 cap.sprink Omeprazole [PriLOSEC] 40 mg PO DAILY@0800 #60 capsule.
[2018-08-28] MEDS: Doxycycline 100 MG CAPSULE PO SCH (20:02)
[2018-08-29] MEDS: Promethazine 12.5 MG in 0.9 % Sodium Chloride 50 ML IVPB SCH ×2 (00:01→08:03)
[2018-08-29] MEDS: Ampicillin/Sulbactam 3,000 MG in 0.9 % Sodium Chloride Mini Bag 100 ML IVPB SCH ×5 (00:01→23:40)
[2018-08-29] MEDS: *HR* Heparin 5,000 UNIT/ML VIAL SQ SCH ×2 (05:10→17:20)
[2018-08-29] MEDS: Metoclopramide 10 MG/2 ML VIAL IVP PRN (05:11)
[2018-08-29] MEDS: Insulin LISPRO 300 UNITS/3 ML VIAL SQ SCH ×4 (08:03→20:23)
[2018-08-29] MEDS: Lactobacillus 1 EACH CAP.SPRINK PO SCH (08:03)
[2018-08-29] MEDS: amLODIPine 5 MG TABLET PO SCH (08:06)
[2018-08-29] MEDS: hydrALAZINE 10 MG TABLET PO SCH ×4 (08:06→20:23)
[2018-08-29] MEDS: Doxycycline 100 MG CAPSULE PO SCH ×2 (08:06→20:23)
[2018-08-29] MEDS: Insulin DETEMIR 100 UNIT/ML X5UNITS SQ SCH ×2 (08:07→20:23)
--- NOTE | 2018-08-29 09:11 | Infectious Disease Progress No ---
Date of Encounter: 08/29/18 Time of Encounter: 08:45 - Assessment and Plan (1) Sepsis Current Visit: Yes Status: Resolved The patient had 3 sepsis criteria. Likely secondary to bilateral foot infections. Improved. White blood cell count has normalized. Tachycardia resolved. Afebrile. Blood cultures drawn 08/16/18 are negative 2 sets. Recommendations: Check ESR and CRP, CBC, and BMP. Wound care per the podiatry team. Continue Unasyn 3 grams IV Q6H. Although it is Q6H dosing, it will be easier to give one medication Q6H than two medications Q8H. Discussed with the patient and she is agreeable to this. Continue doxycycline 100mg PO BID to cover the S. epi. Since CONS tends to not be as virulent, we can treat with oral antibiotics. Duration of treatment depends on the clinical picture. Will consider 2-4 weeks, depending on how the patient does clinically. Continue this antibiotic regimen until seen by ID. Monitor renal function and dose-adjust antibiotics. Strict glucose control. Pain management per the primary team. consulting services associate to assist with discharge planning. Will need weekly CBC, BUN/creatinine, ESR, and CRP. Will need weekly IV care per protocol. Follow-up with ID 09/14/18 at 1405. Qualifiers: Sepsis type: sepsis due to unspecified organism Qualified Code(s): A41.9 - Sepsis, unspecified organism (2) Foot abscess, left Current Visit: Yes Status: Acute Causative organism: S. anginosus and anaerobes per wound and intra-op cultures. MRI of the left ankle showed multiple abscesses and likely infectious involvement of the plantar fascia. No osteomyelitis noted. Likely secondary to chronic left foot ulcer. ESR 92, CRP 186. Podiatry consulted and following. Status post I & D of the left foot and ankle abscess to deep fascia, multiple planes and incision and drainage right 1st toe abscess to deep fascia 08/19/[address] Naqvi. Intra-op cultures as above. Status post right first toe I&D and left foot and ankle I&D 08/24/[address] Naqvi. Repeat cultures of the left ankle are negative. Currently on Unasyn. (3) Diabetic infection of right foot Current Visit: Yes Status: Acute Location: Right foot, great toe. Causative organism: MSSA and anaerobes per wound culture. S. epi per Intra-op culture. Likely secondary to chronic non-healing ulcer. Podiatry consulted. Status post I & D right 1st toe abscess 08/19/[address] Naqvi. Intra-op cultures as above. Status post right first toe I&D and left foot and ankle I&D 08/24/18. Currently on IV Unasyn and doxycycline. (4) GARETT (acute kidney injury) Current Visit: Yes Status: Acute Likely multifactorial: pre-renal + antibiotics Serum creatinine stable. Nephrology consulted and following. (5) Diabetic foot ulcers Current Visit: Yes Status: Chronic Right foot: Right great toe. Left Foot: Left calcaneus. Etiology: Unclear. Patient denies known trauma, ill-fitting shoes, etc. Onset Wound care per the Podiatry team. Vascular consulted and planning for angiogram once renal function stabilizes. Qualifiers: Diabetic foot ulcer location: other Diabetes mellitus type: type 2 Laterality: unspecified laterality Non-pressure ulcer stage: unspecified non- pressure ulcer stage Qualified Code(s): E11.621 - Type 2 diabetes mellitus with foot ulcer; L97.509 - Non-pressure chronic ulcer of other part of unspecified foot with unspecified severity (6) Diabetes mellitus Current Visit: Yes Status: Chronic Uncontrolled. HgbA1C 9.6. Strict glucose control. Qualifiers: Diabetes mellitus type: type 2 Diabetes mellitus complication status: with unspecified complications Qualified Code(s): E11.8 - Type 2 diabetes mellitus with unspecified complications (7) Hypertension Current Visit: Yes Status: Chronic Qualifiers: Hypertension type: unspecified Qualified Code(s): I10 - Essential (primary) hypertension (8) Nausea Current Visit: Yes Status: Resolved Chronic, but worse since being in the hospital. Amylase, lipase, LFTs normal. GI consulted. RUQ UTS negative. KUB showed mildly dilated loops of bowel and mild colonic stool burden. Markedly improved with the addition of Reglan to her anti-emetic regimen. Management per the primary team. - Subjective Interval history: Patient seen and examined. No acute events noted overnight. Patient states overall she feels much better this morning. She reports marked improvement in her nausea and denies any vomiting. She denies any fevers or chills or rigors. Denies chest pain, shortness of breath, or cough. Denies diarrhea or constipation, but states her stools are loose. Denies abdominal pain or urinary complaints. Denies any oral thrush or new skin lesions. Denies any pain the surgical sites. consulting services associate/case management working to coordinate post- discharge arrangements. Infect Dis PN-Objective Data - Labs CBC & Chem 7: 08/28/18 04:00 08/28/18 04:00 Labs: Laboratory Results - last 24 hr 08/28/18 08/28/18 08/28/18 06:59 10:48 16:40 POC Glucose 235 H 229 H 165 H Cultures: Cultures 08/24/18 14:45 Anaerobic Culture - Final Left Ankle No anaerobes were recovered. 08/19/18 18:19 Anaerobic Culture - Final Left Ankle Prevotella oralis 08/24/18 14:45 Surgical Biopsy Culture - Final Left Ankle 08/19/18 18:19 Anaerobic Culture - Final Other-Specify in Comments No anaerobes were recovered. 08/19/18 18:19 Acid Fast Stain - Final Left Ankle 08/17/18 12:20 Anaerobic Culture - Preliminary Right Great Toe Prevotella bivia 08/19/18 18:19 Surgical Biopsy Culture - Final Left Ankle Streptococcus anginosus 08/19/18 18:19 Surgical Biopsy Culture - Final Other-Specify in Comments Staphylococcus epidermidis 08/16/18 18:58 Blood Culture - Final Peripheral Venipuncture No growth. Final report. 08/16/18 18:57 Blood Culture - Final Peripheral Venipuncture No growth. Final report. 08/19/18 18:19 Acid Fast Stain - Final Other-Specify in Comments 08/16/18 18:55 Wound Culture - Final Left Foot Streptococcus anginosus 08/17/18 12:20 Wound Culture - Final Right Great Toe Staphylococcus aureus Serology 08/24/18 08/24/18 08/22/18 Range/Units 05:08 05:08 00:25 Urine Color (Yellow) Urine Clarity (Clear) Urine pH (5.0-8.0) pH Units Ur Specific [place] (1.010-1.025) Urine Protein (Neg-Trace) mg/dL Urine Glucose (UA) (Normal) mg/dL Urine Ketones (Negative) mg/dL Urine Blood (Negative) Urine Nitrite (Negative) Urine Bilirubin (Negative) Urine Urobilinogen (Normal) mg/dL Ur Leukocyte Esterase (Negative) Urine Microscopic RBC (0-3) per hpf Urine Microscopic WBC (0-3) per hpf Ur Eosinophil Smear (None Seen) % Ur Squamous Epith Cells (None-Few) per lpf Urine Bacteria (None-Few) per hpf Hyaline Casts (None-Few) per lpf Urine Mucus (Few) Urine Yeast (None Seen) per hpf Ur Culture Indicated? (NO) Urine Creatinine 72 84 mg/dL Urine Microalbumin 10 mg/L Microalb/Creat Ratio 14 (Less than 30) mcg/mg Protein/Creatinin Ratio 0.25 H (0.00-0.20) mg/mg Urine Sodium 56.3 mEq/L Urine Total Protein 18 H (1-14) mg/dL Urine Test Negative (Negative) 08/22/18 08/21/18 08/19/18 Range/Units 00:25 04:32 12:30 Urine Color Yellow (Yellow) Urine Clarity Cloudy A (Clear) Urine pH 5.5 (5.0-8.0) pH Units Ur Specific [place] 1.022 (1.010-1.025) Urine Protein Negative (Neg-Trace) mg/dL Urine Glucose (UA) >=1000 H (Normal) mg/dL Urine Ketones Negative (Negative) mg/dL Urine Blood Negative (Negative) Urine Nitrite Negative (Negative) Urine Bilirubin Negative (Negative) Urine Urobilinogen Normal (Normal) mg/dL Ur Leukocyte Esterase Negative (Negative) Urine Microscopic RBC 0-3 (0-3) per hpf Urine Microscopic WBC 3-5 H (0-3) per hpf Ur Eosinophil Smear 0 (None Seen) % Ur Squamous Epith Cells Many H (None-Few) per lpf Urine Bacteria Few (None-Few) per hpf Hyaline Casts None Seen (None-Few) per lpf Urine Mucus Few (Few) Urine Yeast Moderate H (None Seen) per hpf Ur Culture Indicated? NO (NO) Urine Creatinine mg/dL Urine Microalbumin mg/L Microalb/Creat Ratio (Less than 30) mcg/mg Protein/Creatinin Ratio (0.00-0.20) mg/mg Urine Sodium mEq/L Urine Total Protein (1-14) mg/dL Urine Test Negative (Negative) Exam - Constitutional Vitals: Temp Pulse Resp BP Pulse Ox 98.4 F 77 16 157/86 94 08/29/18 06:55 08/29/18 06:55 08/29/18 06:55 08/29/18 06:55 08/29/18 06:55 General appearance: cooperative, no acute distress, obese - Head Head exam: Present: atraumatic, normal inspection, normocephalic - Eye Eye exam: Present: EOMI, normal appearance, PERRL Pupils: Present: normal accommodation - ENT ENT exam: Present: mucous membranes moist - Neck Neck exam: Present: normal inspection - Respiratory Respiratory exam: Present: CTAB. Absent: rales, respiratory distress, rhonchi, wheezes - Cardiovascular Cardiovascular exam: Present: RRR, +S1, +S2 - GI/Abdominal GI/Abdominal exam: Present: normal bowel sounds, soft. Absent: distended, tenderness - Extremities Exam Extremities exam: Absent: normal inspection (Bilateral foot/ankle dressings C/D/I. Left ankle wound VAC with small amount of serosanguinous drainage noted.) - Neurological Exam Neurological exam: Present: alert, oriented X3, no focal deficits - Psychiatric Psychiatric exam: Present: normal affect, normal mood - Skin Skin exam: Present: dry, intact, normal color, warm Consult Discharge Plan - Plan Instructions: Diabetic Foot Care (DC), Diabetes Mellitus Type 2 in Adults (DC), Peripheral Vascular Disorders (DC), Sepsis (DC), Chronic Hypertension (DC) Additional Instructions: IV Unasyn and PO Doxy for diabetic foot infection. Given her script for 3 weeks first but may need longer term pending outpatient ID evaluation Take Phenergan PRN for nausea/vomiting -> only use reglan if symptoms refractory to phenergan ID appt on 09/14. CBC, BMP, ESR, CRP weekly Follow up with Nephrology in 1 week with BMP Follow up with Podiatry for wound VAC Follow up with Vascular Surgery in 3 weeks for possible angiogram Follow up with PCP for DM and HTN Referrals: Ayden Naqvi DPM [Partnered Physician] - Heath Walker DO [Partnered Physician] - Luís Munoz MD [Partnered Physician] - (Follow-up in [place] [facility] in 3 weeks. Patient to have repeat BNP prior to office visit with me.) Prescriptions: RX: Acetaminophen [Tylenol] 650 mg PO Q6HR PRN 7 Days #30 tablet PRN Reason: Mild Pain/Fever Ampicillin/Sulbactam [Unasyn] 3,000 mg IVPB Q6HR 21 Days #84 vial Metoclopramide [Reglan] 5 mg PO Q6HR PRN #100 mls PRN Reason: Nausea And Vomiting Promethazine Syrup [Phenergan Syrup] 12.5 mg PO Q8HR PRN #300 mls PRN Reason: Nausea And Vomiting RX: amLODIPine [Norvasc] 10 mg PO DAILY #60 tablet RX: Carvedilol [Coreg] 50 mg PO BIDWM #60 tablet RX: Docusate [Colace] 100 mg PO BID PRN #30 capsule PRN Reason: Constipation RX: Doxycycline 100 mg PO BID 21 Days #42 capsule RX: Escitalopram [Lexapro] 10 mg PO DAILY #30 tablet RX: hydrALAZINE [HydrALAZINE] 10 mg PO QID #120 tablet RX: Insulin NPH/REG 70/30 [HumuLIN 70/30 VIAL] 20 unit SQ BIDWM #6 vial RX: Lactobacillus [Culturelle] 2 each PO DAILY #60 cap.sprink RX: Omeprazole [PriLOSEC] 40 mg PO DAILY@0800 #60 capsule.dr - Attending Attestation I examined this patient and my medical decision-making was reviewed with the Resident Physician. I agree with the documented findings, disposition and treatment plan as described except to the extent set forth below.
--- NOTE | 2018-08-29 09:28 | Nephrology Progress Note ---
Addendum entered and electronically signed by Davion Martinez MD 08/29/18 21:30: I examined this patient and discussed the medical decision-making with BREA Siddiqui. I agree with the documented findings, disposition and treatment plan as described except to the extent set forth below. Original Note: Date of Encounter: 08/29/18 Time of Encounter: 09:26 - Assessment and Plan (1) GARETT (acute kidney injury) Current Visit: Yes Status: Acute Labs ordered but not resulted at this time. Patient will need to establish with [facility] after d/c in 4-6 weeks, BMP 7 days after discharge. Renal function appears stable, could be her new baseline. Avoid nephrotoxins and renal dose all medications. Continue supportive care for nausea. Patient does have a powerglide, if a PICC line is needed for antibiotic management, it is okay per Nephrology. Advised patient to avoid NSAIDS after discharge. (2) Hypertension Current Visit: Yes Status: Chronic 157/86, stable. Qualifiers: Hypertension type: unspecified Qualified Code(s): I10 - Essential (primary) hypertension (3) Hyponatremia Current Visit: Yes Status: Acute Appears resolving. (4) Diabetic infection of right foot Current Visit: Yes Status: Acute Per podiatry/ID. Subjective Principal diagnosis: bilat foot infections Interval history: Patient seen and examined is doing well. Feeling much better today. Denies any nausea, emesis, admits to 3 loose stools yesterday. Denies chest pain or shortness of breath. Patient is concerned with transportation issues to and from outpatient appointments after discharge. Advised her to speak with Tejal, supportive employment case manager. Objective - Vital Signs Vital signs: Vital Signs Temp Pulse Resp BP Pulse Ox 08/29/18 06:55 98.4 F 77 16 157/86 94 08/29/18 04:00 97.9 F 75 17 144/75 95 08/28/18 23:30 98.3 F 77 18 151/77 94 08/28/18 19:11 98.6 F 79 18 150/76 96 08/28/18 15:22 98.4 F 78 18 157/89 95 08/28/18 10:44 98.7 F 73 20 132/65 93 Intake and Output 08/28/18 08/29/18 08/29/18 23:59 07:59 15:59 Intake Total 400.5 / 400.5 468.5 / 468.5 Output Total 0 / 0 0 / 0 Balance 400.5 / 400.5 468.5 / 468.5 Intake: IV Fluids 150.5 / 150.5 250.5 / 250.5 Unasyn 3,000 MG In 0.9 % Sodium 100 / 100 200 / 200 Chloride (Mini-Bag +) 100 ML @ 200 mls/hr IVPB Q6HR [facility] Rx#: [id number] Phenergan 12.5 MG In 0.9 % 50.5 / 50.5 50.5 / 50.5 Sodium Chloride 50 ML @ 204 mls /hr IVPB Q8HR [facility] Rx#: [id number] Oral 250 / 250 218 / 218 Output: Urine 0 / 0 0 / 0 Other: # Voids 1 Blood Glucose* 172 241 - General Appearance General appearance: Present: well-developed, well-nourished EENT: Present: ATNC, hearing intact, vision intact Neck: Present: supple Respiratory: Present: clear Cardiology: Present: edema (Trace bilat lower extremity edema noted. ), normal S1, normal S2 Gastrointestinal: Present: normoactive bowel sounds, no tenderness, no guarding Integumentary: Present: no rash, warm and dry Neurologic: Present: alert and oriented x3 Musculoskeletal: Present: no deformities Additional Comments: DRSG's C/D/I to bilat feet. Psychiatric: Present: mood/affect appropriate, cooperative - Lab 08/28/18 04:00 08/28/18 04:00 Most recent lab results ABG pH 7.38 pH Units (7.32-7.45) 08/17/18 08:33 ABG pCO2 24 mmHg (35-45) L 08/17/18 08:33 ABG pO2 79 mmHg (85-104) L 08/17/18 08:33 ABG HCO3 14 mEq/L (21-27) L 08/17/18 08:33 ABG O2 Saturation 96 % (95-98) 08/17/18 08:33 Calcium 8.5 mg/dL (8.6-10.3) L 08/28/18 04:00 Phosphorus 2.7 mg/dL (2.7-4.5) 08/18/18 04:54 Magnesium 2.1 mg/dL (1.6-2.6) 08/25/18 07:45 Urine Creatinine 72 mg/dL 08/24/18 05:08 Urine Sodium 56.3 mEq/L 08/22/18 00:25 Urine Total Protein 18 mg/dL (1-14) H 08/24/18 05:08 Consult Discharge Plan - Plan Instructions: Diabetic Foot Care (DC), Diabetes Mellitus Type 2 in Adults (DC), Peripheral Vascular Disorders (DC), Sepsis (DC), Chronic Hypertension (DC) Additional Instructions: IV Unasyn and PO Doxy for diabetic foot infection. Given her script for 3 weeks first but may need longer term pending outpatient ID evaluation Take Phenergan PRN for nausea/vomiting -> only use reglan if symptoms refractory to phenergan ID appt on 09/14. CBC, BMP, ESR, CRP weekly Follow up with Nephrology in 1 week with BMP Follow up with Podiatry for wound VAC Follow up with Vascular Surgery in 3 weeks for possible angiogram Follow up with PCP for DM and HTN Referrals: Ayden Naqvi DPM [Partnered Physician] - Heath Walker DO [Partnered Physician] - Luís Munoz MD [Partnered Physician] - (Follow-up in [place] surgery clinic in 3 weeks. Patient to have repeat BNP prior to office visit with me.) Prescriptions: Acetaminophen [Tylenol] 650 mg PO Q6HR PRN 7 Days #30 tablet PRN Reason: Mild Pain/Fever Ampicillin/Sulbactam [Unasyn] 3,000 mg IVPB Q6HR 21 Days #84 vial Metoclopramide [Reglan] 5 mg PO Q6HR PRN #100 mls PRN Reason: Nausea And Vomiting Promethazine Syrup [Phenergan Syrup] 12.5 mg PO Q8HR PRN #300 mls PRN Reason: Nausea And Vomiting amLODIPine [Norvasc] 10 mg PO DAILY #60 tablet Carvedilol [Coreg] 50 mg PO BIDWM #60 tablet Docusate [Colace] 100 mg PO BID PRN #30 capsule PRN Reason: Constipation Doxycycline 100 mg PO BID 21 Days #42 capsule Escitalopram [Lexapro] 10 mg PO DAILY #30 tablet hydrALAZINE [HydrALAZINE] 10 mg PO QID #120 tablet Insulin NPH/REG 70/30 [HumuLIN 70/30 VIAL] 20 unit SQ BIDWM #6 vial Lactobacillus [Culturelle] 2 each PO DAILY #60 cap.sprink Omeprazole [PriLOSEC] 40 mg PO DAILY@0800 #60 capsule.
[2018-08-29] MEDS ORDERED: Metoclopramide 10 MG/10 ML UD.LIQ PO PRN (10:00)
[2018-08-29] MEDS ORDERED: Promethazine 12.5 MG in 0.9 % Sodium Chloride 50 ML IVPB PRN (10:36)
[2018-08-29 11:52] LABS: C-Reactive Protein < 5 mg/L (Less than 10)
--- NOTE | 2018-08-29 16:37 | Event Note ---
Date of Encounter: 08/29/18 Time of Encounter: 08:00 patient was seen and examiend at bedside. has no complaints, tolerating PO diet. pain is controlled. no overnight events denies fever, chills, N/V/D, chest pain, SOB or palpitations. Vital signs reviewed General: Alert and oriented, not in distress Cardiovascular:Normal S1 & S2 Lungs: clear to auscultation, no wheezes/rales Abdomen:Soft, non-tender, no rigidity. Extremities: R LE dressing dry and clean, L LE on VAC Neurological:Normal cognition and motor skills. Non-focal A/P Ms. Bran is a 38 year old female with history of DM, HTN not on tx for 5 years, was admitted for sepsis secondary bilateral diabetic foot infection and GARETT. s/p I&D x 2 for L foot/ankle abscess and R 1st toe abscess. s/p wound vac placement ID and podiatry recs appreciated she has been discharged by my colleague however Wound vac is pending authorization nephrology recs appreciated to have BMP 7 days after discharge.
[2018-08-30] MEDS: Ampicillin/Sulbactam 3,000 MG in 0.9 % Sodium Chloride Mini Bag 100 ML IVPB SCH ×4 (05:37→23:33)
[2018-08-30] MEDS: *HR* Heparin 5,000 UNIT/ML VIAL SQ SCH ×2 (05:40→17:24)
[2018-08-30] MEDS: hydrALAZINE 10 MG TABLET PO SCH ×4 (09:08→21:03)
[2018-08-30] MEDS: Doxycycline 100 MG CAPSULE PO SCH ×2 (09:08→21:03)
[2018-08-30] MEDS: Lactobacillus 1 EACH CAP.SPRINK PO SCH (09:08)
[2018-08-30] MEDS: Insulin LISPRO 300 UNITS/3 ML VIAL SQ SCH ×4 (09:09→21:02)
[2018-08-30] MEDS: amLODIPine 5 MG TABLET PO SCH (09:09)
[2018-08-30] MEDS: Insulin DETEMIR 100 UNIT/ML X5UNITS SQ SCH ×2 (09:14→21:03)
[2018-08-30 10:07] LABS: Basophils # 0.1 K/mcL (0.0-0.2); Eosinophils # 0.1 K/mcL (0.0-0.6); Eosinophils % 1.9 %; Hematocrit 32.8 % (35.3-44.9); Hemoglobin 10.9 g/dL (11.5-15.4); Lymphocytes # 0.9 K/mcL (0.6-4.6); Lymphocytes % 13.7 %; Mean Corpuscular HGB Conc 33.2 g/dL (31.6-35.5); Mean Corpuscular Hemoglobin 28.8 pg (28.0-33.3); Mean Corpuscular Volume 86.8 fL (83.0-100.0); Mean Platelet Volume 10.9 fL (9.4-12.4); Monocytes # 0.4 K/mcL (0.0-1.3); Monocytes % 6.1 %; Neutrophils # 4.7 K/mcL (1.6-8.9); Platelet Count 311 K/mcL (140-400); Red Blood Count 3.78 M/mcL (3.82-4.97); Red Cell Distribution Width 14.2 % (11.5-14.5); Segmented Neutrophils % 76.3 %
[2018-08-30 10:23] LABS: Albumin 3.2 g/dL (3.5-5.7); Phosphorous 4.4 mg/dL (2.7-4.5); Potassium 4.1 mEq/L (3.5-5.1)
--- NOTE | 2018-08-30 10:36 | Nephrology Progress Note ---
Addendum entered and electronically signed by Davion Martinez MD 08/30/18 21:20: I examined this patient and discussed the medical decision-making with BREA Siddiqui. I agree with the documented findings, disposition and treatment plan as described except to the extent set forth below. Original Note: Date of Encounter: 08/30/18 Time of Encounter: 10:33 - Assessment and Plan (1) GARETT (acute kidney injury) Current Visit: Yes Status: Acute GFR improved at 37. Patient will need to establish with [facility] after d/c in 4-6 weeks, BMP 7 days after discharge. Renal function appears stable, could be her new baseline. Avoid nephrotoxins and renal dose all medications. Continue supportive care for nausea. Advised patient to avoid NSAIDS after discharge. (2) Hypertension Current Visit: Yes Status: Chronic 168/82, stable. Qualifiers: Hypertension type: unspecified Qualified Code(s): I10 - Essential (primary) hypertension (3) Hyponatremia Current Visit: Yes Status: Acute Appears resolving. (4) Diabetic infection of right foot Current Visit: Yes Status: Acute Per podiatry/ID. Subjective Principal diagnosis: bilat foot infections Interval history: Patient seen and examined is doing well. Feeling a little nauseated today, but doing well. Denies any CP or shortness of breath. Wound vac in place. Objective - Vital Signs Vital signs: Vital Signs Temp Pulse Resp BP Pulse Ox 08/30/18 09:03 98.6 F 87 16 185/95 95 08/30/18 04:57 98.9 F 79 16 168/82 97 08/30/18 01:33 98.2 F 79 16 170/88 94 08/29/18 20:09 98.3 F 82 16 142/75 95 08/29/18 16:09 99.3 F 85 16 153/80 94 08/29/18 11:26 97.6 F 79 14 158/87 95 Intake and Output 08/29/18 08/30/18 08/30/18 23:59 07:59 15:59 Intake Total 340 / 340 100 / 100 Output Total 600 / 600 0 / 0 Balance -260 / -260 100 / 100 0 / 0 Intake: IV Fluids 100 / 100 100 / 100 Unasyn 3,000 MG In 0.9 % Sodium 100 / 100 100 / 100 Chloride (Mini-Bag +) 100 ML @ 200 mls/hr IVPB Q6HR [facility] Rx#: [id number] Oral 240 / 240 Output: Urine 600 / 600 Wound Drainage 0 / 0 0 / 0 Left Ankle 0 / 0 0 / 0 Other: Meal Dinner Percent of Meal Consumed 100% # Voids 2 Weight 102.3 kg Blood Glucose* 216 267 Patient Weight 08/30/18 23:59 Weight 102.3 kg - General Appearance General appearance: Present: well-developed, well-nourished EENT: Present: ATNC, hearing intact, vision intact Neck: Present: supple Respiratory: Present: clear Cardiology: Present: no edema, normal S1, normal S2 Gastrointestinal: Present: normoactive bowel sounds, no tenderness, no guarding Integumentary: Present: no rash, warm and dry Neurologic: Present: alert and oriented x3 Psychiatric: Present: mood/affect appropriate, cooperative - Lab 08/30/18 09:54 08/30/18 09:54 Most recent lab results ABG pH 7.38 pH Units (7.32-7.45) 08/17/18 08:33 ABG pCO2 24 mmHg (35-45) L 08/17/18 08:33 ABG pO2 79 mmHg (85-104) L 08/17/18 08:33 ABG HCO3 14 mEq/L (21-27) L 08/17/18 08:33 ABG O2 Saturation 96 % (95-98) 08/17/18 08:33 Calcium 9.0 mg/dL (8.6-10.3) 08/30/18 09:54 Phosphorus 4.4 mg/dL (2.7-4.5) 08/30/18 09:54 Magnesium 2.1 mg/dL (1.6-2.6) 08/25/18 07:45 Urine Creatinine 72 mg/dL 08/24/18 05:08 Urine Sodium 56.3 mEq/L 08/22/18 00:25 Urine Total Protein 18 mg/dL (1-14) H 08/24/18 05:08 Consult Discharge Plan - Plan Instructions: Diabetic Foot Care (DC), Diabetes Mellitus Type 2 in Adults (DC), Peripheral Vascular Disorders (DC), Sepsis (DC), Chronic Hypertension (DC) Additional Instructions: IV Unasyn and PO Doxy for diabetic foot infection. Given her script for 3 weeks first but may need longer term pending outpatient ID evaluation Take Phenergan PRN for nausea/vomiting -> only use reglan if symptoms refractory to phenergan ID appt on 09/14. CBC, BMP, ESR, CRP weekly Follow up with Nephrology in 1 week with BMP Follow up with Podiatry for wound VAC Follow up with Vascular Surgery in 3 weeks for possible angiogram Follow up with PCP for DM and HTN Referrals: Ayden Naqvi DPM [Partnered Physician] - Heath Walker DO [Partnered Physician] - Luís Munoz MD [Partnered Physician] - (Follow-up in [place] surgery clinic in 3 weeks. Patient to have repeat BNP prior to office visit with me.) Prescriptions: Acetaminophen [Tylenol] 650 mg PO Q6HR PRN 7 Days #30 tablet PRN Reason: Mild Pain/Fever Ampicillin/Sulbactam [Unasyn] 3,000 mg IVPB Q6HR 21 Days #84 vial Metoclopramide [Reglan] 5 mg PO Q6HR PRN #100 mls PRN Reason: Nausea And Vomiting Promethazine Syrup [Phenergan Syrup] 12.5 mg PO Q8HR PRN #300 mls PRN Reason: Nausea And Vomiting amLODIPine [Norvasc] 10 mg PO DAILY #60 tablet Carvedilol [Coreg] 50 mg PO BIDWM #60 tablet Docusate [Colace] 100 mg PO BID PRN #30 capsule PRN Reason: Constipation Doxycycline 100 mg PO BID 21 Days #42 capsule Escitalopram [Lexapro] 10 mg PO DAILY #30 tablet hydrALAZINE [HydrALAZINE] 10 mg PO QID #120 tablet Insulin NPH/REG 70/30 [HumuLIN 70/30 VIAL] 20 unit SQ BIDWM #6 vial Lactobacillus [Culturelle] 2 each PO DAILY #60 cap.sprink Omeprazole [PriLOSEC] 40 mg PO DAILY@0800 #60 capsule.
--- NOTE | 2018-08-30 14:22 | Event Note ---
Date of Encounter: 08/30/18 Time of Encounter: 14:18 patient was seen and examined at bedside. has no complaints, tolerating PO diet. all questions answered. pain is controlled. no overnight events denies fever, chills, N/V/D, chest pain, SOB or palpitations. Vital signs reviewed General: Alert and oriented, not in distress Cardiovascular:Normal S1 & S2 Lungs: clear to auscultation, no wheezes/rales Abdomen:Soft, non-tender, no rigidity. Extremities: R LE dressing dry and clean, L LE on VAC Neurological:Normal cognition and motor skills. Non-focal A/P Ms. Bran is a 38 year old female with history of DM, HTN not on tx for 5 years, was admitted for sepsis secondary bilateral diabetic foot infection and GARETT. s/p I&D x 2 for L foot/ankle abscess and R 1st toe abscess. s/p wound vac placement ID and podiatry recs appreciated she has been discharged by my colleague however Wound vac authorization was pending. on 08/30/17 she decided that she would like to go to [facility]. SW and CM on ayanna will follow recommendations nephrology recs appreciated to have BMP 7 days after discharge. insulin sliding scale changed to medium dose covergae from low dose coverage for better glucose control she was counseled on diet
[2018-08-30] MEDS: Acetaminophen 325 MG TABLET PO PRN (15:38)
[2018-08-31] MEDS: *HR* Heparin 5,000 UNIT/ML VIAL SQ SCH ×2 (06:19→17:07)
[2018-08-31] MEDS: Ampicillin/Sulbactam 3,000 MG in 0.9 % Sodium Chloride Mini Bag 100 ML IVPB SCH ×4 (06:19→23:55)
[2018-08-31] MEDS: Insulin LISPRO 300 UNITS/3 ML VIAL SQ SCH ×4 (08:17→21:07)
[2018-08-31] MEDS: hydrALAZINE 10 MG TABLET PO SCH ×4 (08:18→21:03)
[2018-08-31] MEDS: Lactobacillus 1 EACH CAP.SPRINK PO SCH (08:18)
[2018-08-31] MEDS: amLODIPine 5 MG TABLET PO SCH (08:18)
[2018-08-31] MEDS: Insulin DETEMIR 100 UNIT/ML X5UNITS SQ SCH ×2 (08:18→21:03)
[2018-08-31] MEDS: Doxycycline 100 MG CAPSULE PO SCH ×2 (08:19→21:03)
--- NOTE | 2018-08-31 09:40 | Nephrology Progress Note ---
Addendum entered and electronically signed by Davion Martinez MD 08/31/18 21:22: I examined this patient and discussed the medical decision-making with BREA Siddiqui. I agree with the documented findings, disposition and treatment plan as described except to the extent set forth below. We will sign off. Please call if any questions. Patient to follow-up in clinic after discharge. Addendum entered and electronically signed by Chen Boo CNP 08/31/18 13:32: Nephrology will sign off at this time, please re consult as needed. Original Note: Date of Encounter: 08/31/18 Time of Encounter: 09:37 - Assessment and Plan (1) GARETT (acute kidney injury) Current Visit: Yes Status: Acute Labs have not resulted yet today. Patient will need to establish with [facility] after d/c in 4-6 weeks, BMP 7 days after discharge. Renal function appears stable, could be her new baseline. Avoid nephrotoxins and renal dose all medications. Continue supportive care for nausea. Patient has agreed to go to [facility] for rehab. Advised patient to avoid NSAIDS after discharge. (2) Hypertension Current Visit: Yes Status: Chronic Stable. Qualifiers: Hypertension type: unspecified Qualified Code(s): I10 - Essential (primary) hypertension (3) Hyponatremia Current Visit: Yes Status: Acute Appears resolving. (4) Diabetic infection of right foot Current Visit: Yes Status: Acute Per podiatry/ID. Subjective Principal diagnosis: bilat foot infections Interval history: Patient seen and examined is doing well. Feels much better today. Has agreed to go to [facility] for rehab. Wound vac in place. Denies shortness of breath or chest pain. Denies nausea/vomiting. Objective - Vital Signs Vital signs: Vital Signs Temp Pulse Resp BP Pulse Ox 08/31/18 07:19 98.2 F 80 16 165/88 93 08/31/18 03:21 98.1 F 74 16 163/85 92 08/30/18 23:47 97.9 F 78 18 138/69 95 08/30/18 19:39 98.4 F 78 18 131/74 95 08/30/18 15:57 97.7 F 80 19 128/73 95 08/30/18 11:52 98.9 F 78 19 155/80 93 Intake and Output 08/30/18 08/31/18 08/31/18 23:59 07:59 15:59 Intake Total 100 / 100 100 / 100 Output Total 300 / 300 1999 0 / 0 Balance -200 / -200 -1900 / -1900 Intake: IV Fluids 100 / 100 100 / 100 Unasyn 3,000 MG In 0.9 % Sodium 100 / 100 100 / 100 Chloride (Mini-Bag +) 100 ML @ 200 mls/hr IVPB Q6HR [facility] Rx#: [id number] Oral Output: Urine 300 / 300 1999 0 / 0 Wound Drainage 0 / 0 0 / 0 Left Ankle 0 / 0 0 / 0 left inner ankle 0 / 0 Other: Meal Breakfast Percent of Meal Consumed 100% Stool Size Moderate Stool Consistency formed Stool Characteristics Normal for Patient Stool Color Brown # Voids 1 # Bowel Movements 1 Weight 101.3 kg Blood Glucose* 208 255 Patient Weight 08/31/18 23:59 Weight 101.3 kg - General Appearance General appearance: Present: well-developed, well-nourished EENT: Present: ATNC, hearing intact, vision intact Neck: Present: supple Respiratory: Present: clear Cardiology: Present: no edema, normal S1, normal S2 Gastrointestinal: Present: normoactive bowel sounds, no tenderness, no guarding Integumentary: Present: no rash, warm and dry Neurologic: Present: alert and oriented x3 Psychiatric: Present: mood/affect appropriate, cooperative - Lab 08/31/18 09:30 08/31/18 09:30 Most recent lab results ABG pH 7.38 pH Units (7.32-7.45) 08/17/18 08:33 ABG pCO2 24 mmHg (35-45) L 08/17/18 08:33 ABG pO2 79 mmHg (85-104) L 08/17/18 08:33 ABG HCO3 14 mEq/L (21-27) L 08/17/18 08:33 ABG O2 Saturation 96 % (95-98) 08/17/18 08:33 Calcium 9.0 mg/dL (8.6-10.3) 08/30/18 09:54 Phosphorus 4.4 mg/dL (2.7-4.5) 08/30/18 09:54 Magnesium 2.1 mg/dL (1.6-2.6) 08/25/18 07:45 Urine Creatinine 72 mg/dL 08/24/18 05:08 Urine Sodium 56.3 mEq/L 08/22/18 00:25 Urine Total Protein 18 mg/dL (1-14) H 08/24/18 05:08 Consult Discharge Plan - Plan Instructions: Diabetic Foot Care (DC), Diabetes Mellitus Type 2 in Adults (DC), Peripheral Vascular Disorders (DC), Sepsis (DC), Chronic Hypertension (DC) Additional Instructions: IV Unasyn and PO Doxy for diabetic foot infection. Given her script for 3 weeks first but may need longer term pending outpatient ID evaluation Take Phenergan PRN for nausea/vomiting -> only use reglan if symptoms refractory to phenergan ID appt on 09/14. CBC, BMP, ESR, CRP weekly Follow up with Nephrology in 1 week with BMP Follow up with Podiatry for wound VAC Follow up with Vascular Surgery in 3 weeks for possible angiogram Follow up with PCP for DM and HTN Referrals: Ayden Naqvi DPM [Partnered Physician] - Heath Walker DO [Partnered Physician] - Luís Munoz MD [Partnered Physician] - (Follow-up in [place] [facility] clinic in 3 weeks. Patient to have repeat BNP prior to office visit with me.) Prescriptions: Acetaminophen [Tylenol] 650 mg PO Q6HR PRN 7 Days #30 tablet PRN Reason: Mild Pain/Fever Ampicillin/Sulbactam [Unasyn] 3,000 mg IVPB Q6HR 21 Days #84 vial Metoclopramide [Reglan] 5 mg PO Q6HR PRN #100 mls PRN Reason: Nausea And Vomiting Promethazine Syrup [Phenergan Syrup] 12.5 mg PO Q8HR PRN #300 mls PRN Reason: Nausea And Vomiting amLODIPine [Norvasc] 10 mg PO DAILY #60 tablet Carvedilol [Coreg] 50 mg PO BIDWM #60 tablet Docusate [Colace] 100 mg PO BID PRN #30 capsule PRN Reason: Constipation Doxycycline 100 mg PO BID 21 Days #42 capsule Escitalopram [Lexapro] 10 mg PO DAILY #30 tablet hydrALAZINE [HydrALAZINE] 10 mg PO QID #120 tablet Insulin NPH/REG 70/30 [HumuLIN 70/30 VIAL] 20 unit SQ BIDWM #6 vial Lactobacillus [Culturelle] 2 each PO DAILY #60 cap.sprink Omeprazole [PriLOSEC] 40 mg PO DAILY@0800 #60 capsule.
[2018-08-31 09:43] LABS: Basophils % 0.6 %; Eosinophils # 0.1 K/mcL (0.0-0.6); Eosinophils % 1.7 %; Hematocrit 31.8 % (35.3-44.9); Hemoglobin 10.5 g/dL (11.5-15.4); Immature Granulocytes % 0.9 % (0-4); Lymphocytes # 1.1 K/mcL (0.6-4.6); Lymphocytes % 16.5 %; Mean Corpuscular Hemoglobin 29.1 pg (28.0-33.3); Mean Corpuscular Volume 88.1 fL (83.0-100.0); Mean Platelet Volume 10.7 fL (9.4-12.4); Monocytes # 0.4 K/mcL (0.0-1.3); Monocytes % 6.6 %; Neutrophils # 4.7 K/mcL (1.6-8.9); Platelet Count 278 K/mcL (140-400); Red Blood Count 3.61 M/mcL (3.82-4.97); Red Cell Distribution Width 14.1 % (11.5-14.5); Segmented Neutrophils % 73.7 %
[2018-08-31 10:07] LABS: Calcium 8.9 mg/dL (8.6-10.3); Potassium 4.1 mEq/L (3.5-5.1)
--- NOTE | 2018-08-31 12:56 | Internal Med Progress Note ---
Hospitalist Progress Note - Encounter Date of Encounter: 08/31/18 Time of Encounter: 09:00 - Subjective Interval History: patient was seen and examined at bedside. has no complaints, tolerating PO diet. all questions answered. pain is controlled. no overnight events denies fever, chills, N/V/D, chest pain, SOB or palpitations. has no decided for EC[facility]. SW and CM on board - Exam Vitals: Temp Pulse Resp BP Pulse Ox 98.2 F 70 16 133/72 96 08/31/18 10:56 08/31/18 10:56 08/31/18 10:56 08/31/18 10:56 08/31/18 10:56 Exam: Vital signs reviewed General: Alert and oriented, not in distress Cardiovascular:Normal S1 & S2 Lungs: clear to auscultation, no wheezes/rales Abdomen:Soft, non-tender, no rigidity. Extremities: R LE dressing dry and clean, L LE on VAC Neurological:Normal cognition and motor skills. Non-focal - Assessment and Plan (1) Diabetes mellitus Current Visit: Yes Status: Chronic (2) Diabetic infection of right foot Current Visit: Yes Status: Acute (3) Sepsis Current Visit: Yes Status: Resolved (4) Foot abscess, left Current Visit: Yes Status: Acute (5) GARETT (acute kidney injury) Current Visit: Yes Status: Acute (6) Depression Current Visit: Yes Status: Acute (7) Nausea Current Visit: Yes Status: Resolved (8) PAD (peripheral artery disease) Current Visit: Yes Status: Chronic (9) Elevated troponin Current Visit: Yes Status: Resolved (10) Hypertensive emergency Current Visit: Yes Status: Resolved - Summary of Assessment and Plan Summary of Assessment and Plan: A/P Ms. Bran is a 38 year old female with history of DM, HTN not on tx for 5 years, was admitted for sepsis secondary bilateral diabetic foot infection and GARETT. s/p I&D x 2 for L foot/ankle abscess and R 1st toe abscess. s/p wound vac placement ID and podiatry recs appreciated she has been discharged by my colleague however Wound vac authorization was pending. on 08/30/17 she decided that she would like to go to ECF. SW and CM on bawally will follow recommendations nephrology recs appreciated to have BMP 7 days after discharge. insulin sliding scale changed to medium dose coverage from low dose coverage for better glucose control , long acting insulin changed to 20 units BID for better glucose control ESR repeated on 08/30 and trending down she was counseled on diet - Time Spent with Patient Total time spent is greater than 50% in coordination of care (as documented) at patient's floor/unit and/or counseling patient: Internal Medicine: Result - Labs CBC & Chem 7: 08/31/18 09:30 08/31/18 09:30 Labs: Short CBC 08/31/18 Range/Units 09:30 WBC 6.4 (4.3-11.1) K/mcL Hgb 10.5 L (11.5-15.4) g/dL Hct 31.8 L (35.3-44.9) % Plt Count 278 (140-400) K/mcL Neutrophils # 4.7 (1.6-8.9) K/mcL BMP 08/31/18 09:30 Sodium 138 Potassium 4.1 Chloride 103 Carbon Dioxide 27 BUN 19 Creatinine 1.42 H Glucose 291 H Calcium 8.9 - ABG Interpretation ABG results: ABG ABG pH 7.38 pH Units (7.32-7.45) 08/17/18 08:33 ABG pCO2 24 mmHg (35-45) L 08/17/18 08:33 ABG pO2 79 mmHg (85-104) L 08/17/18 08:33 ABG O2 Saturation 96 % (95-98) 08/17/18 08:33 PT/INR, D-dimer PT 12.6 Seconds (9.4-12.1) H 08/22/18 13:43 Consult Discharge Plan - Plan Instructions: Diabetic Foot Care (DC), Diabetes Mellitus Type 2 in Adults (DC), Peripheral Vascular Disorders (DC), Sepsis (DC), Chronic Hypertension (DC) Additional Instructions: IV Unasyn and PO Doxy for diabetic foot infection. Given her script for 3 weeks first but may need longer term pending outpatient ID evaluation Take Phenergan PRN for nausea/vomiting -> only use reglan if symptoms refractory to phenergan ID appt on 09/14. CBC, BMP, ESR, CRP weekly Follow up with Nephrology in 1 week with BMP Follow up with Podiatry for wound VAC Follow up with Vascular Surgery in 3 weeks for possible angiogram Follow up with PCP for DM and HTN Referrals: Ayden Naqvi DPM [Partnered Physician] - Heath Walker DO [Partnered Physician] - Luís Munoz MD [Partnered Physician] - (Follow-up in [place] surgery clinic in 3 weeks. Patient to have repeat BNP prior to office visit with me.) Prescriptions: Acetaminophen [Tylenol] 650 mg PO Q6HR PRN 7 Days #30 tablet PRN Reason: Mild Pain/Fever Ampicillin/Sulbactam [Unasyn] 3,000 mg IVPB Q6HR 21 Days #84 vial Metoclopramide [Reglan] 5 mg PO Q6HR PRN #100 mls PRN Reason: Nausea And Vomiting Promethazine Syrup [Phenergan Syrup] 12.5 mg PO Q8HR PRN #300 mls PRN Reason: Nausea And Vomiting amLODIPine [Norvasc] 10 mg PO DAILY #60 tablet Carvedilol [Coreg] 50 mg PO BIDWM #60 tablet Docusate [Colace] 100 mg PO BID PRN #30 capsule PRN Reason: Constipation Doxycycline 100 mg PO BID 21 Days #42 capsule Escitalopram [Lexapro] 10 mg PO DAILY #30 tablet hydrALAZINE [HydrALAZINE] 10 mg PO QID #120 tablet Insulin NPH/REG 70/30 [HumuLIN 70/30 VIAL] 20 unit SQ BIDWM #6 vial Lactobacillus [Culturelle] 2 each PO DAILY #60 cap.sprink Omeprazole [PriLOSEC] 40 mg PO DAILY@0800 #60 capsule.dr (1) Diabetes mellitus Qualifiers: Diabetes mellitus type: type 2 Diabetes mellitus complication status: with unspecified complications Qualified Code(s): E11.8 - Type 2 diabetes mellitus with unspecified complications (3) Sepsis Qualifiers: Sepsis type: sepsis due to unspecified organism Qualified Code(s): A41.9 - Sepsis, unspecified organism (6) Depression Qualifiers: Depression Type: unspecified Qualified Code(s): F32.9 - Major depressive disorder, single episode, unspecified
--- NOTE | 2018-08-31 15:36 | Podiatry Progress Note ---
Date of Encounter: 08/31/18 Time of Encounter: 13:15 - Assessment and Plan (1) Diabetic infection of right foot Current Visit: Yes Status: Acute Assessment: S/P I&D of right hallux 08/19/18 Repeat I&D 08/24/18 with wound closure of right hallux CFT <3 seconds. No calf pain with squeeze. No erythema or edema above or below dressing Surgical pathology returned acute supprative inflammation Sugrical culture returned staph epidermis and strep a Anaerobic culture returned prevotella bivia Wound culture returned staph aureus. ID following for ATB management Plan: Will change dressing tomorrow if here. Discharge to ECF or rehab once set up with case management OK to d/c once cleared with watermelon inspector and ID. Follow up with Dr. Naqvi in office. If going to rehab dressing orders: cleanse right foot with mild soap and water. Cover with 4x4 dry gauze, kerlex, and SAMIRA bandage. (2) Diabetic infection of left foot Current Visit: Yes Status: Acute Assessment: Wound vac in place at 125 mmHg. Serosanginous drainage noted in canister Repeat I&D 08/24/18 Blood cultures negative, prelim Surgical culture returned strep A Wound culture returned strep A. CFT <3 seconds No erythema or edema noted above or below dressing No strikethrough noted. No calf pain with squeeze Plan: Will change vac tomorrow if patient still here If d/c to ECF dressing orders- place white foam to tunneled portion of left malleolus. Place black foam to left calcaneous and left malleolus. Place to suction at 125 mmHg. Change MWF. Continue to wear couch boot when in bed to left foot to help prevent further ulc eration of heel. See previous plan for d/c instructions. Subjective Principal diagnosis: bilat foot infections Interval history: Patient sitting in bed. Patient denies fevers, chills, nausea, vomiting, or diarrhea. Denies chest pain, calf pain, or shortness of breath. Patient states she is awaiting home care set up for discharge. Reports that she would like to go to rehab or SNF while on IV atb and with wound vac. No other questions or concerns at this time. Objective - Vital Signs Vital Signs: Vital Signs Temp Pulse Resp BP Pulse Ox 08/31/18 10:56 98.2 F 70 16 133/72 96 08/31/18 07:19 98.2 F 80 16 165/88 93 08/31/18 03:21 98.1 F 74 16 163/85 92 08/30/18 23:47 97.9 F 78 18 138/69 95 08/30/18 19:39 98.4 F 78 18 131/74 95 08/30/18 15:57 97.7 F 80 19 128/73 95 Intake and Output 08/30/18 08/31/18 08/31/18 23:59 07:59 15:59 Intake Total 100 / 100 200 / 200 1010 / 1010 Output Total 300 / 300 2000 / 2000 0 / 0 Balance -200 / -200 -1800 / -1800 1010 / 1010 Intake: IV Fluids 100 / 100 200 / 200 Unasyn 3,000 MG In 0.9 % Sodium 100 / 100 200 / 200 Chloride (Mini-Bag +) 100 ML @ 200 mls/hr IVPB Q6HR [facility] Rx#: [id number] Oral 1010 / 1010 Output: Urine 300 / 300 1999 / 1999 0 / 0 Wound Drainage 0 / 0 0 / 0 Left Ankle 0 / 0 0 / 0 left inner ankle 0 / 0 Other: Meal Lunch Percent of Meal Consumed 100% Stool Size Moderate Stool Consistency formed Stool Characteristics Normal for Patient Stool Color Brown # Voids 1 # Bowel Movements 1 Weight 101.3 kg Blood Glucose* 208 255 261 Patient Weight 08/31/18 23:59 Weight 101.3 kg - Exam Exam: Constitiutional: Alert and oriented x 3. No acute distress noted. Vascular: CFT <3 sec to all digits bilaterally, warm toes bilaterally, no calf pain with squeeze bilaterally Neurologic: Diminished sensation to touch, normal plantar response, abnormal position sense dorsiflexion/plantar flexion Dermatologic: Dressing in place to BLE. No strike through noted. No edema, no erythema noted above or below dressing Musculoskeletal: 4/5 muscle strength and normal tone bilaterally. - Lab Result Diagrams: 08/31/18 09:30 08/31/18 09:30 Labs: Abnormal lab results RBC 3.61 M/mcL (3.82-4.97) L 08/31/18 09:30 Hgb 10.5 g/dL (11.5-15.4) L 08/31/18 09:30 Hct 31.8 % (35.3-44.9) L 08/31/18 09:30 ESR 40 mm/hr (0-15) H 08/30/18 09:54 PT 12.6 Seconds (9.4-12.1) H 08/22/18 13:43 Heparin Anti-Xa, Unfract 0.20 IU/mL (0.30-0.70) L 08/22/18 21:06 ABG pCO2 24 mmHg (35-45) L 08/17/18 08:33 ABG pO2 79 mmHg (85-104) L 08/17/18 08:33 ABG HCO3 14 mEq/L (21-27) L 08/17/18 08:33 ABG Total CO2 15 mEq/L (20-26) L 08/17/18 08:33 ABG Base Excess -10 mEq/L (-2 to 3) L 08/17/18 08:33 VBG pH 7.28 pH Units (7.32-7.42) L 08/17/18 08:15 VBG pCO2 29 mmHg (41-51) L 08/17/18 08:15 VBG pO2 55 mmHg (25-50) H 08/17/18 08:15 VBG HCO3 14 mEq/L (21-27) L 08/17/18 08:15 Creatinine 1.42 mg/dL (0.60-1.20) H 08/31/18 09:30 Est GFR ( Amer) 50 (> 60) L 08/31/18 09:30 Est GFR (Non-Af Amer) 41 (> 60) L 08/31/18 09:30 Glucose 291 mg/dL (70-105) H 08/31/18 09:30 POC Glucose 255 mg/dL (70-99) H 08/31/18 07:23 Hemoglobin A1c 9.6 % (-5.6) H 08/17/18 03:35 AST 8 Units/L (13-39) L 08/21/18 07:01 Troponin I 0.05 ng/mL (< 0.04) H* 08/22/18 21:06 Serum Total Protein 5.8 g/dL (6.4-8.9) L 08/21/18 07:01 Albumin 3.2 g/dL (3.5-5.7) L 08/30/18 09:54 Albumin/Globulin Ratio 0.9 (1.1-2.2) L 08/21/18 07:01 HDL Cholesterol 27 mg/dL (40-59) L 08/17/18 03:35 Amylase 18 Units/L (29-103) L 08/21/18 07:01 Total Testosterone 127 ng/dL (15-70) H 08/18/18 04:54 Urine Clarity Cloudy (Clear) A 08/21/18 04:32 Urine Glucose (UA) >=1000 mg/dL (Normal) H 08/21/18 04:32 Urine Microscopic WBC 3-5 per hpf (0-3) H 08/21/18 04:32 Ur Squamous Epith Cells Many per lpf (None-Few) H 08/21/18 04:32 Urine Yeast Moderate per hpf (None Seen) H 08/21/18 04:32 Protein/Creatinin Ratio 0.25 mg/mg (0.00-0.20) H 08/24/18 05:08 Urine Total Protein 18 mg/dL (1-14) H 08/24/18 05:08 Microbiology, Last 48 Hours 08/19/18 18:19 Acid Fast Stain - Final Other-Specify in Comments 08/17/18 12:20 Anaerobic Culture - Final Right Great Toe Prevotella bivia Consult Discharge Plan - Plan Instructions: Diabetic Foot Care (DC), Diabetes Mellitus Type 2 in Adults (DC), Peripheral Vascular Disorders (DC), Sepsis (DC), Chronic Hypertension (DC) Additional Instructions: IV Unasyn and PO Doxy for diabetic foot infection. Given her script for 3 weeks first but may need longer term pending outpatient ID evaluation Take Phenergan PRN for nausea/vomiting -> only use reglan if symptoms refractory to phenergan ID appt on 09/14. CBC, BMP, ESR, CRP weekly Follow up with Nephrology in 1 week with BMP Follow up with Podiatry for wound VAC Follow up with Vascular Surgery in 3 weeks for possible angiogram Follow up with PCP for DM and HTN Referrals: Ayden Naqvi DPM [Partnered Physician] - Heath Walker DO [Partnered Physician] - Luís Munoz MD [Partnered Physician] - (Follow-up in [place] surgery clinic in 3 weeks. Patient to have repeat BNP prior to office visit with me.) Prescriptions: Acetaminophen [Tylenol] 650 mg PO Q6HR PRN 7 Days #30 tablet PRN Reason: Mild Pain/Fever Ampicillin/Sulbactam [Unasyn] 3,000 mg IVPB Q6HR 21 Days #84 vial Metoclopramide [Reglan] 5 mg PO Q6HR PRN #100 mls PRN Reason: Nausea And Vomiting Promethazine Syrup [Phenergan Syrup] 12.5 mg PO Q8HR PRN #300 mls PRN Reason: Nausea And Vomiting amLODIPine [Norvasc] 10 mg PO DAILY #60 tablet Carvedilol [Coreg] 50 mg PO BIDWM #60 tablet Docusate [Colace] 100 mg PO BID PRN #30 capsule PRN Reason: Constipation Doxycycline 100 mg PO BID 21 Days #42 capsule Escitalopram [Lexapro] 10 mg PO DAILY #30 tablet hydrALAZINE [HydrALAZINE] 10 mg PO QID #120 tablet Insulin NPH/REG 70/30 [HumuLIN 70/30 VIAL] 20 unit SQ BIDWM #6 vial Lactobacillus [Culturelle] 2 each PO DAILY #60 cap.sprink Omeprazole [PriLOSEC] 40 mg PO DAILY@0800 #60 capsule.
[2018-09-01 04:38] LABS: Basophils # 0.1 K/mcL (0.0-0.2); Eosinophils # 0.2 K/mcL (0.0-0.6); Eosinophils % 2.3 %; Hematocrit 32.4 % (35.3-44.9); Hemoglobin 10.6 g/dL (11.5-15.4); Immature Granulocytes % 0.7 % (0-4); Lymphocytes # 1.4 K/mcL (0.6-4.6); Lymphocytes % 20.1 %; Mean Corpuscular HGB Conc 32.7 g/dL (31.6-35.5); Mean Corpuscular Volume 88.5 fL (83.0-100.0); Mean Platelet Volume 11.2 fL (9.4-12.4); Monocytes # 0.5 K/mcL (0.0-1.3); Monocytes % 7.1 %; Neutrophils # 4.8 K/mcL (1.6-8.9); Platelet Count 275 K/mcL (140-400); Red Blood Count 3.66 M/mcL (3.82-4.97); Red Cell Distribution Width 14.4 % (11.5-14.5); Segmented Neutrophils % 68.8 %
[2018-09-01 04:54] LABS: Calcium 8.9 mg/dL (8.6-10.3); Potassium 4.4 mEq/L (3.5-5.1)
[2018-09-01] MEDS: *HR* Heparin 5,000 UNIT/ML VIAL SQ SCH (05:34)
[2018-09-01] MEDS: Ampicillin/Sulbactam 3,000 MG in 0.9 % Sodium Chloride Mini Bag 100 ML IVPB SCH ×2 (05:34→11:58)
[2018-09-01] MEDS: Lactobacillus 1 EACH CAP.SPRINK PO SCH (07:53)
[2018-09-01] MEDS: amLODIPine 5 MG TABLET PO SCH (07:53)
[2018-09-01] MEDS: Doxycycline 100 MG CAPSULE PO SCH (07:53)
[2018-09-01] MEDS: Insulin DETEMIR 100 UNIT/ML X5UNITS SQ SCH (07:53)
[2018-09-01] MEDS: Insulin LISPRO 300 UNITS/3 ML VIAL SQ SCH ×2 (07:54→11:58)
[2018-09-01] MEDS: hydrALAZINE 10 MG TABLET PO SCH ×2 (08:07→14:31)
--- NOTE | 2018-09-01 09:03 | Internal Med Progress Note ---
Hospitalist Progress Note - Encounter Date of Encounter: 09/01/18 Time of Encounter: 09:01 - Subjective Interval History: patient was seen and examined at bedside. has no complaints, tolerating PO diet. all questions answered. pain is controlled. no overnight events denies fever, chills, N/V/D, chest pain, SOB or palpitations. awaiting ECF placement - Exam Vitals: Temp Pulse Resp BP Pulse Ox 97.8 F 79 20 163/94 96 09/01/18 08:07 09/01/18 08:07 09/01/18 08:07 09/01/18 08:07 09/01/18 08:07 Exam: Vital signs reviewed General: Alert and oriented, not in distress Cardiovascular:Normal S1 & S2 Lungs: clear to auscultation, no wheezes/rales Abdomen:Soft, non-tender, no rigidity. Extremities: R LE dressing dry and clean, L LE on VAC Neurological:Normal cognition and motor skills. Non-focal - Assessment and Plan (1) Diabetes mellitus Current Visit: Yes Status: Chronic (2) Diabetic infection of right foot Current Visit: Yes Status: Acute (3) Sepsis Current Visit: Yes Status: Resolved (4) Foot abscess, left Current Visit: Yes Status: Acute (5) GARETT (acute kidney injury) Current Visit: Yes Status: Acute (6) Depression Current Visit: Yes Status: Acute (7) Nausea Current Visit: Yes Status: Resolved (8) PAD (peripheral artery disease) Current Visit: Yes Status: Chronic (9) Elevated troponin Current Visit: Yes Status: Resolved (10) Hypertensive emergency Current Visit: Yes Status: Resolved DVT Prophylaxis: SQ heparin - Summary of Assessment and Plan Summary of Assessment and Plan: A/P Ms. Bran is a 38 year old female with history of DM, HTN not on tx for 5 years, was admitted for sepsis secondary bilateral diabetic foot infection and GARETT. s/p I&D x 2 for L foot/ankle abscess and R 1st toe abscess. s/p wound vac placement ID and podiatry recs appreciated she has been discharged by my colleague however Wound vac authorization was pending. on 08/30/17 she decided that she would like to go to ECF. SW and CM on ayanna will follow recommendations nephrology recs appreciated to have BMP 7 days after discharge. insulin sliding scale changed to medium dose coverage from low dose coverage for better glucose control , long acting insulin changed to 20 units BID for better glucose control hydralazine increased for better BP control ESR repeated on 08/30 and trending down she was counseled on diet - Time Spent with Patient Total time spent is greater than 50% in coordination of care (as documented) at patient's floor/unit and/or counseling patient: Internal Medicine: Result - Labs CBC & Chem 7: 09/01/18 04:12 09/01/18 04:12 Labs: Short CBC 08/31/18 09/01/18 Range/Units 09:30 04:12 WBC 6.4 7.0 (4.3-11.1) K/mcL Hgb 10.5 L 10.6 L (11.5-15.4) g/dL Hct 31.8 L 32.4 L (35.3-44.9) % Plt Count 278 275 (140-400) K/mcL Neutrophils # 4.7 4.8 (1.6-8.9) K/mcL BMP 08/31/18 09/01/18 09:30 04:12 Sodium 138 138 Potassium 4.1 4.4 Chloride 103 103 Carbon Dioxide 27 29 BUN 19 21 H Creatinine 1.42 H 1.51 H Glucose 291 H 277 H Calcium 8.9 8.9 - ABG Interpretation ABG results: ABG ABG pH 7.38 pH Units (7.32-7.45) 08/17/18 08:33 ABG pCO2 24 mmHg (35-45) L 08/17/18 08:33 ABG pO2 79 mmHg (85-104) L 08/17/18 08:33 ABG O2 Saturation 96 % (95-98) 08/17/18 08:33 PT/INR, D-dimer PT 12.6 Seconds (9.4-12.1) H 08/22/18 13:43 Consult Discharge Plan - Plan Instructions: Diabetic Foot Care (DC), Diabetes Mellitus Type 2 in Adults (DC), Peripheral Vascular Disorders (DC), Sepsis (DC), Chronic Hypertension (DC) Additional Instructions: IV Unasyn and PO Doxy for diabetic foot infection. Given her script for 3 weeks first but may need longer term pending outpatient ID evaluation Take Phenergan PRN for nausea/vomiting -> only use reglan if symptoms refractory to phenergan ID appt on 09/14. CBC, BMP, ESR, CRP weekly Follow up with Nephrology in 1 week with BMP Follow up with Podiatry for wound VAC Follow up with Vascular Surgery in 3 weeks for possible angiogram Follow up with PCP for DM and HTN Referrals: Abdirashid Nugent DO [Resident] - 09/08/18 11:00 am (Please follow-up as scheduled and arrive 30 minutes early. Please bring ID, insurance card, and any current medications. ) Ayden Naqvi DPM [Partnered Physician] - 09/06/18 9:00 am (Please follow-up as scheduled ) Heath Walker DO [Partnered Physician] - 10/02/18 10:30 am Luís Munoz MD [Partnered Physician] - (Follow-up in [facility] in 3 weeks. Patient to have repeat BNP prior to office visit with me.) Prescriptions: Acetaminophen [Tylenol] 650 mg PO Q6HR PRN 7 Days #30 tablet PRN Reason: Mild Pain/Fever Ampicillin/Sulbactam [Unasyn] 3,000 mg IVPB Q6HR 21 Days #84 vial Metoclopramide [Reglan] 5 mg PO Q6HR PRN #100 mls PRN Reason: Nausea And Vomiting Promethazine Syrup [Phenergan Syrup] 12.5 mg PO Q8HR PRN #300 mls PRN Reason: Nausea And Vomiting amLODIPine [Norvasc] 10 mg PO DAILY #60 tablet Carvedilol [Coreg] 50 mg PO BIDWM #60 tablet Docusate [Colace] 100 mg PO BID PRN #30 capsule PRN Reason: Constipation Doxycycline 100 mg PO BID 21 Days #42 capsule Escitalopram [Lexapro] 10 mg PO DAILY #30 tablet hydrALAZINE [HydrALAZINE] 10 mg PO QID #120 tablet Insulin NPH/REG 70/30 [HumuLIN 70/30 VIAL] 20 unit SQ BIDWM #6 vial Lactobacillus [Culturelle] 2 each PO DAILY #60 cap.sprink Omeprazole [PriLOSEC] 40 mg PO DAILY@0800 #60 capsule. (1) Diabetes mellitus Qualifiers: Diabetes mellitus type: type 2 Diabetes mellitus complication status: with unspecified complications Qualified Code(s): E11.8 - Type 2 diabetes mellitus with unspecified complications (3) Sepsis Qualifiers: Sepsis type: sepsis due to unspecified organism Qualified Code(s): A41.9 - Sepsis, unspecified organism (6) Depression Qualifiers: Depression Type: unspecified Qualified Code(s): F32.9 - Major depressive disorder, single episode, unspecified
[2018-09-01 11:30] VITALS: BP 159/91
--- NOTE | 2018-09-01 12:36 | Physician Discharge Referral ---
ExtendedCare Referral Info Provider in Charge after Transfer: PCP Institutional Level of Care: Skilled - Diagnosis (1) Diabetes mellitus Status: Chronic (2) Diabetic infection of right foot Status: Acute (3) Sepsis Status: Resolved (4) Foot abscess, left Status: Acute (5) GARETT (acute kidney injury) Status: Acute (6) Depression Status: Acute (7) Nausea Status: Resolved (8) PAD (peripheral artery disease) Status: Chronic (9) Elevated troponin Status: Resolved (10) Hypertensive emergency Status: Resolved - Transfer Medications Prescriptions: Acetaminophen [Tylenol] 650 mg PO Q6HR PRN 7 Days #30 tablet PRN Reason: Mild Pain/Fever Ampicillin/Sulbactam [Unasyn] 3,000 mg IVPB Q6HR 21 Days #84 vial Metoclopramide [Reglan] 5 mg PO Q6HR PRN #100 mls PRN Reason: Nausea And Vomiting hydrALAZINE [HydrALAZINE] 25 mg PO Q8HR #90 tablet Promethazine Syrup [Phenergan Syrup] 12.5 mg PO Q8HR PRN #300 mls PRN Reason: Nausea And Vomiting amLODIPine [Norvasc] 10 mg PO DAILY #60 tablet Carvedilol [Coreg] 50 mg PO BIDWM #60 tablet Docusate [Colace] 100 mg PO BID PRN #30 capsule PRN Reason: Constipation Doxycycline 100 mg PO BID 21 Days #42 capsule Escitalopram [Lexapro] 10 mg PO DAILY #30 tablet Insulin NPH/REG 70/30 [HumuLIN 70/30 VIAL] 20 unit SQ BIDWM #6 vial Lactobacillus [Culturelle] 2 each PO DAILY #60 cap.sprink Omeprazole [PriLOSEC] 40 mg PO DAILY@0800 #60 capsule.dr Home Medications: Acetaminophen [Tylenol] 650 mg PO Q6HR PRN 7 Days #30 tablet 08/28/18 [Rx] Ampicillin/Sulbactam [Unasyn] 3,000 mg IVPB Q6HR 21 Days #84 vial 08/28/18 [Rx] Carvedilol [Coreg] 50 mg PO BIDWM #60 tablet 08/28/18 [Rx] Docusate [Colace] 100 mg PO BID PRN #30 capsule 08/28/18 [Rx] Doxycycline 100 mg PO BID 21 Days #42 capsule 08/28/18 [Rx] Escitalopram [Lexapro] 10 mg PO DAILY #30 tablet 08/28/18 [Rx] Insulin NPH/REG 70/30 [HumuLIN 70/30 VIAL] 20 unit SQ BIDWM #6 vial 08/28/18 [Rx] Lactobacillus [Culturelle] 2 each PO DAILY #60 cap.sprink 08/28/18 [Rx] Metoclopramide [Reglan] 5 mg PO Q6HR PRN #100 mls 08/28/18 [Rx] Omeprazole [PriLOSEC] 40 mg PO DAILY@0800 #60 capsule. 08/28/18 [Rx] Promethazine Syrup [Phenergan Syrup] 12.5 mg PO Q8HR PRN #300 mls 08/28/18 [Rx] amLODIPine [Norvasc] 10 mg PO DAILY #60 tablet 08/28/18 [Rx] hydrALAZINE [HydrALAZINE] 25 mg PO Q8HR #90 tablet 09/01/18 [Rx] Allergies/Adverse Reactions: Allergy/AdvReac Type Severity Reaction Status Date / Time No Known Allergies Allergy Verified 08/16/18 18:17 - Respiratory Orders Smoking Cessation: Smoking cessation has been advised. For more information, call the [employer] Quit Line at 0-959-SYSR-NOW. - Rehabiliation Orders Rehab Orders: Evaluation for Physical Therapy ( place white foam to tunneled portion of left malleolus. Place black foam to left calcaneous and left malleolus. Place to suction at 125 mmHg. Change MWF. Continue to wear couch boot when in bed to left foot to help prevent further ulceration of heel. See previous plan for d/c instructions.), Evaluation for Occupational Therapy - Treatments List/Other: Continue to wear couch boot when in bed to left foot to help prevent further ulceration of heel. See previous plan for d/c instructions. CERTIFICATION: I certify that the transfer of the above named patient to an Extended Care Facility is necessary for the continuing treatment of the diagnosis listed. The above information is true and accurate reflection of patient's current condition. Confidential - Redisclosure prohibited without a patient's written consent.
--- NOTE | 2018-09-01 12:48 | Infectious Disease Progress No ---
Date of Encounter: 09/01/18 Time of Encounter: 12:45 - Assessment and Plan (1) Sepsis Current Visit: Yes Status: Resolved The patient had 3 sepsis criteria. Likely secondary to bilateral foot infections. Improved. White blood cell count has normalized. Tachycardia resolved. Afebrile. Blood cultures drawn 08/16/18 are negative 2 sets. Recommendations: Wound care per the podiatry team. Continue Unasyn 3 grams IV Q6H. Although it is Q6H dosing, it will be easier to give one medication Q6H than two medications Q8H. Discussed with the patient and she is agreeable to this. Continue doxycycline 100mg PO BID to cover the S. epi. Since CONS tends to not be as virulent, we can treat with oral antibiotics. Duration of treatment depends on the clinical picture. Will consider 2-4 weeks, depending on how the patient does clinically. Continue this antibiotic regimen until seen by ID. Monitor renal function and dose-adjust antibiotics. Strict glucose control. Pain management per the primary team. patient financial services specialist to assist with discharge planning. Will need weekly CBC, BUN/creatinine, ESR, and CRP. Will need weekly IV care per protocol. Follow-up with ID 09/14/18 at 1405. Qualifiers: Sepsis type: sepsis due to unspecified organism Qualified Code(s): A41.9 - Sepsis, unspecified organism (2) Foot abscess, left Current Visit: Yes Status: Acute Causative organism: S. anginosus and anaerobes per wound and intra-op cultures. MRI of the left ankle showed multiple abscesses and likely infectious involvement of the plantar fascia. No osteomyelitis noted. Likely secondary to chronic left foot ulcer. ESR 92, CRP 186. Podiatry consulted and following. Status post I & D of the left foot and ankle abscess to deep fascia, multiple planes and incision and drainage right 1st toe abscess to deep fascia 08/19/[address] Naqvi. Intra-op cultures as above. Status post right first toe I&D and left foot and ankle I&D 08/24/[address] Naqvi. Repeat cultures of the left ankle are negative. Currently on Unasyn. (3) Diabetic infection of right foot Current Visit: Yes Status: Acute Location: Right foot, great toe. Causative organism: MSSA and anaerobes per wound culture. S. epi per Intra-op culture. Likely secondary to chronic non-healing ulcer. Podiatry consulted. Status post I & D right 1st toe abscess 08/19/[address] Naqvi. Intra-op cultures as above. Status post right first toe I&D and left foot and ankle I&D 08/24/18. Currently on IV Unasyn and doxycycline. (4) GARETT (acute kidney injury) Current Visit: Yes Status: Acute Likely multifactorial: pre-renal + antibiotics Serum creatinine stable. Nephrology consulted and following. (5) Diabetic foot ulcers Current Visit: Yes Status: Chronic Right foot: Right great toe. Left Foot: Left calcaneus. Etiology: Unclear. Patient denies known trauma, ill-fitting shoes, etc. Onset Wound care per the Podiatry team. Vascular consulted and planning for angiogram once renal function stabilizes. Qualifiers: Diabetic foot ulcer location: other Diabetes mellitus type: type 2 Later ality: unspecified laterality Non-pressure ulcer stage: unspecified non- pressure ulcer stage Qualified Code(s): E11.621 - Type 2 diabetes mellitus with foot ulcer; L97.509 - Non-pressure chronic ulcer of other part of unspecified foot with unspecified severity (6) Diabetes mellitus Current Visit: Yes Status: Chronic Uncontrolled. HgbA1C 9.6. Strict glucose control. Qualifiers: Diabetes mellitus type: type 2 Diabetes mellitus complication status: with unspecified complications Qualified Code(s): E11.8 - Type 2 diabetes mellitus with unspecified complications (7) Hypertension Current Visit: Yes Status: Chronic Qualifiers: Hypertension type: unspecified Qualified Code(s): I10 - Essential (primary) hypertension (8) Nausea Current Visit: Yes Status: Resolved Chronic, but worse since being in the hospital. Amylase, lipase, LFTs normal. GI consulted. RUQ UTS negative. KUB showed mildly dilated loops of bowel and mild colonic stool burden. Markedly improved with the addition of Reglan to her anti-emetic regimen. Management per the primary team. - Subjective Interval history: Patient seen and examined. No acute events noted overnight. Patient states overall she feels well. [facility]. She reports marked improvement in her nausea and denies any vomiting. She denies any fevers or chills or rigors. Denies chest pain, shortness of breath, or cough. Denies diarrhea or constipation, but states her stools are loose. Denies abdominal pain or urinary complaints. Denies any oral thrush or new skin lesions. Denies any pain the surgical sites. Infect Dis PN-Objective Data - Labs CBC & Chem 7: 09/01/18 04:12 09/01/18 04:12 Labs: Laboratory Results - last 24 hr 08/30/18 08/30/18 08/31/18 15:55 20:47 20:20 WBC RBC Hgb Hct MCV MCH MCHC RDW Plt Count MPV Immature Gran % Seg Neutrophils % Lymphocytes % Monocytes % Eosinophils % Basophils % Neutrophils # Lymphocytes # Monocytes # Eosinophils # Basophils # Sodium Potassium Chloride Carbon Dioxide BUN Creatinine Est GFR ( Amer) Est GFR (Non-Af Amer) BUN/Creatinine Ratio Glucose POC Glucose 270 H 208 H 241 H Calculated Osmolality Calcium 09/01/18 09/01/18 04:12 04:12 WBC 7.0 RBC 3.66 L Hgb 10.6 L Hct 32.4 L MCV 88.5 MCH 29.0 MCHC 32.7 RDW 14.4 Plt Count 275 MPV 11.2 Immature Gran % 0.7 Seg Neutrophils % 68.8 Lymphocytes % 20.1 Monocytes % 7.1 Eosinophils % 2.3 Basophils % 1.0 Neutrophils # 4.8 Lymphocytes # 1.4 Monocytes # 0.5 Eosinophils # 0.2 Basophils # 0.1 Sodium 138 Potassium 4.4 Chloride 103 Carbon Dioxide 29 BUN 21 H Creatinine 1.51 H Est GFR ( Amer) 46 L Est GFR (Non-Af Amer) 38 L BUN/Creatinine Ratio 14 Glucose 277 H POC Glucose Calculated Osmolality 299 Calcium 8.9 Cultures: Cultures 08/19/18 18:19 Acid Fast Stain - Final Other-Specify in Comments 08/17/18 12:20 Anaerobic Culture - Final Right Great Toe Prevotella bivia 08/24/18 14:45 Anaerobic Culture - Final Left Ankle No anaerobes were recovered. 08/19/18 18:19 Anaerobic Culture - Final Left Ankle Prevotella oralis 08/24/18 14:45 Surgical Biopsy Culture - Final Left Ankle 08/19/18 18:19 Anaerobic Culture - Final Other-Specify in Comments No anaerobes were recovered. 08/19/18 18:19 Acid Fast Stain - Final Left Ankle 08/19/18 18:19 Surgical Biopsy Culture - Final Left Ankle Streptococcus anginosus 08/19/18 18:19 Surgical Biopsy Culture - Final Other-Specify in Comments Staphylococcus epidermidis 08/16/18 18:58 Blood Culture - Final Peripheral Venipuncture No growth. Final report. 08/16/18 18:57 Blood Culture - Final Peripheral Venipuncture No growth. Final report. 08/16/18 18:55 Wound Culture - Final Left Foot Streptococcus anginosus 08/17/18 12:20 Wound Culture - Final Right Great Toe Staphylococcus aureus Serology 08/24/18 08/24/18 08/22/18 Range/Units 05:08 05:08 00:25 Urine Color (Yellow) Urine Clarity (Clear) Urine pH (5.0-8.0) pH Units Ur Specific [place] (1.010-1.025) Urine Protein (Neg-Trace) mg/dL Urine Glucose (UA) (Normal) mg/dL Urine Ketones (Negative) mg/dL Urine Blood (Negative) Urine Nitrite (Negative) Urine Bilirubin (Negative) Urine Urobilinogen (Normal) mg/dL Ur Leukocyte Esterase (Negative) Urine Microscopic RBC (0-3) per hpf Urine Microscopic WBC (0-3) per hpf Ur Eosinophil Smear (None Seen) % Ur Squamous Epith Cells (None-Few) per lpf Urine Bacteria (None-Few) per hpf Hyaline Casts (None-Few) per lpf Urine Mucus (Few) Urine Yeast (None Seen) per hpf Ur Culture Indicated? (NO) Urine Creatinine 72 84 mg/dL Urine Microalbumin 10 mg/L Microalb/Creat Ratio 14 (Less than 30) mcg/mg Protein/Creatinin Ratio 0.25 H (0.00-0.20) mg/mg Urine Sodium 56.3 mEq/L Urine Total Protein 18 H (1-14) mg/dL Urine Test Negative (Negative) 08/22/18 08/21/18 08/19/18 Range/Units 00:25 04:32 12:30 Urine Color Yellow (Yellow) Urine Clarity Cloudy A (Clear) Urine pH 5.5 (5.0-8.0) pH Units Ur Specific [place] 1.022 (1.010-1.025) Urine Protein Negative (Neg-Trace) mg/dL Urine Glucose (UA) >=1000 H (Normal) mg/dL Urine Ketones Negative (Negative) mg/dL Urine Blood Negative (Negative) Urine Nitrite Negative (Negative) Urine Bilirubin Negative (Negative) Urine Urobilinogen Normal (Normal) mg/dL Ur Leukocyte Esterase Negative (Negative) Urine Microscopic RBC 0-3 (0-3) per hpf Urine Microscopic WBC 3-5 H (0-3) per hpf Ur Eosinophil Smear 0 (None Seen) % Ur Squamous Epith Cells Many H (None-Few) per lpf Urine Bacteria Few (None-Few) per hpf Hyaline Casts None Seen (None-Few) per lpf Urine Mucus Few (Few) Urine Yeast Moderate H (None Seen) per hpf Ur Culture Indicated? NO (NO) Urine Creatinine mg/dL Urine Microalbumin mg/L Microalb/Creat Ratio (Less than 30) mcg/mg Protein/Creatinin Ratio (0.00-0.20) mg/mg Urine Sodium mEq/L Urine Total Protein (1-14) mg/dL Urine Test Negative (Negative) Exam - Constitutional Vitals: Temp Pulse Resp BP Pulse Ox 98.5 F 80 20 159/91 97 09/01/18 11:24 09/01/18 11:24 09/01/18 11:24 09/01/18 11:24 09/01/18 11:24 General appearance: average body habitus, cooperative, no acute distress - Head Head exam: Present: atraumatic, normal inspection, normocephalic - Eye Eye exam: Present: EOMI, normal appearance, PERRL Pupils: Present: normal accommodation - ENT ENT exam: Present: mucous membranes moist - Neck Neck exam: Present: normal inspection - Respiratory Respiratory exam: Present: CTAB. Absent: rales, respiratory distress, rhonchi, wheezes - Cardiovascular Cardiovascular exam: Present: RRR, +S1, +S2 - GI/Abdominal GI/Abdominal exam: Present: normal bowel sounds, soft. Absent: distended, tenderness - Extremities Exam Extremities exam: Absent: normal inspection (Bilateral foot dressings C/D/I.) - Neurological Exam Neurological exam: Present: alert, oriented X3, no focal deficits - Psychiatric Psychiatric exam: Present: normal affect, normal mood - Skin Skin exam: Present: dry, intact, normal color, warm Consult Discharge Plan - Plan Instructions: Diabetic Foot Care (DC), Diabetes Mellitus Type 2 in Adults (DC), Peripheral Vascular Disorders (DC), Sepsis (DC), Chronic Hypertension (DC) Additional Instructions: IV Unasyn and PO Doxy for diabetic foot infection. Given her script for 3 weeks first but may need longer term pending outpatient ID evaluation Take Phenergan PRN for nausea/vomiting -> only use reglan if symptoms refractory to phenergan ID appt on 09/14. CBC, BMP, ESR, CRP weekly Follow up with Nephrology in 1 week with BMP Follow up with Podiatry for wound VAC Follow up with Vascular Surgery in 3 weeks for possible angiogram Follow up with PCP for DM and HTN Referrals: Abdirashid Nugent DO [Resident] - 09/08/18 11:00 am (Please follow-up as scheduled and arrive 30 minutes early. Please bring ID, insurance card, and any current medications. ) Ayden Naqvi DPM [Partnered Physician] - 09/06/18 9:00 am (Please follow-up as scheduled ) Heath Walker DO [Partnered Physician] - 10/02/18 10:30 am (Please follow-up as scheduled ) Luís Munoz MD [Partnered Physician] - 09/27/18 9:45 am (Please follow-up as scheduled ) Prescriptions: Acetaminophen [Tylenol] 650 mg PO Q6HR PRN 7 Days #30 tablet PRN Reason: Mild Pain/Fever Ampicillin/Sulbactam [Unasyn] 3,000 mg IVPB Q6HR 21 Days #84 vial Metoclopramide [Reglan] 5 mg PO Q6HR PRN #100 mls PRN Reason: Nausea And Vomiting hydrALAZINE [HydrALAZINE] 25 mg PO Q8HR #90 tablet Promethazine Syrup [Phenergan Syrup] 12.5 mg PO Q8HR PRN #300 mls PRN Reason: Nausea And Vomiting amLODIPine [Norvasc] 10 mg PO DAILY #60 tablet Carvedilol [Coreg] 50 mg PO BIDWM #60 tablet Docusate [Colace] 100 mg PO BID PRN #30 capsule PRN Reason: Constipation Doxycycline 100 mg PO BID 21 Days #42 capsule Escitalopram [Lexapro] 10 mg PO DAILY #30 tablet Insulin NPH/REG 70/30 [HumuLIN 70/30 VIAL] 20 unit SQ BIDWM #6 vial Lactobacillus [Culturelle] 2 each PO DAILY #60 cap.sprink Omeprazole [PriLOSEC] 40 mg PO DAILY@0800 #60 capsule.
[2018-09-01] MEDS ORDERED: Pneumococcal 23 Valent Vaccine 25 MCG/0.5 ML VIAL IM ONE (13:12)
--- NOTE | 2018-09-01 16:45 | Podiatry Progress Note ---
Date of Encounter: 09/01/18 Time of Encounter: 12:00 - Assessment and Plan (1) Diabetic infection of right foot Status: Acute Assessment: S/P I&D of right hallux 08/19/18 Repeat I&D 08/24/18 with wound closure of right hallux CFT <3 seconds. No calf pain with squeeze. No erythema or edema above or below dressing Surgical pathology returned acute supprative inflammation Sugrical culture returned staph epidermis and strep a Anaerobic culture returned prevotella bivia Wound culture returned staph aureus. ID following for ATB management Plan: Removed wound vac. Wound bed healing with improvement in tunneling. Placed wet to dry dressing with adaptic, 4x4 wet/dry gauze, kerlex, and samira bandage. Please have ECF place wound vac once arrives to facility. Discharge to ECF or rehab once set up with case management OK to d/c once cleared with controlled area checker and ID. Follow up with Dr. Naqvi in office. If going to rehab dressing orders: cleanse right foot with mild soap and water. Cover with 4x4 dry gauze, kerlex, and SAMIRA bandage. (2) Diabetic infection of left foot Status: Acute Assessment: Wound vac in place at 125 mmHg. Serosanginous drainage noted in canister Repeat I&D 08/24/18 Blood cultures negative, prelim Surgical culture returned strep A Wound culture returned strep A. CFT <3 seconds No erythema or edema noted above or below dressing No strikethrough noted. No calf pain with squeeze Plan: See previous plan for d/c instructions. Subjective Principal diagnosis: bilat foot infections Interval history: Patient sitting in bed. Patient denies fevers, chills, nausea, vomiting, or diarrhea. Denies chest pain, calf pain, or shortness of breath. Patient is preparing to go to [place]. No other questions or concerns at this time. Objective - Vital Signs Vital Signs: Vital Signs Temp Pulse Resp BP Pulse Ox 09/01/18 11:24 98.5 F 80 20 159/91 97 09/01/18 08:07 97.8 F 79 20 163/94 96 09/01/18 04:23 98.2 F 83 17 162/92 94 08/31/18 23:49 97.6 F 83 15 155/82 93 08/31/18 20:15 98.3 F 84 15 147/82 94 Intake and Output 09/01/18 09/01/18 09/01/18 07:59 15:59 23:59 Intake Total 200 / 200 1060 / 1060 Output Total 0 / 0 Balance 200 / 200 1060 / 1060 Intake: IV Fluids 200 / 200 Unasyn 3,000 MG In 0.9 % Sodium 200 / 200 Chloride (Mini-Bag +) 100 ML @ 200 mls/hr IVPB Q6HR [facility] Rx#: [id number] Oral 1060 / 1060 Output: Urine 0 / 0 Other: Meal Lunch Percent of Meal Consumed 100% Weight 101 kg Blood Glucose* 234 Patient Weight 09/01/18 23:59 Weight 101 kg - Lab Result Diagrams: 09/01/18 04:12 09/01/18 04:12 Labs: Abnormal lab results RBC 3.66 M/mcL (3.82-4.97) L 09/01/18 04:12 Hgb 10.6 g/dL (11.5-15.4) L 09/01/18 04:12 Hct 32.4 % (35.3-44.9) L 09/01/18 04:12 ESR 40 mm/hr (0-15) H 08/30/18 09:54 PT 12.6 Seconds (9.4-12.1) H 08/22/18 13:43 Heparin Anti-Xa, Unfract 0.20 IU/mL (0.30-0.70) L 08/22/18 21:06 ABG pCO2 24 mmHg (35-45) L 08/17/18 08:33 ABG pO2 79 mmHg (85-104) L 08/17/18 08:33 ABG HCO3 14 mEq/L (21-27) L 08/17/18 08:33 ABG Total CO2 15 mEq/L (20-26) L 08/17/18 08:33 ABG Base Excess -10 mEq/L (-2 to 3) L 08/17/18 08:33 VBG pH 7.28 pH Units (7.32-7.42) L 08/17/18 08:15 VBG pCO2 29 mmHg (41-51) L 08/17/18 08:15 VBG pO2 55 mmHg (25-50) H 08/17/18 08:15 VBG HCO3 14 mEq/L (21-27) L 08/17/18 08:15 BUN 21 mg/dL (6-20) H 09/01/18 04:12 Creatinine 1.51 mg/dL (0.60-1.20) H 09/01/18 04:12 Est GFR ( Amer) 46 (> 60) L 09/01/18 04:12 Est GFR (Non-Af Amer) 38 (> 60) L 09/01/18 04:12 Glucose 277 mg/dL (70-105) H 09/01/18 04:12 POC Glucose 241 mg/dL (70-99) H 08/31/18 20:20 Hemoglobin A1c 9.6 % (-5.6) H 08/17/18 03:35 AST 8 Units/L (13-39) L 08/21/18 07:01 Troponin I 0.05 ng/mL (< 0.04) H* 08/22/18 21:06 Serum Total Protein 5.8 g/dL (6.4-8.9) L 08/21/18 07:01 Albumin 3.2 g/dL (3.5-5.7) L 08/30/18 09:54 Albumin/Globulin Ratio 0.9 (1.1-2.2) L 08/21/18 07:01 HDL Cholesterol 27 mg/dL (40-59) L 08/17/18 03:35 Amylase 18 Units/L (29-103) L 08/21/18 07:01 Total Testosterone 127 ng/dL (15-70) H 08/18/18 04:54 Urine Clarity Cloudy (Clear) A 08/21/18 04:32 Urine Glucose (UA) >=1000 mg/dL (Normal) H 08/21/18 04:32 Urine Microscopic WBC 3-5 per hpf (0-3) H 08/21/18 04:32 Ur Squamous Epith Cells Many per lpf (None-Few) H 08/21/18 04:32 Urine Yeast Moderate per hpf (None Seen) H 08/21/18 04:32 Protein/Creatinin Ratio 0.25 mg/mg (0.00-0.20) H 08/24/18 05:08 Urine Total Protein 18 mg/dL (1-14) H 08/24/18 05:08 Microbiology, Last 48 Hours 08/19/18 18:19 Acid Fast Stain - Final Other-Specify in Comments Consult Discharge Plan - Plan Instructions: Diabetic Foot Care (DC), Diabetes Mellitus Type 2 in Adults (DC), Peripheral Vascular Disorders (DC), Sepsis (DC), Chronic Hypertension (DC) Additional Instructions: IV Unasyn and PO Doxy for diabetic foot infection. Given her script for 3 weeks first but may need longer term pending outpatient ID evaluation Take Phenergan PRN for nausea/vomiting -> only use reglan if symptoms refractory to phenergan ID appt on 09/14. CBC, BMP, ESR, CRP weekly Follow up with Nephrology in 1 week with BMP Follow up with Podiatry for wound VAC Follow up with Vascular Surgery in 3 weeks for possible angiogram Follow up with PCP for DM and HTN Referrals: Abdirashid Nugent DO [Resident] - 09/08/18 11:00 am (Please follow-up as scheduled and arrive 30 minutes early. Please bring ID, insurance card, and any current medications. ) Ayden Naqvi DPM [Partnered Physician] - 09/06/18 9:00 am (Please follow-up as scheduled ) Heath Walker DO [Partnered Physician] - 10/02/18 10:30 am (Please follow-up as scheduled ) Luís Munoz MD [Partnered Physician] - 09/27/18 9:45 am (Please follow-up as scheduled ) Prescriptions: Acetaminophen [Tylenol] 650 mg PO Q6HR PRN 7 Days #30 tablet PRN Reason: Mild Pain/Fever Ampicillin/Sulbactam [Unasyn] 3,000 mg IVPB Q6HR 21 Days #84 vial Metoclopramide [Reglan] 5 mg PO Q6HR PRN #100 mls PRN Reason: Nausea And Vomiting hydrALAZINE [HydrALAZINE] 25 mg PO Q8HR #90 tablet Promethazine Syrup [Phenergan Syrup] 12.5 mg PO Q8HR PRN #300 mls PRN Reason: Nausea And Vomiting amLODIPine [Norvasc] 10 mg PO DAILY #60 tablet Carvedilol [Coreg] 50 mg PO BIDWM #60 tablet Docusate [Colace] 100 mg PO BID PRN #30 capsule PRN Reason: Constipation Doxycycline 100 mg PO BID 21 Days #42 capsule Escitalopram [Lexapro] 10 mg PO DAILY #30 tablet Insulin NPH/REG 70/30 [HumuLIN 70/30 VIAL] 20 unit SQ BIDWM #6 vial Lactobacillus [Culturelle] 2 each PO DAILY #60 cap.sprink Omeprazole [PriLOSEC] 40 mg PO DAILY@0800 #60 capsule.
== END 2018-09-01 15:27 | disposition home health service (06) | DRG 710 ==
LOC: 3ANU 18:08 → EMEROOARM 18:08 → SUATTDRO 22:17 → 3ANU 22:54 → SUATTDRO 08-17 17:02 → 2ANU 08-22 13:27
PROVIDERS: ADMIT Internal Medicine Nephrology; ATTEND Internal Medicine

== ENCOUNTER 2019-07-10 17:52 | Inpatient (IN) ==
[2019-07-10] MEDS ORDERED: 0.9 % Sodium Chloride 1,000 ML IVC ONE ×2 (19:23→20:29)
[2019-07-10] MEDS ORDERED: Ibuprofen 600 MG TABLET PO ONE (19:24)
[2019-07-10 19:27] LABS: Basophils # 0.1 K/mcL (0.0-0.2); Basophils % 0.5 %; Eosinophils # 0.1 K/mcL (0.0-0.6); Eosinophils % 0.5 %; Hemoglobin 13.8 g/dL (11.5-15.4); Immature Granulocytes % 0.5 % (0-4); Lymphocytes # 0.6 K/mcL (0.6-4.6); Lymphocytes % 3.9 %; Mean Corpuscular HGB Conc 35.4 g/dL (31.6-35.5); Mean Corpuscular Hemoglobin 29.9 pg (28.0-33.3); Mean Corpuscular Volume 84.6 fL (83.0-100.0); Mean Platelet Volume 11.1 fL (9.4-12.4); Monocytes # 0.9 K/mcL (0.0-1.3); Neutrophils # 13.6 K/mcL (1.6-8.9); Platelet Count 293 K/mcL (140-400); Red Blood Count 4.61 M/mcL (3.82-4.97); Red Cell Distribution Width 13.5 % (11.5-14.5); Segmented Neutrophils % 88.6 %; White Blood Count 15.3 K/mcL (4.3-11.1)
[2019-07-10 20:04] LABS: BUN/Creatinine Ratio 26 (6-26); Blood Urea Nitrogen 35 mg/dL (6-20); Calcium 10.7 mg/dL (8.6-10.3); Carbon Dioxide 13 mEq/L (23-29); Chloride 98 mEq/L (98-107); Glucose 333 mg/dL (70-105); Osmolality,Calculated 291 (280-300); Potassium 5.2 mEq/L (3.5-5.1); Sodium 130 mEq/L (136-145); Troponin I < 0.03 ng/mL (< 0.04); eGFR For African Americans 52 (> 60); eGFR For Non-African Americans 43 (> 60)
[2019-07-10 20:07] LABS: Bilirubin,Urine Negative (Negative); Blood,Urine Small (Negative); Clarity,Urine Clear (Clear); Color,Urine Dark Yellow (Yellow); Glucose,Urine (UA) >=1000 mg/dL (Normal); Ketones,Urine 15 mg/dL (Negative); Leukocyte Esterase,Urine Trace (Negative); Nitrite,Urine Negative (Negative); PH,Urine 5.5 pH Units (5.0-8.0); Protein,Urine 100 mg/dL (Neg-Trace); Urobilinogen,Urine Normal (Normal)
[2019-07-10 20:14] LABS: Bacteria,Urine None Seen per hpf (None-Few); Hyaline Casts,Urine None Seen per lpf (None-Few); Squamous Epithelial Cell,Urine Many per lpf (None-Few)
[2019-07-10] MEDS ORDERED: cefTRIAXone 1,000 MG in 0.9 % Sodium Chloride Mini Bag 100 ML IVPB ONE (20:53)
[2019-07-10 21:05] LABS: ABG Base Excess -5 mEq/L (-2 to 3); ABG HCO3 18 mEq/L (21-27); ABG Oxygen Saturation 96 % (95-98); ABG PCO2 25 mmHg (35-45); ABG PH 7.46 pH Units (7.32-7.45); ABG PO2 74 mmHg (85-104); ABG TCO2 19 mEq/L (20-26)
[2019-07-10] MEDS ORDERED: *HR* Dextrose 50 % in Water (Syg) 50 ML SYRINGE IVP PRN ×2 (21:20→22:26)
[2019-07-10] MEDS ORDERED: Insulin Regular, Human 100 UNIT/ML IV ONE (21:20)
[2019-07-10] MEDS ORDERED: 0.9 % Sodium Chloride 1,000 ML IVC SCH (21:30)
[2019-07-10] MEDS ORDERED: 0.9 % Sodium Chloride w KCl 20 MEQ/1,000 ML MLS IVC PRN (22:30)
[2019-07-10] MEDS: Insulin Human Regular 100 UNIT in 0.9 % Sodium Chloride 100 ML IVC SCH (22:39)
[2019-07-10] MEDS ORDERED: Naloxone 0.4 MG/ML INJ IVP PRN (23:56)
[2019-07-11] MEDS: D5% in 0.45% NACL w KCl 20 MEQ/1,000 ML MLS IVC PRN ×2 (01:23→05:42)
[2019-07-11 01:25] LABS: VBG HCO3 20 mEq/L (21-27); VBG PCO2 40 mmHg (41-51); VBG PH 7.32 pH Units (7.32-7.42); VBG PO2 66 mmHg (25-50)
[2019-07-11 01:39] LABS: Potassium 4.2 mEq/L (3.5-5.1)
[2019-07-11 01:42] LABS: Magnesium 1.8 mg/dL (1.6-2.6); Phosphorous 2.5 mg/dL (2.7-4.5)
[2019-07-11] MEDS: Cefepime HCl 2,000 MG in 0.9 % Sodium Chloride Mini Bag 100 ML IVPB SCH ×4 (01:42→23:26)
[2019-07-11] MEDS ORDERED: Gadolinium Contrast Agent (WT Based) IV PRN (02:46)
[2019-07-11 02:53] LABS: VBG HCO3 21 mEq/L (21-27); VBG PCO2 42 mmHg (41-51); VBG PH 7.31 pH Units (7.32-7.42); VBG PO2 39 mmHg (25-50)
[2019-07-11 02:53] LABS: Mean Corpuscular HGB Conc 33.5 g/dL (31.6-35.5); Mean Corpuscular Volume 89.3 fL (83.0-100.0); Platelet Count 224 K/mcL (140-400); Red Blood Count 3.47 M/mcL (3.82-4.97); Red Cell Distribution Width 13.7 % (11.5-14.5); Segmented Neutrophils % 84.4 %; White Blood Count 10.9 K/mcL (4.3-11.1)
[2019-07-11 02:54] LABS: Basophils % 0.3 %; Eosinophils % 0.3 %; Immature Granulocytes % 0.5 % (0-4); Lymphocytes # 0.9 K/mcL (0.6-4.6); Lymphocytes % 8.5 %; Monocytes # 0.7 K/mcL (0.0-1.3); Neutrophils # 9.2 K/mcL (1.6-8.9)
[2019-07-11 02:55] LABS: Hemoglobin 10.4 g/dL (11.5-15.4)
[2019-07-11 02:58] LABS: INR 1.2; Prothrombin Time 13.3 Seconds (9.4-12.1)
[2019-07-11 03:09] LABS: Albumin 3.5 g/dL (3.5-5.7); Albumin/Globulin Ratio 1.2 (1.1-2.2); Bilirubin,Total 0.7 mg/dL (0.3-1.0); Calcium 8.4 mg/dL (8.6-10.3); Potassium 3.8 mEq/L (3.5-5.1); Total Protein 6.5 g/dL (6.4-8.9)
[2019-07-11 03:10] LABS: Potassium 3.8 mEq/L (3.5-5.1)
[2019-07-11] MEDS ORDERED: Acetaminophen 325 MG TABLET PO PRN (04:11)
[2019-07-11] MEDS: Ondansetron 4 MG/2 ML VIAL IVP PRN ×3 (04:38→20:24)
[2019-07-11] MEDS: Insulin Human Regular 100 UNIT in 0.9 % Sodium Chloride 100 ML IVC SCH (04:47)
[2019-07-11 05:06] LABS: VBG HCO3 18 mEq/L (21-27); VBG PCO2 29 mmHg (41-51); VBG PH 7.41 pH Units (7.32-7.42); VBG PO2 188 mmHg (25-50)
[2019-07-11] MEDS: Acetaminophen IV 1,000 MG/100 ML INFUS..BTL IVPB ONE ×2 (05:08→20:24)
[2019-07-11 05:23] LABS: Potassium 3.7 mEq/L (3.5-5.1)
[2019-07-11] MEDS ORDERED: *HR* Dextrose 50 % in Water (Syg) 50 ML SYRINGE IVP PRN (05:30)
[2019-07-11] MEDS ORDERED: Dextrose Gel 15 GM/37.5 ML TUBE PO PRN ×2 (05:30)
[2019-07-11] MEDS ORDERED: Insulin DETEMIR 100 UNIT/ML X5UNITS SQ ONE (05:33)
[2019-07-11] MEDS ORDERED: D5% in Water 1,000 ML IVC PRN (05:36)
[2019-07-11 07:22] LABS: Estimated Average Glucose 214 mg/dl
[2019-07-11] MEDS: Insulin LISPRO 300 UNITS/3 ML VIAL SQ SCH ×4 (08:55→23:38)
[2019-07-11] MEDS: carvediloL 25 MG TABLET PO SCH ×2 (09:56→16:43)
[2019-07-11] MEDS: Gabapentin 400 MG CAPSULE PO SCH ×2 (09:57→22:15)
[2019-07-11] MEDS: amLODIPine 5 MG TABLET PO SCH (09:57)
[2019-07-11] MEDS: Aspirin Enteric Coated 81 MG Tablet PO SCH (09:57)
[2019-07-11] MEDS: hydrALAZINE 10 MG TABLET PO SCH ×4 (09:57→22:15)
[2019-07-11] MEDS: *HR* Promethazine 25 MG/ML VIAL IVP PRN (10:30)
[2019-07-11] MEDS ORDERED: Ringers Solution, Lactated 1,000 ML IVC ONE (14:23)
[2019-07-11] MEDS ORDERED: Metoclopramide 10 MG/2 ML VIAL IVP ONE (14:25)
[2019-07-11 15:11] LABS: BUN/Creatinine Ratio 17 (6-26); Blood Urea Nitrogen 20 mg/dL (6-20); Calcium 8.7 mg/dL (8.6-10.3); Carbon Dioxide 18 mEq/L (23-29); Chloride 106 mEq/L (98-107); Glucose 246 mg/dL (70-105); Osmolality,Calculated 285 (280-300); Sodium 132 mEq/L (136-145); eGFR For African Americans > 60 (> 60); eGFR For Non-African Americans 52 (> 60)
[2019-07-11] MEDS: *HR* LORazepam 2 MG/ML VIAL IVP PRN ×2 (15:48→22:10)
[2019-07-11] MEDS ORDERED: Acetaminophen IV 1,000 MG/100 ML INFUS..BTL IVPB ONE (16:41)
[2019-07-11 20:14] LABS: Acinetobacter baumannii by PCR Not Detected (Not Detect); Candida albicans by PCR Not Detected (Not Detect); Candida glabrata by PCR Not Detected (Not Detect); Candida krusei by PCR Not Detected (Not Detect); Candida parapsilosis by PCR Not Detected (Not Detect); Candida tropicalis by PCR Not Detected (Not Detect); Enterobacter cloacae Cmplx PCR Not Detected (Not Detect); Enterobacteriaceae by PCR Not Detected (Not Detect); Enterococcus by PCR Not Detected (Not Detect); Escherichia coli by PCR Not Detected (Not Detect); Klebsiella oxytoca by PCR Not Detected (Not Detect); Klebsiella pneumoniae by PCR Not Detected (Not Detect); Proteus by PCR Not Detected (Not Detect); Pseudomonas aeruginosa by PCR Not Detected (Not Detect); Serratia marcescens by PCR Not Detected (Not Detect); Staphylococcus aureus by PCR Not Detected (Not Detect); Staphylococcus by PCR Not Detected (Not Detect); Streptococcus agalactiae(B)PCR Not Detected (Not Detect); Streptococcus by PCR DETECTED (Not Detect); Streptococcus pneumoniae PCR Not Detected (Not Detect); Streptococcus pyogenes (A) PCR Not Detected (Not Detect); blaKPC Carbapenem-Resist Gene Not Detected (Not Detect); mecA Methicillin-Resist Gene Not Detected (Not Detect); vanA/B Vancomycin-Resist Genes Not Detected (Not Detect)
[2019-07-11] MEDS ORDERED: Insulin LISPRO 300 UNITS/3 ML VIAL SQ SCH (21:00)
[2019-07-11] MEDS: MetroNIDAZOLE 500 MG/100 ML 500 MG/100 ML BAG IVPB SCH (22:22)
[2019-07-11] MEDS: Ringers Solution, Lactated 1,000 ML IVC SCH (23:26)
[2019-07-12 02:02] LABS: Basophils # 0.1 K/mcL (0.0-0.2); Basophils % 0.7 %; Eosinophils # 0.1 K/mcL (0.0-0.6); Eosinophils % 1.1 %; Hematocrit 30.1 % (35.3-44.9); Hemoglobin 10.4 g/dL (11.5-15.4); Immature Granulocytes % 0.6 % (0-4); Lymphocytes # 1.2 K/mcL (0.6-4.6); Lymphocytes % 16.4 %; Mean Corpuscular HGB Conc 34.6 g/dL (31.6-35.5); Mean Corpuscular Volume 86.7 fL (83.0-100.0); Mean Platelet Volume 11.2 fL (9.4-12.4); Monocytes # 0.7 K/mcL (0.0-1.3); Monocytes % 9.9 %; Neutrophils # 5.1 K/mcL (1.6-8.9); Platelet Count 222 K/mcL (140-400); Red Blood Count 3.47 M/mcL (3.82-4.97); Red Cell Distribution Width 13.7 % (11.5-14.5); Segmented Neutrophils % 71.3 %; White Blood Count 7.2 K/mcL (4.3-11.1)
[2019-07-12 02:20] LABS: BUN/Creatinine Ratio 14 (6-26); Blood Urea Nitrogen 15 mg/dL (6-20); Calcium 8.3 mg/dL (8.6-10.3); Carbon Dioxide 19 mEq/L (23-29); Chloride 108 mEq/L (98-107); Glucose 244 mg/dL (70-105); Osmolality,Calculated 293 (280-300); Potassium 3.7 mEq/L (3.5-5.1); Sodium 137 mEq/L (136-145); eGFR For African Americans > 60 (> 60); eGFR For Non-African Americans 57 (> 60)
[2019-07-12] MEDS: *HR* LORazepam 2 MG/ML VIAL IVP PRN (05:10)
[2019-07-12] MEDS: Insulin LISPRO 300 UNITS/3 ML VIAL SQ SCH ×4 (06:09→23:49)
[2019-07-12] MEDS: hydrALAZINE 10 MG TABLET PO SCH ×4 (09:12→20:41)
[2019-07-12] MEDS: Aspirin Enteric Coated 81 MG Tablet PO SCH (09:12)
[2019-07-12] MEDS: carvediloL 25 MG TABLET PO SCH ×2 (09:13→16:35)
[2019-07-12] MEDS: Gabapentin 400 MG CAPSULE PO SCH ×2 (09:14→20:41)
[2019-07-12] MEDS: amLODIPine 5 MG TABLET PO SCH (09:14)
[2019-07-12] MEDS: Ondansetron 4 MG/2 ML VIAL IVP PRN (09:14)
[2019-07-12] MEDS: Cefepime HCl 2,000 MG in 0.9 % Sodium Chloride Mini Bag 100 ML IVPB SCH ×2 (09:15→17:50)
[2019-07-12] MEDS: MetroNIDAZOLE 500 MG/100 ML 500 MG/100 ML BAG IVPB SCH ×3 (09:17→23:49)
[2019-07-12] MEDS: Ringers Solution, Lactated 1,000 ML IVC SCH (09:18)
[2019-07-12] MEDS: *HR* Promethazine 25 MG/ML VIAL IVP PRN (09:54)
[2019-07-12] MEDS ORDERED: Lactobacillus 1 EACH CAP.SPRINK PO SCH (14:24)
[2019-07-12] MEDS ORDERED: Propofol 500 MG/50 ML INFUS..BTL ONE (16:40)
[2019-07-12] MEDS ORDERED: *HR* Midazolam HCl 2 MG/2 ML VIAL ONE (16:40)
[2019-07-12] MEDS ORDERED: *HR* FentaNYL (PF) 100 MCG/2 ML VIAL ONE (16:40)
[2019-07-12] MEDS ORDERED: Lidocaine -MPF 2% 2 ML VIAL ONE (16:43)
[2019-07-12] MEDS ORDERED: Dexamethasone 4 MG/ML VIAL ONE (17:33)
[2019-07-12] MEDS ORDERED: Ondansetron 4 MG/2 ML VIAL ONE (17:33)
[2019-07-12] MEDS ORDERED: Ondansetron 4 MG/2 ML VIAL IVP PRN (17:51)
[2019-07-12] MEDS ORDERED: Naloxone 0.4 MG/ML INJ IVP PRN (17:51)
[2019-07-12] MEDS ORDERED: Gadolinium Contrast Agent (WT Based) IV PRN (17:51)
[2019-07-12] MEDS ORDERED: Ringers Solution, Lactated 1,000 ML IVC SCH (17:51)
[2019-07-12] MEDS ORDERED: Acetaminophen 325 MG TABLET PO PRN (17:51)
[2019-07-12] MEDS ORDERED: D5% in Water 1,000 ML IVC PRN (17:51)
[2019-07-12] MEDS ORDERED: Dextrose Gel 15 GM/37.5 ML TUBE PO PRN ×2 (17:51)
[2019-07-12] MEDS ORDERED: *HR* Dextrose 50 % in Water (Syg) 50 ML SYRINGE IVP PRN ×3 (17:51)
[2019-07-12] MEDS ORDERED: *HR* Promethazine 25 MG/ML VIAL IVP PRN (17:51)
[2019-07-12] MEDS: Cefepime HCl 2,000 MG in Water for inj. (sterile) 20 ML IVP SCH (23:49)
[2019-07-13] MEDS: *HR* LORazepam 2 MG/ML VIAL IVP PRN (00:49)
[2019-07-13 01:51] LABS: Basophils % 0.5 %; Hematocrit 29.3 % (35.3-44.9); Immature Granulocytes % 0.6 % (0-4); Lymphocytes # 0.5 K/mcL (0.6-4.6); Lymphocytes % 5.6 %; Mean Corpuscular HGB Conc 34.1 g/dL (31.6-35.5); Mean Corpuscular Hemoglobin 29.3 pg (28.0-33.3); Mean Corpuscular Volume 85.9 fL (83.0-100.0); Mean Platelet Volume 11.4 fL (9.4-12.4); Monocytes # 0.4 K/mcL (0.0-1.3); Monocytes % 4.1 %; Neutrophils # 7.5 K/mcL (1.6-8.9); Platelet Count 235 K/mcL (140-400); Red Blood Count 3.41 M/mcL (3.82-4.97); Red Cell Distribution Width 13.5 % (11.5-14.5); Segmented Neutrophils % 89.2 %; White Blood Count 8.5 K/mcL (4.3-11.1)
[2019-07-13 02:09] LABS: BUN/Creatinine Ratio 17 (6-26); Blood Urea Nitrogen 19 mg/dL (6-20); Calcium 8.4 mg/dL (8.6-10.3); Carbon Dioxide 18 mEq/L (23-29); Chloride 104 mEq/L (98-107); Glucose 447 mg/dL (70-105); Osmolality,Calculated 296 (280-300); Potassium 4.3 mEq/L (3.5-5.1); Sodium 132 mEq/L (136-145); eGFR For African Americans > 60 (> 60); eGFR For Non-African Americans 56 (> 60)
[2019-07-13] MEDS: Insulin LISPRO 300 UNITS/3 ML VIAL SQ SCH ×5 (05:47→21:10)
[2019-07-13] MEDS ORDERED: Insulin DETEMIR 100 UNIT/ML X5UNITS SQ ONE ×2 (07:56→08:00)
[2019-07-13] MEDS ORDERED: Insulin LISPRO 300 UNITS/3 ML VIAL SQ SCH ×3 (08:00→21:00)
[2019-07-13] MEDS: Aspirin Enteric Coated 81 MG Tablet PO SCH (08:57)
[2019-07-13] MEDS: amLODIPine 5 MG TABLET PO SCH (08:57)
[2019-07-13] MEDS: hydrALAZINE 10 MG TABLET PO SCH ×4 (08:57→22:28)
[2019-07-13] MEDS: carvediloL 25 MG TABLET PO SCH ×2 (08:57→17:21)
[2019-07-13] MEDS: Lactobacillus 1 EACH CAP.SPRINK PO SCH (08:58)
[2019-07-13] MEDS: Gabapentin 400 MG CAPSULE PO SCH ×2 (08:58→22:29)
[2019-07-13] MEDS: Cefepime HCl 2,000 MG in Water for inj. (sterile) 20 ML IVP SCH ×2 (08:59→16:35)
[2019-07-13] MEDS: MetroNIDAZOLE 500 MG/100 ML 500 MG/100 ML BAG IVPB SCH ×2 (09:00→16:36)
[2019-07-13] MEDS ORDERED: Insulin LISPRO 300 UNITS/3 ML VIAL SQ ONE ×2 (09:57→14:10)
[2019-07-13] MEDS: Insulin DETEMIR 100 UNIT/ML X5UNITS SQ SCH ×2 (17:04→18:32)
[2019-07-13] MEDS ORDERED: Insulin DETEMIR 100 UNIT/ML X5UNITS SQ SCH (21:00)
[2019-07-14] MEDS: Cefepime HCl 2,000 MG in Water for inj. (sterile) 20 ML IVP SCH ×4 (00:24→23:49)
[2019-07-14] MEDS: MetroNIDAZOLE 500 MG/100 ML 500 MG/100 ML BAG IVPB SCH ×2 (00:27→08:18)
[2019-07-14 04:13] LABS: Basophils # 0.1 K/mcL (0.0-0.2); Basophils % 0.7 %; Eosinophils # 0.1 K/mcL (0.0-0.6); Eosinophils % 1.9 %; Hematocrit 26.6 % (35.3-44.9); Hemoglobin 9.1 g/dL (11.5-15.4); Immature Granulocytes % 0.6 % (0-4); Lymphocytes # 1.5 K/mcL (0.6-4.6); Lymphocytes % 21.8 %; Mean Corpuscular HGB Conc 34.2 g/dL (31.6-35.5); Mean Corpuscular Hemoglobin 29.9 pg (28.0-33.3); Mean Corpuscular Volume 87.5 fL (83.0-100.0); Mean Platelet Volume 11.5 fL (9.4-12.4); Monocytes # 0.6 K/mcL (0.0-1.3); Monocytes % 8.7 %; Neutrophils # 4.6 K/mcL (1.6-8.9); Platelet Count 228 K/mcL (140-400); Red Blood Count 3.04 M/mcL (3.82-4.97); Red Cell Distribution Width 13.8 % (11.5-14.5); Segmented Neutrophils % 66.3 %; White Blood Count 6.9 K/mcL (4.3-11.1)
[2019-07-14 04:30] LABS: BUN/Creatinine Ratio 27 (6-26); Blood Urea Nitrogen 29 mg/dL (6-20); Calcium 8.2 mg/dL (8.6-10.3); Carbon Dioxide 21 mEq/L (23-29); Chloride 109 mEq/L (98-107); Glucose 226 mg/dL (70-105); Osmolality,Calculated 297 (280-300); Potassium 3.7 mEq/L (3.5-5.1); Sodium 137 mEq/L (136-145); eGFR For African Americans > 60 (> 60); eGFR For Non-African Americans 56 (> 60)
[2019-07-14] MEDS: Aspirin Enteric Coated 81 MG Tablet PO SCH (08:12)
[2019-07-14] MEDS: amLODIPine 5 MG TABLET PO SCH (08:13)
[2019-07-14] MEDS: Gabapentin 400 MG CAPSULE PO SCH ×2 (08:13→20:57)
[2019-07-14] MEDS: hydrALAZINE 10 MG TABLET PO SCH ×4 (08:13→20:57)
[2019-07-14] MEDS: carvediloL 25 MG TABLET PO SCH ×2 (08:13→16:49)
[2019-07-14] MEDS: Lactobacillus 1 EACH CAP.SPRINK PO SCH (08:13)
[2019-07-14] MEDS: Insulin LISPRO 300 UNITS/3 ML VIAL SQ SCH ×4 (08:18→20:58)
[2019-07-14] MEDS: Insulin DETEMIR 100 UNIT/ML X5UNITS SQ SCH (20:57)
[2019-07-14] MEDS: metroNIDAZOLE 500 MG TABLET PO SCH (20:57)
[2019-07-15 05:00] LABS: Basophils # 0.1 K/mcL (0.0-0.2); Basophils % 1.2 %; Eosinophils # 0.3 K/mcL (0.0-0.6); Eosinophils % 4.4 %; Hematocrit 28.4 % (35.3-44.9); Hemoglobin 9.5 g/dL (11.5-15.4); Immature Granulocytes % 1.9 % (0-4); Lymphocytes # 1.7 K/mcL (0.6-4.6); Lymphocytes % 25.6 %; Mean Corpuscular HGB Conc 33.5 g/dL (31.6-35.5); Mean Corpuscular Hemoglobin 29.7 pg (28.0-33.3); Mean Corpuscular Volume 88.8 fL (83.0-100.0); Mean Platelet Volume 11.6 fL (9.4-12.4); Monocytes # 0.6 K/mcL (0.0-1.3); Monocytes % 8.7 %; Platelet Count 268 K/mcL (140-400); Red Cell Distribution Width 13.8 % (11.5-14.5); Segmented Neutrophils % 58.2 %; White Blood Count 6.8 K/mcL (4.3-11.1)
[2019-07-15 05:13] LABS: BUN/Creatinine Ratio 24 (6-26); Blood Urea Nitrogen 23 mg/dL (6-20); Calcium 8.3 mg/dL (8.6-10.3); Carbon Dioxide 21 mEq/L (23-29); Chloride 109 mEq/L (98-107); Glucose 245 mg/dL (70-105); Osmolality,Calculated 300 (280-300); Sodium 139 mEq/L (136-145); eGFR For African Americans > 60 (> 60); eGFR For Non-African Americans > 60 (> 60)
[2019-07-15] MEDS: Gabapentin 400 MG CAPSULE PO SCH ×2 (09:12→21:21)
[2019-07-15] MEDS: carvediloL 25 MG TABLET PO SCH ×2 (09:12→16:23)
[2019-07-15] MEDS: Lactobacillus 1 EACH CAP.SPRINK PO SCH (09:12)
[2019-07-15] MEDS: Cefepime HCl 2,000 MG in Water for inj. (sterile) 20 ML IVP SCH ×2 (09:12→16:22)
[2019-07-15] MEDS: amLODIPine 5 MG TABLET PO SCH (09:12)
[2019-07-15] MEDS: metroNIDAZOLE 500 MG TABLET PO SCH ×3 (09:12→21:21)
[2019-07-15] MEDS: Aspirin Enteric Coated 81 MG Tablet PO SCH (09:12)
[2019-07-15] MEDS: hydrALAZINE 10 MG TABLET PO SCH ×4 (09:12→21:21)
[2019-07-15] MEDS: Insulin LISPRO 300 UNITS/3 ML VIAL SQ SCH ×5 (09:13→21:24)
[2019-07-15] MEDS: Insulin DETEMIR 100 UNIT/ML X5UNITS SQ SCH (21:23)
[2019-07-16] MEDS: Cefepime HCl 2,000 MG in Water for inj. (sterile) 20 ML IVP SCH ×3 (00:15→15:59)
[2019-07-16] MEDS: *HR* LORazepam 2 MG/ML VIAL IVP PRN ×2 (04:54→10:04)
[2019-07-16 05:55] LABS: Basophils # 0.1 K/mcL (0.0-0.2); Basophils % 1.3 %; Eosinophils # 0.4 K/mcL (0.0-0.6); Eosinophils % 5.5 %; Hematocrit 29.9 % (35.3-44.9); Immature Granulocytes % 5.8 % (0-4); Lymphocytes # 1.7 K/mcL (0.6-4.6); Lymphocytes % 21.3 %; Mean Corpuscular HGB Conc 33.4 g/dL (31.6-35.5); Mean Corpuscular Hemoglobin 29.4 pg (28.0-33.3); Mean Corpuscular Volume 87.9 fL (83.0-100.0); Mean Platelet Volume 11.3 fL (9.4-12.4); Monocytes # 0.6 K/mcL (0.0-1.3); Monocytes % 7.2 %; Nucleated Red Blood Cells 0.4 /100 WBC (0); Platelet Count 326 K/mcL (140-400); Segmented Neutrophils % 58.9 %; White Blood Count 7.9 K/mcL (4.3-11.1)
[2019-07-16 05:58] LABS: Neutrophils # 4.7 K/mcL (1.6-8.9)
[2019-07-16 06:27] LABS: BUN/Creatinine Ratio 19 (6-26); Blood Urea Nitrogen 18 mg/dL (6-20); Calcium 8.6 mg/dL (8.6-10.3); Carbon Dioxide 21 mEq/L (23-29); Chloride 107 mEq/L (98-107); Glucose 256 mg/dL (70-105); Osmolality,Calculated 297 (280-300); Potassium 3.8 mEq/L (3.5-5.1); Sodium 138 mEq/L (136-145); eGFR For African Americans > 60 (> 60); eGFR For Non-African Americans > 60 (> 60)
[2019-07-16 06:30] LABS: Anisocytosis 1+ (Not Present); Platelet Estimate Normal (Normal)
[2019-07-16] MEDS: Insulin LISPRO 300 UNITS/3 ML VIAL SQ SCH ×7 (06:55→22:23)
[2019-07-16] MEDS ORDERED: Aminoglycoside Consult 1 EACH MC ONE (07:36)
[2019-07-16] MEDS: metroNIDAZOLE 500 MG TABLET PO SCH ×3 (09:15→19:49)
[2019-07-16] MEDS: Lactobacillus 1 EACH CAP.SPRINK PO SCH (09:15)
[2019-07-16] MEDS: Gabapentin 400 MG CAPSULE PO SCH ×2 (09:15→19:49)
[2019-07-16] MEDS: Aspirin Enteric Coated 81 MG Tablet PO SCH (09:16)
[2019-07-16] MEDS: amLODIPine 5 MG TABLET PO SCH (09:16)
[2019-07-16] MEDS: hydrALAZINE 10 MG TABLET PO SCH ×4 (09:16→19:49)
[2019-07-16] MEDS: carvediloL 25 MG TABLET PO SCH ×2 (09:51→17:59)
[2019-07-16] MEDS ORDERED: Lidocaine -MPF 2% 2 ML VIAL ONE (16:27)
[2019-07-16] MEDS ORDERED: *HR* Propofol 200 MG/20 ML VIAL IVP ONE (16:28)
[2019-07-16] MEDS ORDERED: Acetaminophen 325 MG TABLET PO PRN (17:56)
[2019-07-16] MEDS ORDERED: Dextrose Gel 15 GM/37.5 ML TUBE PO PRN ×2 (17:56)
[2019-07-16] MEDS ORDERED: D5% in Water 1,000 ML IVC PRN (17:56)
[2019-07-16] MEDS ORDERED: Naloxone 0.4 MG/ML INJ IVP PRN (17:56)
[2019-07-16] MEDS ORDERED: Ondansetron 4 MG/2 ML VIAL IVP PRN (17:56)
[2019-07-16] MEDS ORDERED: *HR* Promethazine 25 MG/ML VIAL IVP PRN (17:56)
[2019-07-16] MEDS ORDERED: *HR* Dextrose 50 % in Water (Syg) 50 ML SYRINGE IVP PRN (17:56)
[2019-07-16] MEDS ORDERED: *HR* LORazepam 2 MG/ML VIAL IVP PRN (17:56)
[2019-07-16] MEDS: Ampicillin 2 GM in 0.9 % Sodium Chloride Mini Bag 100 ML IVPB SCH (19:48)
[2019-07-16] MEDS ORDERED: Ampicillin 2 GM in 0.9 % Sodium Chloride Mini Bag 100 ML IVPB SCH (20:00)
[2019-07-16] MEDS: Insulin DETEMIR 100 UNIT/ML X5UNITS SQ SCH (22:24)
[2019-07-17] MEDS: Ampicillin 2 GM in 0.9 % Sodium Chloride Mini Bag 100 ML IVPB SCH ×6 (00:34→21:53)
[2019-07-17 05:11] LABS: Basophils # 0.1 K/mcL (0.0-0.2); Basophils % 1.3 %; Eosinophils # 0.4 K/mcL (0.0-0.6); Eosinophils % 4.7 %; Hematocrit 31.7 % (35.3-44.9); Hemoglobin 10.7 g/dL (11.5-15.4); Immature Granulocytes % 6.6 % (0-4); Lymphocytes # 1.6 K/mcL (0.6-4.6); Lymphocytes % 17.8 %; Mean Corpuscular HGB Conc 33.8 g/dL (31.6-35.5); Mean Corpuscular Hemoglobin 29.4 pg (28.0-33.3); Mean Corpuscular Volume 87.1 fL (83.0-100.0); Mean Platelet Volume 10.7 fL (9.4-12.4); Monocytes # 0.6 K/mcL (0.0-1.3); Neutrophils # 5.6 K/mcL (1.6-8.9); Nucleated Red Blood Cells 0.2 /100 WBC (0); Platelet Count 352 K/mcL (140-400); Red Blood Count 3.64 M/mcL (3.82-4.97); Red Cell Distribution Width 13.8 % (11.5-14.5); Segmented Neutrophils % 62.6 %; White Blood Count 8.9 K/mcL (4.3-11.1)
[2019-07-17 05:32] LABS: BUN/Creatinine Ratio 16 (6-26); Blood Urea Nitrogen 14 mg/dL (6-20); Carbon Dioxide 21 mEq/L (23-29); Chloride 107 mEq/L (98-107); Glucose 202 mg/dL (70-105); Osmolality,Calculated 290 (280-300); Potassium 3.9 mEq/L (3.5-5.1); Sodium 137 mEq/L (136-145); eGFR For African Americans > 60 (> 60); eGFR For Non-African Americans > 60 (> 60)
[2019-07-17 05:56] LABS: Platelet Estimate Normal (Normal); Polychromasia 1+ (Not Present)
[2019-07-17] MEDS: hydrALAZINE 10 MG TABLET PO SCH ×4 (07:53→21:52)
[2019-07-17] MEDS: metroNIDAZOLE 500 MG TABLET PO SCH ×3 (07:53→21:52)
[2019-07-17] MEDS: Lactobacillus 1 EACH CAP.SPRINK PO SCH (07:53)
[2019-07-17] MEDS: Gabapentin 400 MG CAPSULE PO SCH ×2 (07:53→21:52)
[2019-07-17] MEDS: amLODIPine 5 MG TABLET PO SCH (07:54)
[2019-07-17] MEDS: Aspirin Enteric Coated 81 MG Tablet PO SCH (07:54)
[2019-07-17] MEDS: carvediloL 25 MG TABLET PO SCH ×2 (07:54→18:07)
[2019-07-17] MEDS: Insulin LISPRO 300 UNITS/3 ML VIAL SQ SCH ×7 (07:55→21:54)
[2019-07-17] MEDS: Insulin DETEMIR 100 UNIT/ML X5UNITS SQ SCH (21:53)
[2019-07-18] MEDS: Ampicillin 2 GM in 0.9 % Sodium Chloride Mini Bag 100 ML IVPB SCH ×3 (02:23→09:32)
[2019-07-18 03:19] LABS: Basophils # 0.1 K/mcL (0.0-0.2); Eosinophils # 0.4 K/mcL (0.0-0.6); Eosinophils % 4.3 %; Hematocrit 31.2 % (35.3-44.9); Hemoglobin 10.2 g/dL (11.5-15.4); Immature Granulocytes % 7.3 % (0-4); Immature Platelets 3.1 % (1.1-6.1); Lymphocytes # 1.6 K/mcL (0.6-4.6); Mean Corpuscular HGB Conc 32.7 g/dL (31.6-35.5); Mean Corpuscular Hemoglobin 29.7 pg (28.0-33.3); Monocytes # 0.6 K/mcL (0.0-1.3); Monocytes % 6.5 %; Neutrophils # 5.7 K/mcL (1.6-8.9); Platelet Count 335 K/mcL (140-400); Red Blood Count 3.43 M/mcL (3.82-4.97); Red Cell Distribution Width 14.3 % (11.5-14.5); Segmented Neutrophils % 62.9 %; White Blood Count 9.1 K/mcL (4.3-11.1)
[2019-07-18 04:12] LABS: BUN/Creatinine Ratio 16 (6-26); Blood Urea Nitrogen 15 mg/dL (6-20); Calcium 8.8 mg/dL (8.6-10.3); Carbon Dioxide 24 mEq/L (23-29); Chloride 109 mEq/L (98-107); Glucose 166 mg/dL (70-105); Osmolality,Calculated 295 (280-300); Potassium 3.9 mEq/L (3.5-5.1); Sodium 140 mEq/L (136-145); eGFR For African Americans > 60 (> 60); eGFR For Non-African Americans > 60 (> 60)
[2019-07-18] MEDS: hydrALAZINE 10 MG TABLET PO SCH ×2 (08:42→13:06)
[2019-07-18] MEDS: amLODIPine 5 MG TABLET PO SCH (08:43)
[2019-07-18] MEDS: Gabapentin 400 MG CAPSULE PO SCH (08:43)
[2019-07-18] MEDS: carvediloL 25 MG TABLET PO SCH (08:43)
[2019-07-18] MEDS: Aspirin Enteric Coated 81 MG Tablet PO SCH (08:43)
[2019-07-18] MEDS: metroNIDAZOLE 500 MG TABLET PO SCH (08:43)
[2019-07-18] MEDS: Insulin LISPRO 300 UNITS/3 ML VIAL SQ SCH ×4 (08:44→12:10)
[2019-07-18] MEDS: Lactobacillus 1 EACH CAP.SPRINK PO SCH (08:44)
[2019-07-18 11:09] VITALS: BP 123/84
== END 2019-07-18 15:23 | disposition home health service (06) | DRG 710 ==
LOC: EMEROOARM 17:52 → 2NNU 17:52 → SUATTDRO 23:43 → 3NENU 07-14 02:20
PROVIDERS: ADMIT Internal Medicine; ATTEND Internal Medicine

== ENCOUNTER 2022-01-04 14:36 | Inpatient (IN) ==
[2022-01-04 15:22] LABS: Basophils # 0.1 K/mcL (0.0-0.2); Eosinophils # 0.2 K/mcL (0.0-0.6); Eosinophils % 2.5 %; Hematocrit 42.9 % (35.3-44.9); Hemoglobin 13.4 g/dL (11.5-15.4); Immature Granulocytes % 0.5 % (0-4); Lymphocytes % 21.7 %; Mean Corpuscular HGB Conc 31.2 g/dL (31.6-35.5); Mean Corpuscular Hemoglobin 26.6 pg (28.0-33.3); Mean Corpuscular Volume 85.3 fL (83.0-100.0); Mean Platelet Volume 10.9 fL (9.4-12.4); Monocytes # 0.8 K/mcL (0.0-1.3); Monocytes % 8.6 %; Neutrophils # 6.1 K/mcL (1.6-8.9); Platelet Count 424 K/mcL (140-400); Red Blood Count 5.03 M/mcL (3.82-4.97); Red Cell Distribution Width 15.6 % (11.5-14.5); Segmented Neutrophils % 65.7 %; White Blood Count 9.3 K/mcL (4.3-11.1)
[2022-01-04 15:38] LABS: BUN/Creatinine Ratio 12 (6-26); Blood Urea Nitrogen 16 mg/dL (6-20); Calcium 9.6 mg/dL (8.6-10.3); Carbon Dioxide 23 mEq/L (23-29); Chloride 105 mEq/L (98-107); Glucose 148 mg/dL (70-105); Osmolality,Calculated 288 (280-300); Potassium 4.4 mEq/L (3.5-5.1); Sodium 137 mEq/L (136-145); Troponin I < 0.03 ng/mL (< 0.04); eGFR For African Americans 51 (> 60); eGFR For Non-African Americans 42 (> 60)
[2022-01-04] MEDS ORDERED: Piperacillin/Tazobactam 3.375 GM in 0.9 % Sodium Chloride Mini Bag 100 ML IVPB ONE (20:36)
[2022-01-04] MEDS ORDERED: *HR* HYDROcodone/Acet 5/325 mg TABLET PO PRN (21:21)
[2022-01-04] MEDS ORDERED: Ondansetron 4 MG/2 ML VIAL IVP PRN (21:21)
[2022-01-04] MEDS ORDERED: Melatonin 3 MG TABLET PO PRN (21:21)
[2022-01-04] MEDS ORDERED: *HR* OxyCODONE Immed Rel 5 MG TABLET PO PRN (21:21)
[2022-01-04] MEDS ORDERED: Acetaminophen 325 MG TABLET PO PRN (21:21)
[2022-01-04] MEDS ORDERED: Naloxone 0.4 MG/ML INJ IVP PRN (21:21)
[2022-01-04] MEDS ORDERED: *HR* Promethazine 25 MG/ML VIAL IM PRN (21:21)
[2022-01-04] MEDS ORDERED: Vancomycin 1,250 MG/262.5 ML IV.SOLN IVPB SCH (22:00)
[2022-01-04] MEDS ORDERED: Vancomycin 1,500 MG/265 ML IV.SOLN IVPB SCH (22:00)
[2022-01-04] MEDS: 0.9 % Sodium Chloride 1,000 ML IVC SCH (22:20)
[2022-01-04] MEDS ORDERED: D5% in Water 1,000 ML IVC PRN (22:22)
[2022-01-04] MEDS ORDERED: Dextrose 4 GM Chewable Tablets PO PRN ×2 (22:22)
[2022-01-04] MEDS ORDERED: *HR* Dextrose 50 % in Water (Syg) 50 ML SYRINGE IVP PRN (22:22)
[2022-01-05 01:58] LABS: Basophils # 0.1 K/mcL (0.0-0.2); Basophils % 0.9 %; Eosinophils # 0.3 K/mcL (0.0-0.6); Hematocrit 39.1 % (35.3-44.9); Hemoglobin 12.3 g/dL (11.5-15.4); Immature Granulocytes % 0.5 % (0-4); Lymphocytes # 2.7 K/mcL (0.6-4.6); Lymphocytes % 29.1 %; Mean Corpuscular HGB Conc 31.5 g/dL (31.6-35.5); Mean Corpuscular Hemoglobin 26.9 pg (28.0-33.3); Mean Corpuscular Volume 85.6 fL (83.0-100.0); Mean Platelet Volume 10.9 fL (9.4-12.4); Monocytes # 0.9 K/mcL (0.0-1.3); Monocytes % 9.5 %; Neutrophils # 5.3 K/mcL (1.6-8.9); Platelet Count 363 K/mcL (140-400); Red Blood Count 4.57 M/mcL (3.82-4.97); Red Cell Distribution Width 15.5 % (11.5-14.5); White Blood Count 9.3 K/mcL (4.3-11.1)
[2022-01-05 02:04] LABS: Prothrombin Time 11.2 Seconds (9.4-12.1)
[2022-01-05 02:16] LABS: BUN/Creatinine Ratio 13 (6-26); Blood Urea Nitrogen 18 mg/dL (6-20); C-Reactive Protein < 5 mg/L (Less than 10); Carbon Dioxide 25 mEq/L (23-29); Chloride 107 mEq/L (98-107); Chol/HDL Ratio 3.1 (0-4.9); Cholesterol 102 mg/dL (< 200); Glucose 98 mg/dL (70-105); HDL Cholesterol 33 mg/dL (40-59); LDL Cholesterol,Calculated 35 mg/dL (< 100); Magnesium 2.3 mg/dL (1.6-2.6); Osmolality,Calculated 296 (280-300); Potassium 3.6 mEq/L (3.5-5.1); Sodium 142 mEq/L (136-145); Triglycerides 170 mg/dL (< 150); eGFR For African Americans 51 (> 60); eGFR For Non-African Americans 42 (> 60)
[2022-01-05] MEDS: *HR* Heparin 5,000 UNIT/ML VIAL SQ SCH ×3 (05:45→21:15)
[2022-01-05] MEDS: Piperacillin/Tazobactam 3.375 GM in 0.9 % Sodium Chloride Mini Bag 100 ML IVPB SCH ×3 (08:57→23:06)
[2022-01-05] MEDS: 0.9 % Sodium Chloride 1,000 ML IVC SCH (08:59)
[2022-01-05] MEDS ORDERED: Furosemide 40 MG TABLET PO SCH (09:00)
[2022-01-05] MEDS ORDERED: Gadolinium Contrast Agent (WT Based) IV PRN (13:43)
[2022-01-05] MEDS: Insulin LISPRO 300 UNITS/3 ML VIAL SUBQ SCH ×2 (18:05→21:33)
[2022-01-05] MEDS: Vancomycin 1,500 MG/265 ML IV.SOLN IVPB SCH (21:16)
[2022-01-06 03:03] LABS: Hematocrit 36.9 % (35.3-44.9); Hemoglobin 11.5 g/dL (11.5-15.4); Mean Corpuscular HGB Conc 31.2 g/dL (31.6-35.5); Mean Corpuscular Hemoglobin 26.6 pg (28.0-33.3); Mean Corpuscular Volume 85.4 fL (83.0-100.0); Mean Platelet Volume 11.1 fL (9.4-12.4); Platelet Count 333 K/mcL (140-400); Red Blood Count 4.32 M/mcL (3.82-4.97); Red Cell Distribution Width 15.3 % (11.5-14.5); White Blood Count 7.7 K/mcL (4.3-11.1)
[2022-01-06 03:24] LABS: Calcium 8.6 mg/dL (8.6-10.3); Magnesium 2.1 mg/dL (1.6-2.6); Potassium 3.5 mEq/L (3.5-5.1)
[2022-01-06] MEDS: *HR* Heparin 5,000 UNIT/ML VIAL SQ SCH ×3 (05:45→21:59)
[2022-01-06] MEDS: Insulin LISPRO 300 UNITS/3 ML VIAL SUBQ SCH ×4 (08:23→21:59)
[2022-01-06] MEDS: Piperacillin/Tazobactam 3.375 GM in 0.9 % Sodium Chloride Mini Bag 100 ML IVPB SCH ×2 (08:24→15:53)
[2022-01-06] MEDS: Vancomycin 1,500 MG/265 ML IV.SOLN IVPB SCH (23:30)
[2022-01-07] MEDS: Piperacillin/Tazobactam 3.375 GM in 0.9 % Sodium Chloride Mini Bag 100 ML IVPB SCH ×3 (00:55→16:38)
[2022-01-07 02:51] LABS: Hematocrit 37.4 % (35.3-44.9); Hemoglobin 11.7 g/dL (11.5-15.4); Mean Corpuscular HGB Conc 31.3 g/dL (31.6-35.5); Mean Corpuscular Hemoglobin 26.8 pg (28.0-33.3); Mean Corpuscular Volume 85.8 fL (83.0-100.0); Mean Platelet Volume 10.8 fL (9.4-12.4); Platelet Count 325 K/mcL (140-400); Red Blood Count 4.36 M/mcL (3.82-4.97); Red Cell Distribution Width 15.3 % (11.5-14.5); White Blood Count 8.3 K/mcL (4.3-11.1)
[2022-01-07 03:01] LABS: Calcium 8.9 mg/dL (8.6-10.3); Magnesium 2.1 mg/dL (1.6-2.6); Potassium 3.8 mEq/L (3.5-5.1)
[2022-01-07] MEDS: *HR* Heparin 5,000 UNIT/ML VIAL SQ SCH ×3 (05:03→21:56)
[2022-01-07] MEDS: Insulin LISPRO 300 UNITS/3 ML VIAL SUBQ SCH ×4 (09:16→21:57)
[2022-01-08] MEDS: Piperacillin/Tazobactam 3.375 GM in 0.9 % Sodium Chloride Mini Bag 100 ML IVPB SCH ×2 (00:15→07:56)
[2022-01-08 04:09] VITALS: O2SAT 97
[2022-01-08] MEDS: *HR* Heparin 5,000 UNIT/ML VIAL SQ SCH (06:11)
[2022-01-08 06:31] LABS: Hematocrit 40.1 % (35.3-44.9); Hemoglobin 12.6 g/dL (11.5-15.4); Mean Corpuscular HGB Conc 31.4 g/dL (31.6-35.5); Mean Corpuscular Hemoglobin 26.8 pg (28.0-33.3); Mean Corpuscular Volume 85.3 fL (83.0-100.0); Mean Platelet Volume 10.9 fL (9.4-12.4); Platelet Count 325 K/mcL (140-400); Red Cell Distribution Width 15.2 % (11.5-14.5); White Blood Count 8.4 K/mcL (4.3-11.1)
[2022-01-08 06:51] LABS: Calcium 9.4 mg/dL (8.6-10.3); Magnesium 2.1 mg/dL (1.6-2.6); Potassium 3.8 mEq/L (3.5-5.1)
[2022-01-08] MEDS: Insulin LISPRO 300 UNITS/3 ML VIAL SUBQ SCH (08:01)
[2022-01-08 11:10] VITALS: BP 148/92; PULSE 101; TEMP 97.7
== END 2022-01-08 15:52 | disposition home health service (06) | DRG 380 ==
LOC: EMEROOARM 14:36 → 3ANU 14:36 → SUATTDRO 21:12 → 3ANU 21:52
PROVIDERS: ADMIT Internal Medicine; ATTEND Internal Medicine

== ENCOUNTER 2022-03-18 22:51 | Inpatient (IN) ==
[2022-03-18] MEDS ORDERED: 0.9 % Sodium Chloride 1,000 ML IVC ONE ×2 (23:11→23:45)
[2022-03-18] MEDS ORDERED: Acetaminophen 325 MG TABLET PO ONE (23:21)
[2022-03-18 23:22] LABS: Basophils # 0.1 K/mcL (0.0-0.2); Basophils % 0.5 %; Eosinophils # 0.1 K/mcL (0.0-0.6); Eosinophils % 0.3 %; Hematocrit 41.7 % (35.3-44.9); Hemoglobin 13.4 g/dL (11.5-15.4); Immature Granulocytes % 0.5 % (0-4); Lymphocytes # 0.8 K/mcL (0.6-4.6); Lymphocytes % 4.8 %; Mean Corpuscular HGB Conc 32.1 g/dL (31.6-35.5); Mean Corpuscular Hemoglobin 25.9 pg (28.0-33.3); Mean Corpuscular Volume 80.7 fL (83.0-100.0); Mean Platelet Volume 11.3 fL (9.4-12.4); Monocytes # 0.7 K/mcL (0.0-1.3); Monocytes % 4.1 %; Neutrophils # 15.7 K/mcL (1.6-8.9); Platelet Count 355 K/mcL (140-400); Red Blood Count 5.17 M/mcL (3.82-4.97); Red Cell Distribution Width 16.5 % (11.5-14.5); Segmented Neutrophils % 89.8 %; White Blood Count 17.5 K/mcL (4.3-11.1)
[2022-03-18 23:32] LABS: INR 1.1; Prothrombin Time 11.9 Seconds (9.4-12.1)
[2022-03-18 23:34] LABS: Activated Partial Thrombo Time 32.2 Seconds (26.0-36.0)
[2022-03-18 23:44] LABS: Alanine Aminotransferase 11 Units/L (7-52); Albumin 4.5 g/dL (3.5-5.7); Albumin/Globulin Ratio 1.2 (1.1-2.2); Alkaline Phosphatase 83 Units/L (34-104); Aspartate Amino Transferase 10 Units/L (13-39); BUN/Creatinine Ratio 18 (6-26); Bilirubin,Direct 0.1 mg/dL (0.0-0.2); Bilirubin,Indirect 0.8 mg/dL (0.0-1.0); Bilirubin,Total 0.9 mg/dL (0.3-1.0); Blood Urea Nitrogen 31 mg/dL (6-20); Calcium 9.5 mg/dL (8.6-10.3); Carbon Dioxide 22 mEq/L (23-29); Chloride 98 mEq/L (98-107); Globulin 3.7 g/dL (2.4-3.5); Glucose 213 mg/dL (70-105); Osmolality,Calculated 287 (280-300); Potassium 4.2 mEq/L (3.5-5.1); Sodium 132 mEq/L (136-145); Total Protein 8.2 g/dL (6.4-8.9); eGFR For African Americans 38 (> 60); eGFR For Non-African Americans 32 (> 60)
[2022-03-18] MEDS ORDERED: Cefepime HCl 2,000 MG in 0.9 % Sodium Chloride 10 ML IVP ONE (23:44)
[2022-03-18 23:45] LABS: Troponin I < 0.03 ng/mL (< 0.04)
[2022-03-19] MEDS ORDERED: Vancomycin 1,500 MG/265 ML IV.SOLN IVPB ONE
[2022-03-19 00:36] LABS: C-Reactive Protein 65 mg/L (Less than 10)
[2022-03-19 00:37] LABS: Adenovirus Not Detected (Not Detect); Bordetella Pertussis Not Detected (Not Detect); Chlamydophila pneumoniae Not Detected (Not Detect); Coronavirus 229E Not Detected (Not Detect); Coronavirus HKU1 Not Detected (Not Detect); Coronavirus NL63 Not Detected (Not Detect); Coronavirus OC43 Not Detected (Not Detect); Human Metapneumovirus Not Detected (Not Detect); Human Rhinovirus/Enterovirus Not Detected (Not Detect); Influenza A Subtype 2009 H1 Not Detected (Not Detect); Influenza B Not Detected (Not Detect); Mycoplasma pneumoniae Not Detected (Not Detect); Parainfluenza Virus 1 Not Detected (Not Detect); Parainfluenza Virus 2 Not Detected (Not Detect); Parainfluenza Virus 3 Not Detected (Not Detect); Parainfluenza Virus 4 Not Detected (Not Detect); Respiratory Syncytial Virus Not Detected (Not Detect); SARS-CoV-2 Not Detected (Not Detect)
[2022-03-19 01:18] LABS: Bacteria,Urine Few per hpf (None-Few); Bilirubin,Urine Negative (Negative); Blood,Urine Negative (Negative); Clarity,Urine Clear (Clear); Color,Urine Light-Yellow (Yellow); Glucose,Urine (UA) >=1000 mg/dL (Normal); Hyaline Casts,Urine Few per lpf (None Seen); Ketones,Urine Negative (Negative); Leukocyte Esterase,Urine Moderate (Negative); Mucus,Urine Few per lpf (None-Few); Nitrite,Urine Negative (Negative); PH,Urine 5.5 pH Units (5.0-8.0); Protein,Urine Trace mg/dL (Neg-Trace); Specific Gravity,Urine 1.029 (1.010-1.025); Squamous Epithelial Cell,Urine Moderate per hpf (None-Few); Urobilinogen,Urine Normal (Normal); WBC,Urine 15-30 per hpf (0-3)
[2022-03-19] MEDS ORDERED: Acetaminophen IV 1,000 MG/100 ML BAG IVPB ONE (04:10)
[2022-03-19] MEDS ORDERED: Dextrose Gel 15 GM/37.5 ML TUBE PO PRN ×2 (04:11)
[2022-03-19] MEDS ORDERED: *HR* Dextrose 50 % in Water (Syg) 50 ML SYRINGE IVP PRN (04:11)
[2022-03-19] MEDS ORDERED: D5% in Water 1,000 ML IVC PRN (04:11)
[2022-03-19] MEDS ORDERED: Insulin LISPRO 300 UNITS/3 ML VIAL SUBQ SCH ×3 (04:15→12:00)
[2022-03-19] MEDS ORDERED: Acetaminophen 325 MG TABLET PO PRN (04:58)
[2022-03-19] MEDS ORDERED: Naloxone 0.4 MG/ML INJ IVP PRN (04:58)
[2022-03-19] MEDS ORDERED: *HR* OxyCODONE Immed Rel 5 MG TABLET PO PRN (05:03)
[2022-03-19] MEDS ORDERED: *HR* HYDROcodone/Acet 5/325 mg TABLET PO PRN (05:03)
[2022-03-19 05:43] LABS: Hematocrit 34.5 % (35.3-44.9); Mean Corpuscular HGB Conc 31.3 g/dL (31.6-35.5); Mean Corpuscular Hemoglobin 25.4 pg (28.0-33.3); Mean Corpuscular Volume 81.2 fL (83.0-100.0); Mean Platelet Volume 12.1 fL (9.4-12.4); Platelet Count 277 K/mcL (140-400); Red Blood Count 4.25 M/mcL (3.82-4.97); Red Cell Distribution Width 16.6 % (11.5-14.5); White Blood Count 16.7 K/mcL (4.3-11.1)
[2022-03-19 05:49] LABS: Hemoglobin 10.8 g/dL (11.5-15.4)
[2022-03-19 05:53] LABS: Calcium 8.3 mg/dL (8.6-10.3); Potassium 3.7 mEq/L (3.5-5.1)
[2022-03-19 06:08] LABS: Estimated Average Glucose 194 mg/dl; Hemoglobin A1C 8.4 %
[2022-03-19] MEDS: Piperacillin/Tazobactam 3.375 GM in 0.9 % Sodium Chloride Mini Bag 100 ML IVPB SCH ×2 (07:50→16:07)
[2022-03-19] MEDS ORDERED: Ondansetron 4 MG/2 ML VIAL IVP ONE (07:59)
[2022-03-19 08:43] LABS: Hematocrit 34.1 % (35.3-44.9); Hemoglobin 10.8 g/dL (11.5-15.4)
[2022-03-19] MEDS: *HR* Heparin 5,000 UNIT/ML VIAL SQ SCH ×3 (08:58→22:04)
[2022-03-19] MEDS ORDERED: [UNRECOGNIZED DRUG - MIXTURE] SUBQ PRN (09:57)
[2022-03-19] MEDS: [UNRECOGNIZED DRUG - MIXTURE] SUBQ SCH (19:53)
[2022-03-20] MEDS: Vancomycin 1,250 MG/262.5 ML IV.SOLN IVPB SCH (00:36)
[2022-03-20] MEDS: Piperacillin/Tazobactam 3.375 GM in 0.9 % Sodium Chloride Mini Bag 100 ML IVPB SCH ×4 (00:37→23:58)
[2022-03-20] MEDS: Ondansetron 4 MG/2 ML VIAL IVP PRN ×3 (00:46→17:33)
[2022-03-20] MEDS ORDERED: Famotidine 20 MG/2 ML VIAL IVP ONE (03:07)
[2022-03-20] MEDS ORDERED: Prochlorperazine 10 MG/2 ML VIAL IVP ONE (03:13)
[2022-03-20] MEDS ORDERED: *HR* Metoprolol 5 MG/5 ML VIAL IVP ONE (03:30)
[2022-03-20] MEDS: *HR* Heparin 5,000 UNIT/ML VIAL SQ SCH (05:20)
[2022-03-20 05:32] LABS: Hematocrit 33.7 % (35.3-44.9); Hemoglobin 10.4 g/dL (11.5-15.4); Mean Corpuscular HGB Conc 30.9 g/dL (31.6-35.5); Mean Corpuscular Hemoglobin 25.4 pg (28.0-33.3); Mean Corpuscular Volume 82.2 fL (83.0-100.0); Mean Platelet Volume 11.4 fL (9.4-12.4); Platelet Count 238 K/mcL (140-400); Red Cell Distribution Width 16.5 % (11.5-14.5); White Blood Count 13.9 K/mcL (4.3-11.1)
[2022-03-20 05:45] LABS: Calcium 8.2 mg/dL (8.6-10.3); Magnesium 2.1 mg/dL (1.6-2.6); Phosphorous 2.3 mg/dL (2.7-4.5); Potassium 3.9 mEq/L (3.5-5.1)
[2022-03-20] MEDS: [UNRECOGNIZED DRUG - MIXTURE] SUBQ SCH (09:24)
[2022-03-20] MEDS: methocarbamoL 750 MG TABLET PO SCH (22:01)
[2022-03-20] MEDS: Gabapentin 400 MG CAPSULE PO SCH (22:01)
[2022-03-20] MEDS: Furosemide 40 MG TABLET PO SCH (22:01)
[2022-03-21] MEDS: Ondansetron 4 MG/2 ML VIAL IVP PRN ×4 (00:43→23:22)
[2022-03-21 01:47] LABS: Calcium 8.6 mg/dL (8.6-10.3); Potassium 3.9 mEq/L (3.5-5.1)
[2022-03-21] MEDS ORDERED: Vancomycin 1,500 MG/265 ML IV.SOLN IVPB SCH (03:00)
[2022-03-21] MEDS ORDERED: Insulin LISPRO 300 UNITS/3 ML VIAL SUBQ SCH ×2 (03:45→07:30)
[2022-03-21] MEDS: Vancomycin 1,500 MG/265 ML IV.SOLN IVPB SCH (04:27)
[2022-03-21] MEDS: *HR* Enoxaparin 30 MG/0.3 ML SYRINGE SQ SCH (05:48)
[2022-03-21 05:50] LABS: Hematocrit 34.6 % (35.3-44.9); Hemoglobin 10.6 g/dL (11.5-15.4); Mean Corpuscular HGB Conc 30.6 g/dL (31.6-35.5); Mean Corpuscular Hemoglobin 25.1 pg (28.0-33.3); Mean Corpuscular Volume 81.8 fL (83.0-100.0); Mean Platelet Volume 11.4 fL (9.4-12.4); Platelet Count 285 K/mcL (140-400); Red Blood Count 4.23 M/mcL (3.82-4.97); Red Cell Distribution Width 16.6 % (11.5-14.5); White Blood Count 10.2 K/mcL (4.3-11.1)
[2022-03-21] MEDS ORDERED: NON-FORMULARY MEDICATION 1 EACH EACH (Omeprazole [Prilosec] 40 MG Capsule.Dr) PO SCH (09:00)
[2022-03-21] MEDS: Piperacillin/Tazobactam 3.375 GM in 0.9 % Sodium Chloride Mini Bag 100 ML IVPB SCH ×3 (11:23→23:17)
[2022-03-21] MEDS: [UNRECOGNIZED DRUG - MIXTURE] SUBQ SCH (11:27)
[2022-03-21] MEDS: Gabapentin 400 MG CAPSULE PO SCH ×2 (11:27→21:04)
[2022-03-21] MEDS: Furosemide 40 MG TABLET PO SCH ×2 (11:27→21:04)
[2022-03-21] MEDS: (Empagliflozin [Jardiance] 25 MG Tablet) PO SCH (11:27)
[2022-03-21] MEDS: methocarbamoL 750 MG TABLET PO SCH (21:04)
[2022-03-22] MEDS: *HR* Enoxaparin 30 MG/0.3 ML SYRINGE SQ SCH (04:35)
[2022-03-22] MEDS: Vancomycin 1,500 MG/265 ML IV.SOLN IVPB SCH (04:43)
[2022-03-22] MEDS: Piperacillin/Tazobactam 3.375 GM in 0.9 % Sodium Chloride Mini Bag 100 ML IVPB SCH ×3 (09:27→23:32)
[2022-03-22] MEDS: Gabapentin 400 MG CAPSULE PO SCH ×2 (09:27→20:00)
[2022-03-22] MEDS: Ondansetron 4 MG/2 ML VIAL IVP PRN (09:27)
[2022-03-22] MEDS: Furosemide 40 MG TABLET PO SCH ×2 (09:27→20:00)
[2022-03-22] MEDS: (Empagliflozin [Jardiance] 25 MG Tablet) PO SCH (09:28)
[2022-03-22] MEDS: [UNRECOGNIZED DRUG - MIXTURE] SUBQ SCH (09:28)
[2022-03-22] MEDS: methocarbamoL 750 MG TABLET PO SCH (20:00)
[2022-03-22] MEDS: polyethylene glycoL 3350 17 GM POWD.PACK PO SCH (20:05)
[2022-03-22] MEDS: Sennosides/Docusate Sodium TABLET PO SCH (20:07)
[2022-03-23 04:57] LABS: Potassium 3.8 mEq/L (3.5-5.1)
[2022-03-23] MEDS: Vancomycin 1,500 MG/265 ML IV.SOLN IVPB SCH (05:39)
[2022-03-23] MEDS: *HR* Enoxaparin 40 MG/0.4 ML SYRINGE SQ SCH (05:44)
[2022-03-23] MEDS: Piperacillin/Tazobactam 3.375 GM in 0.9 % Sodium Chloride Mini Bag 100 ML IVPB SCH ×3 (08:45→23:30)
[2022-03-23] MEDS: Furosemide 40 MG TABLET PO SCH ×2 (08:52→20:26)
[2022-03-23] MEDS: Sennosides/Docusate Sodium TABLET PO SCH ×2 (08:52→20:27)
[2022-03-23] MEDS: Gabapentin 400 MG CAPSULE PO SCH ×2 (08:52→20:26)
[2022-03-23] MEDS: polyethylene glycoL 3350 17 GM POWD.PACK PO SCH (08:53)
[2022-03-23] MEDS: Ondansetron 4 MG/2 ML VIAL IVP PRN (09:39)
[2022-03-23] MEDS ORDERED: *HR* FentaNYL (PF) 100 MCG/2 ML VIAL ONE (11:14)
[2022-03-23] MEDS ORDERED: Lidocaine -MPF 2% 5 ML VIAL ONE (11:14)
[2022-03-23] MEDS ORDERED: *HR* Midazolam HCl 2 MG/2 ML VIAL ONE (11:14)
[2022-03-23] MEDS ORDERED: Vancomycin 1,000 MG, Sodium Chloride IRRigation 1,000 ML IR ONE (12:00)
[2022-03-23] MEDS: [UNRECOGNIZED DRUG - MIXTURE] SUBQ SCH (13:09)
[2022-03-23 17:13] LABS: Hematocrit 35.5 % (35.3-44.9); Hemoglobin 11.1 g/dL (11.5-15.4)
[2022-03-23] MEDS: methocarbamoL 750 MG TABLET PO SCH (20:26)
[2022-03-23] MEDS ORDERED: ALPRAZolam 0.5 MG TABLET PO ONE (23:14)
[2022-03-24 04:00] LABS: Hemoglobin 10.8 g/dL (11.5-15.4); Mean Corpuscular HGB Conc 30.9 g/dL (31.6-35.5); Mean Corpuscular Hemoglobin 25.2 pg (28.0-33.3); Mean Corpuscular Volume 81.8 fL (83.0-100.0); Mean Platelet Volume 11.6 fL (9.4-12.4); Platelet Count 345 K/mcL (140-400); Red Blood Count 4.28 M/mcL (3.82-4.97); Red Cell Distribution Width 16.5 % (11.5-14.5); White Blood Count 9.3 K/mcL (4.3-11.1)
[2022-03-24 04:14] LABS: Calcium 9.1 mg/dL (8.6-10.3); Potassium 3.9 mEq/L (3.5-5.1)
[2022-03-24] MEDS: Vancomycin 1,500 MG/265 ML IV.SOLN IVPB SCH (04:32)
[2022-03-24] MEDS: *HR* Enoxaparin 40 MG/0.4 ML SYRINGE SQ SCH (05:18)
[2022-03-24] MEDS: Furosemide 40 MG TABLET PO SCH ×2 (08:43→20:56)
[2022-03-24] MEDS: Piperacillin/Tazobactam 3.375 GM in 0.9 % Sodium Chloride Mini Bag 100 ML IVPB SCH ×3 (08:43→23:23)
[2022-03-24] MEDS: Sennosides/Docusate Sodium TABLET PO SCH ×2 (08:43→20:56)
[2022-03-24] MEDS: polyethylene glycoL 3350 17 GM POWD.PACK PO SCH (08:43)
[2022-03-24] MEDS: Gabapentin 400 MG CAPSULE PO SCH ×2 (08:43→20:56)
[2022-03-24] MEDS: [UNRECOGNIZED DRUG - MIXTURE] SUBQ SCH (08:52)
[2022-03-24] MEDS: Vancomycin 1,250 MG/262.5 ML IV.SOLN IVPB SCH (19:50)
[2022-03-24] MEDS: methocarbamoL 750 MG TABLET PO SCH (20:56)
[2022-03-25 03:17] LABS: Hematocrit 32.4 % (35.3-44.9); Mean Corpuscular HGB Conc 30.9 g/dL (31.6-35.5); Mean Platelet Volume 11.3 fL (9.4-12.4); Platelet Count 333 K/mcL (140-400); Red Cell Distribution Width 16.1 % (11.5-14.5); White Blood Count 9.2 K/mcL (4.3-11.1)
[2022-03-25 03:33] LABS: Calcium 8.8 mg/dL (8.6-10.3); Potassium 3.9 mEq/L (3.5-5.1)
[2022-03-25] MEDS: *HR* Enoxaparin 40 MG/0.4 ML SYRINGE SQ SCH (04:42)
[2022-03-25] MEDS: Vancomycin 1,500 MG/265 ML IV.SOLN IVPB SCH (04:42)
[2022-03-25] MEDS: Sennosides/Docusate Sodium TABLET PO SCH ×2 (07:50→20:12)
[2022-03-25] MEDS: Gabapentin 400 MG CAPSULE PO SCH ×2 (07:50→20:12)
[2022-03-25] MEDS: Furosemide 40 MG TABLET PO SCH ×2 (07:50→20:12)
[2022-03-25] MEDS: Piperacillin/Tazobactam 3.375 GM in 0.9 % Sodium Chloride Mini Bag 100 ML IVPB SCH ×2 (07:50→15:59)
[2022-03-25] MEDS: polyethylene glycoL 3350 17 GM POWD.PACK PO SCH (07:51)
[2022-03-25] MEDS: [UNRECOGNIZED DRUG - MIXTURE] SUBQ SCH (07:51)
[2022-03-25] MEDS ORDERED: Melatonin 3 MG TABLET PO PRN (19:27)
[2022-03-25] MEDS: methocarbamoL 750 MG TABLET PO SCH (20:12)
[2022-03-26] MEDS: Piperacillin/Tazobactam 3.375 GM in 0.9 % Sodium Chloride Mini Bag 100 ML IVPB SCH ×2 (00:14→09:15)
[2022-03-26] MEDS: Vancomycin 1,500 MG/265 ML IV.SOLN IVPB SCH (04:32)
[2022-03-26] MEDS: *HR* Enoxaparin 40 MG/0.4 ML SYRINGE SQ SCH (06:11)
[2022-03-26] MEDS: Furosemide 40 MG TABLET PO SCH ×2 (09:16→21:47)
[2022-03-26] MEDS: Gabapentin 400 MG CAPSULE PO SCH ×2 (09:16→21:47)
[2022-03-26] MEDS: polyethylene glycoL 3350 17 GM POWD.PACK PO SCH (09:16)
[2022-03-26] MEDS: [UNRECOGNIZED DRUG - MIXTURE] SUBQ SCH (09:16)
[2022-03-26] MEDS: Sennosides/Docusate Sodium TABLET PO SCH ×2 (09:17→21:47)
[2022-03-26] MEDS: Ondansetron 4 MG/2 ML VIAL IVP PRN ×2 (11:45→15:26)
[2022-03-26] MEDS ORDERED: *HR* Propofol 200 MG/20 ML VIAL IVP ONE ×4 (13:53→16:58)
[2022-03-26] MEDS ORDERED: Lidocaine -MPF 2% 5 ML VIAL ONE (13:53)
[2022-03-26] MEDS ORDERED: *HR* FentaNYL (PF) 100 MCG/2 ML VIAL ONE (13:53)
[2022-03-26] MEDS ORDERED: *HR* Midazolam HCl 2 MG/2 ML VIAL ONE (13:53)
[2022-03-26] MEDS ORDERED: Ondansetron 4 MG/2 ML VIAL ONE (15:24)
[2022-03-26] MEDS ORDERED: 0.9 % Sodium Chloride 1,000 ML IVC SCH (15:30)
[2022-03-26] MEDS ORDERED: Melatonin 3 MG TABLET PO PRN (18:10)
[2022-03-26] MEDS ORDERED: Acetaminophen 325 MG TABLET PO PRN (18:10)
[2022-03-26] MEDS ORDERED: Ondansetron 4 MG/2 ML VIAL IVP PRN (18:10)
[2022-03-26] MEDS ORDERED: *HR* HYDROcodone/Acet 5/325 mg TABLET PO PRN (18:10)
[2022-03-26] MEDS ORDERED: Naloxone 0.4 MG/ML INJ IVP PRN (18:10)
[2022-03-26] MEDS ORDERED: D5% in Water 1,000 ML IVC PRN (18:10)
[2022-03-26] MEDS ORDERED: *HR* Dextrose 50 % in Water (Syg) 50 ML SYRINGE IVP PRN (18:10)
[2022-03-26] MEDS ORDERED: Dextrose Gel 15 GM/37.5 ML TUBE PO PRN ×2 (18:10)
[2022-03-26] MEDS: 0.9 % Sodium Chloride 1,000 ML IVC SCH (21:48)
[2022-03-26] MEDS: methocarbamoL 750 MG TABLET PO SCH (22:03)
[2022-03-27] MEDS ORDERED: Vancomycin 1,500 MG/265 ML IV.SOLN IVPB SCH (04:00)
[2022-03-27] MEDS: *HR* Enoxaparin 40 MG/0.4 ML SYRINGE SQ SCH (06:40)
[2022-03-27] MEDS: Gabapentin 400 MG CAPSULE PO SCH ×2 (08:29→20:16)
[2022-03-27] MEDS: Furosemide 40 MG TABLET PO SCH ×2 (08:30→20:14)
[2022-03-27] MEDS: Sennosides/Docusate Sodium TABLET PO SCH ×2 (08:31→20:15)
[2022-03-27] MEDS: polyethylene glycoL 3350 17 GM POWD.PACK PO SCH (08:31)
[2022-03-27] MEDS: [UNRECOGNIZED DRUG - MIXTURE] SUBQ SCH (11:19)
[2022-03-27] MEDS: methocarbamoL 750 MG TABLET PO SCH (20:16)
[2022-03-28 03:30] LABS: Hemoglobin 10.1 g/dL (11.5-15.4); Mean Corpuscular HGB Conc 30.6 g/dL (31.6-35.5); Mean Corpuscular Hemoglobin 25.1 pg (28.0-33.3); Mean Corpuscular Volume 82.1 fL (83.0-100.0); Mean Platelet Volume 10.9 fL (9.4-12.4); Platelet Count 335 K/mcL (140-400); Red Blood Count 4.02 M/mcL (3.82-4.97); Red Cell Distribution Width 16.3 % (11.5-14.5)
[2022-03-28 03:42] LABS: BUN/Creatinine Ratio 22 (6-26); Blood Urea Nitrogen 26 mg/dL (6-20); Calcium 8.7 mg/dL (8.6-10.3); Carbon Dioxide 27 mEq/L (23-29); Chloride 104 mEq/L (98-107); Glucose 285 mg/dL (70-105); Osmolality,Calculated 299 (280-300); Potassium 3.8 mEq/L (3.5-5.1); Sodium 137 mEq/L (136-145); eGFR For African Americans > 60 (> 60); eGFR For Non-African Americans 50 (> 60)
[2022-03-28] MEDS: *HR* Enoxaparin 40 MG/0.4 ML SYRINGE SQ SCH (06:04)
[2022-03-28] MEDS: 0.9 % Sodium Chloride 1,000 ML IVC SCH ×3 (08:31→23:33)
[2022-03-28] MEDS: Gabapentin 400 MG CAPSULE PO SCH ×2 (08:33→20:29)
[2022-03-28] MEDS: Furosemide 40 MG TABLET PO SCH ×2 (08:33→20:29)
[2022-03-28] MEDS: [UNRECOGNIZED DRUG - MIXTURE] SUBQ SCH (10:30)
[2022-03-28] MEDS: Sennosides/Docusate Sodium TABLET PO SCH ×2 (10:30→20:28)
[2022-03-28] MEDS: polyethylene glycoL 3350 17 GM POWD.PACK PO SCH (10:30)
[2022-03-28] MEDS: methocarbamoL 750 MG TABLET PO SCH (20:29)
[2022-03-29] MEDS: *HR* Enoxaparin 40 MG/0.4 ML SYRINGE SQ SCH (04:32)
[2022-03-29] MEDS ORDERED: D5% in Water 1,000 ML IVC PRN (04:51)
[2022-03-29] MEDS ORDERED: *HR* Dextrose 50 % in Water (Syg) 50 ML SYRINGE IVP PRN (04:51)
[2022-03-29] MEDS ORDERED: Dextrose Gel 15 GM/37.5 ML TUBE PO PRN ×2 (04:51)
[2022-03-29 06:59] VITALS: BP 121/85; PULSE 77; TEMP 98; O2SAT 99
[2022-03-29] MEDS: Insulin LISPRO 300 UNITS/3 ML VIAL SUBQ SCH ×2 (08:45→12:15)
[2022-03-29] MEDS: Gabapentin 400 MG CAPSULE PO SCH (08:46)
[2022-03-29] MEDS: polyethylene glycoL 3350 17 GM POWD.PACK PO SCH (08:46)
[2022-03-29] MEDS: Furosemide 40 MG TABLET PO SCH (08:46)
[2022-03-29] MEDS: [UNRECOGNIZED DRUG - MIXTURE] SUBQ SCH (08:47)
[2022-03-29] MEDS: Sennosides/Docusate Sodium TABLET PO SCH (08:47)
== END 2022-03-29 14:03 | disposition home health service (06) | DRG 710 ==
LOC: 3ANU 22:51 → EMEROOARM 22:51 → SUATTDRO 03-19 01:22 → 3ANU 03-19 02:13
PROVIDERS: ADMIT Internal Medicine; ATTEND Internal Medicine

== ENCOUNTER 2022-05-20 16:37 | Inpatient (IN) ==
[2022-05-20 18:12] LABS: Basophils # 0.1 K/mcL (0.0-0.2); Basophils % 0.6 %; Eosinophils # 0.2 K/mcL (0.0-0.6); Eosinophils % 1.7 %; Hematocrit 36.2 % (35.3-44.9); Hemoglobin 11.2 g/dL (11.5-15.4); Immature Granulocytes % 0.3 % (0-4); Lymphocytes # 0.5 K/mcL (0.6-4.6); Lymphocytes % 4.6 %; Mean Corpuscular HGB Conc 30.9 g/dL (31.6-35.5); Mean Corpuscular Hemoglobin 23.5 pg (28.0-33.3); Mean Corpuscular Volume 76.1 fL (83.0-100.0); Mean Platelet Volume 11.7 fL (9.4-12.4); Monocytes # 0.8 K/mcL (0.0-1.3); Monocytes % 7.8 %; Platelet Count 292 K/mcL (140-400); Red Blood Count 4.76 M/mcL (3.82-4.97); Red Cell Distribution Width 16.2 % (11.5-14.5); White Blood Count 10.6 K/mcL (4.3-11.1)
[2022-05-20 18:32] LABS: Alanine Aminotransferase 8 Units/L (7-52); Albumin 4.3 g/dL (3.5-5.7); Albumin/Globulin Ratio 1.1 (1.1-2.2); Alkaline Phosphatase 91 Units/L (34-104); Aspartate Amino Transferase 8 Units/L (13-39); BUN/Creatinine Ratio 18 (6-26); Blood Urea Nitrogen 38 mg/dL (6-20); Calcium 9.7 mg/dL (8.6-10.3); Carbon Dioxide 22 mEq/L (23-29); Chloride 93 mEq/L (98-107); Globulin 3.9 g/dL (2.4-3.5); Glucose 386 mg/dL (70-105); Osmolality,Calculated 291 (280-300); Potassium 4.2 mEq/L (3.5-5.1); Sodium 128 mEq/L (136-145); Total Protein 8.2 g/dL (6.4-8.9)
[2022-05-20 18:33] LABS: INR 1.1; Prothrombin Time 12.8 Seconds (9.4-12.1); Troponin I < 0.03 ng/mL (< 0.04)
[2022-05-20 19:06] LABS: Bacteria,Urine Few per hpf (None-Few); Bilirubin,Urine Negative (Negative); Blood,Urine Small (Negative); Clarity,Urine Clear (Clear); Color,Urine Light-Yellow (Yellow); Glucose,Urine (UA) >=1000 mg/dL (Normal); Ketones,Urine Negative (Negative); Leukocyte Esterase,Urine Moderate (Negative); Nitrite,Urine Negative (Negative); Protein,Urine Trace mg/dL (Neg-Trace); RBC,Urine 0-3 per hpf (0-3); Specific Gravity,Urine 1.022 (1.010-1.025); Squamous Epithelial Cell,Urine Moderate per hpf (None-Few); Urobilinogen,Urine Normal (Normal)
[2022-05-20] MEDS ORDERED: 0.9 % Sodium Chloride 1,000 ML IVC ONE ×2 (20:53→21:09)
[2022-05-20] MEDS ORDERED: cefTRIAXone 1,000 MG in Water for inj. (sterile) 10 ML IVP ONE (21:02)
[2022-05-20] MEDS ORDERED: Acetaminophen IV 1,000 MG/100 ML BAG IVPB ONE (21:09)
[2022-05-21] MEDS ORDERED: 0.9 % Sodium Chloride 1,000 ML ONE (03:34)
[2022-05-21] MEDS ORDERED: Acetaminophen 325 MG TABLET PO ONE (05:15)
[2022-05-21] MEDS ORDERED: Naloxone 0.4 MG/ML INJ IVP PRN (05:21)
[2022-05-21 05:46] LABS: Calcium 9.1 mg/dL (8.6-10.3); Potassium 3.6 mEq/L (3.5-5.1)
[2022-05-21] MEDS ORDERED: D5% in Water 1,000 ML IVC PRN (06:10)
[2022-05-21] MEDS ORDERED: Dextrose Gel 15 GM/37.5 ML TUBE PO PRN ×2 (06:10)
[2022-05-21] MEDS ORDERED: *HR* Dextrose 50 % in Water (Syg) 50 ML SYRINGE IVP PRN (06:10)
[2022-05-21] MEDS: Insulin LISPRO 300 UNITS/3 ML VIAL SUBQ SCH ×5 (06:19→20:19)
[2022-05-21] MEDS ORDERED: cefTRIAXone 1,000 MG in 0.9 % Sodium Chloride Mini Bag 100 ML IVPB SCH (09:00)
[2022-05-21 10:01] LABS: Calcium 9.1 mg/dL (8.6-10.3); Potassium 4.2 mEq/L (3.5-5.1)
[2022-05-21 11:44] LABS: Estimated Average Glucose 183 mg/dl
[2022-05-21] MEDS: Acetaminophen 325 MG TABLET PO PRN ×2 (12:23→21:22)
[2022-05-21 13:15] LABS: Calcium 8.9 mg/dL (8.6-10.3); Potassium 4.1 mEq/L (3.5-5.1)
[2022-05-21] MEDS ORDERED: methocarbamoL 750 MG TABLET PO PRN (14:57)
[2022-05-21 16:35] LABS: Calcium 9.1 mg/dL (8.6-10.3); Potassium 3.7 mEq/L (3.5-5.1)
[2022-05-21] MEDS: Gabapentin 400 MG CAPSULE PO SCH (20:18)
[2022-05-21] MEDS: *HR* HYDROcodone/Acet 5/325 mg TABLET PO PRN (20:45)
[2022-05-21 21:18] LABS: Calcium 9.4 mg/dL (8.6-10.3)
[2022-05-21 23:00] LABS: Adenovirus Not Detected (Not Detect); Bordetella Pertussis Not Detected (Not Detect); Chlamydophila pneumoniae Not Detected (Not Detect); Coronavirus 229E Not Detected (Not Detect); Coronavirus HKU1 Not Detected (Not Detect); Coronavirus NL63 Not Detected (Not Detect); Coronavirus OC43 Not Detected (Not Detect); Human Metapneumovirus Not Detected (Not Detect); Human Rhinovirus/Enterovirus DETECTED (Not Detect); Influenza A Subtype 2009 H1 Not Detected (Not Detect); Influenza B Not Detected (Not Detect); Mycoplasma pneumoniae Not Detected (Not Detect); Parainfluenza Virus 1 Not Detected (Not Detect); Parainfluenza Virus 2 Not Detected (Not Detect); Parainfluenza Virus 3 Not Detected (Not Detect); Parainfluenza Virus 4 Not Detected (Not Detect); Respiratory Syncytial Virus Not Detected (Not Detect); SARS-CoV-2 Not Detected (Not Detect)
[2022-05-22 03:45] LABS: Basophils # 0.1 K/mcL (0.0-0.2); Basophils % 0.8 %; Eosinophils # 0.3 K/mcL (0.0-0.6); Hematocrit 33.2 % (35.3-44.9); Immature Granulocytes % 0.7 % (0-4); Lymphocytes # 1.3 K/mcL (0.6-4.6); Mean Corpuscular HGB Conc 30.1 g/dL (31.6-35.5); Mean Corpuscular Hemoglobin 22.8 pg (28.0-33.3); Mean Corpuscular Volume 75.8 fL (83.0-100.0); Mean Platelet Volume 11.7 fL (9.4-12.4); Monocytes # 0.8 K/mcL (0.0-1.3); Monocytes % 12.9 %; Neutrophils # 3.6 K/mcL (1.6-8.9); Platelet Count 281 K/mcL (140-400); Red Blood Count 4.38 M/mcL (3.82-4.97); Segmented Neutrophils % 59.6 %
[2022-05-22 04:03] LABS: Calcium 9.2 mg/dL (8.6-10.3); Potassium 3.6 mEq/L (3.5-5.1)
[2022-05-22] MEDS: *HR* HYDROcodone/Acet 5/325 mg TABLET PO PRN ×2 (05:28→12:33)
[2022-05-22] MEDS: Aspirin Enteric Coated 81 MG Tablet PO SCH (07:45)
[2022-05-22] MEDS: Gabapentin 400 MG CAPSULE PO SCH ×2 (07:45→19:55)
[2022-05-22] MEDS: Insulin LISPRO 300 UNITS/3 ML VIAL SUBQ SCH ×4 (07:46→19:55)
[2022-05-22] MEDS ORDERED: Cefdinir 300 MG CAPSULE PO SCH (09:00)
[2022-05-22] MEDS ORDERED: Sulfamethoxazole/Trimeth DS 1 EACH TABLET PO SCH (11:45)
[2022-05-22] MEDS: Clindamycin 300 MG/50 ML 300 MG/50 ML IV.SOLN IVPB SCH (14:52)
[2022-05-22] MEDS: Vancomycin 2,000 MG/520 ML IV.SOLN IVPB SCH (16:45)
[2022-05-22] MEDS: Piperacillin/Tazobactam 3.375 GM in 0.9 % Sodium Chloride Mini Bag 100 ML IVPB SCH (16:45)
[2022-05-23] MEDS: Piperacillin/Tazobactam 3.375 GM in 0.9 % Sodium Chloride Mini Bag 100 ML IVPB SCH ×4 (00:13→23:41)
[2022-05-23] MEDS: *HR* HYDROcodone/Acet 5/325 mg TABLET PO PRN ×3 (00:13→23:41)
[2022-05-23] MEDS: Clindamycin 300 MG/50 ML 300 MG/50 ML IV.SOLN IVPB SCH ×4 (00:14→21:30)
[2022-05-23 04:45] LABS: Thyroid Stimulating Hormone 0.806 mcIU/mL (0.340-5.600)
[2022-05-23] MEDS: Insulin LISPRO 300 UNITS/3 ML VIAL SUBQ SCH ×4 (07:23→21:30)
[2022-05-23] MEDS: Gabapentin 400 MG CAPSULE PO SCH ×2 (07:30→21:31)
[2022-05-23] MEDS: Aspirin Enteric Coated 81 MG Tablet PO SCH (07:31)
[2022-05-23] MEDS: Ondansetron 4 MG/2 ML VIAL IVP PRN (07:31)
[2022-05-23] MEDS ORDERED: Lidocaine -MPF 2% 2 ML VIAL ONE (12:47)
[2022-05-23] MEDS ORDERED: Lidocaine -MPF 1% 5 ML AMPUL ONE (13:21)
[2022-05-23] MEDS ORDERED: *HR* FentaNYL (PF) 100 MCG/2 ML VIAL ONE (13:33)
[2022-05-23] MEDS ORDERED: Vancomycin 1,000 MG, 0.9 % Sodium Chloride 1,000 ML IR ONE (14:00)
[2022-05-23] MEDS: Vancomycin 2,000 MG/520 ML IV.SOLN IVPB SCH (15:59)
[2022-05-24 02:03] LABS: Magnesium 1.7 mg/dL (1.6-2.6); Phosphorous 3.4 mg/dL (2.7-4.5); Potassium 3.7 mEq/L (3.5-5.1)
[2022-05-24] MEDS: Clindamycin 300 MG/50 ML 300 MG/50 ML IV.SOLN IVPB SCH (05:27)
[2022-05-24] MEDS: Ondansetron 4 MG/2 ML VIAL IVP PRN ×2 (06:23→14:25)
[2022-05-24] MEDS: Insulin LISPRO 300 UNITS/3 ML VIAL SUBQ SCH ×4 (09:34→20:38)
[2022-05-24] MEDS: Gabapentin 400 MG CAPSULE PO SCH ×2 (09:34→20:35)
[2022-05-24] MEDS: lisinopriL 20 MG TABLET PO SCH (09:34)
[2022-05-24] MEDS: Aspirin Enteric Coated 81 MG Tablet PO SCH (09:34)
[2022-05-24] MEDS: Piperacillin/Tazobactam 3.375 GM in 0.9 % Sodium Chloride Mini Bag 100 ML IVPB SCH ×3 (09:35→23:45)
[2022-05-24] MEDS: Vancomycin 2,000 MG/520 ML IV.SOLN IVPB SCH (17:45)
[2022-05-25 03:59] LABS: Calcium 8.7 mg/dL (8.6-10.3); Magnesium 1.8 mg/dL (1.6-2.6); Phosphorous 3.4 mg/dL (2.7-4.5); Potassium 3.8 mEq/L (3.5-5.1)
[2022-05-25] MEDS: lisinopriL 20 MG TABLET PO SCH (07:55)
[2022-05-25] MEDS: Gabapentin 400 MG CAPSULE PO SCH ×2 (07:56→20:06)
[2022-05-25] MEDS: Piperacillin/Tazobactam 3.375 GM in 0.9 % Sodium Chloride Mini Bag 100 ML IVPB SCH ×2 (07:56→18:02)
[2022-05-25] MEDS: Aspirin Enteric Coated 81 MG Tablet PO SCH (07:56)
[2022-05-25] MEDS: Insulin LISPRO 300 UNITS/3 ML VIAL SUBQ SCH ×4 (08:05→19:48)
[2022-05-25] MEDS: Vancomycin 2,000 MG/520 ML IV.SOLN IVPB SCH (18:02)
[2022-05-25 19:14] LABS: Metanephrine, Plasma <0.10 nmol/L (0.00-0.49)
[2022-05-25] MEDS: Insulin DETEMIR 100 UNIT/ML X5UNITS SUBQ SCH (20:06)
[2022-05-26] MEDS: Piperacillin/Tazobactam 3.375 GM in 0.9 % Sodium Chloride Mini Bag 100 ML IVPB SCH ×3 (00:43→16:20)
[2022-05-26 05:02] LABS: Basophils # 0.1 K/mcL (0.0-0.2); Basophils % 0.9 %; Eosinophils # 0.4 K/mcL (0.0-0.6); Eosinophils % 6.1 %; Hematocrit 30.5 % (35.3-44.9); Hemoglobin 9.2 g/dL (11.5-15.4); Immature Granulocytes % 2.3 % (0-4); Lymphocytes # 1.6 K/mcL (0.6-4.6); Lymphocytes % 25.5 %; Mean Corpuscular HGB Conc 30.2 g/dL (31.6-35.5); Mean Corpuscular Hemoglobin 23.4 pg (28.0-33.3); Mean Corpuscular Volume 77.6 fL (83.0-100.0); Monocytes # 0.4 K/mcL (0.0-1.3); Monocytes % 6.3 %; Neutrophils # 3.8 K/mcL (1.6-8.9); Platelet Count 327 K/mcL (140-400); Red Blood Count 3.93 M/mcL (3.82-4.97); Red Cell Distribution Width 16.5 % (11.5-14.5); Segmented Neutrophils % 58.9 %; White Blood Count 6.4 K/mcL (4.3-11.1)
[2022-05-26 05:20] LABS: Calcium 7.9 mg/dL (8.6-10.3); Magnesium 1.6 mg/dL (1.6-2.6); Potassium 3.5 mEq/L (3.5-5.1)
[2022-05-26] MEDS: Aspirin Enteric Coated 81 MG Tablet PO SCH (08:25)
[2022-05-26] MEDS: Gabapentin 400 MG CAPSULE PO SCH ×2 (08:25→20:31)
[2022-05-26] MEDS: lisinopriL 20 MG TABLET PO SCH (08:25)
[2022-05-26] MEDS: Insulin LISPRO 300 UNITS/3 ML VIAL SUBQ SCH ×4 (08:27→22:02)
[2022-05-26] MEDS: Insulin DETEMIR 100 UNIT/ML X5UNITS SUBQ SCH ×2 (09:09→22:02)
[2022-05-26] MEDS: Vancomycin 2,000 MG/520 ML IV.SOLN IVPB SCH (16:21)
[2022-05-26] MEDS: amLODIPine 5 MG TABLET PO SCH (17:52)
[2022-05-27] MEDS: Piperacillin/Tazobactam 3.375 GM in 0.9 % Sodium Chloride Mini Bag 100 ML IVPB SCH ×2 (00:07→09:14)
[2022-05-27 05:03] LABS: Hematocrit 31.7 % (35.3-44.9); Hemoglobin 9.4 g/dL (11.5-15.4); Mean Corpuscular HGB Conc 29.7 g/dL (31.6-35.5); Mean Corpuscular Hemoglobin 22.9 pg (28.0-33.3); Mean Corpuscular Volume 77.1 fL (83.0-100.0); Mean Platelet Volume 10.6 fL (9.4-12.4); Platelet Count 362 K/mcL (140-400); Red Blood Count 4.11 M/mcL (3.82-4.97); Red Cell Distribution Width 16.6 % (11.5-14.5); White Blood Count 7.8 K/mcL (4.3-11.1)
[2022-05-27 05:08] LABS: INR 1.1; Prothrombin Time 12.2 Seconds (9.4-12.1)
[2022-05-27 05:20] LABS: Calcium 8.9 mg/dL (8.6-10.3); Magnesium 1.8 mg/dL (1.6-2.6); Potassium 3.8 mEq/L (3.5-5.1)
[2022-05-27] MEDS: Aspirin Enteric Coated 81 MG Tablet PO SCH (09:13)
[2022-05-27] MEDS: Gabapentin 400 MG CAPSULE PO SCH ×2 (09:14→20:22)
[2022-05-27] MEDS: Insulin DETEMIR 100 UNIT/ML X5UNITS SUBQ SCH ×2 (09:20→20:29)
[2022-05-27] MEDS: Insulin LISPRO 300 UNITS/3 ML VIAL SUBQ SCH ×4 (10:29→20:22)
[2022-05-27] MEDS: amLODIPine 5 MG TABLET PO SCH (10:36)
[2022-05-27] MEDS: lisinopriL 20 MG TABLET PO SCH (10:36)
[2022-05-27] MEDS: *HR* HYDROcodone/Acet 5/325 mg TABLET PO PRN (12:17)
[2022-05-27] MEDS: Ondansetron 4 MG/2 ML VIAL IVP PRN (12:17)
[2022-05-27] MEDS ORDERED: Insulin Human Regular 10 UNIT in 0.9 % Sodium Chloride 10 ML IV ONE (14:01)
[2022-05-27] MEDS ORDERED: Lidocaine -MPF 1% 5 ML AMPUL ONE (14:07)
[2022-05-27] MEDS ORDERED: *HR* Propofol 200 MG/20 ML VIAL IVP ONE (14:18)
[2022-05-27] MEDS ORDERED: *HR* FentaNYL (PF) 100 MCG/2 ML VIAL ONE (14:18)
[2022-05-27] MEDS ORDERED: *HR* Midazolam HCl 2 MG/2 ML VIAL ONE (14:18)
[2022-05-27] MEDS ORDERED: Ondansetron 4 MG/2 ML VIAL ONE (14:22)
[2022-05-27] MEDS ORDERED: Lidocaine -MPF 2% 2 ML VIAL ONE (14:22)
[2022-05-27] MEDS ORDERED: Lidocaine HCL 4 ML Topical Solution (Laryng-O-Jet Kit Sterile Pak) TP ONE (14:25)
[2022-05-27] MEDS ORDERED: *HR* Succinylcholine 200 MG/10 ML VIAL IVP ONE (14:44)
[2022-05-27] MEDS ORDERED: Vancomycin 1,000 MG, Sodium Chloride IRRigation 1,000 ML IR ONE (14:50)
[2022-05-27] MEDS ORDERED: Albuterol 2.5 MG/3 ML NEBULIZER IH PRN (16:22)
[2022-05-27] MEDS: Lactobacillus 1 EACH CAP.SPRINK PO SCH (20:22)
[2022-05-27] MEDS: Vancomycin 2,000 MG/520 ML IV.SOLN IVPB SCH (21:55)
[2022-05-28 03:49] LABS: Hematocrit 31.6 % (35.3-44.9); Hemoglobin 9.4 g/dL (11.5-15.4); Mean Corpuscular HGB Conc 29.7 g/dL (31.6-35.5); Mean Corpuscular Hemoglobin 22.7 pg (28.0-33.3); Mean Corpuscular Volume 76.3 fL (83.0-100.0); Mean Platelet Volume 10.8 fL (9.4-12.4); Platelet Count 413 K/mcL (140-400); Red Blood Count 4.14 M/mcL (3.82-4.97); Red Cell Distribution Width 16.8 % (11.5-14.5); White Blood Count 10.1 K/mcL (4.3-11.1)
[2022-05-28 03:50] LABS: Potassium 4.3 mEq/L (3.5-5.1)
[2022-05-28] MEDS: Insulin LISPRO 300 UNITS/3 ML VIAL SUBQ SCH ×4 (08:36→21:15)
[2022-05-28] MEDS: Aspirin Enteric Coated 81 MG Tablet PO SCH (08:37)
[2022-05-28] MEDS: Lactobacillus 1 EACH CAP.SPRINK PO SCH ×2 (08:37→21:11)
[2022-05-28] MEDS: amLODIPine 5 MG TABLET PO SCH (08:38)
[2022-05-28] MEDS: lisinopriL 20 MG TABLET PO SCH (08:38)
[2022-05-28] MEDS: Gabapentin 400 MG CAPSULE PO SCH ×2 (08:38→21:11)
[2022-05-28] MEDS: Insulin DETEMIR 100 UNIT/ML X5UNITS SUBQ SCH ×2 (08:49→21:11)
[2022-05-28] MEDS ORDERED: Ipratropium/Albuterol Neb 3 ML IH PRN (09:34)
[2022-05-28] MEDS: Vancomycin 2,000 MG/520 ML IV.SOLN IVPB SCH (18:51)
[2022-05-28] MEDS: Benzonatate 100 MG CAPSULE PO PRN (21:11)
[2022-05-29] MEDS: Lactobacillus 1 EACH CAP.SPRINK PO SCH ×2 (07:56→19:31)
[2022-05-29] MEDS: Aspirin Enteric Coated 81 MG Tablet PO SCH (07:56)
[2022-05-29] MEDS: amLODIPine 5 MG TABLET PO SCH (07:56)
[2022-05-29] MEDS: Gabapentin 400 MG CAPSULE PO SCH ×2 (07:56→19:31)
[2022-05-29] MEDS: lisinopriL 20 MG TABLET PO SCH (07:57)
[2022-05-29 08:02] LABS: Hemoglobin 9.5 g/dL (11.5-15.4); Mean Corpuscular HGB Conc 29.7 g/dL (31.6-35.5); Mean Corpuscular Hemoglobin 22.7 pg (28.0-33.3); Mean Corpuscular Volume 76.6 fL (83.0-100.0); Mean Platelet Volume 10.1 fL (9.4-12.4); Platelet Count 367 K/mcL (140-400); Red Blood Count 4.18 M/mcL (3.82-4.97); Red Cell Distribution Width 16.8 % (11.5-14.5); White Blood Count 7.5 K/mcL (4.3-11.1)
[2022-05-29] MEDS: Insulin LISPRO 300 UNITS/3 ML VIAL SUBQ SCH ×4 (08:05→22:39)
[2022-05-29] MEDS: Ondansetron 4 MG/2 ML VIAL IVP PRN (08:05)
[2022-05-29 08:22] LABS: Potassium 3.8 mEq/L (3.5-5.1)
[2022-05-29] MEDS: Insulin DETEMIR 100 UNIT/ML X5UNITS SUBQ SCH ×2 (10:00→22:39)
[2022-05-29] MEDS: Benzonatate 100 MG CAPSULE PO PRN (12:46)
[2022-05-29] MEDS: Vancomycin 2,000 MG/520 ML IV.SOLN IVPB SCH (19:15)
[2022-05-30] MEDS: Insulin LISPRO 300 UNITS/3 ML VIAL SUBQ SCH ×4 (08:56→21:57)
[2022-05-30] MEDS: Aspirin Enteric Coated 81 MG Tablet PO SCH (08:57)
[2022-05-30] MEDS: Lactobacillus 1 EACH CAP.SPRINK PO SCH ×2 (08:58→19:35)
[2022-05-30] MEDS: Insulin DETEMIR 100 UNIT/ML X5UNITS SUBQ SCH ×2 (08:59→21:57)
[2022-05-30] MEDS: Gabapentin 400 MG CAPSULE PO SCH ×2 (08:59→19:35)
[2022-05-30] MEDS: amLODIPine 5 MG TABLET PO SCH (08:59)
[2022-05-30] MEDS: lisinopriL 20 MG TABLET PO SCH (08:59)
[2022-05-30] MEDS: Ondansetron 4 MG/2 ML VIAL IVP PRN (11:46)
[2022-05-30] MEDS: Vancomycin 2,000 MG/520 ML IV.SOLN IVPB SCH (18:28)
[2022-05-31] MEDS: Ondansetron 4 MG/2 ML VIAL IVP PRN (05:53)
[2022-05-31 06:00] LABS: Basophils % 0.5 %; Eosinophils # 0.4 K/mcL (0.0-0.6); Eosinophils % 4.3 %; Hematocrit 31.3 % (35.3-44.9); Hemoglobin 9.5 g/dL (11.5-15.4); Immature Granulocytes % 1.7 % (0-4); Lymphocytes # 1.7 K/mcL (0.6-4.6); Mean Corpuscular HGB Conc 30.4 g/dL (31.6-35.5); Mean Corpuscular Volume 75.8 fL (83.0-100.0); Mean Platelet Volume 10.4 fL (9.4-12.4); Monocytes # 0.6 K/mcL (0.0-1.3); Monocytes % 6.6 %; Neutrophils # 5.8 K/mcL (1.6-8.9); Platelet Count 400 K/mcL (140-400); Red Blood Count 4.13 M/mcL (3.82-4.97); Red Cell Distribution Width 17.2 % (11.5-14.5); Segmented Neutrophils % 66.9 %; White Blood Count 8.7 K/mcL (4.3-11.1)
[2022-05-31 06:42] LABS: BUN/Creatinine Ratio 27 (6-26); Blood Urea Nitrogen 28 mg/dL (6-20); Calcium 8.7 mg/dL (8.6-10.3); Carbon Dioxide 21 mEq/L (23-29); Chloride 107 mEq/L (98-107); Glucose 325 mg/dL (70-105); Osmolality,Calculated 298 (280-300); Sodium 135 mEq/L (136-145)
[2022-05-31] MEDS: Gabapentin 400 MG CAPSULE PO SCH ×2 (09:35→19:54)
[2022-05-31] MEDS: Lactobacillus 1 EACH CAP.SPRINK PO SCH ×2 (09:36→19:54)
[2022-05-31] MEDS: Aspirin Enteric Coated 81 MG Tablet PO SCH (09:36)
[2022-05-31] MEDS: amLODIPine 5 MG TABLET PO SCH (09:36)
[2022-05-31] MEDS: lisinopriL 20 MG TABLET PO SCH (09:36)
[2022-05-31] MEDS: Insulin DETEMIR 100 UNIT/ML X5UNITS SUBQ SCH ×2 (09:37→20:02)
[2022-05-31] MEDS ORDERED: Lidocaine -MPF 1% 5 ML AMPUL INFILT ONE (09:45)
[2022-05-31] MEDS: Insulin LISPRO 300 UNITS/3 ML VIAL SUBQ SCH ×4 (09:45→20:02)
[2022-05-31 17:20] LABS: C-Reactive Protein < 5 mg/L (Less than 10)
[2022-05-31] MEDS: Vancomycin 2,000 MG/520 ML IV.SOLN IVPB SCH (19:54)
[2022-06-01] MEDS: lisinopriL 20 MG TABLET PO SCH (08:20)
[2022-06-01] MEDS: Gabapentin 400 MG CAPSULE PO SCH (08:20)
[2022-06-01] MEDS: Lactobacillus 1 EACH CAP.SPRINK PO SCH (08:21)
[2022-06-01] MEDS: amLODIPine 5 MG TABLET PO SCH (08:21)
[2022-06-01] MEDS: Insulin DETEMIR 100 UNIT/ML X5UNITS SUBQ SCH (08:21)
[2022-06-01] MEDS: Aspirin Enteric Coated 81 MG Tablet PO SCH (08:21)
[2022-06-01] MEDS: Insulin LISPRO 300 UNITS/3 ML VIAL SUBQ SCH ×2 (08:31→12:13)
[2022-06-01 11:51] VITALS: BP 128/80; PULSE 84; TEMP 98; O2SAT 98
== END 2022-06-01 12:50 | disposition home health service (06) | DRG 314 ==
LOC: EMEROOARM 16:37 → 2NNU 16:37 → SUATTDRO 05-21 06:09 → 4WAOSI 05-26 17:21
PROVIDERS: ADMIT Pharmacist; ATTEND Internal Medicine